=== PATIENT | male | born 1960 | race Caucasian/White ===

== ENCOUNTER 2017-01-30 15:33 | Emergency (ER) | payer MEDICAID, MEDICARE ==
[~2017-01-30] VITALS: Wt 84.0 kg
[~2017-01-30 15:33] MED LIST: ASPI81TA3 PO; CLOP75TA27 PO; GLIP-95 PO; HYDR-3672 PO; ISOS20TA3 PO; METO-53 PO; SMV40T PO; [UNRECOGNIZED DRUG - REMARK]
[2017-01-30] MEDS ORDERED: SOD CHLORIDE 0.9% 1,000 ML IV STA (15:55)
[2017-01-30 16:12] LABS: ADD SCAN DIFF NO
[2017-01-30 16:15] LABS: BASOPHIL # 0.1 10^3/ul (0.0-0.1); BASOPHILS % 0.3 % (0.0-2.0); EOSINOPHILS # 0.2 10^3/ul (0.0-0.5); EOSINOPHILS % 1.3 % (0.0-7.0); HEMATOCRIT 48.7 % (42.0-52.0); HEMOGLOBIN 16.6 g/dl (14.0-18.0); LYMPHOCYTES # 2.8 10^3/ul (0.8-2.9); LYMPHOCYTES % 18.8 % (15.0-51.0); MEAN CORPUSCULAR HEMOGLOBIN 29.2 pg (29.0-33.0); MEAN CORPUSCULAR HGB CONC 34.1 g/dl (32.0-37.0); MEAN CORPUSCULAR VOLUME 85.7 fl (82.0-101.0); MEAN PLATELET VOLUME 10.5 fl (7.4-10.4); MONOCYTE # 0.9 10^3/ul (0.3-0.9); MONOCYTES % 5.9 % (0.0-11.0); NEUTROPHIL # 10.7 10^3/ul (1.6-7.5); NEUTROPHILS % 72.9 % (39.0-77.0); PLATELET COUNT 261 10^3/UL (140-415); RED BLOOD COUNT 5.68 10^6/ul (4.70-6.10); RED CELL DISTRIBUTION WIDTH 13.1 % (11.5-14.5); WHITE BLOOD COUNT 14.7 10^3/ul (4.8-10.8)
--- NOTE | 2017-01-30 16:22 | RADRPT ---
PROCEDURE: XR Chest. CLINICAL INDICATION: Chest pain TECHNIQUE: Single frontal view of the chest was obtained. COMPARISON: 07/26/2013 FINDINGS: The heart is within normal limits. The thoracic aorta is calcified. The patient is status post CABG. The lungs are clear. There is no pleural effusion or pneumothorax. RPTAT: AA IMPRESSION: No acute disease. Calcified aorta consistent with atherosclerotic disease. .Marino Cunha MD, MD Date Time Electronically viewed and signed by .Marino Cunha MD, on 01/30/2017 16:22 .S/
[2017-01-30 16:30] LABS: INR 0.91; PROTIME 12.3 Sec (12.2-14.2)
[2017-01-30 16:31] LABS: PARTIAL THROMBOPLASTIN TIME 25.2 Sec (25.0-35.0)
[2017-01-30 16:34] LABS: ALANINE AMINOTRANSFERASE 31 IU/L (13-69); ALBUMIN 4.9 g/dl (3.3-4.9); ALBUMIN/GLOBULIN RATIO 1.44; ALKALINE PHOSPHATASE 155 IU/L (42-121); ANION GAP 13 (8-16); ASPARTATE AMINO TRANSFERASE 18 IU/L (15-46); BILIRUBIN,INDIRECT 0.2 mg/dl (0-1.1); BILIRUBIN,TOTAL 0.2 mg/dl (0.2-1.3); BLOOD UREA NITROGEN 38 mg/dl (7-20); CALCIUM 9.1 mg/dl (8.4-10.2); CARBON DIOXIDE 26 mmol/L (21-31); CHLORIDE 103 mmol/L (97-110); CREATININE 2.74 mg/dl (0.61-1.24); GLUCOSE 123 mg/dl (70-220); POTASSIUM 3.6 mmol/L (3.5-5.1); SODIUM 138 mmol/L (135-144); TOTAL PROTEIN 8.3 g/dl (6.1-8.1)
[2017-01-30 16:45] LABS: B-TYPE NATRIURETIC PEPTIDE 737 PG/ML (0-125)
[2017-01-30 16:47] LABS: TROPONIN-I < 0.012 ng/ml (0.00-0.12)
[2017-01-30] MEDS ORDERED: morphine 4 MG/ML VIAL IV STA (17:44)
[2017-01-30] MEDS ORDERED: LISI10TA2 PO (17:57)
[2017-01-30] MEDS ORDERED: ISOS20TA19 PO (17:58)
[2017-01-30] MEDS ORDERED: SODI650T PO (17:59)
[2017-01-30] MEDS ORDERED: FAMOTIDINE 20 MG INJ IV ONE (18:00)
[2017-01-30] MEDS ORDERED: NOVO3I SC (18:00)
[2017-01-30] MEDS ORDERED: METO-448 PO (18:01)
[2017-01-30] MEDS ORDERED: ATOR80TA75 PO (18:01)
[2017-01-30] MEDS ORDERED: LANT3I SC (18:02)
--- NOTE | 2017-01-30 18:38 | RADRPT ---
PROCEDURE: CT Abdomen and Pelvis without contrast. CLINICAL INDICATION: Left upper quadrant pain TECHNIQUE: CT scan of the abdomen and pelvis was performed on a multidetector slice CT scanner. No intravenous contrast material was utilized. Sagittal and coronal reformatted images were obtained fr om the axial source images. Images were reviewed on a high-resolution PACS workstation. Exam CTDlvol = 13 mGy and DLP = 770 Gy-cm. One of the following 3 dose reduction techniques were used: Automated exposure control; adjustment of the mA and/or kV according to patient size; or use of iterative rec onstruction technique. COMPARISON: 07/23/2013. FINDINGS: There are nonspecific air-fluid levels in nondilated distal small bowel. There is no definite obstr uction or ileus. The appendix is visualized and is normal in appearance. There is no evidence for appendicitis. There is sigmoid colon diverticulosis without evidence for diverticulitis. There is n o free fluid. The liver is overall normal in size. No intrahepatic lesions are identified. The gallbladder has bee n removed. There is no definite biliary ductal dilation. Pancreas is partially fatty replaced.. The spleen is unremarkable.. There are no adrenal masses. The aorta is normal caliber. Atherosclerotic vascular calcifications are present.. Kidneys are normal in appearance without hydronephrosis, mass or calculus.. Ureters are of normal ca liber and without evidence for an obstructing calculus. The urinary bladder is normal in appearance .. Limited evaluation of the lung bases is unremarkable. There is metal artifact from right hip bipolar arthroplasty. There are degenerative changes of the lumbar spine. IMPRESSION: 1. Nonspecific air-fluid levels in nondilated small bowel, possibly an enteritis. No definite obstr uction or ileus. 2. Sigmoid colon diverticulosis without evidence for diverticulitis. 3. Status post cholecystectomy. 4. Partially fatty replaced pancreas. 5. Atherosclerotic vascular calcifications. 6. Status post right hip bipolar arthroplasty. RPTAT: HMVK .Herbert Unger MD, Date Time Electronically viewed and signed by .Herbert Unger MD, MD on 01/30/2017 18:38 .K/
[2017-01-30 18:40] VITALS: BP 179/93; PULSE 82; RESP 20; TEMP 98.3
--- NOTE | 2017-01-30 18:55 | ERD ---
ER Documentation Chief Complaint Date/Time DATE: 01/30/17 TIME: 18:51 Chief Complaint CHEST PAIN, ONSET YESTERDAY, PT ANXIOUS, CRYING HPI This is a 56-year-old male who presents to the emergency room for evaluation of abdominal cramping, nausea and vomiting. The patient states that he is having pain and abdominal cramping which localizes to the midportion of his abdomen. He states that he came to the ER for evaluation of his symptoms. He denies any aggravating or relieving factors for her symptoms. He denies any blood in the vomit or diarrhea. He does state that he ate [employer] prior to arrival ROS All systems reviewed and are negative except as per history of present illness. Medications Home Meds Reported Medications Insulin Glargine* (Lantus*) 100 Unit/Ml Soln, 40 UNIT SC QHS, #1 VIAL 01/30/17 Metoprolol Tartrate* (Lopressor*) 25 Mg Tab, 25 MG PO BID, #60 TAB 01/30/17 Atorvastatin* (Atorvastatin*) 80 Mg Tablet, 80 MG PO DAILY, #30 TAB 01/30/17 Insulin Aspart* (Novolog Insulin Pen*) 100 Unit/Ml Soln, 0 SC .SLIDING SCALE AC , EA TAKE 5-10 UNITS SLIDING SCALE TID WITH MEALS 01/30/17 Sodium Bicarbonate (Antacid) 650 Mg Tablet, 325 MG PO BID, TAB 01/30/17 Isosorbide Dinitrate* (Isosorbide Dinitrate*) 20 Mg Tablet, 20 MG PO Q6H Y for PRN, TAB 01/30/17 Lisinopril* (Lisinopril*) 10 Mg Tablet, 10 MG PO DAILY, #30 TAB 01/30/17 Discontinued Reported Medications [Asked Family To Bring Recent Med List] No Conflict Check 07/17/13 Glipizide* (Glipizide*) 10 Mg Tablet, 10 MG PO DAILY 07/08/13 Metoprolol (Lopressor) 50 Mg Tablet, 50 MG PO BID 07/08/13 Isosorbide Mononitrate (Isosorbide Mononitrate) 20 Mg Tablet, 20 MG PO q8hr 07/08/13 Clopidogrel Bisulfate (Clopidogrel) 75 Mg Tablet, 75 MG PO DAILY 07/08/13 Hydralazine Hcl* (Hydralazine Hcl*) 50 Mg Tablet, 25 MG PO TID 07/08/13 Simvastatin (Simvastatin) 40 Mg Tablet, 40 MG PO DAILY 07/08/13 Aspirin (Aspirin) 81 Mg Chew, 81 MG PO DAILY 05/08/13 Allergies Allergies: Coded Allergies: No Known Allergy (Unverified , 01/30/17) PMhx/Soc History of Surgery: Yes (HEART BYPASS 07/2013, RIGHT HIP REPLACEMENT 2010, CHOLECYSTECTOMY 2006) Anesthesia Reaction: No Hx Neurological Disorder: No Hx Respiratory Disorders: No Hx Cardiac Disorders: Yes (HEART ATTACK 07/2013, HIGH BLOOD PRESSURE) Hx Psychiatric Problems: No Hx Miscellaneous Medical Probl: Yes (CAD, CABG, RENAL INSUF, HTN, DYSLIPIDEMIA , DM) Hx Alcohol Use: No Hx Substance Use: Yes (marijuana) Hx Tobacco Use: Yes ("QUIT CIGARETTES A FEW MONTHS AGO") Smoking Status: Former smoker Physical Exam Vitals Vital Signs Date Time Temp Pulse Resp B/P Pulse Ox O2 Delivery O2 Flow Rate FiO2 01/30/17 18:40 98.3 82 20 179/93 99 Room Air 01/30/17 17:29 98.3 80 24 168/80 100 Room Air 01/30/17 16:16 Nasal Cannula 2 01/30/17 15:59 86 24 155/90 100 Room Air 01/30/17 15:39 98.3 97 17 148/75 98 Physical Exam INITIAL VITAL SIGNS: Reviewed by me GENERAL: The patient is well developed and appropriate for usual state of health in no apparent distress HEENT: Pupils equal, round, and reactive to light. EOMI. There is no scleral icterus. NECK: C-spine is soft and supple, there is no meningismus. There is no cervical lymphadenopathy. LUNGS: Clear to auscultation bilaterally. There are no rales, wheezes or rhonchi. HEART: Regular rate and rhythm, no murmurs, clicks, rubs or gallops. ABDOMEN: Epigastric tenderness to palpation, negative Mccullough sign, otherwise soft, non-tender, non-distended. There are bowel sounds in all four quadrants. No rebound or guarding. EXTREMITIES: There is no peripheral cyanosis or edema. No focal swelling or erythema. NEUROLOGICAL: The patient moves all four extremities with 5/5 strength. Cranial nerves II - XII are intact. Normal gait. Alert and oriented SKIN: There is no apparent rash or petechiae. HEME/LYMPHATIC: There is no evidence of excessive bruising or lymphedema. PSYCHIATRIC: The patient does appear to be mildly anxious Result Diagram: 01/30/17 1557 01/30/17 1557 Results 24 hrs Laboratory Tests Test 01/30/17 15:57 White Blood Count 14.710^3/ul Red Blood Count 5.6810^6/ul Hemoglobin 16.6g/dl Hematocrit 48.7% Mean Corpuscular Volume 85.7fl Mean Corpuscular Hemoglobin 29.2pg Mean Corpuscular Hemoglobin Concent 34.1g/dl Red Cell Distribution Width 13.1% Platelet Count 78607^3/UL Mean Platelet Volume 10.5fl Neutrophils % 72.9% Lymphocytes % 18.8% Monocytes % 5.9% Eosinophils % 1.3% Basophils % 0.3% Nucleated Red Blood Cells % 0.0/100WBC Neutrophils # 10.710^3/ul Lymphocytes # 2.810^3/ul Monocytes # 0.910^3/ul Eosinophils # 0.210^3/ul Basophils # 0.110^3/ul Nucleated Red Blood Cells # 0.010^3/ul Prothrombin Time 12.3Sec Prothrombin Time Ratio 1.0 INR International Normalized Ratio 0.91 Activated Partial Thromboplast Time 25.2Sec Sodium Level 138mmol/L Potassium Level 3.6mmol/L Chloride Level 103mmol/L Carbon Dioxide Level 26mmol/L Anion Gap 13 Blood Urea Nitrogen 38mg/dl Creatinine 2.74mg/dl Glucose Level 123mg/dl Calcium Level 9.1mg/dl Total Bilirubin 0.2mg/dl Direct Bilirubin 0.00mg/dl Indirect Bilirubin 0.2mg/dl Aspartate Amino Transf (AST/SGOT) 18IU/L Alanine Aminotransferase (ALT/SGPT) 31IU/L Alkaline Phosphatase 155IU/L Troponin I < 0.012ng/ml B-Type Natriuretic Peptide 737PG/ML Total Protein 8.3g/dl Albumin 4.9g/dl Globulin 3.40g/dl Albumin/Globulin Ratio 1.44 Lipase 253U/L Current Medications Medications (Trade) Dose Ordered Sig/Radha Route PRN Reason Start Time Stop Time Status Last Admin Dose Admin Sodium Chloride (NS) 1,000 ml @ 1,000 mls/hr Q1H STAT IV 01/30/17 15:55 01/30/17 16:54 DC 01/30/17 16:04 Morphine Sulfate (morphine) 4 mg ONCE STAT IV 01/30/17 17:44 01/30/17 17:45 DC 01/30/17 18:00 Famotidine (Pepcid Iv) 20 mg ONCE ONCE IV 01/30/17 18:00 01/30/17 18:01 DC 01/30/17 17:58 Procedures/MDM CT abdomen pelvis without: 1. Nonspecific air-fluid levels in nondilated small bowel, possibly an enteritis. No definite obstruction or ileus. 2. Sigmoid colon diverticulosis without evidence for diverticulitis. 3. Status post cholecystectomy. 4. Partially fatty replaced pancreas. 5. Atherosclerotic vascular calcifications. 6. Status post right hip bipolar arthroplasty. Chest X-ray 1V Interpreted by me: Soft Tissue: No acute abnormalities Bones: No acute abnormalities Mediastinum/Cardiac Silhouette/Lungs: [No acute abnormalities] EKG: Rate/Rhythm: [Normal Sinus Rhythm with premature atrial complexes] QRS, ST, T-waves: [No changes consistent w/ acute ischemia] Impression: [No evidence of ischemia or arrhythmia] This 56-year-old male presents to the emergency room for evaluation of abdominal cramping, nausea and vomiting. When I evaluated him the patient was anxious. I did obtain lab work which showed a minor leukocytosis. This patient 's EKG was nonischemic, troponin is negative. Chest x-ray was also clear. The patient was given morphine for his pain, and was given Zofran. Upon my reevaluation he stated that his pain has improved but he still having pain which localized to the midportion of his abdomen. A CT of the abdomen and pelvis was obtained which demonstrates enteritis. I notified this patient of his diagnosis. The patient is in no acute distress at this time and will be discharged home with a prescription for Mylanta. This patient does have chronic renal insufficiency and acute kidney injury also. Advised patient to remain hydrated and he verbalized understanding. Departure Diagnosis: Primary Impression: Abdominal pain Additional Impressions: Acute kidney injury Enteritis Nausea vomiting and diarrhea Condition: Stable LESTER KING DO Jan 30, 2017 18:55
[2017-01-30] MEDS ORDERED: MAG-19 PO (18:56)
== END 2017-01-30 19:05 | disposition home or self-care (01) ==
LOC: E/R 15:33
DX: R10.13 Epigastric pain (principal); N17.9 Acute kidney failure, unspecified; K52.9 Noninfective gastroenteritis and colitis, unspecified; R11.2 Nausea with vomiting, unspecified; I25.10 Atherosclerotic heart disease of native coronary artery without angina pectoris; I10 Essential (primary) hypertension; E11.9 Type 2 diabetes mellitus without complications; R06.00 Dyspnea, unspecified; Z87.891 Personal history of nicotine dependence; Z95.1 Presence of aortocoronary bypass graft; Z79.82 Long term (current) use of aspirin; Z79.4 Long term (current) use of insulin; Z79.84 Long term (current) use of oral hypoglycemic drugs; Z96.641 Presence of right artificial hip joint
CPT/HCPCS: 71010; 74176; 80053; 83690; 83880; 84484; 85025; 85610; 85730; 93005; J2270; J7030; 36415; 96374; 96375

== ENCOUNTER 2017-03-30 14:42 | Inpatient (IN) | payer MEDICARE, MEDICAID ==
[~2017-03-30] VITALS: Ht 180.3 cm; Wt 89.5 kg
[~2017-03-30 14:42] MED LIST changes: -ASPI81TA3 PO; +ATOR80TA75 PO; -CLOP75TA27 PO; -GLIP-95 PO; -HYDR-3672 PO; +ISOS20TA19 PO; -ISOS20TA3 PO; +LANT3I SC; +LISI10TA2 PO; +MAG-19 PO; +METO-448 PO; -METO-53 PO; +NOVO3I SC; -SMV40T PO; +SODI650T PO; -[UNRECOGNIZED DRUG - REMARK]
[2017-03-30] MEDS ORDERED: ACETAMINOPHEN 500 MG TAB PO STA (15:07)
[2017-03-30 15:14] LABS: BASOPHILS % 0.3 % (0.0-2.0); EOSINOPHILS # 0.2 10^3/ul (0.0-0.5); EOSINOPHILS % 1.6 % (0.0-7.0); HEMATOCRIT 47.5 % (42.0-52.0); HEMOGLOBIN 15.8 g/dl (14.0-18.0); LYMPHOCYTES # 2.4 10^3/ul (0.8-2.9); MEAN CORPUSCULAR HEMOGLOBIN 28.5 pg (29.0-33.0); MEAN CORPUSCULAR HGB CONC 33.3 g/dl (32.0-37.0); MEAN CORPUSCULAR VOLUME 85.7 fl (82.0-101.0); MEAN PLATELET VOLUME 10.5 fl (7.4-10.4); MONOCYTE # 0.9 10^3/ul (0.3-0.9); MONOCYTES % 6.4 % (0.0-11.0); NEUTROPHIL # 9.9 10^3/ul (1.6-7.5); NEUTROPHILS % 72.6 % (39.0-77.0); PLATELET COUNT 243 10^3/UL (140-415); RED BLOOD COUNT 5.54 10^6/ul (4.70-6.10); RED CELL DISTRIBUTION WIDTH 14.2 % (11.5-14.5); WHITE BLOOD COUNT 13.6 10^3/ul (4.8-10.8)
--- NOTE | 2017-03-30 15:24 | RADRPT ---
PROCEDURE: XR Chest. CLINICAL INDICATION: Chest pain TECHNIQUE: A single portable view of the chest was obtained. COMPARISON: 01/30/2017 FINDINGS: A prior median sternotomy is again seen. The aorta is tortuous and atherosclerotic. The cardiomedi astinal silhouette is otherwise within normal limits. The left hemidiaphragm is elevated with possib le left basilar atelectasis. The remaining lungs and pleural spaces are clear. The soft tissues and osseous structures demonstrate benign age related senescent changes. IMPRESSION: No acute cardiopulmonary disease. Elevated left hemidiaphragm with possible left basilar atelectasis. RPTAT: HPNM Physician Caro Date Time Electronically viewed and signed by Physician Caro on 03/30/2017 15:24 /
[2017-03-30 15:30] LABS: INR 0.88; PROTIME 11.9 Sec (12.2-14.2); PT RATIO 0.9
[2017-03-30] MEDS ORDERED: LORAZEPAM 2 MG INJ IV ONE (15:30)
[2017-03-30] MEDS ORDERED: NITROGLYCERIN (SL) 0.4 MG TAB SL PRN ×2 (15:30→17:30)
[2017-03-30 15:31] LABS: ANION GAP 22 (8-16); BLOOD UREA NITROGEN 47 mg/dl (7-20); CALCIUM 9.2 mg/dl (8.4-10.2); CARBON DIOXIDE 23 mmol/L (21-31); CHLORIDE 100 mmol/L (97-110); CREATININE 3.11 mg/dl (0.61-1.24); GLUCOSE 175 mg/dl (70-220); POTASSIUM 4.4 mmol/L (3.5-5.1); SODIUM 141 mmol/L (135-144)
[2017-03-30 15:38] LABS: PARTIAL THROMBOPLASTIN TIME 25.5 Sec (25.0-35.0)
[2017-03-30 15:47] LABS: TROPONIN-I < 0.012 ng/ml (0.00-0.12)
[2017-03-30] MEDS ORDERED: HYDR-3671 PO (15:58)
[2017-03-30] MEDS ORDERED: CALC0.2511 PO (15:59)
[2017-03-30] MEDS ORDERED: ASPI-664 PO (15:59)
--- NOTE | 2017-03-30 17:22 | ERA ---
ER Documentation Chief Complaint Date/Time DATE: 03/30/17 TIME: 17:20 Chief Complaint cp since this am HPI This is a 57-year-old male with a history of hypertension, hyperlipidemia, CAD and previous bypass surgery who presents to the emergency room for evaluation of chest pain. The patient localizes the chest pain to the center of the chest and describes as an achy pain with no radiation. He denies any diaphoresis associated with this and denies any aggravating or relieving factors. He came to the ER for evaluation. ROS All systems reviewed and are negative except as per history of present illness. Medications Home Meds Active Scripts Magaldrate/Simethicone* (Mylanta*) 355 Ml Susp, 30 ML PO QID Y for GASTROINTESTINAL UPSET, #1 BOTTLE Prov:LESTER KING DO 01/30/17 Reported Medications Calcitriol* (Calcitriol*) 0.25 Mcg Capsule, 0.25 MCG PO DAILY, CAP 03/30/17 Aspirin* (Aspirin* EC) 81 Mg Tablet.dr, 81 MG PO DAILY, TAB 03/30/17 Hydralazine Hcl* (Hydralazine Hcl*) 25 Mg Tab, 25 MG PO TID, #90 TAB 03/30/17 Insulin Glargine* (Lantus*) 100 Unit/Ml Soln, 40 UNIT SC QHS, #1 VIAL 01/30/17 Metoprolol Tartrate* (Lopressor*) 25 Mg Tab, 25 MG PO BID, #60 TAB 01/30/17 Atorvastatin* (Atorvastatin*) 80 Mg Tablet, 80 MG PO DAILY, #30 TAB 01/30/17 Insulin Aspart* (Novolog Insulin Pen*) 100 Unit/Ml Soln, 0 SC .SLIDING SCALE AC , EA TAKE 5-20 UNITS SLIDING SCALE TID WITH MEALS 01/30/17 Sodium Bicarbonate (Antacid) 650 Mg Tablet, 325 MG PO BID, TAB 01/30/17 Isosorbide Dinitrate* (Isosorbide Dinitrate*) 20 Mg Tablet, 20 MG PO Q6H Y for PRN, TAB 01/30/17 Discontinued Reported Medications Lisinopril* (Lisinopril*) 10 Mg Tablet, 10 MG PO DAILY, #30 TAB 01/30/17 Allergies Allergies: Coded Allergies: No Known Allergy (Unverified , 03/30/17) PMhx/Soc History of Surgery: Yes (HEART BYPASS 07/2013, RIGHT HIP REPLACEMENT 2010, CHOLECYSTECTOMY 2006) Anesthesia Reaction: No Hx Neurological Disorder: No Hx Respiratory Disorders: No Hx Cardiac Disorders: Yes (HEART ATTACK 07/2013, HIGH BLOOD PRESSURE) Hx Psychiatric Problems: No Hx Miscellaneous Medical Probl: Yes (CAD, CABG, RENAL INSUF, HTN, DYSLIPIDEMIA , DM) Hx Alcohol Use: No Hx Substance Use: Yes (marijuana) Hx Tobacco Use: Yes Smoking Status: Former smoker Physical Exam Vitals Vital Signs Date Time Temp Pulse Resp B/P Pulse Ox O2 Delivery O2 Flow Rate FiO2 03/30/17 16:32 81 18 139/73 94 Nasal Cannula 2.0 03/30/17 15:03 Nasal Cannula 2 03/30/17 14:59 87 29 162/80 99 Room Air 03/30/17 14:46 98.1 84 18 175/81 99 Physical Exam INITIAL VITAL SIGNS: Reviewed by me GENERAL: The patient is well developed and appropriate for usual state of health in no apparent distress HEENT: Pupils equal, round, and reactive to light. EOMI. There is no scleral icterus. NECK: C-spine is soft and supple, there is no meningismus. There is no cervical lymphadenopathy. LUNGS: Clear to auscultation bilaterally. There are no rales, wheezes or rhonchi. HEART: Regular rate and rhythm, no murmurs, clicks, rubs or gallops. ABDOMEN: Soft, non-tender, non-distended. There are bowel sounds in all four quadrants. No rebound or guarding. EXTREMITIES: There is no peripheral cyanosis or edema. No focal swelling or erythema. NEUROLOGICAL: The patient moves all four extremities with 5/5 strength. Cranial nerves II - XII are intact. Normal gait. Alert and oriented SKIN: There is no apparent rash or petechiae. HEME/LYMPHATIC: There is no evidence of excessive bruising or lymphedema. PSYCHIATRIC: The patient does not appear anxious or depressed. Result Diagram: 03/30/17 1505 03/30/17 1505 Results 24 hrs Laboratory Tests Test 03/30/17 15:05 White Blood Count 13.610^3/ul Red Blood Count 5.5410^6/ul Hemoglobin 15.8g/dl Hematocrit 47.5% Mean Corpuscular Volume 85.7fl Mean Corpuscular Hemoglobin 28.5pg Mean Corpuscular Hemoglobin Concent 33.3g/dl Red Cell Distribution Width 14.2% Platelet Count 69953^3/UL Mean Platelet Volume 10.5fl Neutrophils % 72.6% Lymphocytes % 18.0% Monocytes % 6.4% Eosinophils % 1.6% Basophils % 0.3% Nucleated Red Blood Cells % 0.0/100WBC Neutrophils # 9.910^3/ul Lymphocytes # 2.410^3/ul Monocytes # 0.910^3/ul Eosinophils # 0.210^3/ul Basophils # 0.010^3/ul Nucleated Red Blood Cells # 0.010^3/ul Prothrombin Time 11.9Sec Prothrombin Time Ratio 0.9 INR International Normalized Ratio 0.88 Activated Partial Thromboplast Time 25.5Sec Sodium Level 141mmol/L Potassium Level 4.4mmol/L Chloride Level 100mmol/L Carbon Dioxide Level 23mmol/L Anion Gap 22 Blood Urea Nitrogen 47mg/dl Creatinine 3.11mg/dl Glucose Level 175mg/dl Calcium Level 9.2mg/dl Troponin I < 0.012ng/ml Current Medications Medications (Trade) Dose Ordered Sig/Radha Route PRN Reason Start Time Stop Time Status Last Admin Dose Admin Nitroglycerin (Nitroglycerin (Sl Tab) 0.4 Mg) 1 tab Q5M UP TO 3 DOSES PRN SL CHEST PAIN 03/30/17 15:30 03/30/17 15:11 Acetaminophen (Tylenol Tab) 1,000 mg ONCE STAT PO 03/30/17 15:07 03/30/17 15:08 DC 03/30/17 15:11 Lorazepam (Ativan) 1 mg ONCE ONCE IV 03/30/17 15:30 03/30/17 15:31 DC 03/30/17 15:36 Ondansetron HCl (Zofran Inj) 4 mg ER BRIDGE PRN IV NAUSEA AND/OR VOMITING 03/30/17 17:30 03/31/17 17:29 Acetaminophen (Tylenol Tab) 650 mg ER BRIDGE PRN PO MILD PAIN/FEVER 03/30/17 17:30 03/31/17 17:29 Aspirin (Halfprin) 81 mg DAILY PO 03/31/17 09:00 Atorvastatin Calcium (Lipitor) 80 mg DAILY PO 03/31/17 09:00 Calcitriol (Rocaltrol) 0.25 mcg DAILY PO 03/31/17 09:00 Hydralazine HCl (Apresoline) 25 mg TID PO 03/30/17 21:00 Insulin Glargine (Lantus) 40 unit QHS SC 03/30/17 21:00 Metoprolol Tartrate (Lopressor) 25 mg BID PO 03/30/17 21:00 Sodium Bicarbonate (Sodium Bicarbonate Tab) 325 mg BID PO 03/30/17 21:00 Miscellaneous Information 1 ea NOTE XX 03/30/17 17:30 Glucose (Glutose) 15 gm Q15M PRN PO DECREASED GLUCOSE 03/30/17 17:30 Glucose (Glutose) 22.5 gm Q15M PRN PO DECREASED GLUCOSE 03/30/17 17:30 Dextrose (D50w Syringe) 25 ml Q15M PRN IV DECREASED GLUCOSE 03/30/17 17:30 Dextrose (D50w Syringe) 50 ml Q15M PRN IV DECREASED GLUCOSE 03/30/17 17:30 Glucagon (Glucagen) 1 mg Q15M PRN IM DECREASED GLUCOSE 03/30/17 17:30 Glucose (Glutose) 15 gm Q15M PRN BUCCAL DECREASED GLUCOSE 03/30/17 17:30 Procedures/MDM EKG: Rate/Rhythm: [Normal Sinus Rhythm] QRS, ST, T-waves: [No changes consistent w/ acute ischemia] Impression: [No evidence of ischemia or arrhythmia] Chest X-ray 1V Interpreted by me: Soft Tissue: No acute abnormalities Bones: No acute abnormalities Mediastinum/Cardiac Silhouette/Lungs: [No acute abnormalities] This 57-year-old male presents to the ER for evaluation of chest pain. The patient has a significant cardiac history including a previous bypass surgery. He states he has not had a stress test in over one year. 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 Patient's chest pain has improved slightly with sublingual nitroglycerin. He is hemodynamically stable and appropriate for telemetry at this time. Smoking Cessation Therapy: Pt. was lectured for greater than 3 minutes on the health risks of continued smoking and the benefits of cessation. Departure Diagnosis: Primary Impression: Chest pain Additional Impressions: Renal insufficiency Tobacco abuse Tobacco abuse counseling Condition: Stable LESTER KING DO Mar 30, 2017 17:22
[2017-03-30] MEDS ORDERED: GLUCOSE GEL 15 GRAM TUBE PO PRN ×2 (17:30)
[2017-03-30] MEDS ORDERED: BISACODYL (EC) 5 MG TAB PO PRN (17:30)
[2017-03-30] MEDS ORDERED: DEXTROSE 50% 50 ML SYRINGE IV PRN ×2 (17:30)
[2017-03-30] MEDS ORDERED: ACETAMINOPHEN 325 MG TAB PO PRN ×2 (17:30)
[2017-03-30] MEDS ORDERED: ONDANSETRON 4 MG TAB PO PRN (17:30)
[2017-03-30] MEDS ORDERED: BISACODYL 10 MG SUPP PR PRN (17:30)
[2017-03-30] MEDS ORDERED: DOCUSATE SODIUM 100 MG CAP PO PRN (17:30)
[2017-03-30] MEDS ORDERED: ONDANSETRON 4 MG INJ IV PRN ×2 (17:30)
[2017-03-30] MEDS ORDERED: NACL 0.9% 3 ML SYG IV SCH (17:30)
[2017-03-30] MEDS ORDERED: GLUCAGON 1 MG INJ IM PRN (17:30)
[2017-03-30] MEDS ORDERED: GLUCOSE GEL 15 GRAM TUBE BUCCAL PRN (17:30)
[2017-03-30 19:38] VITALS: PULSE 84
[2017-03-30 19:46] VITALS: BP 177/85; RESP 84
[2017-03-30] MEDS: METOPROLOL 25 MG TAB PO SCH (20:25)
[2017-03-30] MEDS: HYDROCODONE/APAP (5/325) TAB PO PRN (20:26)
[2017-03-30 20:47] VITALS: PULSE 82
[2017-03-30] MEDS: HEPARIN 5,000 UNIT/0.5 ML VIAL SC SCH (20:56)
[2017-03-30 21:55] VITALS: Ht 180.3 cm; Wt 89.5 kg
[2017-03-30 22:03] LABS: CREATINE KINASE 45 IU/L (23-200)
[2017-03-30 22:22] LABS: CK-MB 1.57 ng/ml (0.0-2.4); TROPONIN-I < 0.012 ng/ml (0.00-0.12)
[2017-03-30] MEDS: INSULIN ASPART [NOVOLOG] 3 ML PEN SC SCH (22:25)
[2017-03-30] MEDS: INSULIN GLARGINE [LANtus] 3 ML PEN SC SCH (22:26)
[2017-03-30] MEDS: NA BICARBONATE 650 MG TAB PO SCH (22:29)
[2017-03-30 23:53] VITALS: BP 153/75; RESP 20
[2017-03-31] VITALS (13 sets, daily range): BP systolic 116–197; BP diastolic 65–96; PULSE 70–80; RESP 16–19
[2017-03-31 04:30] LABS: BASOPHILS % 0.4 % (0.0-2.0); EOSINOPHILS # 0.2 10^3/ul (0.0-0.5); EOSINOPHILS % 2.1 % (0.0-7.0); HEMOGLOBIN 14.8 g/dl (14.0-18.0); LYMPHOCYTES # 1.9 10^3/ul (0.8-2.9); LYMPHOCYTES % 20.8 % (15.0-51.0); MEAN CORPUSCULAR HEMOGLOBIN 27.5 pg (29.0-33.0); MEAN CORPUSCULAR HGB CONC 32.2 g/dl (32.0-37.0); MEAN CORPUSCULAR VOLUME 85.5 fl (82.0-101.0); MEAN PLATELET VOLUME 10.7 fl (7.4-10.4); MONOCYTE # 0.7 10^3/ul (0.3-0.9); MONOCYTES % 7.2 % (0.0-11.0); NEUTROPHIL # 6.2 10^3/ul (1.6-7.5); NEUTROPHILS % 68.5 % (39.0-77.0); PLATELET COUNT 220 10^3/UL (140-415); RED BLOOD COUNT 5.38 10^6/ul (4.70-6.10); RED CELL DISTRIBUTION WIDTH 14.7 % (11.5-14.5)
[2017-03-31 05:28] LABS: INR 0.94; PARTIAL THROMBOPLASTIN TIME 25.9 Sec (25.0-35.0); PROTIME 12.6 Sec (12.2-14.2)
[2017-03-31 06:45] LABS: ALBUMIN 3.9 g/dl (3.3-4.9); ALBUMIN/GLOBULIN RATIO 1.14; BILIRUBIN,INDIRECT 0.2 mg/dl (0-1.1); BILIRUBIN,TOTAL 0.2 mg/dl (0.2-1.3); CALCIUM 8.7 mg/dl (8.4-10.2); CHOL/HDL RATIO 4.5 RATIO; CREATININE 2.93 mg/dl (0.61-1.24); MAGNESIUM 1.8 mg/dl (1.7-2.5); POTASSIUM 4.5 mmol/L (3.5-5.1); TOTAL PROTEIN 7.3 g/dl (6.1-8.1)
[2017-03-31] MEDS: PANTOPRAZOLE (EC) 40 MG TAB PO SCH (06:45)
[2017-03-31 06:51] LABS: TROPONIN-I 0.012 ng/ml (0.00-0.12)
[2017-03-31 07:01] LABS: CK-MB 1.35 ng/ml (0.0-2.4)
--- NOTE | 2017-03-31 08:27 | RADRPT ---
PROCEDURE: XR Chest. CLINICAL INDICATION: sob TECHNIQUE: Single frontal view of the chest was obtained COMPARISON: Chest x-ray 03/30/2017 FINDINGS: Mediasternotomy wires and mediastinal clips are re-identified. The cardiomediastinal silhouette is within normal limits. There are atherosclerotic calcifications o f the thoracic aorta. No pneumothorax, pleural effusion, or parenchymal consolidation is identified. Ill-defined opacity projecting over the left costophrenic angle persists and may represent atelectas is and / or scarring. There is no evidence of significant pulmonary vascular congestion. There are degenerative changes of the visualized spine including osteophytosis. IMPRESSION: 1. No evidence of acute cardiopulmonary process. 2. Stable ill-defined opacity in the left costophrenic angle, likely representing atelectasis and / or scarring. 3. Thoracic aortic atherosclerotic disease. 4. History of median sternotomy. RPTAT: PP Physician Juan Date Time Electronically viewed and signed by Physician Juan on 03/31/2017 08:27 CAROL/
[2017-03-31] MEDS: ATORVASTATIN 80 MG TAB PO SCH (08:47)
[2017-03-31] MEDS: ASPIRIN (EC) 81 MG TAB PO SCH (08:47)
[2017-03-31] MEDS: CALCITRIOL 0.25 MCG CAP PO SCH (08:47)
[2017-03-31] MEDS: NA BICARBONATE 650 MG TAB PO SCH ×2 (08:47→20:49)
[2017-03-31] MEDS: METOPROLOL 25 MG TAB PO SCH ×2 (08:53→20:49)
[2017-03-31] MEDS ORDERED: ASPIRIN 81 MG TAB PO SCH (09:00)
[2017-03-31] MEDS: INSULIN ASPART [NOVOLOG] 3 ML PEN SC SCH ×4 (09:02→20:56)
[2017-03-31] MEDS: HEPARIN 5,000 UNIT/0.5 ML VIAL SC SCH ×2 (09:02→20:50)
[2017-03-31 09:53] LABS: THYROID STIMULATING HORMONE 2.87 MIU/L (0.465-4.680)
--- NOTE | 2017-03-31 11:14 | HP ---
DATE OF ADMISSION: 03/30/2017 REASON FOR ADMISSION: Chest pain. HISTORY OF PRESENT ILLNESS: This 57-year-old man with known coronary artery disease was admitted through the emergency room yesterday after he presented with chest pain. The patient said that he had some substernal pressure-type of pain. He took one nitroglycerin which helped to relieve the pain after 10 to 15 minutes. The pain returned. He took another nitroglycerin and following that, took a third nitroglycerin. The patient said he also had some headache. The patient had some slight shortness of breath but denied diaphoresis. The patient came to the emergency room. He had an acute SD ruled out and he was admitted to the telemetry floor. The patient now complains of some left parasternal chest wall tenderness. He is not having the pressure- type pain that he had yesterday. The patient has known coronary artery disease. He did have a stent placed in May 2013, and then underwent a coronary artery bypass grafting in July 2013. The patient denies any nausea, vomiting, diarrhea, fever or chills. PAST MEDICAL HISTORY: Remarkable for type 2 diabetes mellitus, hypertension, chronic kidney disease with diabetic nephropathy, coronary artery disease, status post stent placed May 2013, hyperlipidemia, diabetic neuropathy and diabetic retinopathy. He is blind in his right eye. PAST SURGICAL HISTORY: Right total hip replacement in 2010. Cholecystectomy. Coronary artery bypass grafting in July 2013. FAMILY HISTORY: Father is , age 48 of heart disease. Mother is alive. Mother has diabetes mellitus. No family history of cancer. SOCIAL HISTORY: The patient does smoke marijuana but says he does not smoke tobacco or cigarettes. He was a former smoker. He does not drink alcohol. Occupation: [employer]. MEDICATIONS: Include the followin. Hydralazine 25 mg three times a day. 2. Metoprolol 25 mg twice a day. 3. NovoLog insulin sliding scale. 4. Sodium bicarbonate 650 mg four times a day. 5. Atorvastatin 80 mg daily. 6. Lantus 45 units at bedtime. 7. NovoLog Pen subcu before each meal. 8. Furosemide 20 mg daily. 9. Kira aspirin 81 mg daily. 10. Isosorbide dinitrate 20 mg three times a day. 11. Bactroban ointment applied topically three times a day. 12. He discontinued lisinopril because of rising serum creatinine. PHYSICAL EXAMINATION: GENERAL APPEARANCE: A well-developed man in no apparent distress. VITAL SIGNS: Temperature 97.3. Pulse 77. Respirations 19. Blood pressure 144/78. O2 saturation 96 percent on room air. HEENT: Head normocephalic. Eyes: Blind in right eye. Extraocular muscles intact. Nose and mouth are normal. NECK: Supple. There is no neck vein distention. LUNGS: Clear to auscultation. HEART: Regular rhythm. No murmurs, rubs or gallops. ABDOMEN: Soft, nontender. No masses, organomegaly or abdominal bruits. EXTREMITIES: No peripheral edema. NEUROLOGIC: He has motor strength of 5/5 throughout. Cranial nerves: Blind in right eye, otherwise unremarkable. Gait is normal. PLAN: 1. Order his routine medications according to his prior medications. A custom NovoLog sliding scale was ordered as per patients recommendations. 2. Cardiology consult called with Dr. Cano. 3. Monitor labs. Chest x-ray. 4. Cardiology workup . He will probably need a cardiac stress test . Dictated By: Lacho Gaytan MD /deepak/radha /Document#: [id number] RUDDY
[2017-03-31] MEDS: LORAZEPAM 0.5 MG TAB PO PRN ×2 (12:49→21:07)
--- NOTE | 2017-03-31 14:21 | RADRPT ---
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 Physician: ELIEZER SCHNEIDER Quality: Adequate Procedures: Transthoracic echocardiogram with complete 2D, M-Mode, and doppler examination. Indications: Chest Pain. 2D/M Mode Doppler Measurement Value Normal Ranges Measurement Value Normal Ranges LVIDd 2D 4.5 3.5 - 5.6 cm AV Peak Marty 1.1 m/sec LVIDs 2D 3.0 2.1 - 4.1 cm AV Peak PG 5.1 mmHg LVPWd 2D 1.1 0.6 - 1.1 cm LVOT Peak Marty 0.9 m/sec IVSd 2D 1.0 0.6 - 1.1 cm LVOT Peak PG 3.5 mmHg AoR Diam 2D 2.9 2.0 - 3.7 cm MV E Peak Marty 0.7 m/sec EDV 2D 94.1 cm3 MV A Peak Marty 0.8 m/sec ESV 2D 27.0 cm3 MV E/A 0.9 LA Dimen 2D 3.7 2.3 - 4.0 cm MV Decel Time 214 msec MV Decel Saline 3 MV E/A 0.9 TR Peak Marty 1.7 m/sec TR Peak PG 11.3 mmHg RVSP 14.0 mmHg Findings Left Ventricle: Normal left ventricular cavity size. Normal left ventricular wall thickness. Mild left ventricular systolic dysfunction. Ejection fraction is visually estimated at 4045 %. Tissue Doppler/Mitral Doppler indices are consistent with impaired relaxation (Stage I diastolic dysfunction). These segments of the LV are hypokinetic inferior mid segment and inferior apex segment. Right Ventricle: Normal right ventricular size. Normal right ventricular systolic function. Left Atrium: The left atrium is normal in size. Right Atrium: The right atrium is normal in size. Mitral Valve: Normal appearance and function of the mitral valve with trace physiologic regurgitation. Aortic Valve: Normal appearance of the aortic valve. No significant aortic stenosis or insufficiency. Tricuspid Valve: Normal appearance of the tricuspid valve. Estimated peak PA systolic pressure 14 mmHg. There is trace tricuspid regurgitation. Pulmonic Valve: Pulmonic valve not well visualized. Pericardium: Normal pericardium with no significant pericardial effusion. Aorta: Normal aortic root. IVC: Normal size and normal respiratory collapse consistent with normal right atrial pressure. Conclusions 1.Normal left ventricular cavity size. Normal left ventricular wall thickness. Mild left ventricular systolic dysfunction. Ejection fraction is visually estimated at 40-45 %. Tissue Doppler/Mitral Doppler indices are consistent with impaired relaxation (Stage I diastolic dysfunction). These segments of the LV are hypokinetic inferior mid segment and inferior apex segment. 2.Normal appearance and function of the mitral valve with trace physiologic regurgitation. 3.Normal appearance of the tricuspid valve. Estimated peak PA systolic pressure 14 mmHg. There is trace tricuspid regurgitation. Electronically Signed By: Tobi Cano 02-Apr-2017 15:32:51 -0700 [ADDENDUM] Patient Name: SHANNON GALLEGOS Study Date: 31-Mar-2017 [id number]
--- NOTE | 2017-03-31 14:22 | RADRPT ---
Vent Rate: 78 bpm RR Interval: 0 msec [place] Interval: 170 msec QRS Duration: 98 msec QT Interval: 410 msec QTC Interval: 467 msec P-R-T [place]: 22 - -53 - 94 degrees Normal sinus rhythm Left anterior fascicular block Inferior infarct , age undetermined Anterolateral infarct , age undetermined Abnormal ECG Electronically Signed By: Tobi Cano [id number]
[2017-03-31] MEDS: HYDROCODONE/APAP (5/325) TAB PO PRN ×2 (18:47→18:50)
[2017-03-31] MEDS: ISOSORBIDE DINITRATE 20 MG TAB PO SCH (20:50)
[2017-03-31] MEDS: INSULIN GLARGINE [LANtus] 3 ML PEN SC SCH (20:55)
[2017-03-31] MEDS: ZOLPIDEM 5 MG TAB PO PRN (21:44)
[2017-04-01] VITALS (11 sets, daily range): BP systolic 140–189; BP diastolic 73–96; PULSE 76–102; RESP 16–19
[2017-04-01] MEDS: ACCU-CHEK XX SCH (02:00)
[2017-04-01] MEDS: PANTOPRAZOLE (EC) 40 MG TAB PO SCH (06:01)
[2017-04-01 07:23] LABS: BASOPHIL # 0.1 10^3/ul (0.0-0.1); BASOPHILS % 0.7 % (0.0-2.0); EOSINOPHILS # 0.2 10^3/ul (0.0-0.5); EOSINOPHILS % 2.2 % (0.0-7.0); HEMATOCRIT 45.1 % (42.0-52.0); HEMOGLOBIN 14.8 g/dl (14.0-18.0); LYMPHOCYTES # 1.9 10^3/ul (0.8-2.9); LYMPHOCYTES % 21.2 % (15.0-51.0); MEAN CORPUSCULAR HEMOGLOBIN 28.2 pg (29.0-33.0); MEAN CORPUSCULAR HGB CONC 32.8 g/dl (32.0-37.0); MEAN CORPUSCULAR VOLUME 86.1 fl (82.0-101.0); MEAN PLATELET VOLUME 10.4 fl (7.4-10.4); MONOCYTE # 0.6 10^3/ul (0.3-0.9); NEUTROPHIL # 6.2 10^3/ul (1.6-7.5); PLATELET COUNT 219 10^3/UL (140-415); RED BLOOD COUNT 5.24 10^6/ul (4.70-6.10); RED CELL DISTRIBUTION WIDTH 14.3 % (11.5-14.5); WHITE BLOOD COUNT 9.1 10^3/ul (4.8-10.8)
[2017-04-01] MEDS: INSULIN ASPART [NOVOLOG] 3 ML PEN SC SCH ×4 (07:30→20:24)
[2017-04-01 07:51] LABS: ALBUMIN 3.7 g/dl (3.3-4.9); ALBUMIN/GLOBULIN RATIO 1.32; BILIRUBIN,INDIRECT 0.3 mg/dl (0-1.1); BILIRUBIN,TOTAL 0.3 mg/dl (0.2-1.3); CALCIUM 8.7 mg/dl (8.4-10.2); CREATININE 3.05 mg/dl (0.61-1.24); MAGNESIUM 1.7 mg/dl (1.7-2.5); PHOSPHORUS 4.9 mg/dl (2.5-4.9); POTASSIUM 4.5 mmol/L (3.5-5.1); TOTAL PROTEIN 6.5 g/dl (6.1-8.1)
--- NOTE | 2017-04-01 08:04 | PN ---
Date/Time of Note Date/Time of Note DATE: 04/01/17 TIME: 07:56 Assessment/Plan VTE Prophylaxis VTE Prophylaxis Intervention: ambulation Lines/Catheters IV [facility]ter Type (from [facility]): Saline Lock Urinary Cath still in place: No Assessment/Plan Chief Complaint/Hosp Course 1. Acute Coronary syndrome , he has no chest pain today . Cardiac work up in progress . Dr Cano is seeing patient . Anticipate cardiac stress test . 2. DM 3. HTN 4. HLD Problems: Subjective 24 Hr Interval Summary Free Text/Dictation He is awake and alert . He denies any chest pain . Constitutional: no complaints Cardiovascular: no complaints Gastrointestinal: no complaints Genitourinary: no complaints Musculoskeletal: no complaints Neurologic: no complaints Exam/Review of Systems Vital Signs Vitals Vital Signs Date Time Temp Pulse Resp B/P Pulse Ox O2 Delivery O2 Flow Rate FiO2 04/01/17 07:35 98.0 81 19 152/73 95 03/30/17 18:39 Room Air 03/30/17 16:32 2.0 Intake and Output 03/31/17 03/31/17 04/01/17 15:00 23:00 07:00 Intake Total 500 ml Output Total 800 ml Balance -300 ml Exam Constitutional: alert, frail, oriented Head: normocephalic Neck: supple Respiratory: clear to auscultation Cardiovascular: regular rate and rhythm Gastrointestinal: soft Musculoskeletal: nl extremities to inspection Results Result Diagram: 04/01/17 0701 03/31/17 0335 Results 24 hrs Laboratory Tests Test 03/31/17 08:37 03/31/17 12:37 03/31/17 17:26 03/31/17 20:28 Bedside Glucose 189 200 132 189 Test 04/01/17 02:06 04/01/17 07:01 Bedside Glucose 132 White Blood Count 9.1 Red Blood Count 5.24 Hemoglobin 14.8 Hematocrit 45.1 Mean Corpuscular Volume 86.1 Mean Corpuscular Hemoglobin 28.2 L Mean Corpuscular Hemoglobin Concent 32.8 Red Cell Distribution Width 14.3 Platelet Count 219 Mean Platelet Volume 10.4 Neutrophils % 68.0 Lymphocytes % 21.2 Monocytes % 7.0 Eosinophils % 2.2 Basophils % 0.7 Nucleated Red Blood Cells % 0.0 Neutrophils # 6.2 Lymphocytes # 1.9 Monocytes # 0.6 Eosinophils # 0.2 Basophils # 0.1 Nucleated Red Blood Cells # 0.0 Medications Medications Current Medications Aspirin (Halfprin) 81 mg DAILY PO Last administered on 03/31/17 08:47; Admin Dose 81 MG; Start 03/31/17 at 09:00 Atorvastatin Calcium (Lipitor) 80 mg DAILY PO Last administered on 03/31/17 08 :47; Admin Dose 80 MG; Start 03/31/17 at 09:00 Calcitriol (Rocaltrol) 0.25 mcg DAILY PO Last administered on 03/31/17 08:47; Admin Dose 0.25 MCG; Start 03/31/17 at 09:00 Insulin Glargine (Lantus) 40 unit QHS SC Last administered on 03/31/17 20:55; Admin Dose 40 UNIT; Start 03/30/17 at 21:00 Metoprolol Tartrate (Lopressor) 25 mg BID PO Last administered on 03/31/17 20: 49; Admin Dose 25 MG; Start 03/30/17 at 21:00 Sodium Bicarbonate (Sodium Bicarbonate Tab) 325 mg BID PO Last administered on 03/31/17 20:49; Admin Dose 325 MG; Start 03/30/17 at 21:00 Miscellaneous Information 1 ea NOTE XX ; Start 03/30/17 at 17:30 Glucose (Glutose) 15 gm Q15M PRN PO DECREASED GLUCOSE; Start 03/30/17 at 17:30 Glucose (Glutose) 22.5 gm Q15M PRN PO DECREASED GLUCOSE; Start 03/30/17 at 17: 30 Dextrose (D50w Syringe) 25 ml Q15M PRN IV DECREASED GLUCOSE; Start 03/30/17 at 17:30 Dextrose (D50w Syringe) 50 ml Q15M PRN IV DECREASED GLUCOSE; Start 03/30/17 at 17:30 Glucagon (Glucagen) 1 mg Q15M PRN IM DECREASED GLUCOSE; Start 03/30/17 at 17:30 Glucose (Glutose) 15 gm Q15M PRN BUCCAL DECREASED GLUCOSE; Start 03/30/17 at 17 :30 Lorazepam (Ativan) 0.5 mg Q8H PRN PO ANXIETY Last administered on 03/31/17 21: 07; Admin Dose 0.5 MG; Start 03/30/17 at 17:30 Ondansetron HCl (Zofran Tab) 4 mg Q6H PRN PO NAUSEA AND/OR VOMITING; Start at 17:30 Ondansetron HCl (Zofran Inj) 4 mg Q6H PRN IV NAUSEA AND/OR VOMITING; Start at 17:30 Nitroglycerin (Nitroglycerin (Sl Tab) 0.4 Mg) 1 tab Q5M PRN SL CHEST PAIN; Start 03/30/17 at 17:30 Acetaminophen (Tylenol Tab) 650 mg Q6H PRN PO PAIN LEVEL 1-3 OR FEVER; Start at 17:30 Acetaminophen/ Hydrocodone Bitart ([place] (5/325)) 1 tab Q6H PRN PO PAIN LEVEL 4 -6 Last administered on 03/31/17 18:50; Admin Dose 1 TAB; Start 03/30/17 at 17: 30 Zolpidem Tartrate (Ambien) 5 mg QHS PRN PO INSOMNIA Last administered on 21:44; Admin Dose 5 MG; Start 03/30/17 at 17:30 Docusate Sodium (Colace) 100 mg Q12H PRN PO CONSTIPATION; Start 03/30/17 at 17: 30 Bisacodyl (Dulcolax) 5 mg DAILY PRN PO CONSTIPATION; Start 03/30/17 at 17:30 Bisacodyl (Dulcolax Supp) 10 mg DAILY PRN [place] CONSTIPATION; Start 03/30/17 at 17 :30 Pantoprazole (Protonix Tab) 40 mg DAILY@06 PO Last administered on 04/01/17 06: 01; Admin Dose 40 MG; Start 03/31/17 at 06:00 Heparin Sodium (Porcine) (Heparin (5000 Units/0.5 ml)) 5,000 unit Q12 SC Last administered on 03/31/17 20:50; Admin Dose 5,000 UNIT; Start 03/30/17 at 21:00 Clonidine (Catapres) 0.1 mg Q4H PRN PO ELEVATED SYSTOLIC BP Last administered on 03/31/17 06:44; Admin Dose 0.1 MG; Start 03/30/17 at 19:30 Diagnostic Test (Pha) (Accu-Chek) 1 ea 02 XX ; Start 04/01/17 at 02:00 Hydralazine HCl (Apresoline) 50 mg TID PO Last administered on 03/31/17 20:48 ; Admin Dose 50 MG; Start 03/31/17 at 21:00 Isosorbide Dinitrate (Isordil) 20 mg TID PO Last administered on 03/31/17 20: 50; Admin Dose 20 MG; Start 03/31/17 at 21:00 ANGÉLICA HEWITT MD Apr 01, 2017 08:04
--- NOTE | 2017-04-01 08:26 | CONS ---
DATE OF ADMISSION: 03/31/2017 DATE OF CONSULTATION: 03/31/2017 REASON FOR CONSULTATION: Chest pain/acute coronary syndrome. REQUESTING PHYSICIAN: Lacho Gaytan MD HISTORY OF PRESENT ILLNESS: Mr. Candelaria is a 57-year-old male with a history of coronary artery disease, status post prior ST elevation [place] and subsequent stent in right coronary artery in 2012 and subsequently coronary artery bypass graft surgery with SANCHES to LAD, saphenous vein graft to obtuse marginal in May 2013, diabetes mellitus, hypertension, chronic kidney disease not on dialysis, total hip replacement in 2010, who presented with complaints of recurrent substernal chest pain described as a tightness occurring at rest. Upon arrival in the emergency department, temperature of 98.1, blood pressure 175/81, pulse 84, respiratory rate 18, satting 98 percent. The patient's labs revealed a sodium 141, potassium 4.4, creatinine 3.11, BUN 47, troponin negative, INR 0.88. The patient underwent a chest x-ray revealing no acute current problems, elevated left hemidiaphragm, possible left basilar atelectasis. The patient had electrocardiogram revealed normal sinus rhythm, rate of 78, with left axis deviation, left anterior fascicular block, inferior Qs, poor R-wave progression across the anterior precordial leads. The patient came into the floor and since coming to the floor states he has had recurrent episodes of subsequent chest pain. The patient has had a total of 2 negative troponins, ruling him out for acute myocardial infarction. PAST MEDICAL HISTORY: As above in HPI. The patient's last EF being 40 percent by echo in 2012. MEDICATION: Currently while in the hospital: 1. Insulin sliding scale. 2. Aspirin 81 mg a day. 3. Lipitor 80 mg nightly. 4. Calcitriol. 5. Protonix 40 mg daily. 6. Hydralazine 25 mg p.o. t.i.d. 7. Metoprolol 25 mg p.o. b.i.d. 8. Sodium bicarbonate. 9. Heparin 5000 subcutaneous q.12. 10. Clonidine p.r.n. 11. p.r.n. 12. Zofran p.r.n. 13. Tylenol p.r.n. 14. Hart p.r.n. ALLERGIES: NO KNOWN DRUG ALLERGIES. SOCIAL HISTORY: No tobacco, ETOH and positive history of marijuana use. FAMILY HISTORY: . REVIEW OF SYSTEMS: Above in HPI. CONSTITUTIONAL: No fevers or chills. PULMONARY: No current shortness of breath. CARDIOVASCULAR: Positive chest pain. GASTROINTESTINAL: No vomiting. GENITOURINARY: No hematuria. MUSCULOSKELETAL: . PSYCH: Patient denies depression. NEURO: . PHYSICAL EXAMINATION: VITAL SIGNS: Temperature 97.9, blood pressure 162/79, pulse 70, respiratory rate 17, satting 97 percent. GENERAL: The patient is alert and awake, in no acute distress. NECK: JVD approximately 8 cm of water. CHEST: Fair air movement. HEART: Regular rate and rhythm. Normal S1, S2. ABDOMEN: Positive bowel sounds. Soft. EXTREMITIES: No edema. One plus pluses bilaterally posterior. LABORATORY: Most recent today: White count 9.0, hemoglobin 14.8, platelet count of 220. Sodium 140, potassium 4.5, creatinine 2.93, BUN 45. LDL 70, HDL 31. TSH 2.87. INR 0.94. IMAGING STUDIES: Chest x-ray from 03/31/2017 revealing no evidence of acute cardiopulmonary problems, stable left costophrenic angle, history of median sternotomy. ECG as up in HPI with most recent today revealing normal sinus rhythm, rate 78, left axis deviation, left anterior fascicular block, poor R wave progression across the anterior precordial leads. No significant change from prior. IMPRESSION: 1. Chest pain, status post acute coronary syndrome. 2. Coronary artery disease, status post coronary bypass grafting in 2012. 3. History of myocardial infarction in 2012. 4. History of PTCA and stent placement in 2012 5. Hypertension, mildly uncontrolled. 6. Dyslipidemia. 7. Diabetes mellitus. RECOMMENDATIONS: 1. At this time, we have maintained the patient on telemetry monitoring to follow up with closely. 2. Continue the patient's current metoprolol and hydralazine and we will try titrating hydralazine to improve overall blood pressure control and we will add oral nitrate and follow up in . Continue patient's current statin therapy with well- controlled LDL. 3. We will follow patient's 2D echo ejection fraction and wall motion abnormality . Continue patient's aspirin for prophylaxis cardiac event. 4. We will place patient in for Lexiscan stress test to assess for any ongoing significant ischemia lending to his subsequent chest pain and subsequent admission to the hospital. Thank you for letting me take part in the care of this patient. I will continue to follow him closely with you. Dictated By: Anita Rosa /fnt/tlr /Document#: [id number] CC: Lacho Gaytan MD;*End*
[2017-04-01] MEDS: ISOSORBIDE DINITRATE 20 MG TAB PO SCH ×3 (09:00→20:21)
[2017-04-01] MEDS: ASPIRIN (EC) 81 MG TAB PO SCH (09:00)
[2017-04-01] MEDS ORDERED: REGADENOSON 0.4 MG/5 ML SYG ONE (10:11)
--- NOTE | 2017-04-01 11:31 | CONS ---
Date/Time of Note Date/Time of Note DATE: 04/01/17 TIME: 11:29 Assessment/Plan Assessment/Plan Additional Assessment/Plan 1. Chest pain, status post acute coronary syndrome- stress test today 2. Coronary artery disease, status post coronary bypass grafting in 2012- DR. Jerome thakur ws/p stres test 3. History of myocardial infarction in 2012. 4. History of PTCA and stent placement in 2012 - on Rx now 5. Hypertension, mildly uncontrolled.- on high side, resume Rx post stress test 6. Dyslipidemia. 7. Diabetes mellitus- on meds, keep euglycemic. Consultation Date/Type/Reason Admit Date/Time Mar 31, 2017 at 11:02 Initial Consult Date 24 HR Interval Summary Free Text/Dictation NO acute events - BP in good range - no CP, doubt ischemia. ROS: No fever, no chills, no nausea, no vomiting, no diarrhea/constipation No recent weight changes No chest pain, no PND, no orthopnea No dizziness, blurred vision No thirst, no heat or cold intolerance Exam/Review of Systems Vital Signs Vitals Vital Signs Date Time Temp Pulse Resp B/P Pulse Ox O2 Delivery O2 Flow Rate FiO2 04/01/17 08:14 78 04/01/17 07:35 98.0 19 152/73 95 03/30/17 18:39 Room Air 03/30/17 16:32 2.0 Intake and Output 03/31/17 03/31/17 04/01/17 15:00 23:00 07:00 Intake Total 500 ml Output Total 800 ml Balance -300 ml Exam General: WN/WD/NAD, AOx 3 HEENT: Unicetric/atraumatic/EOMI (follows commands) NECK: JVD elevated, no thyromegaly Lymph: no lymphadenopathy HEART: regular with no S3, II/ systolic murmur at apex LUNGS: Coarse sounds ABD: soft, NT, ND, +BS : Intact Neuro: non focal SKIN: chronic changes EXT: trace edema Results Result Diagram: 04/01/17 0701 04/01/17 0701 Results 24 hrs Laboratory Tests Test 03/31/17 12:37 03/31/17 17:26 03/31/17 20:28 04/01/17 02:06 Bedside Glucose 200 132 189 132 Test 04/01/17 07:01 04/01/17 08:25 White Blood Count 9.1 Red Blood Count 5.24 Hemoglobin 14.8 Hematocrit 45.1 Mean Corpuscular Volume 86.1 Mean Corpuscular Hemoglobin 28.2 L Mean Corpuscular Hemoglobin Concent 32.8 Red Cell Distribution Width 14.3 Platelet Count 219 Mean Platelet Volume 10.4 Neutrophils % 68.0 Lymphocytes % 21.2 Monocytes % 7.0 Eosinophils % 2.2 Basophils % 0.7 Nucleated Red Blood Cells % 0.0 Neutrophils # 6.2 Lymphocytes # 1.9 Monocytes # 0.6 Eosinophils # 0.2 Basophils # 0.1 Nucleated Red Blood Cells # 0.0 Sodium Level 141 Potassium Level 4.5 Chloride Level 103 Carbon Dioxide Level 23 Anion Gap 20 H Blood Urea Nitrogen 46 H Creatinine 3.05 H Glucose Level 96 # Calcium Level 8.7 Phosphorus Level 4.9 Magnesium Level 1.7 Total Bilirubin 0.3 Direct Bilirubin 0.00 Indirect Bilirubin 0.3 Aspartate Amino Transf (AST/SGOT) 16 # Alanine Aminotransferase (ALT/SGPT) 43 Alkaline Phosphatase 103 Troponin I 0.018 Total Protein 6.5 Albumin 3.7 Globulin 2.80 Albumin/Globulin Ratio 1.32 Parathyroid Hormone (Intact) Bedside Glucose 97 Medications Medications Current Medications Aspirin (Halfprin) 81 mg DAILY PO Last administered on 03/31/17 08:47; Admin Dose 81 MG; Start 03/31/17 at 09:00 Atorvastatin Calcium (Lipitor) 80 mg DAILY PO Last administered on 03/31/17 08 :47; Admin Dose 80 MG; Start 03/31/17 at 09:00 Calcitriol (Rocaltrol) 0.25 mcg DAILY PO Last administered on 03/31/17 08:47; Admin Dose 0.25 MCG; Start 03/31/17 at 09:00 Insulin Glargine (Lantus) 40 unit QHS SC Last administered on 03/31/17 20:55; Admin Dose 40 UNIT; Start 03/30/17 at 21:00 Metoprolol Tartrate (Lopressor) 25 mg BID PO Last administered on 03/31/17 20: 49; Admin Dose 25 MG; Start 03/30/17 at 21:00 Sodium Bicarbonate (Sodium Bicarbonate Tab) 325 mg BID PO Last administered on 03/31/17 20:49; Admin Dose 325 MG; Start 03/30/17 at 21:00 Miscellaneous Information 1 ea NOTE XX ; Start 03/30/17 at 17:30 Glucose (Glutose) 15 gm Q15M PRN PO DECREASED GLUCOSE; Start 03/30/17 at 17:30 Glucose (Glutose) 22.5 gm Q15M PRN PO DECREASED GLUCOSE; Start 03/30/17 at 17: 30 Dextrose (D50w Syringe) 25 ml Q15M PRN IV DECREASED GLUCOSE; Start 03/30/17 at 17:30 Dextrose (D50w Syringe) 50 ml Q15M PRN IV DECREASED GLUCOSE; Start 03/30/17 at 17:30 Glucagon (Glucagen) 1 mg Q15M PRN IM DECREASED GLUCOSE; Start 03/30/17 at 17:30 Glucose (Glutose) 15 gm Q15M PRN BUCCAL DECREASED GLUCOSE; Start 03/30/17 at 17 :30 Lorazepam (Ativan) 0.5 mg Q8H PRN PO ANXIETY Last administered on 03/31/17 21: 07; Admin Dose 0.5 MG; Start 03/30/17 at 17:30 Ondansetron HCl (Zofran Tab) 4 mg Q6H PRN PO NAUSEA AND/OR VOMITING; Start at 17:30 Ondansetron HCl (Zofran Inj) 4 mg Q6H PRN IV NAUSEA AND/OR VOMITING; Start at 17:30 Nitroglycerin (Nitroglycerin (Sl Tab) 0.4 Mg) 1 tab Q5M PRN SL CHEST PAIN; Start 03/30/17 at 17:30 Acetaminophen (Tylenol Tab) 650 mg Q6H PRN PO PAIN LEVEL 1-3 OR FEVER; Start at 17:30 Acetaminophen/ Hydrocodone Bitart ([place] (5/325)) 1 tab Q6H PRN PO PAIN LEVEL 4 -6 Last administered on 03/31/17 18:50; Admin Dose 1 TAB; Start 03/30/17 at 17: 30 Zolpidem Tartrate (Ambien) 5 mg QHS PRN PO INSOMNIA Last administered on 21:44; Admin Dose 5 MG; Start 03/30/17 at 17:30 Docusate Sodium (Colace) 100 mg Q12H PRN PO CONSTIPATION; Start 03/30/17 at 17: 30 Bisacodyl (Dulcolax) 5 mg DAILY PRN PO CONSTIPATION; Start 03/30/17 at 17:30 Bisacodyl (Dulcolax Supp) 10 mg DAILY PRN [place] CONSTIPATION; Start 03/30/17 at 17 :30 Pantoprazole (Protonix Tab) 40 mg DAILY@06 PO Last administered on 04/01/17 06: 01; Admin Dose 40 MG; Start 03/31/17 at 06:00 Heparin Sodium (Porcine) (Heparin (5000 Units/0.5 ml)) 5,000 unit Q12 SC Last administered on 03/31/17 20:50; Admin Dose 5,000 UNIT; Start 03/30/17 at 21:00 Clonidine (Catapres) 0.1 mg Q4H PRN PO ELEVATED SYSTOLIC BP Last administered on 03/31/17 06:44; Admin Dose 0.1 MG; Start 03/30/17 at 19:30 Diagnostic Test (Pha) (Accu-Chek) 1 ea 02 XX ; Start 04/01/17 at 02:00 Hydralazine HCl (Apresoline) 50 mg TID PO Last administered on 03/31/17 20:48 ; Admin Dose 50 MG; Start 03/31/17 at 21:00 Isosorbide Dinitrate (Isordil) 20 mg TID PO Last administered on 03/31/17 20: 50; Admin Dose 20 MG; Start 03/31/17 at 21:00 KAREN MESSINA MD Apr 01, 2017 11:31
[2017-04-01] MEDS: ATORVASTATIN 80 MG TAB PO SCH (12:12)
[2017-04-01] MEDS: CALCITRIOL 0.25 MCG CAP PO SCH (12:12)
[2017-04-01] MEDS: NA BICARBONATE 650 MG TAB PO SCH ×2 (12:12→20:20)
[2017-04-01] MEDS: METOPROLOL 25 MG TAB PO SCH ×2 (12:13→20:20)
[2017-04-01] MEDS: HEPARIN 5,000 UNIT/0.5 ML VIAL SC SCH ×2 (12:19→20:22)
--- NOTE | 2017-04-01 12:58 | RADRPT ---
PROCEDURE: Lexiscan myocardial perfusion study CLINICAL INDICATION: 57 -year-old patient complaining of chest pain. TECHNIQUE: Lexiscan 0.4 mg intravenously separate acquisition gated myocardial perfusion SPECT usi ng Tc 99m Myoview 31.4 mCi intravenously at stress and Tc-99m Myoview, 9.8 mCi intravenously at rest was performed using the rest/stress sequence. Poststress Myoview SPECT images were obtained in the supine position. COMPARISON: No prior studies. FINDINGS: Perfusion images reveal a moderate size moderate in degree predominantly nonreversible perfusion def ect in the apical, inferolateral and distal anteroseptal waters. Lexiscan post stress gated SPECT images demonstrate moderate hypokinesis of the left ventricle. IMPRESSION: 1. The type and distribution of the scintigraphic abnormalities are most consistent with a moderate size predominantly nonreversible perfusion defect in the apex, inferolateral and distal anteroseptal waters. 2. Moderate hypokinesis of the left ventricle. 3. The left ventricle ejection fraction at stress is 35%. A call report was made to Dr. Hopkins at 12:54 p.m. on April 01, 2017. RPTAT: HH .Mary Edwards MD, MD Date Time Electronically viewed and signed by .Mary Edwards MD, MD on 04/01/2017 12:58 .L/
[2017-04-01] MEDS: LORAZEPAM 0.5 MG TAB PO PRN ×2 (15:38→23:33)
[2017-04-01] MEDS: HYDROCODONE/APAP (5/325) TAB PO PRN (15:39)
[2017-04-01 18:07] LABS: ADD UMIC YES; UR ASCORBIC ACID NEGATIVE (NEGATIVE); UR BILIRUBIN (Dip) NEGATIVE (NEGATIVE); UR BLOOD (Dip) NEGATIVE (NEGATIVE); UR CLARITY CLEAR (CLEAR); UR COLOR YELLOW (YELLOW); UR GLUCOSE (Dip) 3+ mg/dL (NEGATIVE); UR KETONES (Dip) NEGATIVE (NEGATIVE); UR LEUKOCYTE ESTERASE (Dip) NEGATIVE Leu/ul (NEGATIVE); UR NITRITE (Dip) NEGATIVE (NEGATIVE); UR RBC 3 /HPF (0-5); UR SPECIFIC GRAVITY (Dip) 1.011 (1.003-1.030); UR TOTAL PROTEIN (Dip) 3+ mg/dl (NEGATIVE); UR UROBILINOGEN (Dip) NEGATIVE (NEGATIVE)
[2017-04-01 18:40] LABS: PROTEIN/CREAT RATIO 5.87 RATIO
[2017-04-01] MEDS: INSULIN GLARGINE [LANtus] 3 ML PEN SC SCH (20:23)
[2017-04-01] MEDS: ZOLPIDEM 5 MG TAB PO PRN (23:33)
[2017-04-02] VITALS (14 sets, daily range): BP systolic 129–173; BP diastolic 64–94; PULSE 71–97; RESP 17–18
[2017-04-02] MEDS: ACCU-CHEK XX SCH (02:00)
[2017-04-02] MEDS: PANTOPRAZOLE (EC) 40 MG TAB PO SCH (05:44)
--- NOTE | 2017-04-02 08:27 | PN ---
Date/Time of Note Date/Time of Note DATE: 04/02/17 TIME: 08:18 Assessment/Plan VTE Prophylaxis VTE Prophylaxis Intervention: ambulation Lines/Catheters IV [facility] Type [facility]from [facility] Urinary Cath still in place: No Assessment/Plan Chief Complaint/Hosp Course 1. Acute Coronary syndrome , he has no chest pain today . Cardiac work up in progress . Dr Cano is seeing patient . Anticipate cardiac stress test .Lexiscan shows fixed defect and EF of 35 % . Await cardiology follow up . 2. DM , poorly controlled , will get endocrinology consult . 3. HTN 4. HLD 5. CKD stage 4 due to Diabetic nephropathy . 6. diabetic neuropathy and retinopathy . Problems: Subjective 24 Hr Interval Summary Free Text/Dictation He is feeling better today . No chest pain . Lexiscan showed large fixed defect and EF of 35 % . Constitutional: improved, no complaints Respiratory: no complaints Cardiovascular: no complaints Genitourinary: no complaints Skin: no complaints Exam/Review of Systems Vital Signs Vitals Vital Signs Date Time Temp Pulse Resp B/P Pulse Ox O2 Delivery O2 Flow Rate FiO2 04/02/17 08:01 76 04/02/17 07:34 97.6 17 166/80 95 03/30/17 18:39 Room Air 03/30/17 16:32 2.0 Intake and Output 04/01/17 04/01/17 04/02/17 15:00 23:00 07:00 Intake Total 850 ml 800 ml Output Total 1100 ml Balance -250 ml 800 ml Exam Constitutional: alert, frail, oriented ENMT: nl external ears & nose Respiratory: clear to auscultation Cardiovascular: regular rate and rhythm Gastrointestinal: non-tender, soft Musculoskeletal: nl extremities to inspection Results Result Diagram: 04/01/17 0701 04/01/17 0701 Results 24 hrs Laboratory Tests Test 04/01/17 08:25 04/01/17 12:07 04/01/17 14:28 04/01/17 17:21 Bedside Glucose 97 132 218 Urine Color YELLOW Urine Clarity CLEAR Urine pH 6.0 Urine Specific [place] 1.011 Urine Ketones NEGATIVE Urine Nitrite NEGATIVE Urine Bilirubin NEGATIVE Urine Urobilinogen NEGATIVE Urine Leukocyte Esterase NEGATIVE Urine Microscopic RBC 3 Urine Microscopic WBC 1 Urine Hemoglobin NEGATIVE Urine Random Creatinine 74.92 Urine Protein/Creatinine Ratio 5.87 Urine Glucose 3+ H Urine Total Protein 440.0 H Test 04/01/17 20:18 04/02/17 02:29 Bedside Glucose 171 143 Medications Medications Current Medications Aspirin (Halfprin) 81 mg DAILY PO Last administered on 03/31/17 08:47; Admin Dose 81 MG; Start 03/31/17 at 09:00 Atorvastatin Calcium (Lipitor) 80 mg DAILY PO Last administered on 04/01/17 12: 12; Admin Dose 80 MG; Start 03/31/17 at 09:00 Calcitriol (Rocaltrol) 0.25 mcg DAILY PO Last administered on 04/01/17 12:12; Admin Dose 0.25 MCG; Start 03/31/17 at 09:00 Insulin Glargine (Lantus) 40 unit QHS SC Last administered on 04/01/17 20:23; Admin Dose 40 UNIT; Start 03/30/17 at 21:00 Metoprolol Tartrate (Lopressor) 25 mg BID PO Last administered on 04/01/17 20: 20; Admin Dose 25 MG; Start 03/30/17 at 21:00 Sodium Bicarbonate (Sodium Bicarbonate Tab) 325 mg BID PO Last administered on 04/01/17 20:20; Admin Dose 325 MG; Start 03/30/17 at 21:00 Miscellaneous Information 1 ea NOTE XX ; Start 03/30/17 at 17:30 Glucose (Glutose) 15 gm Q15M PRN PO DECREASED GLUCOSE; Start 03/30/17 at 17:30 Glucose (Glutose) 22.5 gm Q15M PRN PO DECREASED GLUCOSE; Start 03/30/17 at 17: 30 Dextrose (D50w Syringe) 25 ml Q15M PRN IV DECREASED GLUCOSE; Start 03/30/17 at 17:30 Dextrose (D50w Syringe) 50 ml Q15M PRN IV DECREASED GLUCOSE; Start 03/30/17 at 17:30 Glucagon (Glucagen) 1 mg Q15M PRN IM DECREASED GLUCOSE; Start 03/30/17 at 17:30 Glucose (Glutose) 15 gm Q15M PRN BUCCAL DECREASED GLUCOSE; Start 03/30/17 at 17 :30 Lorazepam (Ativan) 0.5 mg Q8H PRN PO ANXIETY Last administered on 04/01/17 23: 33; Admin Dose 0.5 MG; Start 03/30/17 at 17:30 Ondansetron HCl (Zofran Tab) 4 mg Q6H PRN PO NAUSEA AND/OR VOMITING; Start at 17:30 Ondansetron HCl (Zofran Inj) 4 mg Q6H PRN IV NAUSEA AND/OR VOMITING; Start at 17:30 Nitroglycerin (Nitroglycerin (Sl Tab) 0.4 Mg) 1 tab Q5M PRN SL CHEST PAIN; Start 03/30/17 at 17:30 Acetaminophen (Tylenol Tab) 650 mg Q6H PRN PO PAIN LEVEL 1-3 OR FEVER Last administered on 04/01/17 20:20; Admin Dose 650 MG; Start 03/30/17 at 17:30 Acetaminophen/ Hydrocodone Bitart ([place] (5/325)) 1 tab Q6H PRN PO PAIN LEVEL 4 -6 Last administered on 04/01/17 15:39; Admin Dose 1 TAB; Start 03/30/17 at 17: 30 Zolpidem Tartrate (Ambien) 5 mg QHS PRN PO INSOMNIA Last administered on 23:33; Admin Dose 5 MG; Start 03/30/17 at 17:30 Docusate Sodium (Colace) 100 mg Q12H PRN PO CONSTIPATION; Start 03/30/17 at 17: 30 Bisacodyl (Dulcolax) 5 mg DAILY PRN PO CONSTIPATION; Start 03/30/17 at 17:30 Bisacodyl (Dulcolax Supp) 10 mg DAILY PRN [place] CONSTIPATION; Start 03/30/17 at 17 :30 Pantoprazole (Protonix Tab) 40 mg DAILY@06 PO Last administered on 04/02/17 05: 44; Admin Dose 40 MG; Start 03/31/17 at 06:00 Heparin Sodium (Porcine) (Heparin (5000 Units/0.5 ml)) 5,000 unit Q12 SC Last administered on 04/01/17 20:22; Admin Dose 5,000 UNIT; Start 03/30/17 at 21:00 Clonidine (Catapres) 0.1 mg Q4H PRN PO ELEVATED SYSTOLIC BP Last administered on 03/31/17 06:44; Admin Dose 0.1 MG; Start 03/30/17 at 19:30 Diagnostic Test (Pha) (Accu-Chek) 1 ea 02 XX ; Start 04/01/17 at 02:00 Hydralazine HCl (Apresoline) 50 mg TID PO Last administered on 04/01/17 20:19; Admin Dose 50 MG; Start 03/31/17 at 21:00 Isosorbide Dinitrate (Isordil) 20 mg TID PO Last administered on 04/01/17 20:21 ; Admin Dose 20 MG; Start 03/31/17 at 21:00 ANGÉLICA HEWITT MD Apr 02, 2017 08:27
[2017-04-02] MEDS: INSULIN ASPART [NOVOLOG] 3 ML PEN SC SCH ×4 (08:39→21:42)
[2017-04-02] MEDS: ISOSORBIDE DINITRATE 20 MG TAB PO SCH ×3 (08:40→21:40)
[2017-04-02] MEDS: ATORVASTATIN 80 MG TAB PO SCH (08:40)
[2017-04-02] MEDS: ASPIRIN (EC) 81 MG TAB PO SCH (08:40)
[2017-04-02] MEDS: NA BICARBONATE 650 MG TAB PO SCH ×2 (08:41→21:00)
[2017-04-02] MEDS: CALCITRIOL 0.25 MCG CAP PO SCH (08:41)
[2017-04-02] MEDS: METOPROLOL 25 MG TAB PO SCH ×2 (08:41→21:40)
[2017-04-02] MEDS: HEPARIN 5,000 UNIT/0.5 ML VIAL SC SCH ×2 (08:43→21:00)
[2017-04-02] MEDS: LORAZEPAM 0.5 MG TAB PO PRN ×2 (08:53→16:53)
--- NOTE | 2017-04-02 15:16 | CONS ---
Date/Time of Note Date/Time of Note DATE: 04/02/17 TIME: 15:09 Assessment/Plan Assessment/Plan Chief Complaint/Hosp Course IMPRESSION: 1. Chest pain, status post acute coronary syndrome.-negative trop x 3. No sig ischemia by lexiscan 04/01. 2. Coronary artery disease, status post coronary bypass grafting in 2012. 3. History of myocardial infarction in 2012. 4. History of PTCA and stent placement in 2012 5. Hypertension, improved control 6. Dyslipidemia. 7. Diabetes mellitus. 8. Cardiomyopathy-EF 40-45% by echo/35% by stress. Lexiscan with no sig ischemia just scar/prior RI 9. Renal failure Recc: -Tele -serial ecg's -Continue hydralazine/coreg/isordil -Continue asa -Follow volume status closely which has been reasonable Problems: Consultation Date/Type/Reason Admit Date/Time Mar 31, 2017 at 11:02 Initial Consult Date 03/31/2017 Type of Consultation: cardiology Reason for Consultation chest pain/CHF Exam/Review of Systems Vital Signs Vitals Vital Signs Date Time Temp Pulse Resp B/P Pulse Ox O2 Delivery O2 Flow Rate FiO2 04/02/17 13:45 97 136/94 04/02/17 11:44 98.2 18 92 03/30/17 18:39 Room Air 03/30/17 16:32 2.0 Intake and Output 04/01/17 04/01/17 04/02/17 15:00 23:00 07:00 Intake Total 850 ml 800 ml Output Total 1100 ml Balance -250 ml 800 ml Exam Review of Systems: CONSTITUTIONAL: No fevers, chills. PULMONARY: No sob CARDIOVASCULAR: No chest pain/palpitations GASTROINTESTINAL: No nausea/vomiting. GENITOURINARY: No hematuria/dysuria. MUSCULOSKELETAL: No myagias/arthalgias. PSYCHIATRIC: The patient denies depression. NEUROLOGIC: No weakness Constitutional: alert Psych: no complaints Head: normocephalic ENMT: mucosa pink and moist Neck: jvd (9 cm water), supple Respiratory: diminished breath sounds (at bases/B) Cardiovascular: regular rate and rhythm Gastrointestinal: non-tender, soft Musculoskeletal: muscle tone (normal) Extremities: edema (none) Neurological: other (No focal defiicts) Results Result Diagram: 04/01/17 0704/01/17 0701 Results 24 hrs Laboratory Tests Test 04/01/17 17:21 04/01/17 20:18 04/02/17 02:29 04/02/17 08:36 Bedside Glucose 218 171 143 181 Test 04/02/17 12:35 04/02/17 12:36 Bedside Glucose 215 195 Medications Medications Current Medications Aspirin (Halfprin) 81 mg DAILY PO Last administered on 04/02/17 08:40; Admin Dose 81 MG; Start 03/31/17 at 09:00 Atorvastatin Calcium (Lipitor) 80 mg DAILY PO Last administered on 04/02/17 08: 40; Admin Dose 80 MG; Start 03/31/17 at 09:00 Calcitriol (Rocaltrol) 0.25 mcg DAILY PO Last administered on 04/02/17 08:41; Admin Dose 0.25 MCG; Start 03/31/17 at 09:00 Insulin Glargine (Lantus) 40 unit QHS SC Last administered on 04/01/17 20:23; Admin Dose 40 UNIT; Start 03/30/17 at 21:00 Metoprolol Tartrate (Lopressor) 25 mg BID PO Last administered on 04/02/17 08: 41; Admin Dose 25 MG; Start 03/30/17 at 21:00 Sodium Bicarbonate (Sodium Bicarbonate Tab) 325 mg BID PO Last administered on 04/02/17 08:41; Admin Dose 325 MG; Start 03/30/17 at 21:00 Miscellaneous Information 1 ea NOTE XX ; Start 03/30/17 at 17:30 Glucose (Glutose) 15 gm Q15M PRN PO DECREASED GLUCOSE; Start 03/30/17 at 17:30 Glucose (Glutose) 22.5 gm Q15M PRN PO DECREASED GLUCOSE; Start 03/30/17 at 17: 30 Dextrose (D50w Syringe) 25 ml Q15M PRN IV DECREASED GLUCOSE; Start 03/30/17 at 17:30 Dextrose (D50w Syringe) 50 ml Q15M PRN IV DECREASED GLUCOSE; Start 03/30/17 at 17:30 Glucagon (Glucagen) 1 mg Q15M PRN IM DECREASED GLUCOSE; Start 03/30/17 at 17:30 Glucose (Glutose) 15 gm Q15M PRN BUCCAL DECREASED GLUCOSE; Start 03/30/17 at 17 :30 Lorazepam (Ativan) 0.5 mg Q8H PRN PO ANXIETY Last administered on 04/02/17 08: 53; Admin Dose 0.5 MG; Start 03/30/17 at 17:30 Ondansetron HCl (Zofran Tab) 4 mg Q6H PRN PO NAUSEA AND/OR VOMITING; Start at 17:30 Ondansetron HCl (Zofran Inj) 4 mg Q6H PRN IV NAUSEA AND/OR VOMITING; Start at 17:30 Nitroglycerin (Nitroglycerin (Sl Tab) 0.4 Mg) 1 tab Q5M PRN SL CHEST PAIN; Start 03/30/17 at 17:30 Acetaminophen (Tylenol Tab) 650 mg Q6H PRN PO PAIN LEVEL 1-3 OR FEVER Last administered on 04/01/17 20:20; Admin Dose 650 MG; Start 03/30/17 at 17:30 Acetaminophen/ Hydrocodone Bitart ([place] (5/325)) 1 tab Q6H PRN PO PAIN LEVEL 4 -6 Last administered on 04/01/17 15:39; Admin Dose 1 TAB; Start 03/30/17 at 17: 30 Zolpidem Tartrate (Ambien) 5 mg QHS PRN PO INSOMNIA Last administered on 23:33; Admin Dose 5 MG; Start 03/30/17 at 17:30 Docusate Sodium (Colace) 100 mg Q12H PRN PO CONSTIPATION; Start 03/30/17 at 17: 30 Bisacodyl (Dulcolax) 5 mg DAILY PRN PO CONSTIPATION; Start 03/30/17 at 17:30 Bisacodyl (Dulcolax Supp) 10 mg DAILY PRN [place] CONSTIPATION; Start 03/30/17 at 17 :30 Pantoprazole (Protonix Tab) 40 mg DAILY@06 PO Last administered on 04/02/17 05: 44; Admin Dose 40 MG; Start 03/31/17 at 06:00 Heparin Sodium (Porcine) (Heparin (5000 Units/0.5 ml)) 5,000 unit Q12 SC Last administered on 04/02/17 08:43; Admin Dose 5,000 UNIT; Start 03/30/17 at 21:00 Clonidine (Catapres) 0.1 mg Q4H PRN PO ELEVATED SYSTOLIC BP Last administered on 03/31/17 06:44; Admin Dose 0.1 MG; Start 03/30/17 at 19:30 Diagnostic Test (Pha) (Accu-Chek) 1 02 XX ; Start 04/01/17 at 02:00 Isosorbide Dinitrate (Isordil) 20 mg TID PO Last administered on 04/02/17 13:45 ; Admin Dose 20 MG; Start 03/31/17 at 21:00 Hydralazine HCl (Apresoline) 100 mg TID PO Last administered on 04/02/17 13:45 ; Admin Dose 100 MG; Start 04/02/17 at 09:00 SONNY ALVARENGA Apr 02, 2017 15:15
--- NOTE | 2017-04-02 15:34 | RADRPT ---
Vent Rate: 75 bpm RR Interval: 0 msec LA Interval: 166 msec QRS Duration: 102 msec QT Interval: 416 msec QTC Interval: 464 msec P-R-T [place]: 63 - -42 - 101 degrees Normal sinus rhythm Left axis deviation Inferior infarct , age undetermined Anterior infarct , age undetermined T wave abnormality, consider lateral ischemia Abnormal ECG Electronically Signed By: Tobi Cano [id number]
[2017-04-02] MEDS: HYDROCODONE/APAP (5/325) TAB PO PRN (18:08)
[2017-04-02] MEDS: INSULIN GLARGINE [LANtus] 3 ML PEN SC SCH (21:42)
[2017-04-02] MEDS: ZOLPIDEM 5 MG TAB PO PRN (23:35)
[2017-04-03] VITALS (12 sets, daily range): BP systolic 128–156; BP diastolic 64–70; PULSE 82–98; RESP 17–18
[2017-04-03] MEDS: ACCU-CHEK XX SCH (02:00)
[2017-04-03] MEDS: PANTOPRAZOLE (EC) 40 MG TAB PO SCH (05:55)
[2017-04-03] MEDS: METOPROLOL 25 MG TAB PO SCH ×2 (08:31→22:08)
[2017-04-03] MEDS: CALCITRIOL 0.25 MCG CAP PO SCH (08:32)
[2017-04-03] MEDS: ATORVASTATIN 80 MG TAB PO SCH (08:32)
[2017-04-03] MEDS: ASPIRIN (EC) 81 MG TAB PO SCH (08:32)
[2017-04-03] MEDS: ISOSORBIDE DINITRATE 20 MG TAB PO SCH ×3 (08:32→22:08)
[2017-04-03] MEDS: NA BICARBONATE 650 MG TAB PO SCH ×2 (08:33→21:00)
[2017-04-03] MEDS: LORAZEPAM 0.5 MG TAB PO PRN (08:33)
[2017-04-03] MEDS: HEPARIN 5,000 UNIT/0.5 ML VIAL SC SCH ×2 (08:36→22:12)
[2017-04-03] MEDS: INSULIN ASPART [NOVOLOG] 3 ML PEN SC SCH ×4 (08:41→22:11)
--- NOTE | 2017-04-03 08:50 | CONS ---
Date/Time of Note Date/Time of Note DATE: 04/03/17 TIME: 08:45 Assessment/Plan Assessment/Plan Chief Complaint/Hosp Course 1. Acute Coronary syndrome , he has no chest pain today . Cardiac work up is completed. The patient has no evidence of an acute WI and no evidence of ischemia on the Padmini scan. Cardiology recommended continued medical therapy. They have no other tests planned. 2. DM , poorly controlled , endocrinology consult called.. 3. HTN, his blood pressure is under better control on higher dose of hydralazine. 4. HLD 5. CKD stage 4 due to Diabetic nephropathy . 6. diabetic neuropathy and retinopathy . 7. Patient now complains of congested cough, will order breathing treatments. Probable discharge home tomorrow. Problems: Consultation Date/Type/Reason Admit Date/Time Mar 31, 2017 at 11:02 Initial Consult Date Type of Consultation: cardiology 24 HR Interval Summary Free Text/Dictation He is awake and responsive this morning. He denies chest pain. He says that he does have a cough and feels congested in the chest. Exam/Review of Systems Vital Signs Vitals Vital Signs Date Time Temp Pulse Resp B/P Pulse Ox O2 Delivery O2 Flow Rate FiO2 04/03/17 08:01 86 04/03/17 07:40 98.0 18 137/67 98 03/30/17 18:39 Room Air 03/30/17 16:32 2.0 Intake and Output 04/02/17 04/02/17 04/03/17 15:00 23:00 07:00 Intake Total 700 ml Balance 700 ml Exam Constitutional: alert, frail, oriented ENMT: nl external ears & nose, nl lips & teeth, nl nasal mucosa & septum Respiratory: clear to auscultation, normal air movement Cardiovascular: regular rate and rhythm Gastrointestinal: non-tender, soft Musculoskeletal: nl extremities to inspection Results Result Diagram: 04/01/17 0701 04/01/17 0701 Results 24 hrs Laboratory Tests Test 04/02/17 12:35 04/02/17 12:36 04/02/17 16:54 04/02/17 21:35 Bedside Glucose 215 195 163 186 Test 04/03/17 02:51 04/03/17 08:29 Bedside Glucose 131 171 Medications Medications Current Medications Aspirin (Halfprin) 81 mg DAILY PO Last administered on 04/03/17t 08:32; Admin Dose 81 MG; Start 03/31/17 at 09:00 Atorvastatin Calcium (Lipitor) 80 mg DAILY PO Last administered on 04/03/17 08: 32; Admin Dose 80 MG; Start 03/31/17 at 09:00 Calcitriol (Rocaltrol) 0.25 mcg DAILY PO Last administered on 04/03/17 08:32; Admin Dose 0.25 MCG; Start 03/31/17 at 09:00 Insulin Glargine (Lantus) 40 unit QHS SC Last administered on 04/02/17 21:42; Admin Dose 40 UNIT; Start 03/30/17 at 21:00 Metoprolol Tartrate (Lopressor) 25 mg BID PO Last administered on 04/03/17 08: 31; Admin Dose 25 MG; Start 03/30/17 at 21:00 Sodium Bicarbonate (Sodium Bicarbonate Tab) 325 mg BID PO Last administered on 04/03/17 08:33; Admin Dose 325 MG; Start 03/30/17 at 21:00 Miscellaneous Information 1 ea NOTE XX ; Start 03/30/17 at 17:30 Glucose (Glutose) 15 gm Q15M PRN PO DECREASED GLUCOSE; Start 03/30/17 at 17:30 Glucose (Glutose) 22.5 gm Q15M PRN PO DECREASED GLUCOSE; Start 03/30/17 at 17: 30 Dextrose (D50w Syringe) 25 ml Q15M PRN IV DECREASED GLUCOSE; Start 03/30/17 at 17:30 Dextrose (D50w Syringe) 50 ml Q15M PRN IV DECREASED GLUCOSE; Start 03/30/17 at 17:30 Glucagon (Glucagen) 1 mg Q15M PRN IM DECREASED GLUCOSE; Start 03/30/17 at 17:30 Glucose (Glutose) 15 gm Q15M PRN BUCCAL DECREASED GLUCOSE; Start 03/30/17 at 17 :30 Lorazepam (Ativan) 0.5 mg Q8H PRN PO ANXIETY Last administered on 04/03/17 08: 33; Admin Dose 0.5 MG; Start 03/30/17 at 17:30 Ondansetron HCl (Zofran Tab) 4 mg Q6H PRN PO NAUSEA AND/OR VOMITING; Start at 17:30 Ondansetron HCl (Zofran Inj) 4 mg Q6H PRN IV NAUSEA AND/OR VOMITING; Start at 17:30 Nitroglycerin (Nitroglycerin (Sl Tab) 0.4 Mg) 1 tab Q5M PRN SL CHEST PAIN; Start 03/30/17 at 17:30 Acetaminophen (Tylenol Tab) 650 mg Q6H PRN PO PAIN LEVEL 1-3 OR FEVER Last administered on 04/01/17 20:20; Admin Dose 650 MG; Start 03/30/17 at 17:30 Acetaminophen/ Hydrocodone Bitart ([place] (5/325)) 1 tab Q6H PRN PO PAIN LEVEL 4 -6 Last administered on 04/02/17 18:08; Admin Dose 1 TAB; Start 03/30/17 at 17: 30 Zolpidem Tartrate (Ambien) 5 mg QHS PRN PO INSOMNIA Last administered on 23:35; Admin Dose 5 MG; Start 03/30/17 at 17:30 Docusate Sodium (Colace) 100 mg Q12H PRN PO CONSTIPATION; Start 03/30/17 at 17: 30 Bisacodyl (Dulcolax) 5 mg DAILY PRN PO CONSTIPATION; Start 03/30/17 at 17:30 Bisacodyl (Dulcolax Supp) 10 mg DAILY PRN [place] CONSTIPATION; Start 03/30/17 at 17 :30 Pantoprazole (Protonix Tab) 40 mg DAILY@06 PO Last administered on 04/02/17 05: 44; Admin Dose 40 MG; Start 03/31/17 at 06:00 Heparin Sodium (Porcine) (Heparin (5000 Units/0.5 ml)) 5,000 unit Q12 SC Last administered on 04/03/17 08:36; Admin Dose 5,000 UNIT; Start 03/30/17 at 21:00 Clonidine (Catapres) 0.1 mg Q4H PRN PO ELEVATED SYSTOLIC BP Last administered on 03/31/17 06:44; Admin Dose 0.1 MG; Start 03/30/17 at 19:30 Diagnostic Test (Pha) (Accu-Chek) 1 ea 02 XX ; Start 04/01/17 at 02:00 Isosorbide Dinitrate (Isordil) 20 mg TID PO Last administered on 04/03/17 08:32 ; Admin Dose 20 MG; Start 03/31/17 at 21:00 Hydralazine HCl (Apresoline) 100 mg TID PO Last administered on 04/03/17 08:32 ; Admin Dose 100 MG; Start 04/02/17 at 09:00 ANGÉLICA HEWITT MD Apr 03, 2017 08:50
--- NOTE | 2017-04-03 11:57 | CONS ---
Date/Time of Note Date/Time of Note DATE: 04/03/17 TIME: 11:55 Assessment/Plan Assessment/Plan Chief Complaint/Hosp Course IMPRESSION: 1. Chest pain, status post acute coronary syndrome.-negative trop x 3. No sig ischemia by lexiscan 04/01. 2. Coronary artery disease, status post coronary bypass grafting in 2012. 3. History of myocardial infarction in 2012. 4. History of PTCA and stent placement in 2012 5. Hypertension, improved control 6. Dyslipidemia. 7. Diabetes mellitus. 8. Cardiomyopathy-EF 40-45% by echo/35% by stress. Lexiscan with no sig ischemia just scar/prior RI 9. Renal failure Recc: -Tele -serial ecg's -Continue hydralazine/coreg/isordil -Continue asa -Follow volume status closely which has been reasonable -check repeat cxr to assess for PNA Problems: Consultation Date/Type/Reason Admit Date/Time Mar 31, 2017 at 11:02 Initial Consult Date 03/31/2017 Type of Consultation: cardiology Reason for Consultation chest pain Referring Provider: ANGÉLICA HEWITT MD Exam/Review of Systems Vital Signs Vitals Vital Signs Date Time Temp Pulse Resp B/P Pulse Ox O2 Delivery O2 Flow Rate FiO2 04/03/17 11:33 98.0 89 18 129/65 98 03/30/17 18:39 Room Air 03/30/17 16:32 2.0 Intake and Output 04/02/17 04/02/17 04/03/17 15:00 23:00 07:00 Intake Total 700 ml Balance 700 ml Exam Review of Systems: CONSTITUTIONAL: No fevers, chills. PULMONARY: mild sob and cough CARDIOVASCULAR: No chest pain/palpitations GASTROINTESTINAL: No nausea/vomiting. GENITOURINARY: No hematuria/dysuria. MUSCULOSKELETAL: No myagias/arthalgias. PSYCHIATRIC: The patient denies depression. NEUROLOGIC: No weakness Constitutional: alert, oriented Psych: no complaints ENMT: mucosa pink and moist Neck: jvd (9 cm wter), supple Respiratory: diminished breath sounds (at bases/B) Cardiovascular: regular rate and rhythm Gastrointestinal: non-tender, soft Musculoskeletal: muscle tone (normal) Extremities: edema (none) Neurological: other (No focal deficits) Results Result Diagram: 04/01/17 0701 04/01/17 0701 Results 24 hrs Laboratory Tests Test 04/02/17 12:35 04/02/17 12:36 04/02/17 16:54 04/02/17 21:35 Bedside Glucose 215 195 163 186 Test 04/03/17 02:51 04/03/17 08:29 04/03/17 09:54 Bedside Glucose 131 171 Lab Scanned Report REFERENCE LAB Medications Medications Current Medications Aspirin (Halfprin) 81 mg DAILY PO Last administered on 04/03/17 08:32; Admin Dose 81 MG; Start 03/31/17 at 09:00 Atorvastatin Calcium (Lipitor) 80 mg DAILY PO Last administered on 04/03/17 08: 32; Admin Dose 80 MG; Start 03/31/17 at 09:00 Calcitriol (Rocaltrol) 0.25 mcg DAILY PO Last administered on 04/03/17 08:32; Admin Dose 0.25 MCG; Start 03/31/17 at 09:00 Insulin Glargine (Lantus) 40 unit QHS SC Last administered on 04/02/17 21:42; Admin Dose 40 UNIT; Start 03/30/17 at 21:00 Metoprolol Tartrate (Lopressor) 25 mg BID PO Last administered on 04/03/17 08: 31; Admin Dose 25 MG; Start 03/30/17 at 21:00 Sodium Bicarbonate (Sodium Bicarbonate Tab) 325 mg BID PO Last administered on 04/03/17 08:33; Admin Dose 325 MG; Start 03/30/17 at 21:00 Miscellaneous Information 1 ea NOTE XX ; Start 03/30/17 at 17:30 Glucose (Glutose) 15 gm Q15M PRN PO DECREASED GLUCOSE; Start 03/30/17 at 17:30 Glucose (Glutose) 22.5 gm Q15M PRN PO DECREASED GLUCOSE; Start 03/30/17 at 17: 30 Dextrose (D50w Syringe) 25 ml Q15M PRN IV DECREASED GLUCOSE; Start 03/30/17 at 17:30 Dextrose (D50w Syringe) 50 ml Q15M PRN IV DECREASED GLUCOSE; Start 03/30/17 at 17:30 Glucagon (Glucagen) 1 mg Q15M PRN IM DECREASED GLUCOSE; Start 03/30/17 at 17:30 Glucose (Glutose) 15 gm Q15M PRN BUCCAL DECREASED GLUCOSE; Start 03/30/17 at 17 :30 Lorazepam (Ativan) 0.5 mg Q8H PRN PO ANXIETY Last administered on 04/03/17 08: 33; Admin Dose 0.5 MG; Start 03/30/17 at 17:30 Ondansetron HCl (Zofran Tab) 4 mg Q6H PRN PO NAUSEA AND/OR VOMITING; Start at 17:30 Ondansetron HCl (Zofran Inj) 4 mg Q6H PRN IV NAUSEA AND/OR VOMITING; Start at 17:30 Nitroglycerin (Nitroglycerin (Sl Tab) 0.4 Mg) 1 tab Q5M PRN SL CHEST PAIN; Start 03/30/17 at 17:30 Acetaminophen (Tylenol Tab) 650 mg Q6H PRN PO PAIN LEVEL 1-3 OR FEVER Last administered on 04/01/17 20:20; Admin Dose 650 MG; Start 03/30/17 at 17:30 Acetaminophen/ Hydrocodone Bitart ([place] (5/325)) 1 tab Q6H PRN PO PAIN LEVEL 4 -6 Last administered on 04/02/17 18:08; Admin Dose 1 TAB; Start 03/30/17 at 17: 30 Zolpidem Tartrate (Ambien) 5 mg QHS PRN PO INSOMNIA Last administered on 23:35; Admin Dose 5 MG; Start 03/30/17 at 17:30 Docusate Sodium (Colace) 100 mg Q12H PRN PO CONSTIPATION; Start 03/30/17 at 17: 30 Bisacodyl (Dulcolax) 5 mg DAILY PRN PO CONSTIPATION; Start 03/30/17 at 17:30 Bisacodyl (Dulcolax Supp) 10 mg DAILY PRN [place] CONSTIPATION; Start 03/30/17 at 17 :30 Pantoprazole (Protonix Tab) 40 mg DAILY@06 PO Last administered on 04/02/17 05: 44; Admin Dose 40 MG; Start 03/31/17 at 06:00 Heparin Sodium (Porcine) (Heparin (5000 Units/0.5 ml)) 5,000 unit Q12 SC Last administered on 04/03/17 08:36; Admin Dose 5,000 UNIT; Start 03/30/17 at 21:00 Clonidine (Catapres) 0.1 mg Q4H PRN PO ELEVATED SYSTOLIC BP Last administered on 03/31/17 06:44; Admin Dose 0.1 MG; Start 03/30/17 at 19:30 Diagnostic Test (Pha) (Accu-Chek) 1 02 XX ; Start 04/01/17 at 02:00 Isosorbide Dinitrate (Isordil) 20 mg TID PO Last administered on 04/03/17 08:32 ; Admin Dose 20 MG; Start 03/31/17 at 21:00 Hydralazine HCl (Apresoline) 100 mg TID PO Last administered on 04/03/17 08:32 ; Admin Dose 100 MG; Start 04/02/17 at 09:00 SONNY ALVARENGA Apr 03, 2017 11:57
--- NOTE | 2017-04-03 13:22 | RADRPT ---
PROCEDURE: Chest radiograph. CLINICAL INDICATION: Cough. TECHNIQUE: Single portable frontal view. COMPARISON: Radiograph 07/26/2013. FINDINGS: Linear atelectasis or scar at the left lung base. No pleural effusion or focal pneumonia. The cardiomediastinal silhouette is normal. No suspicious bone lesion. Median sternotomy. IMPRESSION: No acute cardiopulmonary abnormality. RPTAT: PP Physician Deni Date Time Electronically viewed and signed by Anahi Hill Physician on 04/03/2017 13:22 LG/
--- NOTE | 2017-04-03 14:11 | CONS ---
Date/Time of Note Date/Time of Note DATE: 04/03/17 TIME: 14:05 Assessment/Plan Assessment/Plan Problems: (1) Chronic kidney disease (CKD) stage G4/A1, severely decreased glomerular filtration rate (GFR) between 15-29 mL/min/1.73 square meter and albuminuria creatinine ratio less than 30 mg/g Status: Chronic Comment: Patient is not on an AARON inhibitor or our drug. I will defer off on the management of this to Dr. Hewitt (2) Tobacco abuse Status: Acute Comment: Patient has been strongly counseled (3) Essential hypertension Status: Chronic Comment: Adequate control (4) Hyperlipidemia associated with type 2 diabetes mellitus Status: Chronic Comment: On statin therapy (5) Diabetes mellitus type 2 with complications Status: Chronic Comment: This patient is actually a type II diabetic which allows us to combo his treatment. We will add in Tradjenta which does not need to be renal dose adjusted. From nerve we will adjust the insulin dosing to get him under better control along with carbohydrate counting to vary his mealtime insulin in a more customized fashion Qualifiers: Qualified Code: E11.8 - Type 2 diabetes mellitus with complication, with long-term current use of insulin (6) Coronary artery disease Status: Chronic Comment: Noted stable and quiescent Qualifiers: Qualified Code: I25.10 - Coronary artery disease involving [place] coronary artery of [place] heart without angina pectoris Consultation Date/Type/Reason Admit Date/Time Mar 31, 2017 at 11:02 Date of Consultation: Apr 03, 2017 Type of Consultation: Endocrinology Reason for Consultation 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 Hypertension; hyperlipidemia; CHF; tobacco abuse Referring Provider: ANGÉLICA HEWITT MD Hx of Present Illness 57-year-old male with a chief complaint of "I am a mess". Patient reports a long history of diabetes previously treated with oral agents including glyburide/metformin these were changed due to the change in his underlying physiologic status. He has come in with poor sugar control. He has some technical issues about using his mealtime bolus insulin after meals as opposed to before or during meals. In addition he is using a sliding scale based on Accu-Cheks without carbohydrate counting or consideration. Further complicating the issues are significant depression with the patient feeling hopeless about his status Constitutional: improved, no complaints Respiratory: no complaints Cardiovascular: no complaints Gastrointestinal: no complaints Genitourinary: no complaints Musculoskeletal: no complaints Skin: no complaints Neurologic: no complaints Psychological: no complaints Past Medical History Dysthymia; organic heart diseasecoronary artery diseasestatus post PCI in 2012status post CABG in May 2013systolic CHF; hypertension; hyperlipidemia ; chronic kidney disease stage IV; [place] of diabetic retinopathy; diabetic peripheral neuropathy Medical History: congestive heart failure, coronary artery disease, diabetes, high cholesterol, hypertension Past Surgical History Status post right total hip replacement; Past Surgical Hx: cholecystectomy, coronary bypass surgery Family History Significant Family History: heart disease, diabetes Social History Alcohol Use: rarely Smoking Status: Former smoker Drug Use: none Exam/Review of Systems Vital Signs Vitals Vital Signs Date Time Temp Pulse Resp B/P Pulse Ox O2 Delivery O2 Flow Rate FiO2 04/03/17 11:33 98.0 89 18 129/65 98 03/30/17 18:39 Room Air 03/30/17 16:32 2.0 Intake and Output 04/02/17 04/02/17 04/03/17 15:00 23:00 07:00 Intake Total 700 ml Balance 700 ml Exam Constitutional: alert, oriented Neck: non-tender, supple Respiratory: clear to auscultation, normal air movement Cardiovascular: nl pulses, regular rate and rhythm Gastrointestinal: nl liver, spleen, non-tender, soft Results Result Diagram: 04/01/17 0701 04/01/17 0701 Results 24 hrs Laboratory Tests Test 04/02/17 16:54 04/02/17 21:35 04/03/17 02:51 04/03/17 08:29 Bedside Glucose 163 186 131 171 Test 04/03/17 09:54 04/03/17 12:50 Lab Scanned Report REFERENCE LAB Bedside Glucose 207 Medications Medications Current Medications Aspirin (Halfprin) 81 mg DAILY PO Last administered on 04/03/17 08:32; Admin Dose 81 MG; Start 03/31/17 at 09:00 Atorvastatin Calcium (Lipitor) 80 mg DAILY PO Last administered on 04/03/17 08: 32; Admin Dose 80 MG; Start 03/31/17 at 09:00 Calcitriol (Rocaltrol) 0.25 mcg DAILY PO Last administered on 04/03/17 08:32; Admin Dose 0.25 MCG; Start 03/31/17 at 09:00 Insulin Glargine (Lantus) 40 unit QHS SC Last administered on 04/02/17 21:42; Admin Dose 40 UNIT; Start 03/30/17 at 21:00 Metoprolol Tartrate (Lopressor) 25 mg BID PO Last administered on 04/03/17 08: 31; Admin Dose 25 MG; Start 03/30/17 at 21:00 Sodium Bicarbonate (Sodium Bicarbonate Tab) 325 mg BID PO Last administered on 04/03/17 08:33; Admin Dose 325 MG; Start 03/30/17 at 21:00 Miscellaneous Information 1 ea NOTE XX ; Start 03/30/17 at 17:30 Glucose (Glutose) 15 gm Q15M PRN PO DECREASED GLUCOSE; Start 03/30/17 at 17:30 Glucose (Glutose) 22.5 gm Q15M PRN PO DECREASED GLUCOSE; Start 03/30/17 at 17: 30 Dextrose (D50w Syringe) 25 ml Q15M PRN IV DECREASED GLUCOSE; Start 03/30/17 at 17:30 Dextrose (D50w Syringe) 50 ml Q15M PRN IV DECREASED GLUCOSE; Start 03/30/17 at 17:30 Glucagon (Glucagen) 1 mg Q15M PRN IM DECREASED GLUCOSE; Start 03/30/17 at 17:30 Glucose (Glutose) 15 gm Q15M PRN BUCCAL DECREASED GLUCOSE; Start 03/30/17 at 17 :30 Lorazepam (Ativan) 0.5 mg Q8H PRN PO ANXIETY Last administered on 04/03/17 08: 33; Admin Dose 0.5 MG; Start 03/30/17 at 17:30 Ondansetron HCl (Zofran Tab) 4 mg Q6H PRN PO NAUSEA AND/OR VOMITING; Start at 17:30 Ondansetron HCl (Zofran Inj) 4 mg Q6H PRN IV NAUSEA AND/OR VOMITING; Start at 17:30 Nitroglycerin (Nitroglycerin (Sl Tab) 0.4 Mg) 1 tab Q5M PRN SL CHEST PAIN; Start 03/30/17 at 17:30 Acetaminophen (Tylenol Tab) 650 mg Q6H PRN PO PAIN LEVEL 1-3 OR FEVER Last administered on 04/01/17 20:20; Admin Dose 650 MG; Start 03/30/17 at 17:30 Acetaminophen/ Hydrocodone Bitart ([place] (5/325)) 1 tab Q6H PRN PO PAIN LEVEL 4 -6 Last administered on 04/02/17 18:08; Admin Dose 1 TAB; Start 03/30/17 at 17: 30 Zolpidem Tartrate (Ambien) 5 mg QHS PRN PO INSOMNIA Last administered on 23:35; Admin Dose 5 MG; Start 03/30/17 at 17:30 Docusate Sodium (Colace) 100 mg Q12H PRN PO CONSTIPATION; Start 03/30/17 at 17: 30 Bisacodyl (Dulcolax) 5 mg DAILY PRN PO CONSTIPATION; Start 03/30/17 at 17:30 Bisacodyl (Dulcolax Supp) 10 mg DAILY PRN [place] CONSTIPATION; Start 03/30/17 at 17 :30 Pantoprazole (Protonix Tab) 40 mg DAILY@06 PO Last administered on 04/02/17 05: 44; Admin Dose 40 MG; Start 03/31/17 at 06:00 Heparin Sodium (Porcine) (Heparin (5000 Units/0.5 ml)) 5,000 unit Q12 SC Last administered on 04/03/17 08:36; Admin Dose 5,000 UNIT; Start 03/30/17 at 21:00 Clonidine (Catapres) 0.1 mg Q4H PRN PO ELEVATED SYSTOLIC BP Last administered on 03/31/17 06:44; Admin Dose 0.1 MG; Start 03/30/17 at 19:30 Diagnostic Test (Pha) (Accu-Chek) 1 ea 02 XX ; Start 04/01/17 at 02:00 Isosorbide Dinitrate (Isordil) 20 mg TID PO Last administered on 04/03/17 12:50 ; Admin Dose 20 MG; Start 03/31/17 at 21:00 Hydralazine HCl (Apresoline) 100 mg TID PO Last administered on 04/03/17 12:50 ; Admin Dose 100 MG; Start 04/02/17 at 09:00 Linagliptin (Tradjenta) 5 mg DAILY PO ; Start 04/03/17 at 14:30 COLE GONZALEZ MD Apr 03, 2017 14:11
[2017-04-03] MEDS: LINAGLIPTIN 5 MG TABLET PO SCH (14:37)
[2017-04-03] MEDS: LEVALBUTEROL (NEB) 1.25 MG/0.5 ML AMP HHN SCH ×2 (15:45→23:40)
[2017-04-03] MEDS: HYDROCODONE/APAP (5/325) TAB PO PRN (22:08)
[2017-04-03] MEDS: INSULIN GLARGINE [LANtus] 3 ML PEN SC SCH (22:10)
[2017-04-03] MEDS: ZOLPIDEM 5 MG TAB PO PRN (23:19)
[2017-04-04] VITALS (10 sets, daily range): BP systolic 141–150; BP diastolic 63–71; PULSE 85–97; RESP 17–18
[2017-04-04] MEDS: ACCU-CHEK XX SCH (02:00)
[2017-04-04] MEDS: PANTOPRAZOLE (EC) 40 MG TAB PO SCH (05:50)
[2017-04-04] MEDS: LEVALBUTEROL (NEB) 1.25 MG/0.5 ML AMP HHN SCH (07:19)
[2017-04-04] MEDS: INSULIN ASPART [NOVOLOG] 3 ML PEN SC SCH ×2 (08:24→12:35)
[2017-04-04] MEDS: CALCITRIOL 0.25 MCG CAP PO SCH (08:25)
[2017-04-04] MEDS: HEPARIN 5,000 UNIT/0.5 ML VIAL SC SCH (08:26)
[2017-04-04] MEDS: ATORVASTATIN 80 MG TAB PO SCH (08:26)
[2017-04-04] MEDS: ASPIRIN (EC) 81 MG TAB PO SCH (08:26)
[2017-04-04] MEDS: ISOSORBIDE DINITRATE 20 MG TAB PO SCH ×2 (08:28→12:32)
[2017-04-04] MEDS: NA BICARBONATE 650 MG TAB PO SCH (08:28)
[2017-04-04] MEDS: LINAGLIPTIN 5 MG TABLET PO SCH (08:28)
[2017-04-04] MEDS: METOPROLOL 25 MG TAB PO SCH (08:29)
[2017-04-04 08:37] LABS: BASOPHIL # 0.1 10^3/ul (0.0-0.1); BASOPHILS % 0.5 % (0.0-2.0); EOSINOPHILS # 0.2 10^3/ul (0.0-0.5); HEMATOCRIT 45.1 % (42.0-52.0); HEMOGLOBIN 14.3 g/dl (14.0-18.0); LYMPHOCYTES # 1.8 10^3/ul (0.8-2.9); LYMPHOCYTES % 17.2 % (15.0-51.0); MEAN CORPUSCULAR HEMOGLOBIN 27.6 pg (29.0-33.0); MEAN CORPUSCULAR HGB CONC 31.7 g/dl (32.0-37.0); MEAN CORPUSCULAR VOLUME 87.1 fl (82.0-101.0); MEAN PLATELET VOLUME 10.8 fl (7.4-10.4); MONOCYTE # 0.8 10^3/ul (0.3-0.9); MONOCYTES % 7.4 % (0.0-11.0); NEUTROPHIL # 7.7 10^3/ul (1.6-7.5); NEUTROPHILS % 72.3 % (39.0-77.0); PLATELET COUNT 218 10^3/UL (140-415); RED BLOOD COUNT 5.18 10^6/ul (4.70-6.10); RED CELL DISTRIBUTION WIDTH 14.8 % (11.5-14.5); WHITE BLOOD COUNT 10.6 10^3/ul (4.8-10.8)
[2017-04-04 09:12] LABS: ALBUMIN/GLOBULIN RATIO 1.14; BILIRUBIN,INDIRECT 0.3 mg/dl (0-1.1); BILIRUBIN,TOTAL 0.3 mg/dl (0.2-1.3); CALCIUM 8.9 mg/dl (8.4-10.2); CREATININE 3.52 mg/dl (0.61-1.24); POTASSIUM 4.1 mmol/L (3.5-5.1); TOTAL PROTEIN 7.5 g/dl (6.1-8.1)
[2017-04-04] MEDS: LORAZEPAM 0.5 MG TAB PO PRN (09:58)
--- NOTE | 2017-04-04 11:18 | PDOCDIS ---
Discharge Instructions CONDITION Patient Condition: Fair HOME CARE INSTRUCTIONS: Diet Instructions: Reduced CalorieSpecial Diet: carb controlled ACTIVITY: Activity Restrictions: Slowly Increase Activity Rest between Activity Bathing Restrictions: Shower FOLLOW UP/APPOINTMENTS Follow-up Plan Patient needs to follow up with Dr Gaytan in 1 week . ANGÉLICA HEWITT MD Apr 04, 2017 11:18
[2017-04-04] MEDS ORDERED: ISOS20TA19 PO (11:22)
[2017-04-04] MEDS ORDERED: HYDR-3672 PO (11:22)
--- NOTE | 2017-04-04 14:31 | CONS ---
Date/Time of Note Date/Time of Note DATE: 04/04/17 TIME: 14:28 Assessment/Plan Assessment/Plan Chief Complaint/Hosp Course IMPRESSION: 1. Chest pain, status post acute coronary syndrome.-negative trop x 3. No sig ischemia by lexiscan 04/01. 2. Coronary artery disease, status post coronary bypass grafting in 2012. 3. History of myocardial infarction in 2012. 4. History of PTCA and stent placement in 2012 5. Hypertension, improved control 6. Dyslipidemia. 7. Diabetes mellitus. 8. Cardiomyopathy-EF 40-45% by echo/35% by stress. Lexiscan with no sig ischemia just scar/prior PA 9. Renal failure Recc: -Tele -serial ecg's -Continue hydralazine/coreg/isordil -Continue asa -Follow volume status closely which has been reasonable -s/p endocrine consult with adjustement/addition of oral hypoglycemics Problems: Consultation Date/Type/Reason Admit Date/Time Mar 31, 2017 at 11:02 Initial Consult Date 03/31/2017 Type of Consultation: cardiology Reason for Consultation chest pain Referring Provider: ANGÉLICA HEWITT MD Exam/Review of Systems Vital Signs Vitals Vital Signs Date Time Temp Pulse Resp B/P Pulse Ox O2 Delivery O2 Flow Rate FiO2 04/04/17 12:20 97.9 87 18 145/71 95 04/04/17 07:19 Nasal Cannula 2.0 Intake and Output 04/03/17 04/03/17 04/04/17 15:00 23:00 07:00 Intake Total 800 ml 900 ml Output Total 1200 ml Balance -400 ml 900 ml Exam Review of Systems: CONSTITUTIONAL: No fevers, chills. PULMONARY: No sob CARDIOVASCULAR: No chest pain/palpitations GASTROINTESTINAL: No nausea/vomiting. GENITOURINARY: No hematuria/dysuria. MUSCULOSKELETAL: No myagias/arthalgias. PSYCHIATRIC: The patient denies depression. NEUROLOGIC: No weakness Constitutional: alert Psych: no complaints Head: normocephalic ENMT: mucosa pink and moist Neck: jvd (9 cm water), supple Respiratory: diminished breath sounds Cardiovascular: regular rate and rhythm Gastrointestinal: non-tender, soft Musculoskeletal: muscle tone (normal) Extremities: edema (none) Neurological: other (No focal deficits) Results Result Diagram: 8/4/17 0723 8/4/17 0723 Results 24 hrs Laboratory Tests Test 04/03/17 17:26 04/03/17 22:05 04/04/17 02:26 04/04/17 07:23 Bedside Glucose 184 177 140 White Blood Count 10.6 Red Blood Count 5.18 Hemoglobin 14.3 Hematocrit 45.1 Mean Corpuscular Volume 87.1 Mean Corpuscular Hemoglobin 27.6 L Mean Corpuscular Hemoglobin Concent 31.7 L Red Cell Distribution Width 14.8 H Platelet Count 218 Mean Platelet Volume 10.8 H Neutrophils % 72.3 Lymphocytes % 17.2 Monocytes % 7.4 Eosinophils % 2.0 Basophils % 0.5 Nucleated Red Blood Cells % 0.0 Neutrophils # 7.7 H Lymphocytes # 1.8 Monocytes # 0.8 Eosinophils # 0.2 Basophils # 0.1 Nucleated Red Blood Cells # 0.0 Sodium Level 140 Potassium Level 4.1 Chloride Level 99 Carbon Dioxide Level 23 Anion Gap 22 H Blood Urea Nitrogen 52 H Creatinine 3.52 H Glucose Level 165 Calcium Level 8.9 Total Bilirubin 0.3 Direct Bilirubin 0.00 Indirect Bilirubin 0.3 Aspartate Amino Transf (AST/SGOT) 28 Alanine Aminotransferase (ALT/SGPT) 45 Alkaline Phosphatase 117 Total Protein 7.5 Albumin 4.0 Globulin 3.50 H Albumin/Globulin Ratio 1.14 Test 04/04/17 08:23 04/04/17 12:30 Bedside Glucose 165 208 Medications Medications Current Medications Aspirin (Halfprin) 81 mg DAILY PO Last administered on 04/04/17 08:26; Admin Dose 81 MG; Start 03/31/17 at 09:00 Atorvastatin Calcium (Lipitor) 80 mg DAILY PO Last administered on 04/04/17 08: 26; Admin Dose 80 MG; Start 03/31/17 at 09:00 Calcitriol (Rocaltrol) 0.25 mcg DAILY PO Last administered on 04/04/17 08:25; Admin Dose 0.25 MCG; Start 03/31/17 at 09:00 Insulin Glargine (Lantus) 40 unit QHS SC Last administered on 04/03/17 22:10; Admin Dose 40 UNIT; Start 03/30/17 at 21:00 Metoprolol Tartrate (Lopressor) 25 mg BID PO Last administered on 04/04/17 08: 29; Admin Dose 25 MG; Start 03/30/17 at 21:00 Sodium Bicarbonate (Sodium Bicarbonate Tab) 325 mg BID PO Last administered on 04/04/17 08:28; Admin Dose 325 MG; Start 03/30/17 at 21:00 Miscellaneous Information 1 ea NOTE XX ; Start 03/30/17 at 17:30 Glucose (Glutose) 15 gm Q15M PRN PO DECREASED GLUCOSE; Start 03/30/17 at 17:30 Glucose (Glutose) 22.5 gm Q15M PRN PO DECREASED GLUCOSE; Start 03/30/17 at 17: 30 Dextrose (D50w Syringe) 25 ml Q15M PRN IV DECREASED GLUCOSE; Start 03/30/17 at 17:30 Dextrose (D50w Syringe) 50 ml Q15M PRN IV DECREASED GLUCOSE; Start 03/30/17 at 17:30 Glucagon (Glucagen) 1 mg Q15M PRN IM DECREASED GLUCOSE; Start 03/30/17 at 17:30 Glucose (Glutose) 15 gm Q15M PRN BUCCAL DECREASED GLUCOSE; Start 03/30/17 at 17 :30 Lorazepam (Ativan) 0.5 mg Q8H PRN PO ANXIETY Last administered on 04/04/17 09: 58; Admin Dose 0.5 MG; Start 03/30/17 at 17:30 Ondansetron HCl (Zofran Tab) 4 mg Q6H PRN PO NAUSEA AND/OR VOMITING; Start at 17:30 Ondansetron HCl (Zofran Inj) 4 mg Q6H PRN IV NAUSEA AND/OR VOMITING; Start at 17:30 Nitroglycerin (Nitroglycerin (Sl Tab) 0.4 Mg) 1 tab Q5M PRN SL CHEST PAIN; Start 03/30/17 at 17:30 Acetaminophen (Tylenol Tab) 650 mg Q6H PRN PO PAIN LEVEL 1-3 OR FEVER Last administered on 04/01/17 20:20; Admin Dose 650 MG; Start 03/30/17 at 17:30 Acetaminophen/ Hydrocodone Bitart ([place] (5/325)) 1 tab Q6H PRN PO PAIN LEVEL 4 -6 Last administered on 04/03/17 22:08; Admin Dose 1 TAB; Start 03/30/17 at 17: 30 Zolpidem Tartrate (Ambien) 5 mg QHS PRN PO INSOMNIA Last administered on 23:19; Admin Dose 5 MG; Start 03/30/17 at 17:30 Docusate Sodium (Colace) 100 mg Q12H PRN PO CONSTIPATION; Start 03/30/17 at 17: 30 Bisacodyl (Dulcolax) 5 mg DAILY PRN PO CONSTIPATION; Start 03/30/17 at 17:30 Bisacodyl (Dulcolax Supp) 10 mg DAILY PRN [place] CONSTIPATION; Start 03/30/17 at 17 :30 Pantoprazole (Protonix Tab) 40 mg DAILY@06 PO Last administered on 04/02/17 05: 44; Admin Dose 40 MG; Start 03/31/17 at 06:00 Heparin Sodium (Porcine) (Heparin (5000 Units/0.5 ml)) 5,000 unit Q12 SC Last administered on 04/04/17 08:26; Admin Dose 5,000 UNIT; Start 03/30/17 at 21:00 Clonidine (Catapres) 0.1 mg Q4H PRN PO ELEVATED SYSTOLIC BP Last administered on 03/31/17 06:44; Admin Dose 0.1 MG; Start 03/30/17 at 19:30 Diagnostic Test (Pha) (Accu-Chek) 1 ea 02 XX ; Start 04/01/17 at 02:00 Isosorbide Dinitrate (Isordil) 20 mg TID PO Last administered on 04/04/17 12:32 ; Admin Dose 20 MG; Start 03/31/17 at 21:00 Hydralazine HCl (Apresoline) 100 mg TID PO Last administered on 04/04/17 12:32 ; Admin Dose 100 MG; Start 04/02/17 at 09:00 Linagliptin (Tradjenta) 5 mg DAILY PO Last administered on 04/04/17 08:28; Admin Dose 5 MG; Start 04/03/17 at 14:30 SONNY ALVARENGA Apr 04, 2017 14:31
--- NOTE | 2017-04-05 15:40 | DS ---
DATE OF ADMISSION: 03/31/2017 DATE OF DISCHARGE: 04/04/2017 REASON FOR ADMISSION: Chest pain. HISTORY OF PRESENT ILLNESS AND HOSPITAL COURSE: This 57-year-old man was admitted through the emergency room after developing chest pain. The patient was seen in consultation by Dr. Tobi Cano, his die engraver. The patient underwent a SPECT scan cardiac nuclear medicine test. The test was read and showed a moderate-size predominantly nonreversible perfusion defect in the apex, inferolateral and distal anterior septal waters. There was moderate hypokinesis of the left ventricle. The left ventricle ejection fraction at stress was 35 percent. The die engraver felt that the patient should be managed with medical therapy at this time. The patient while in the hospital did not have any further chest pain. He was up walking. He was using a walker at the time of discharge and will go home with a walker. The patient's diabetes mellitus is poorly controlled. The patient was seen by the diabetic specialist, Patricia Merino and she reviewed his medications. The patient was also seen in consultation by Dr. Isaac Canas, an extrusion operator. Dr. Canas started the patient on Tradjenta. He will be sent home on this medication. The patient will follow up with me in my office in [address] Canas as needed. The patient does have chronic kidney disease. His renal function has deteriorated. He is now at stage 4 chronic kidney disease. I explained to the patient that his kidneys are failing and his kidney function is decreasing . I explained to the patient that his kidneys may continue to fail and that he will need hemodialysis if he reaches end-stage renal disease. He agrees with that assessment. He understands the implications of this. The patient's blood pressure was elevated while in the hospital. His medication was adjusted and he was on a higher dose of hydralazine 100 mg 3 times a day. DISCHARGE MEDICATIONS: The patient will be discharged home on the following medications: 1. Tradjenta 5 mg a day. 2. Hydralazine 100 mg 3 times a day. 3. Isosorbide dinitrate 20 mg 3 times a day. 4. Sliding scale insulin coverage. 5. Aspirin 81 mg a day. 6. Atorvastatin 80 mg a day. 7. Calcitriol 0.25 mcg a day. 8. Protonix 40 mg a day. 9. Metoprolol 25 mg twice a day. 10. Sodium bicarbonate 325 mg twice a day. DISCHARGE CONDITION: The patient was in fair condition at time of discharge. FOLLOWUP: The patient will be offered Home Health Care. If he accepts it then this will be set up for him. FINAL DIAGNOSES: 1. Chest pain without evidence of ongoing ischemia. The patient does have significant coronary artery disease. 2. Hypertension. 3. Chronic kidney disease stage 4. 4. Insulin-dependent diabetes mellitus. 5. Hypertension. Dictated By: Lacho Gaytan MD /deepak/tia /Document#: [id number] RUDDY
== END 2017-04-04 16:23 | disposition home health service (06) | DRG 311 ==
LOC: E/R 14:42 → MS4 17:06 → OBSVTOIN 03-31 11:02
PROVIDERS: ADMIT Internal Medicine; ATTEND Internal Medicine
DX: I24.9 Acute ischemic heart disease, unspecified (principal); I42.9 Cardiomyopathy, unspecified; N18.4 Chronic kidney disease, stage 4 (severe); E11.22 Type 2 diabetes mellitus with diabetic chronic kidney disease; I12.9 Hypertensive chronic kidney disease with stage 1 through stage 4 chronic kidney disease, or unspecified chronic kidney disease; Z95.1 Presence of aortocoronary bypass graft; Z87.891 Personal history of nicotine dependence; E78.5 Hyperlipidemia, unspecified; I25.2 Old myocardial infarction
CPT/HCPCS: 36415; 71010; 78452; 80048; 80053; 80061; 81001; 81003; 82550; 82553; 82570; 82962; 83036; 83735; 83970; 84100; 84443; 84484; 85025; 85610; 85730; 87086; 93005; 93017; 93306; 94640; 94664; 96374; G0378; A9500; A9505; J1644; J1815; J2060; J2785

== ENCOUNTER 2017-04-06 20:36 | Emergency (ER) | payer MEDICARE, MEDICAID ==
[~2017-04-06] VITALS: Ht 177.8 cm; Wt 84.1 kg
[~2017-04-06 20:36] MED LIST changes: +ASPI-664 PO; +CALC0.2511 PO; +HYDR-3671 PO; +HYDR-3672 PO; -LISI10TA2 PO
[2017-04-06 20:53] VITALS: Ht 177.8 cm; Wt 84.1 kg
[2017-04-06] MEDS ORDERED: ASPIRIN 81 MG TAB PO STA (20:58)
[2017-04-06] MEDS ORDERED: NITROGLYCERIN 2% 1 GM OINT PKT TD STA (20:58)
[2017-04-06] MEDS ORDERED: NITROGLYCERIN (SL) 0.4 MG TAB SL PRN (21:00)
[2017-04-06] MEDS ORDERED: LORAZEPAM 2 MG INJ IV ONE (21:30)
[2017-04-06 21:33] LABS: BASOPHIL # 0.1 10^3/ul (0.0-0.1); BASOPHILS % 0.4 % (0.0-2.0); EOSINOPHILS # 0.2 10^3/ul (0.0-0.5); EOSINOPHILS % 1.5 % (0.0-7.0); HEMOGLOBIN 15.9 g/dl (14.0-18.0); LYMPHOCYTES # 1.8 10^3/ul (0.8-2.9); LYMPHOCYTES % 13.1 % (15.0-51.0); MEAN CORPUSCULAR HGB CONC 33.8 g/dl (32.0-37.0); MEAN CORPUSCULAR VOLUME 85.6 fl (82.0-101.0); MEAN PLATELET VOLUME 10.3 fl (7.4-10.4); MONOCYTES % 7.5 % (0.0-11.0); NEUTROPHIL # 10.7 10^3/ul (1.6-7.5); NEUTROPHILS % 76.9 % (39.0-77.0); PLATELET COUNT 239 10^3/UL (140-415); RED BLOOD COUNT 5.49 10^6/ul (4.70-6.10); RED CELL DISTRIBUTION WIDTH 14.4 % (11.5-14.5); WHITE BLOOD COUNT 13.9 10^3/ul (4.8-10.8)
--- NOTE | 2017-04-06 21:49 | RADRPT ---
PROCEDURE: XR Chest. CLINICAL INDICATION: Chest pain TECHNIQUE: Single frontal view of the chest. COMPARISON: 07/26/2013 FINDINGS: Cardiomegaly. Previously seen large left pleural effusion on prior examination is resolved over the interval. Previously seen small right pleural effusion is resolved. There is slight atelectasis a t the right lung base. The lungs otherwise clear. No signs of pleural fluid or pneumothorax are se en. The osseous structures and soft tissues are unremarkable. IMPRESSION: Slight atelectasis at the left lung base, and the lungs are otherwise clear. RPTAT: [facility] Physician Milton Date Time Electronically viewed and signed by Physician Milton on 04/06/2017 21:48 RS/
[2017-04-06 21:54] LABS: INR 0.92; PARTIAL THROMBOPLASTIN TIME 25.8 Sec (25.0-35.0); PROTIME 12.4 Sec (12.2-14.2)
[2017-04-06 21:58] LABS: CALCIUM 9.1 mg/dl (8.4-10.2); CREATININE 3.36 mg/dl (0.61-1.24); POTASSIUM 3.9 mmol/L (3.5-5.1)
[2017-04-06 22:09] LABS: TROPONIN-I 0.017 ng/ml (0.00-0.12)
--- NOTE | 2017-04-06 22:35 | ERD ---
ER Documentation Chief Complaint Date/Time DATE: 04/06/17 TIME: 22:35 Chief Complaint high BP, numbness and right chest pain x 30 min RN OUTPATIENT SURGERY HPI Patient is a 57-year-old male with coronary disease, hypertension, and diabetes who presents with chest pain. He had chest pain 1 hour ago and said that the pain is coming and going. He said that he had numbness of his legs bilaterally and was having shaking of the legs. He said the pain is on the right side of his chest and not the left. He had shortness of breath. He tried hydralazine because his blood pressure was 224/109. He said that he was worked up for a heart attack 1 week ago and had a normal stress test. Upon review of old medical records this is the patient's 11th visit to the ER since 2011. His primary doctor is Dr. Hewitt and his drug enforcement administration agent is Dr. Cano. ROS All systems reviewed and are negative except as per history of present illness. Medications Home Meds Active Scripts Isosorbide Dinitrate* (Isosorbide Dinitrate*) 20 Mg Tablet, 20 MG PO TID for 30 Days, #30 TAB 2 Refills Prov:ANGÉLICA HEWITT MD 04/04/17 Hydralazine Hcl* (Apresoline*) 50 Mg Tab, 100 MG PO TID for 30 Days, #90 TAB 2 Refills Prov:ANGÉLICA HEWITT MD 04/04/17 Magaldrate/Simethicone* (Mylanta*) 355 Ml Susp, 30 ML PO QID Y for GASTROINTESTINAL UPSET, #1 BOTTLE Prov:LESTER KING DO 01/30/17 Reported Medications Calcitriol* (Calcitriol*) 0.25 Mcg Capsule, 0.25 MCG PO DAILY, CAP 03/30/17 Aspirin* (Aspirin* EC) 81 Mg Tablet., 81 MG PO DAILY, TAB 03/30/17 Hydralazine Hcl* (Hydralazine Hcl*) 25 Mg Tab, 25 MG PO TID, #90 TAB 03/30/17 Insulin Glargine* (Lantus*) 100 Unit/Ml Soln, 40 UNIT SC QHS, #1 VIAL 01/30/17 Metoprolol Tartrate* (Lopressor*) 25 Mg Tab, 25 MG PO BID, #60 TAB 01/30/17 Atorvastatin* (Atorvastatin*) 80 Mg Tablet, 80 MG PO DAILY, #30 TAB 01/30/17 Insulin Aspart* (Novolog Insulin Pen*) 100 Unit/Ml Soln, 0 SC .SLIDING SCALE AC , EA TAKE 5-20 UNITS SLIDING SCALE TID WITH MEALS 01/30/17 Sodium Bicarbonate (Antacid) 650 Mg Tablet, 325 MG PO BID, TAB 01/30/17 Isosorbide Dinitrate* (Isosorbide Dinitrate*) 20 Mg Tablet, 20 MG PO Q6H Y for PRN, TAB 01/30/17 Discontinued Reported Medications Lisinopril* (Lisinopril*) 10 Mg Tablet, 10 MG PO DAILY, #30 TAB 01/30/17 Allergies Allergies: Coded Allergies: No Known Allergy (Unverified , 03/30/17) PMhx/Soc History of Surgery: Yes Anesthesia Reaction: No Hx Neurological Disorder: No Hx Respiratory Disorders: No Hx Cardiac Disorders: Yes (heart surgery and high blood pressure) Hx Psychiatric Problems: Yes (ANXIETY) Hx Miscellaneous Medical Probl: Yes (Cholecysyectomy. Coronary artery bypass. ) Hx Alcohol Use: No Hx Substance Use: No (only occasionally weed he states) Hx Tobacco Use: Yes (past) Smoking Status: Former smoker FmHx Family History: coronary disease Physical Exam Vitals Vital Signs Date Time Temp Pulse Resp B/P Pulse Ox O2 Delivery O2 Flow Rate FiO2 04/06/17 22:06 90 24 126/74 96 Room Air 04/06/17 20:53 97.5 91 20 178/87 97 Physical Exam Const: No acute distress Head: Atraumatic Eyes: Normal Conjunctiva ENT: Normal External Ears, Nose and Mouth. Neck: Full range of motion..~ No meningismus. Resp: Clear to auscultation bilaterally Cardio: Regular rate and rhythm, no murmurs Abd: Soft, non tender, non distended. Normal bowel sounds Skin: No petechiae or rashes Back: No midline or flank tenderness Ext: No cyanosis, or edema Neur: Awake and alert Psych: Anxious Result Diagram: 04/06/17211104/06/172111 Results 24 hrs Laboratory Tests Test 04/06/17 21:10 04/06/17 21:12 Bedside Glucose 131mg/dL White Blood Count 13.910^3/ul Red Blood Count 5.4910^6/ul Hemoglobin 15.9g/dl Hematocrit 47.0% Mean Corpuscular Volume 85.6fl Mean Corpuscular Hemoglobin 29.0pg Mean Corpuscular Hemoglobin Concent 33.8g/dl Red Cell Distribution Width 14.4% Platelet Count 16449^3/UL Mean Platelet Volume 10.3fl Neutrophils % 76.9% Lymphocytes % 13.1% Monocytes % 7.5% Eosinophils % 1.5% Basophils % 0.4% Nucleated Red Blood Cells % 0.0/100WBC Neutrophils # 10.710^3/ul Lymphocytes # 1.810^3/ul Monocytes # 1.010^3/ul Eosinophils # 0.210^3/ul Basophils # 0.110^3/ul Nucleated Red Blood Cells # 0.010^3/ul Prothrombin Time 12.4Sec Prothrombin Time Ratio 1.0 INR International Normalized Ratio 0.92 Activated Partial Thromboplast Time 25.8Sec Sodium Level 140mmol/L Potassium Level 3.9mmol/L Chloride Level 99mmol/L Carbon Dioxide Level 22mmol/L Anion Gap 23 Blood Urea Nitrogen 47mg/dl Creatinine 3.36mg/dl Glucose Level 144mg/dl Calcium Level 9.1mg/dl Troponin I 0.017ng/ml Current Medications Medications (Trade) Dose Ordered Sig/Radha Route PRN Reason Start Time Stop Time Status Last Admin Dose Admin Aspirin (Aspirin) 162 mg ONCE STAT PO 04/06/17 20:58 04/06/17 20:59 DC 04/06/17 21:26 Nitroglycerin (Nitroglycerin 2% Oint) 1 inch ONCE STAT TD 04/06/17 20:58 04/06/17 20:59 DC 04/06/17 21:26 Nitroglycerin (Nitroglycerin (Sl Tab) 0.4 Mg) 1 tab Q5M UP TO 3 DOSES PRN SL CHEST PAIN 04/06/17 21:00 Lorazepam (Ativan) 1 mg ONCE ONCE IV 04/06/17 21:30 04/06/17 21:31 DC 04/06/17 21:26 Procedures/MDM EKG read by me: Rate/Rhythm: Regular rate and rhythm at a rate of 91 Intervals: Normal Impression: Poor R-wave progression Chest x-ray shows no pneumonia or pneumothorax per radiology. Patient is a 57-year-old male with cardiac risk factors who presents with chest pain. The chest pain is right-sided and it is associated with shortness of breath. His laboratory studies show a troponin within normal limits. He has an elevated creatinine of 3.36 but he has an elevated creatinine of 3 in the past as well so this is stable. The patient has no sign of pneumonia, pneumothorax, pulmonary embolism, or aortic dissection. He had a stress test 1 week ago and at this point I doubt true acute coronary syndrome. I spoke with the patient's primary doctor Dr. Hewitt and together we feel the patient is stable for outpatient management although he will follow-up closely with Dr. Hewitt within the next 24-48 hours. He can return for any worsening symptoms. He had hypertension which he did treat with his hydralazine. Departure Diagnosis: Primary Impression: Hypertension Hypertension type: essential hypertension Qualified Code: I10 - Essential hypertension Additional Impression: Chest pain Chest pain type: unspecified Qualified Code: R07.9 - Chest pain, unspecified type Condition: JAE Cash MD Apr 06, 2017 22:35
[2017-04-06 23:11] VITALS: BP 139/78; PULSE 90; RESP 20; TEMP 98.4
== END 2017-04-06 23:19 | disposition home or self-care (01) ==
LOC: E/R 20:36
DX: I10 Essential (primary) hypertension (principal); R07.9 Chest pain, unspecified; I25.10 Atherosclerotic heart disease of native coronary artery without angina pectoris; E11.9 Type 2 diabetes mellitus without complications; Z79.4 Long term (current) use of insulin; Z79.82 Long term (current) use of aspirin; Z79.84 Long term (current) use of oral hypoglycemic drugs; Z87.891 Personal history of nicotine dependence
CPT/HCPCS: 36415; 71010; 80048; 82962; 84484; 85025; 85610; 85730; 93005; 96374; 99285; J2060

== ENCOUNTER 2017-05-29 18:21 | Inpatient (IN) | payer MEDICARE, OTHER ==
[~2017-05-29] VITALS: Ht 177.8 cm; Wt 95.0 kg
[2017-05-29] MEDS ORDERED: ASPIRIN 81 MG TAB PO STA (18:42)
[2017-05-29] MEDS ORDERED: NITROGLYCERIN 2% 1 GM OINT PKT TD STA (18:42)
[2017-05-29] MEDS ORDERED: HYDROmorphONE 1 MG/ML SYG IV STA (18:45)
[2017-05-29] MEDS ORDERED: ONDANSETRON 4 MG INJ IV STA (18:45)
[2017-05-29] MEDS ORDERED: NITROGLYCERIN (SL) 0.4 MG TAB SL PRN ×2 (19:00→21:30)
--- NOTE | 2017-05-29 19:18 | RADRPT ---
PROCEDURE: Chest x-ray CLINICAL INDICATION: Chest pain TECHNIQUE: Chest single view COMPARISON: 04/06/2017 FINDINGS: As before there post CABG changes. Stable cardiomegaly and mild atherosclerotic aortic calcification seen. Bony vessels normal in caliber. Lungs clear. Costophrenic angles sharp. Bony thorax is unrema rkable. IMPRESSION: No acute cardiopulmonary disease. Stable mild cardiomegaly and atherosclerotic aortic calcification Status post CABG RPTAT: HH .Janes Johnson MD, MD Date Time Electronically viewed and signed by .Janes Johnson MD, on 05/29/2017 19:18 .W/
[2017-05-29 19:21] LABS: BASOPHIL # 0.1 10^3/ul (0.0-0.1); BASOPHILS % 0.4 % (0.0-2.0); EOSINOPHILS # 0.2 10^3/ul (0.0-0.5); EOSINOPHILS % 1.4 % (0.0-7.0); HEMATOCRIT 41.2 % (42.0-52.0); HEMOGLOBIN 13.7 g/dl (14.0-18.0); LYMPHOCYTES # 2.1 10^3/ul (0.8-2.9); MEAN CORPUSCULAR HEMOGLOBIN 28.7 pg (29.0-33.0); MEAN CORPUSCULAR HGB CONC 33.3 g/dl (32.0-37.0); MEAN CORPUSCULAR VOLUME 86.4 fl (82.0-101.0); MEAN PLATELET VOLUME 10.4 fl (7.4-10.4); MONOCYTE # 0.9 10^3/ul (0.3-0.9); MONOCYTES % 6.7 % (0.0-11.0); NEUTROPHIL # 9.9 10^3/ul (1.6-7.5); NEUTROPHILS % 74.7 % (39.0-77.0); PLATELET COUNT 242 10^3/UL (140-415); RED BLOOD COUNT 4.77 10^6/ul (4.70-6.10); RED CELL DISTRIBUTION WIDTH 13.5 % (11.5-14.5); WHITE BLOOD COUNT 13.2 10^3/ul (4.8-10.8)
[2017-05-29 19:42] LABS: ANION GAP 16 (8-16); BLOOD UREA NITROGEN 53 mg/dl (7-20); CALCIUM 8.5 mg/dl (8.4-10.2); CARBON DIOXIDE 19 mmol/L (21-31); CHLORIDE 103 mmol/L (97-110); CREATININE 3.85 mg/dl (0.61-1.24); GLUCOSE 201 mg/dl (70-220); POTASSIUM 3.9 mmol/L (3.5-5.1); SODIUM 134 mmol/L (135-144)
[2017-05-29] MEDS ORDERED: HYDR100T25 PO (19:53)
[2017-05-29 19:55] LABS: TROPONIN-I < 0.012 ng/ml (0.00-0.12)
[2017-05-29] MEDS ORDERED: ISOS20TA19 PO (19:58)
[2017-05-29] MEDS ORDERED: LORA1TAB PO (19:59)
[2017-05-29] MEDS ORDERED: ONDANSETRON 4 MG INJ IV PRN ×2 (20:00→21:30)
[2017-05-29] MEDS ORDERED: LINA5TAB PO (20:00)
[2017-05-29] MEDS ORDERED: ACETAMINOPHEN 325 MG TAB PO PRN ×2 (20:00→21:30)
[2017-05-29] MEDS ORDERED: FURO20TA3 PO (20:00)
--- NOTE | 2017-05-29 21:02 | ERA ---
ER Documentation Chief Complaint Date/Time DATE: 05/29/17 TIME: 21:00 Chief Complaint chest pain and left leg numbness x 1 hour HPI Patient is a 57-year-old male with multiple cardiac risk factors who presents with chest pain. He said that he had chest pain that started 2 hours earlier. The patient's left leg is numb as well. He says "I might have overdosed my medicines" but this would not be intentionally said he just was confused because of the pain. He said that his primary doctor is Dr. Hewitt. Upon review of old medical records this is the patient's 12th visit to the ER since 2011. ROS All systems reviewed and are negative except as per history of present illness. Medications Home Meds Reported Medications Linagliptin (TRADJENTA) 5 Mg Tablet, 5 MG PO DAILY, TAB 05/29/17 Furosemide* (Furosemide*) 20 Mg Tablet, 20 MG PO DAILY, #60 TAB 05/29/17 Lorazepam* (Lorazepam*) 1 Mg Tablet, 1 MG PO TID Y for ANXIETY, #60 TAB 05/29/17 Isosorbide Dinitrate* (Isosorbide Dinitrate*) 20 Mg Tablet, 20 MG PO TID, TAB 05/29/17 Hydralazine Hcl* (Hydralazine Hcl*) 100 Mg Tablet, 100 MG PO TID, #90 TAB 05/29/17 Calcitriol* (Calcitriol*) 0.25 Mcg Capsule, 0.25 MCG PO DAILY, CAP 03/30/17 Aspirin* (Aspirin* EC) 81 Mg Tablet.dr, 81 MG PO DAILY, TAB 03/30/17 Insulin Glargine* (Lantus*) 100 Unit/Ml Soln, 35 UNIT SC QHS, #1 VIAL 01/30/17 Metoprolol Tartrate* (Lopressor*) 25 Mg Tab, 25 MG PO BID, #60 TAB 01/30/17 Atorvastatin* (Atorvastatin*) 80 Mg Tablet, 80 MG PO DAILY, #30 TAB 01/30/17 Insulin Aspart* (Novolog Insulin Pen*) 100 Unit/Ml Soln, 0 SC .SLIDING SCALE AC , EA TAKE 5-20 UNITS SLIDING SCALE TID WITH MEALS 01/30/17 Sodium Bicarbonate (Antacid) 650 Mg Tablet, 325 MG PO BID, TAB 01/30/17 Discontinued Reported Medications Hydralazine Hcl* (Hydralazine Hcl*) 25 Mg Tab, 25 MG PO TID, #90 TAB 03/30/17 Isosorbide Dinitrate* (Isosorbide Dinitrate*) 20 Mg Tablet, 20 MG PO Q6H Y for PRN, TAB 01/30/17 Discontinued Scripts Isosorbide Dinitrate* (Isosorbide Dinitrate*) 20 Mg Tablet, 20 MG PO TID for 30 Days, #30 TAB 2 Refills Prov:ANGÉLICA HEWITT MD 04/04/17 Hydralazine Hcl* (Apresoline*) 50 Mg Tab, 100 MG PO TID for 30 Days, #90 TAB 2 Refills Prov:ANGÉLICA HEWITT MD 04/04/17 Magaldrate/Simethicone* (Mylanta*) 355 Ml Susp, 30 ML PO QID Y for GASTROINTESTINAL UPSET, #1 BOTTLE Prov:LESTER KING DO 01/30/17 Allergies Allergies: Coded Allergies: No Known Allergy (Unverified , 05/29/17) PMhx/Soc History of Surgery: Yes Anesthesia Reaction: No Hx Neurological Disorder: No Hx Respiratory Disorders: No Hx Cardiac Disorders: Yes (heart surgery and high blood pressure) Hx Psychiatric Problems: Yes (ANXIETY) Hx Miscellaneous Medical Probl: Yes (Cholecysyectomy. Coronary artery bypass. ) Hx Alcohol Use: No Hx Substance Use: Yes (only occasionally weed he states) Hx Tobacco Use: Yes (past) Smoking Status: Former smoker FmHx Family History: coronary disease Physical Exam Vitals Vital Signs Date Time Temp Pulse Resp B/P Pulse Ox O2 Delivery O2 Flow Rate FiO2 05/29/17 19:08 81 22 165/87 97 Room Air 05/29/17 18:22 97.8 87 22 186/85 97 Physical Exam Const: Moderate distress secondary to pain Head: Atraumatic Eyes: Normal Conjunctiva ENT: Normal External Ears, Nose and Mouth. Neck: Full range of motion..~ No meningismus. Resp: Clear to auscultation bilaterally Cardio: Regular rate and rhythm, no murmurs Abd: Soft, non tender, non distended. Normal bowel sounds Skin: Diaphoresis Back: No midline or flank tenderness Ext: No cyanosis, or edema Neur: Awake and alert Psych: Normal Mood and Affect Result Diagram: 05/29/17 1705 05/29/17 1705 Results 24 hrs Laboratory Tests Test 05/29/17 17:05 White Blood Count 13.210^3/ul Red Blood Count 4.7710^6/ul Hemoglobin 13.7g/dl Hematocrit 41.2% Mean Corpuscular Volume 86.4fl Mean Corpuscular Hemoglobin 28.7pg Mean Corpuscular Hemoglobin Concent 33.3g/dl Red Cell Distribution Width 13.5% Platelet Count 45520^3/UL Mean Platelet Volume 10.4fl Neutrophils % 74.7% Lymphocytes % 16.0% Monocytes % 6.7% Eosinophils % 1.4% Basophils % 0.4% Nucleated Red Blood Cells % 0.0/100WBC Neutrophils # 9.910^3/ul Lymphocytes # 2.110^3/ul Monocytes # 0.910^3/ul Eosinophils # 0.210^3/ul Basophils # 0.110^3/ul Nucleated Red Blood Cells # 0.010^3/ul Sodium Level 134mmol/L Potassium Level 3.9mmol/L Chloride Level 103mmol/L Carbon Dioxide Level 19mmol/L Anion Gap 16 Blood Urea Nitrogen 53mg/dl Creatinine 3.85mg/dl Glucose Level 201mg/dl Calcium Level 8.5mg/dl Troponin I < 0.012ng/ml Current Medications Medications (Trade) Dose Ordered Sig/Radha Route PRN Reason Start Time Stop Time Status Last Admin Dose Admin Aspirin (Aspirin) 162 mg ONCE STAT PO 05/29/17 18:42 05/29/17 18:43 DC 05/29/17 19:02 Nitroglycerin (Nitroglycerin 2% Oint) 1 inch ONCE STAT TD 05/29/17 18:42 05/29/17 18:43 DC 05/29/17 19:30 Nitroglycerin (Nitroglycerin (Sl Tab) 0.4 Mg) 1 tab Q5M UP TO 3 DOSES PRN SL CHEST PAIN 05/29/17 19:00 05/29/17 19:07 Hydromorphone HCl (Dilaudid) 1 mg ONCE STAT IV 05/29/17 18:45 05/29/17 18:46 DC 05/29/17 19:03 Ondansetron HCl (Zofran Inj) 4 mg ONCE STAT IV 05/29/17 18:45 05/29/17 18:46 DC 05/29/17 19:03 Ondansetron HCl (Zofran Inj) 4 mg ER BRIDGE PRN IV NAUSEA AND/OR VOMITING 05/29/17 20:00 05/30/17 19:59 Acetaminophen (Tylenol Tab) 650 mg ER BRIDGE PRN PO MILD PAIN/FEVER 05/29/17 20:00 05/30/17 19:59 Procedures/MDM EKG read by me: Rate/Rhythm: Regular rate and rhythm at a rate of 84 Intervals: Normal Impression: Sinus rhythm with poor R-wave progression but no ST elevations PROCEDURE: Chest x-ray CLINICAL INDICATION: Chest pain TECHNIQUE: Chest single view COMPARISON: 04/06/2017 FINDINGS: As before there post CABG changes. Stable cardiomegaly and mild atherosclerotic aortic calcification seen. Bony vessels normal in caliber. Lungs clear. Costophrenic angles sharp. Bony thorax is unremarkable. IMPRESSION: No acute cardiopulmonary disease. Stable mild cardiomegaly and atherosclerotic aortic calcification Status post CABG RPTAT: HH .Janes Johnson MD, MD Date Time Electronically viewed and signed by .Janes Johnson MD, MD on 05/29/2017 19:18 Patient is a 57-year-old male with multiple cardiac risk factors who presents with chest pain. The patient was given aspirin and nitroglycerin empirically. His initial EKG shows no ST elevations. The patient's chest x-ray shows no pneumonia or pneumothorax. At this point I doubt pulmonary embolism or aortic dissection. The patient has multiple risk factors and will need admission to a telemetry bed for further evaluation of his chest pain. I spoke with Dr. Taylor for admission who is covering for Dr. Hewitt. Departure Diagnosis: Primary Impression: Chest pain Qualified Code: R07.9 - Chest pain, unspecified type Additional Impression: Essential hypertension Condition: JAE Cash MD May 29, 2017 21:02
[2017-05-29] MEDS ORDERED: NACL 0.9% 3 ML SYG IV SCH (21:30)
[2017-05-29] MEDS ORDERED: ONDANSETRON 4 MG TAB PO PRN (21:30)
[2017-05-29 21:53] VITALS: PULSE 85
[2017-05-29 22:00] VITALS: Ht 177.8 cm; Wt 95.0 kg
[2017-05-29] MEDS ORDERED: INSULIN GLARGINE [LANtus] 3 ML PEN SC SCH (22:00)
[2017-05-29] MEDS: ZOLPIDEM 5 MG TAB PO PRN (22:30)
[2017-05-29] MEDS: HYDROmorphONE 1 MG/ML SYG IV PRN (23:16)
[2017-05-29 23:54] LABS: TROPONIN-I 0.014 ng/ml (0.00-0.12)
[2017-05-30] VITALS (31 sets, daily range): BP systolic 122–218; BP diastolic 55–83; PULSE 77–105; RESP 12–27
[2017-05-30 00:16] LABS: CK-MB 2.02 ng/ml (0.0-2.4)
[2017-05-30] MEDS: HYDROmorphONE 1 MG/ML SYG IV PRN ×3 (03:52→12:56)
[2017-05-30 08:40] LABS: BASOPHIL # 0.1 10^3/ul (0.0-0.1); BASOPHILS % 0.4 % (0.0-2.0); EOSINOPHILS # 0.2 10^3/ul (0.0-0.5); EOSINOPHILS % 1.7 % (0.0-7.0); HEMOGLOBIN 13.8 g/dl (14.0-18.0); LYMPHOCYTES # 1.8 10^3/ul (0.8-2.9); LYMPHOCYTES % 14.8 % (15.0-51.0); MEAN CORPUSCULAR HEMOGLOBIN 28.5 pg (29.0-33.0); MEAN CORPUSCULAR HGB CONC 32.9 g/dl (32.0-37.0); MEAN CORPUSCULAR VOLUME 86.6 fl (82.0-101.0); MEAN PLATELET VOLUME 10.4 fl (7.4-10.4); MONOCYTE # 0.8 10^3/ul (0.3-0.9); MONOCYTES % 6.8 % (0.0-11.0); NEUTROPHILS % 75.5 % (39.0-77.0); PLATELET COUNT 234 10^3/UL (140-415); RED BLOOD COUNT 4.85 10^6/ul (4.70-6.10); RED CELL DISTRIBUTION WIDTH 13.6 % (11.5-14.5); WHITE BLOOD COUNT 11.9 10^3/ul (4.8-10.8)
[2017-05-30] MEDS ORDERED: NA BICARBONATE 650 MG TAB PO SCH (09:00)
[2017-05-30] MEDS ORDERED: ASPIRIN 81 MG TAB PO SCH (09:00)
[2017-05-30] MEDS ORDERED: HEPARIN 5,000 UNIT/0.5 ML VIAL SC SCH (09:00)
[2017-05-30 09:01] LABS: TROPONIN-I 0.026 ng/ml (0.00-0.12)
[2017-05-30 09:02] LABS: CK-MB 1.96 ng/ml (0.0-2.4)
[2017-05-30] MEDS: CALCITRIOL 0.25 MCG CAP PO SCH (09:11)
[2017-05-30] MEDS: LINAGLIPTIN 5 MG TABLET PO SCH (09:12)
[2017-05-30] MEDS: ISOSORBIDE DINITRATE 20 MG TAB PO SCH ×2 (09:12→12:57)
[2017-05-30] MEDS ORDERED: Insulin NOVOLOG SS MILD Algorithm (SS with meals and bedtime) SC SCH (11:30)
[2017-05-30] MEDS ORDERED: INSULIN ASPART [NOVOLOG] 3 ML PEN SC SCH ×2 (12:00→18:00)
--- NOTE | 2017-05-30 12:30 | HP ---
DATE OF ADMISSION: 05/29/2017 REASON FOR ADMISSION: Chest pain and left leg numbness and weakness. HISTORY OF PRESENT ILLNESS: This 57-year-old man who is well known to me was in his usual state of health until yesterday when he developed some substernal chest pain. At this time, he describes the pain as slight. He also felt that his left leg was numb and weak, and he had trouble walking. He told the ER doctor, "I might have overdosed on my medicine," but this was not intentional, he just got confused because of the pain. The patient was just admitted to this hospital on March 31 for chest pain, and at that time he had a full cardiac workup. He was seen by his pharmacy picking technician, Dr. Tobi Cano. He was eventually discharged to home. He had an echocardiogram done during that admission, which showed an ejection fraction of 40-45 percent, consistent with a cardiomyopathy. He had a Lexiscan done at that time, with no significant ischemia, just scar and prior IA. The patient has significant renal disease and is at CKD, stage 4. The patient is anxious about his need for dialysis at some time in the future, and he does get some symptoms that are not always explained by organic causes. He has known coronary artery disease. He did have a stent placed in May 2013 and then underwent a coronary artery bypass grafting in July 2013. The patient denies nausea, vomiting, diarrhea, fever, or chills. PAST MEDICAL HISTORY: Remarkable for type 2 diabetes mellitus; hypertension; chronic kidney disease (CKD), stage 4, with diabetic nephropathy; coronary artery disease; hyperlipidemia; diabetic neuropathy; diabetic retinopathy; he is blind in his right eye. PAST SURGICAL HISTORY: Right total hip replacement in 2010, cholecystectomy, coronary artery bypass grafting in July 2013. FAMILY HISTORY: Father is , age 48, of heart disease. Mother is alive. Mother has diabetes mellitus. There is no family history of cancer. SOCIAL HISTORY: The patient does smoke marijuana; he does not smoke cigarettes. He was a former cigarette smoker. He does not drink alcohol. Occupation: [employer]abled [employer]. CURRENT MEDICATIONS: Include the following; he is on: 1. Atorvastatin 80 mg a day. 2. Hydralazine 100 mg 3 times a day. 3. Isosorbide dinitrate 20 mg 3 times a day. 4. Metoprolol tartrate 25 mg twice a day. 5. Aspirin 81 mg a day. 6. Lorazepam 1 mg a day. 7. Furosemide 20 mg a day. 8. Sodium bicarbonate 650 mg twice a day. 9. NovoLog insulin sliding scale. 10. Lantus insulin 35 units at bedtime. 11. Tradjenta 5 mg a day. 12. Calcitriol 0.25 mcg a day. PHYSICAL EXAMINATION: GENERAL APPEARANCE: At this time reveals a well-developed man in no apparent distress. He is awake and alert. VITAL SIGNS: Temperature 98.3, pulse 80, respirations 18, blood pressure 166/79, O2 saturation 96 percent on room air. HEENT: Head normocephalic. Eyes, extraocular muscles intact. He is blind in the right eye. Nose and mouth are normal. NECK: Supple. No neck vein distention. LUNGS: Clear to auscultation. HEART: Regular rhythm. No murmurs, gallops, or rubs. ABDOMEN: Soft, nontender. No masses or megaly. EXTREMITIES: No peripheral edema. NEUROLOGIC: He has a normal strength in both arms and legs. Cranial nerves are intact, except for blind in right eye. He has no obvious neurologic deficits.He is able to raise both lower extremeties IMPRESSION: 1. Chest pain. This patient has had a recent cardiac workup, which was negative. He has had episodes of chest pain that have not been cardiac in origin. The chest pain is atypical. 2. Left leg numbness and weakness. He has no other focal neurologic deficits. I doubt he has had a cerebral vascular event; however, I will order a an MRI of his brain. He was seen by Dr Tobi Lujan , vascular surgeon , who found L foot to be cold without pedal pulses . Dr Lujan is going to do emergent surgery to assess the arterial circulation of the L leg . 3. Chronic kidney disease, stage 4. The patient will be informed of this, and I will discuss placement of a vascular access in preparation for future hemodialysis.He may need hemodialysis in the next day or so if his renal function decreases 4. Coronary artery disease. 5. Type 2 diabetes mellitus, usually poorly controlled. 6. Hypertension. 7. Hyperlipidemia. 8. Diabetic retinopathy. 9. Diabetic neuropathy. PLAN: 1. MRI of the brain. 2. Vascular surgery consult to evaluate for placement of vascular access for future hemodialysis.Vascular surgery , Dr Lujan has evaluated patient and has found an ischemic L foot and is taking patient to surgery for this and to place a vascular access for hemodialysis . 3. Cardiology consult called with Dr Cano . 3. Continue current medications. 4. Follow labs while in the hospital. Dictated By: Lacho Gaytan MD /deepak/[facility] /Document#: [id number] MTDD
[2017-05-30] MEDS ORDERED: GELATIN SIZE 100 SPONGE ONE (12:47)
[2017-05-30 12:48] LABS: CREATINE KINASE 209 IU/L (23-200)
[2017-05-30] MEDS ORDERED: THROMBIN 5000 UNIT VIAL ONE (12:48)
[2017-05-30] MEDS ORDERED: HEPARIN 1000 UNITS/ML 10 ML INJ ONE ×2 (12:48→15:11)
[2017-05-30] MEDS ORDERED: FENTAnyl 50 MCG/ML VIAL ONE (13:00)
[2017-05-30] MEDS ORDERED: MIDAZOLAM 1 MG/ML 2 ML INJ ONE (13:00)
[2017-05-30] MEDS ORDERED: ROCURONIUM 50 MG INJ ONE (13:00)
[2017-05-30] MEDS ORDERED: CEFAZOLIN 1 GM INJ ONE (13:00)
[2017-05-30] MEDS ORDERED: HEPARIN 1000 UNITS/ML 10 ML INJ IV ONE (13:00)
[2017-05-30] MEDS ORDERED: DEXAMETHASONE 4 MG/ML 1 ML INJ ONE (13:00)
[2017-05-30] MEDS ORDERED: ONDANSETRON 4 MG INJ ONE (13:00)
[2017-05-30] MEDS ORDERED: NEOSTIGMINE 3 MG/3 ML SYRINGE ONE (13:00)
[2017-05-30] MEDS ORDERED: GLYCOPYRROLATE 0.4 MG INJ ONE (13:00)
[2017-05-30] MEDS ORDERED: PROPOFOL 20 ML ONE (13:00)
[2017-05-30 13:01] LABS: CK-MB 2.37 ng/ml (0.0-2.4); TROPONIN-I < 0.012 ng/ml (0.00-0.12)
[2017-05-30] MEDS ORDERED: ETOMIDATE 20 MG INJ ONE (13:02)
[2017-05-30] MEDS ORDERED: PAPAVERINE 60 MG INJ ONE (13:08)
[2017-05-30] MEDS ORDERED: IOHEXOL 300MG/ML 30 ML BTL ONE ×3 (13:09→15:36)
--- NOTE | 2017-05-30 13:43 | HPN ---
Date/Time of Note Date/Time of Note DATE: 05/30/17 TIME: 13:43 Interval H&P Admission Note Pt. seen H&P reviewed: No system changes SONNY SPARROW MD May 30, 2017 13:43
[2017-05-30 13:49] LABS: INR 1.15; PROTIME 14.7 Sec (12.2-14.2); PT RATIO 1.1
--- NOTE | 2017-05-30 14:07 | RADRPT ---
Vent Rate: 80 bpm RR Interval: 0 msec OR Interval: 168 msec QRS Duration: 104 msec QT Interval: 394 msec QTC Interval: 454 msec P-R-T [place]: 59 - -42 - 87 degrees Normal sinus rhythm Left axis deviation Inferior infarct , age undetermined Anterolateral infarct , age undetermined Abnormal ECG Electronically Signed By: Eagle Wan [id number]
[2017-05-30] MEDS ORDERED: HYDROmorphONE 2 MG/ML SYG ONE (14:45)
[2017-05-30] MEDS ORDERED: EPHEDrine SULFATE 50 MG/5 ML SYG ONE (15:59)
[2017-05-30] MEDS ORDERED: ALTEPLASE (CATHFLO) 2 MG INJ CATHETER ONE (16:00)
[2017-05-30 16:09] LABS: PARTIAL THROMBOPLASTIN TIME > 180.0 Sec (25.0-35.0)
[2017-05-30] MEDS ORDERED: PHENYLephrine (100 MCG/ML) 5ML SYG ONE (16:09)
[2017-05-30] MEDS ORDERED: LABETALOL HCL 20MG INJ IV PRN ×3 (16:30→18:00)
[2017-05-30] MEDS ORDERED: MEPERIDINE 25 MG INJ IV PRN ×3 (16:30→18:00)
[2017-05-30] MEDS ORDERED: EPHEDrine SULFATE 50 MG/5 ML SYG IV PRN ×3 (16:30→18:00)
[2017-05-30] MEDS ORDERED: HYDROmorphONE (0.2 MG/ML) 10ML SYG IV PRN ×3 (16:30)
[2017-05-30] MEDS ORDERED: METOCLOPRAMIDE 10 MG INJ IV PRN ×3 (16:30→18:00)
[2017-05-30] MEDS ORDERED: HYDROmorphONE 1 MG/ML SYG IV PRN ×6 (16:30→18:00)
[2017-05-30] MEDS ORDERED: hydrALAzine 20 MG INJ IV PRN ×3 (16:30→18:00)
[2017-05-30] MEDS ORDERED: DIPHENHYDRAMINE 50 MG INJ IV PRN ×3 (16:30→18:00)
[2017-05-30] MEDS ORDERED: METOPROLOL 5 MG INJ ONE (16:44)
--- NOTE | 2017-05-30 16:46 | SIPON ---
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 Dao Boyle Anesthesia: general Estimated blood loss: 100 - 150 ml's Transfusion Required none Specimen L iliac and popliteal / tibial thrombus Grafts/Implants none Complications none SONNY SPARROW MD May 30, 2017 16:46
[2017-05-30] MEDS ORDERED: hydrALAzine 20 MG INJ ONE (16:55)
[2017-05-30] MEDS ORDERED: HEPARIN 1000 UNITS/ML 10 ML INJ IV PRN ×3 (17:00→18:00)
[2017-05-30] MEDS ORDERED: niCARdipine-NS 0.1MG/ML DRIP 200 ML IV SCH (17:30)
[2017-05-30] MEDS ORDERED: niCARdipine 50 MG in SOD CHLORIDE 0.9% 480 ML IV SCH (17:30)
--- NOTE | 2017-05-30 17:38 | CONS ---
DATE OF ADMISSION: 05/29/2017 DATE OF CONSULTATION: 05/30/2017 REFERRING PHYSICIAN: Lacho Gaytan MD REASON FOR CONSULTATION: I was actually asked to see him for future dialysis access, but he has a severely ischemic left leg. HISTORY OF PRESENT ILLNESS: This is a 57-year-old man, diabetic, ex-smoker with severe chronic kidney disease. Dr. Gaytan actually caught me this morning and asked me to see him to evaluate him for an AV fistula in the future, but when I came to see him at 12:30 this afternoon, he was just screaming in pain. He basically said his left leg hurts in the thigh and calf, severe pain, cannot move the foot at all. He said it is numb, and he does not feel it from about the mid-calf down. He said he was walking yesterday with his mother at around 4 o'clock and then sat down and all of a sudden basically could not feel that left leg. He came to the emergency room, apparently was also having some chest pain when he came in as well, and it sounds like he was very confused when he came into the ER. He stopped smoking several years ago, but he was a heavy smoker prior to that. He does smoke marijuana still. PAST MEDICAL HISTORY: Again, significant for diabetes, hypertension, chronic kidney disease, coronary artery disease. He has had a CABG several years ago. He denies any history of atrial fibrillation. MEDICATIONS: Consist of: 1. Tradjenta. 2. Lasix. 3. Lorazepam. 4. . 5. Hydralazine. 6. Calcitriol. 7. Aspirin. 8. Lantus. 9. Lopressor. 10. Atorvastatin. 11. NovoLog. 12. Apresoline. 13. He is getting some subcu heparin. ALLERGIES: NO KNOWN DRUG ALLERGIES. PAST SURGICAL HISTORY: Significant for CABG and cholecystectomy. FAMILY HISTORY: Significant for coronary artery disease. His father also had his legs amputated because of diabetes. SOCIAL HISTORY: He currently denies active cigarette smoking, but he is a former smoker, stopped several years ago, and he does smoke marijuana regularly. REVIEW OF SYSTEMS: He currently is diaphoretic, denies any chest pain or shortness of breath. He is clearly very, very uncomfortable, and when I came to see him, he was actually screaming in pain from left thigh and upper calf. He cannot move the left foot. He cannot feel the foot at all. He denies any recent weight gain or weight loss. He has no abdominal or back pain, no fevers or chills or recent melena or diarrhea. PHYSICAL EXAMINATION: GENERAL: He is a middle-aged gentleman. He is appears older than his stated age. He is kind of moaning in pain and holding his left leg. VITAL SIGNS: He is afebrile. He blood pressure is 166/72. His heart rate is 95. Respiratory rate is 17. He is 95 percent saturation on room air. NECK: He has 2+ carotid pulses bilaterally. EXTREMITIES: He has 2+ radial and brachial pulses bilaterally. He has 1 to 2+ right femoral pulse. I do not feel popliteal or pedal pulses on the right. On the left, there are no femoral, popliteal, DP, or PT pulses. On the right foot, he has normal sensation, normal motion in the toes, and on the left, he has no motion, and the toes are completely paralyzed. He has no sensation. He cannot feel it at all. He cannot bend the ankle at all. He has a complete footdrop. The calf compartment and thigh compartment are both soft. The left foot is pale. I do not see any refill. There are no ulcerations. LABORATORY: He has a creatinine of 3.85; that is apparently his baseline. Potassium 3.9. His white count is 13. Hemoglobin is 13. Chest x-ray was fine when he came in. CK is not terribly elevated; it was 126 this morning. Troponins are essentially normal. He did not have any coagulation studies, but he is not anticoagulated. IMPRESSION/PLAN: Severe left lower extremity pain and numbness in the foot with no pulses in the left leg from the groin all the way down. He has a long smoking history, long cardiac history. He had some arterial studies done in the lower extremities back in 2012. At that time, showed a lot of monophasic flow bilaterally, suggesting iliac or aortic disease. He has not had any studies done now. His leg is clearly threatened; it has been since the onset of symptoms and more than 12 hours. If there is any chance of saving the left leg, they need to take him right now for revascularization. I talked to the operating room. We are going to bring him down as soon as possible. I am going to do an angiogram and aortogram with runoff through the right groin. Hopefully, we will be able to just do a femoral/femoral or even a thrombectomy, and I discussed that with him and the severity of the findings. He is almost certainly going to go into renal failure postoperatively, so I am going to put a Yaya catheter in and likely do fasciotomies of the calf muscles as well. Dictated By: Tobi Lujan MD /deepak/[facility] /Document#: [id number] CC: Lacho Gaytan MD; Donis Taylor MD;*[facility]*
[2017-05-30] MEDS ORDERED: HEPARIN 25000 UNITS/250 ML 250 ML IV SCH (18:00)
[2017-05-30 18:50] LABS: HEMATOCRIT 41.9 % (42.0-52.0); HEMOGLOBIN 13.8 g/dl (14.0-18.0); MEAN CORPUSCULAR HEMOGLOBIN 29.3 pg (29.0-33.0); MEAN CORPUSCULAR HGB CONC 32.9 g/dl (32.0-37.0); MEAN PLATELET VOLUME 10.4 fl (7.4-10.4); PLATELET COUNT 243 10^3/UL (140-415); RED BLOOD COUNT 4.71 10^6/ul (4.70-6.10); RED CELL DISTRIBUTION WIDTH 13.6 % (11.5-14.5); WHITE BLOOD COUNT 20.9 10^3/ul (4.8-10.8)
[2017-05-30 19:04] LABS: INR 1.09; PROTIME 14.1 Sec (12.2-14.2); PT RATIO 1.1
[2017-05-30 19:09] LABS: PARTIAL THROMBOPLASTIN TIME 82.1 Sec (25.0-35.0)
[2017-05-30 19:20] LABS: MONOCYTES % (M) 2 % (0-11); PLATELET ESTIMATE NORMAL
[2017-05-30] MEDS: SOD CHLORIDE 0.9% 1,000 ML IV SCH (19:27)
[2017-05-30] MEDS ORDERED: GLUCOSE GEL 15 GRAM TUBE BUCCAL PRN (19:30)
[2017-05-30] MEDS ORDERED: GLUCAGON 1 MG INJ IM PRN (19:30)
[2017-05-30] MEDS ORDERED: GLUCOSE GEL 15 GRAM TUBE PO PRN ×2 (19:30)
[2017-05-30] MEDS ORDERED: DEXTROSE 50% 50 ML SYRINGE IV PRN ×2 (19:30)
[2017-05-30] MEDS ORDERED: NITROGLYCERIN (SL) 0.4 MG TAB SL PRN (20:00)
[2017-05-30] MEDS: METOPROLOL 25 MG TAB PO SCH (20:20)
[2017-05-30] MEDS: INSULIN ASPART [NOVOLOG] 3 ML PEN SC SCH (20:21)
[2017-05-30] MEDS ORDERED: ATORVASTATIN 80 MG TAB PO SCH (21:00)
--- NOTE | 2017-05-30 21:55 | RADRPT ---
PROCEDURE: Intraoperative imaging of the right lower extremity with fluoroscopy. CLINICAL INDICATION: Right leg pain. Intraoperative. TECHNIQUE: 38 series of images of the right lower extremity were obtained in the operating room wi th an image intensifier. No radiologist was in attendance. Fluoroscopy time is 194 seconds. COMPARISON: No prior study is available for comparison. FINDINGS: Images demonstrate contrast injected into the arterial system of the right lower extremity. Images w ere interpreted at the time of the study by the referring physician. IMPRESSION: 1. Intraoperative imaging of the right lower extremity. RPTAT: QQ .Garcia Chacko MD, MD Date Time Electronically viewed and signed by .Garcia Chacko MD, on 05/30/2017 21:55 .R/
--- NOTE | 2017-05-30 22:04 | OPR ---
DATE OF OPERATION: 05/30/2017 PREOPERATIVE DIAGNOSIS: Ischemic left lower extremity with rest pain, paralysis and numb foot. POSTOPERATIVE DIAGNOSIS: Ischemic left lower extremity with rest pain, paralysis and numb foot with left external iliac artery occlusion and left popliteal and tibial artery thrombus. OPERATION PERFORMED: 1. Abdominal aortogram and left lower extremity runoff with selective catheter placement from right common femoral artery into left superficial femoral artery via right common femoral artery puncture. 2. Open thrombectomy of left external iliac artery and left popliteal and tibial arteries using Rolando balloon catheters. 3. Left anterior and lateral compartment fasciotomy. 4. Placement of left internal jugular vein temporary hemodialysis catheter using ultrasound guidance. SURGEON: Tobi Lujan MD FIRE SPRINKLER APPARATUS INSPECTOR: Dao Boyle M.D. ANESTHESIA: General endotracheal anesthesia. ESTIMATED BLOOD LOSS: 100-150 cc. COMPLICATIONS: No intraprocedural complications. INDICATIONS: This is a 57-year-old gentleman who I saw earlier this afternoon. He came in to the ER last night and he was disoriented. Apparently, he came in with chest pain and had some left foot numbness. Dr. Gaytan asked me to see him for AV access for fistula creation in the future, but when I went to see him he was writhing in excruciating pain in the left leg from the thigh all the way down to the calf. He said the left foot he could not feel at all, was insensate. He had complete foot drop and no sensation in the foot. The foot was cold and pale. The right foot, I could not feel any pulses in the right foot but it was warm and he had no sensory loss in the right foot. He was able to move it. I did not order any diagnostic imaging, I just brought him down straight to the operating room to try and salvage the foot. He said he thinks the pain and the numbness began yesterday around 4 o'clock p.m. He was walking, he said he sat down after walking and basically could not could not get up. He could not walk on it and that is when he came to the emergency room. I think he was self medicating. When he got to the emergency room he was disoriented from taking too many pain meds. OPERATIVE PROCEDURE: Patient was brought to the operating room, placed on the table in the supine position. After induction of general endotracheal anesthesia, I placed a left IJ Yaya catheter using ultrasound guidance. The left neck was prepped and draped in the usual sterile fashion, and I used an 18-gauge single wall puncture needle to enter the left internal jugular vein under ultrasound guidance. An 0.035 wire was inserted through the needle into the vein, then a tract was dilated over the wire and the Yaya catheter was placed over the wire into the left internal jugular vein. It was only 15 cm in length, but this was the only catheter we could find that was available at the time. There was good blood return from both ports and it flushed easily. The anesthesiologist then used this for the IV during the case as well. So, once the Yaya catheter was in place, the groins, abdomen and entire left lower extremity were prepped and draped in the usual sterile fashion. I began on the right side. I used ultrasound to identify the right common femoral artery. I infiltrated over the artery using about 10 cc of 1 percent Xylocaine. I used a micropuncture needle to enter the artery under ultrasound guidance. An 0.018 wire was inserted through the needle into the artery, and a micropuncture sheath was advanced over the wire into the artery. I then advanced an 0.035 Bentson wire up into the abdominal aorta and exchanged the micropuncture sheath for a 6-Irish sheath over the wire. I advanced an Omni Flush catheter into the abdominal aorta and then did an abdominal aortogram and this immediately identified the infrarenal aorta as widely patent. The right common and external iliac artery was patent. The left common iliac artery was patent and then the external iliac artery was completely occluded. The entire artery was occluded. There was some collateral flow coming through the external iliac that reconstituted the common femoral artery. In the thigh, I could see the profunda femoral artery was patent and the superficial femoral artery was patent down at least to the mid thigh, so I decided to just go ahead and cut down on the left femoral artery and do a thrombectomy of left external iliac. So, I then made an incision over the left common femoral artery. There was no pulse there but I made a longitudinal incision in the groin. I dissected down through the subcutaneous tissue using electrocautery. I identified the common femoral artery. Again, there was no pulse. This was very decompressed, completely flat. There was no pulse any higher up either. I carefully dissected out the common superficial and profunda femoral arteries and controlled them with vessel loops. Of note, when I first saw the patient this afternoon, I gave him 8000 units of heparin intravenously and we gave him another 5000 here in the operating room. So, once I had the artery well exposed and controlled, I clamped the superficial femoral and profunda femoral arteries and made a transverse arteriotomy just above the bifurcation. There was just a little bit of inflow coming from proximally but just very sort of nonpulsatile coming through the collaterals from the internal iliac artery. I then passed a 4-Irish Rolando up into the iliac artery. I passed it several times. I pulled a large amount of thrombus. The thrombus was to the external iliac artery. It was about 8-10 cm in length. I could see the platelet plug at the top of the clot, and removed it all and then there was this torrential inflow, so excellent inflow at this point. I passed it several times and got no further clots. I clamped the artery then, and then I passed the Rolando down the profunda, got no clot back and the SFA origin looked open. I did not see any thrombus in the SFA. I then went and closed the arteriotomy using 5-0 Prolene sutures in a running standard vascular surgical fashion, but I did not tie down the anastomosis, I just held up on the sutures and restored flow down to the to the left foot. I then listened with the Doppler and I could not hear any signal in the left foot. So, I decided to go ahead and passed a Rolando down distally as well. So, I got a 3-Irish Rolando, a long one and passed it through the same arteriotomy distally. It went all the way down the entire length of 70 7 cm. I then pulled the balloon catheter back and got again another 15 cm segment of thrombus. It looked like it was probably at the distal popliteal extending down into the tibial vessels. I passed it again several times. I got no more thrombus back and I got good back bleeding from below. I then again held up on the sutures restoring flow down into the foot and removed the clamps from the common femoral artery proximally. I then from the other side advanced the catheter up and over the bifurcation. I used a Glidewire to go through the Omni Flush catheter. I advanced a Glidewire into the SFA and then tracked a 4-Irish glide catheter into the mid SFA and did runoff down the left leg. At this point, now the SFA was wide open. The popliteal artery was widely patent. Below the knee, peroneal artery was small but patent and sort of dissipated at the distal calf. The posterior tibial artery was completely occluded. I did not see any reconstitution distally. The anterior tibial artery had a lot of spasm and some sort of diffuse narrowing throughout but there was fairly brisk flow down right into the foot with good filling of the dorsalis pedis artery in the foot. I listened with the Doppler at this point and heard good Doppler signal in the dorsalis pedis and distal anterior tibial, it sounded at least biphasic. The last thing I did, I did not see any point in passing the Rolando anymore. I did not look any further thrombus and I had already passed it twice, so I injected 5 mg tPA into the catheter in the SFA just to have it instilled down distally into the distal circulation. I then removed the catheter and left Bentson wire and the sheath through the right groin. At this point, I tied the sutures in the left arteriotomy closing the arteriotomy site. There appeared to be good hemostasis. I left some FloSeal around it because I know he would be anticoagulated postoperatively and some thrombin Gelfoam right over the arteriotomy site. I then closed the skin incision in two layers using an inner layer of 3-0 Vicryl and an outer layer of 4-0 Monocryl subcuticular suture. Sterile dressing was applied there. We then closed the puncture site on the right using 6-Irish Angio-Seal device with good hemostasis and good femoral pulse after closure. I then proceeded to do an anterior and lateral compartment fasciotomy. I made a long incision along the anterolateral left calf. I opened up the anterior and lateral compartments. The muscle clearly was healthy. I did not see any necrotic muscle that bulged out and had good perfusion. It was alive and had some good bleeding from the tissue. We then just packed it with saline gauze, wet-to-dry and wrapped it with Kerlix and an Calvin wrap, and again that was into the foot. The foot now had brisk refill and it was beginning to pink up, and there was a triphasic sounding dorsalis pedis signal on the left foot. Patient tolerated the procedure well. He was extubated in the operating room and transferred to the recovery room in stable condition. Dictated By: Tobi Lujan MD /deepak/christopher /Document#: [id number] CC: Lacho Gaytan MD; Tobi Cano MD
[2017-05-31] VITALS (26 sets, daily range): BP systolic 93–148; BP diastolic 43–87; PULSE 84–96; RESP 15–30
[2017-05-31] MEDS: HYDROmorphONE 1 MG/ML SYG IV PRN ×6 (00:31→23:40)
[2017-05-31] MEDS: INSULIN ASPART [NOVOLOG] 3 ML PEN SC SCH ×6 (01:09→21:00)
[2017-05-31 01:43] LABS: HEMATOCRIT 36.4 % (42.0-52.0); HEMOGLOBIN 12.1 g/dl (14.0-18.0)
[2017-05-31] MEDS ORDERED: ACCU-CHEK XX SCH ×2 (02:00)
[2017-05-31] MEDS: ZOLPIDEM 5 MG TAB PO PRN (04:09)
[2017-05-31 05:15] LABS: BASOPHILS % 0.2 % (0.0-2.0); EOSINOPHILS % 0.1 % (0.0-7.0); HEMATOCRIT 33.8 % (42.0-52.0); HEMOGLOBIN 11.3 g/dl (14.0-18.0); LYMPHOCYTES # 1.4 10^3/ul (0.8-2.9); LYMPHOCYTES % 6.9 % (15.0-51.0); MEAN CORPUSCULAR HGB CONC 33.4 g/dl (32.0-37.0); MEAN CORPUSCULAR VOLUME 86.7 fl (82.0-101.0); MEAN PLATELET VOLUME 10.5 fl (7.4-10.4); MONOCYTE # 1.4 10^3/ul (0.3-0.9); NEUTROPHIL # 16.7 10^3/ul (1.6-7.5); NEUTROPHILS % 85.1 % (39.0-77.0); PLATELET COUNT 250 10^3/UL (140-415); RED CELL DISTRIBUTION WIDTH 13.8 % (11.5-14.5); WHITE BLOOD COUNT 19.6 10^3/ul (4.8-10.8)
[2017-05-31 05:41] LABS: ALBUMIN 3.1 g/dl (3.3-4.9); ALBUMIN/GLOBULIN RATIO 1.06; BILIRUBIN,INDIRECT 0.1 mg/dl (0-1.1); BILIRUBIN,TOTAL 0.1 mg/dl (0.2-1.3); CALCIUM 7.8 mg/dl (8.4-10.2); CREATININE 3.47 mg/dl (0.61-1.24); MAGNESIUM 1.7 mg/dl (1.7-2.5); POTASSIUM 4.1 mmol/L (3.5-5.1)
--- NOTE | 2017-05-31 06:42 | PN ---
Date/Time of Note Date/Time of Note DATE: 05/31/17 TIME: 06:42 Assessment/Plan Lines/Catheters IV Catheter Type (from Nrs): Yaya Joshi in Place (from [facility]): Yes Assessment/Plan Chief Complaint/Hosp Course 57M diabetic, ex-smoker with severe chronic kidney disease found to have acute LLE ischemia due to emboli s/p LLE arterial thrombectomy, angiogram and fasciotomy of anterior and lateral compartments POD#1; pt is doing well Plan: -Appreciate medical management -May transition to Eliquis and stop heparin gtt after receives first dose -Please cont wound care to L fasciotomy site w/ wet-to-dry packings and may place vacuum dressing by wound care - please reinforce dressing as needed -Recommend eventual plastic surgery consult for possible LLE fasciotomy wound closure/skin graft -Renal status per Dr. Navdeep Arroyo to get out of bed w/ assist/PT -May transfer out of ICU if ok w/ Dr. 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 Thank you and please call with questions Problems: Subjective 24 Hr Interval Summary Doing well, BP better controlled; L foot sensation and motor recovering; hep gtt ; oozing from LLE fasciotomy site Exam/Review of Systems Vital Signs Vitals Vital Signs Date Time Temp Pulse Resp B/P Pulse Ox O2 Delivery O2 Flow Rate FiO2 05/31/17 06:00 88 19 112/60 98 Nasal Cannula 3.0 05/31/17 04:00 98.2 Intake and Output 05/30/17 05/30/17 05/31/17 14:59 22:59 06:59 Intake Total 550 ml 1890 ml 1102 ml Output Total 350 ml 870 ml 405 ml Balance 200 ml 1020 ml 697 ml Exam Free Text/Dictation Gen: AAOx3, NAD Neck: supple, L IJ Yaya catheter c/d/i Abd: soft, NT, ND Extr: B/l groins c/d/i; soft, no hematoma; LLE fasciotomy site clean, mild slow oozing; b/l feet warm, pink, motor and sensation intact Pulses: Bilateral palpable femoral pulses; L DP has triphasic doppler signal; non-palp R pedal pulses Results Result Diagram: 05/31/17 0410 05/31/17 0410 MARLON AUSTIN MD May 31, 2017 06:42
[2017-05-31 06:51] LABS: CK-MB 10.1 ng/ml (0.0-2.4); TROPONIN-I 0.372 ng/ml (0.00-0.12)
[2017-05-31] MEDS: CALCITRIOL 0.25 MCG CAP PO SCH (08:24)
[2017-05-31] MEDS: ASPIRIN (EC) 81 MG TAB PO SCH (08:24)
[2017-05-31] MEDS: SOD CHLORIDE 0.9% 1,000 ML IV SCH ×3 (08:24→23:39)
[2017-05-31] MEDS: METOPROLOL 25 MG TAB PO SCH ×2 (08:27→21:00)
[2017-05-31] MEDS: LINAGLIPTIN 5 MG TABLET PO SCH (08:27)
[2017-05-31] MEDS: APIXABAN 5 MG TABLET PO SCH ×2 (08:28→20:59)
[2017-05-31] MEDS ORDERED: FUROSEMIDE 20 MG TAB PO SCH (09:00)
--- NOTE | 2017-05-31 09:38 | CONS ---
DATE OF ADMISSION: 05/29/2017 DATE OF CONSULTATION: 05/30/2017 REASON FOR CONSULTATION: Cardiomyopathy, decreased left ejection fraction, chest pain, status post emergency surgery for arterial insufficiency, cold foot. REQUESTING PHYSICIAN: Lacho Gaytan MD HISTORY OF PRESENT ILLNESS: Mr. Candelaria is a 57-year-old man well known to myself, prior hospital admission with a history of cardiomyopathy with decreased left ventricular ejection fraction, last one approximately 40 percent by echocardiogram April 2017 and 35 percent by stress April 2017 with no ischemia; prior myocardial infarction; prior history of DISPENSARY ATTENDANT stent placed in 2012; hypertension; dyslipidemia; diabetes mellitus; chronic kidney disease, stage 4; who had initially been discharged to outpatient followup in April and presents May 29 with complaints of chest pain and left leg numbness and weakness. HOSPITAL COURSE: Initially upon arrival, temperature 97.8, blood pressure of 186/85, pulse 87, respiratory rate 22, saturation 97 percent. The patient's labs, white count 13.2, hemoglobin 13.7, platelet count 242,000. Sodium 134, potassium 3.9, creatinine 3.8, BUN of 53. Troponin negative, INR of 1.1. The patient underwent a chest x-ray revealing no acute cardiopulmonary disease, stable mild cardiomegaly, atherosclerotic aortic calcification, status post CABG. The patient subsequently was initially admitted to the floor, and upon evaluation by primary physician, was found to have decreased pulses and cool lower extremity. Vascular surgery consultation was obtained, and patient was found to have a cold left leg, consistent with acute arterial insufficiency. Due to this, the patient was taken to the OR today emergently by Dr. Lujan, vascular surgery, and underwent a left pelvic iliac and popliteal tibial artery thrombectomy via left femoral artery cut-down, a left anterior and lateral compartment fasciotomy, and additionally had a left IJ temporary hemodialysis catheter placed. The patient was admitted to the ICU postoperatively. Currently stable vital signs. PAST MEDICAL HISTORY: As above in HPI. MEDICATIONS CURRENTLY IN HOSPITAL: 1. Aspirin 81 mg daily. 2. Lasix 20 mg daily. 3. Lipitor 80 mg at bedtime. 4. Metoprolol 25 mg p.o. b.i.d. 5. Insulin, sliding scale. 6. IV fluid hydration at 75 mL/h. 7. Heparin IV.. ALLERGIES: NO KNOWN DRUG ALLERGIES. SOCIAL HISTORY: No current tobacco, but was a former tobacco intake. Does smoke marijuana daily. No ETOH. FAMILY HISTORY: Father of coronary artery disease, age 48. REVIEW OF SYSTEMS: As above in HPI. CONSTITUTIONAL: No fevers, chills. PULMONARY: No current signs of respiratory compromise, but the patient is status post surgery. Face mask in place. NECK: JVP, approximately 9 cm H2O. CHEST: Decreased breath sounds at the bases bilaterally. HEART: Tachycardic, regular rhythm. Normal S1, increased S2, 1/6 systolic murmur, nondisplaced PMI. ABDOMEN: Positive bowel sounds. Soft. EXTREMITIES: Left lower extremity covered by dressing, status post surgery. Right lower extremity trace edema, palpable pulses. LABORATORY: Most recently from this afternoon: Total troponins negative x3 since admit. White count 20.9, hemoglobin 13.8, platelet count 243,000 from 28,000, creatinine of 3.85, BUN 53, sodium 134. IMAGING STUDIES: Chest x-ray from the revealing stable cardiomegaly and atherosclerotic aortic calcifications, status post CABG. ECG, dated May 30, shows normal sinus rhythm, rate of 80 with left axis deviation, borderline inferior Q-waves, borderline anterior R-wave progression, lateral T-wave inversions. IMPRESSION: 1. Chest pain prior to surgery with negative troponins x3 since that time and history of recent stress testing with no ischemia. 2. Cardiomyopathy with decreased left ventricular ejection fraction, approximately 35-40 percent by echo and stress test April 2017. 3. Postoperative day number zero, status post thrombectomy and fasciotomy for acute arterial insufficiency, ischemic foot. 4. Peripheral arterial disease. 5. Chronic kidney disease, pain, prepare for likely initiation of hemodialysis. 6. Leukocytosis, status post surgery. 7. Dyslipidemia. 8. Hypertension, under reasonable control. RECOMMENDATIONS: 1. At this time, would maintain patient in ICU on telemetry monitoring. 2. Would continue to follow the patient's troponins to make sure the patient did not have any acute coronary syndrome 3. Continue patient's aspirin at this time and heparin status post thrombectomy. 4. Continue the patient's gentle Lasix as tolerated following blood pressure and heart rate closely. 5. Continue the patient's current beta bruno, following heart rate and blood pressure closely. 6. Continue the patient's statin and adjust it according to a fasting lipid panel, should be checked. 7. Pain control. 8. Probable initiation of hemodialysis. Thank your for allowing me to take part in the care of this patient. I will continue to follow very closely with you with recommendations as the patient progresses through his inpatient hospital course. Dictated By: Tobi Cano MD /deepak/paulette /Document#: [id number] CC: Lacho Gaytan MD; Tobi Lujan MD;*EndCC* [facility]
--- NOTE | 2017-05-31 11:39 | CONS ---
Date/Time of Note Date/Time of Note DATE: 05/31/17 TIME: 11:24 Assessment/Plan Assessment/Plan Chief Complaint/Hosp Course IMPRESSION: 1. Chest pain prior to surgery with negative troponins x3 since that time and history of recent stress testing with no ischemia.-now mildly positive troponin after surgery likely type 2 infarct 2. Cardiomyopathy with decreased left ventricular ejection fraction, approximately 35-40 percent by echo and stress test April 2017. 3. Postoperative day #1 , status post thrombectomy and fasciotomy for acute arterial insufficiency, ischemic foot. 4. Peripheral arterial disease. 5. Chronic kidney disease, pain, prepare for likely initiation of hemodialysis. 6. Leukocytosis, status post surgery. 7. Dyslipidemia. 8. Hypertension, under reasonable control. Recc: -Tele -serial ecg's -Continue asa/Eliquis and follow Hgb closely -Continue low dose BB as tolerated -trend cardiac enzymes -Follow volume status -Consider initiation of statin Problems: Consultation Date/Type/Reason Admit Date/Time May 29, 2017 at 19:54 Initial Consult Date 05/31/17 Type of Consultation: Cardiology Reason for Consultation cardiomyopathy/positive troponin Referring Provider: ANGÉLICA HEWITT MD Exam/Review of Systems Vital Signs Vitals Vital Signs Date Time Temp Pulse Resp B/P Pulse Ox O2 Delivery O2 Flow Rate FiO2 05/31/17 11:00 87 23 104/52 99 Nasal Cannula 3.0 05/31/17 08:00 97.9 Intake and Output 05/30/17 05/30/17 05/31/17 15:00 23:00 07:00 Intake Total 550 ml 1982 ml 1010 ml Output Total 350 ml 930 ml 345 ml Balance 200 ml 1052 ml 665 ml Exam Review of Systems: CONSTITUTIONAL: No fevers, chills. PULMONARY: No sob CARDIOVASCULAR: No chest pain/palpitations GASTROINTESTINAL: No nausea/vomiting. GENITOURINARY: No hematuria/dysuria. MUSCULOSKELETAL: mild leg pain PSYCHIATRIC: The patient denies depression. NEUROLOGIC: No weakness Constitutional: alert Psych: no complaints Head: normocephalic ENMT: mucosa pink and moist Neck: jvd (9 cm water), supple Respiratory: diminished breath sounds Cardiovascular: regular rate and rhythm Gastrointestinal: non-tender, soft Musculoskeletal: muscle tone (normal) Extremities: other (LLE covered by dressing with ongoing bleeding) Neurological: other (No focal deficist) Results Result Diagram: 05/31/17 0410 05/31/17 0410 Results 24 hrs Laboratory Tests Test 05/30/17 12:05 05/30/17 12:07 05/30/17 13:21 05/30/17 18:35 Bedside Glucose 190 Creatine Kinase 209 H Creatine Kinase Index 1.1 Creatinine Kinase MB (Mass) 2.37 Troponin I < 0.012 Prothrombin Time 14.7 H 14.1 Prothrombin Time Ratio 1.1 1.1 INR International Normalized Ratio 1.15 1.09 Activated Partial Thromboplast Time > 180.0 *H 82.1 *H Mix PTT Normal Plasma Immediate White Blood Count 20.9 #H Red Blood Count 4.71 Hemoglobin 13.8 L Hematocrit 41.9 L Mean Corpuscular Volume 89.0 Mean Corpuscular Hemoglobin 29.3 Mean Corpuscular Hemoglobin Concent 32.9 Red Cell Distribution Width 13.6 Platelet Count 243 Mean Platelet Volume 10.4 Neutrophils % Segmented Neutrophils % (Manual) 91 H Lymphocytes % Lymphocytes % (Manual) 7 L Monocytes % Monocytes % (Manual) 2 Eosinophils % Basophils % Nucleated Red Blood Cells % 0.0 Neutrophils # Absolute Lymphocytes (Manual) 1.4 Lymphocytes # Monocytes # Absolute Monocytes (Manual) 0.4 Eosinophils # Basophils # Nucleated Red Blood Cells # Platelet Estimate NORMAL Test 05/30/17 20:18 05/31/17 01:06 05/31/17 01:35 05/31/17 04:10 Bedside Glucose 321 H 279 H Hemoglobin 12.1 L 11.3 L Hematocrit 36.4 L 33.8 L Activated Partial Thromboplast Time 142.9 *H White Blood Count 19.6 H Red Blood Count 3.90 L Mean Corpuscular Volume 86.7 Mean Corpuscular Hemoglobin 29.0 Mean Corpuscular Hemoglobin Concent 33.4 Red Cell Distribution Width 13.8 Platelet Count 250 Mean Platelet Volume 10.5 H Neutrophils % 85.1 H Lymphocytes % 6.9 L Monocytes % 7.0 Eosinophils % 0.1 Basophils % 0.2 Nucleated Red Blood Cells % 0.0 Neutrophils # 16.7 H Lymphocytes # 1.4 Monocytes # 1.4 H Eosinophils # 0.0 Basophils # 0.0 Nucleated Red Blood Cells # 0.0 Sodium Level 133 L Potassium Level 4.1 Chloride Level 104 Carbon Dioxide Level 20 L Anion Gap 13 Blood Urea Nitrogen 45 H Creatinine 3.47 H Glucose Level 229 H Calcium Level 7.8 L Magnesium Level 1.7 Total Bilirubin 0.1 L Direct Bilirubin 0.00 Indirect Bilirubin 0.1 Aspartate Amino Transf (AST/SGOT) 30 Alanine Aminotransferase (ALT/SGPT) 34 Alkaline Phosphatase 94 Creatine Kinase 1100 #H Creatine Kinase Index 0.9 Creatinine Kinase MB (Mass) 10.10 H Troponin I 0.372 *H Total Protein 6.0 L Albumin 3.1 L Globulin 2.90 Albumin/Globulin Ratio 1.06 Triglycerides Level 81 Cholesterol Level 109 LDL Cholesterol, Calculated 57 HDL Cholesterol 36 Cholesterol/HDL Ratio 3.0 Parathyroid Hormone (Intact) Test 05/31/17 04:15 05/31/17 08:21 05/31/17 08:39 Bedside Glucose 223 H 170 Activated Partial Thromboplast Time 100.1 *H Medications Medications Current Medications Ondansetron HCl (Zofran Tab) 4 mg Q6H PRN PO NAUSEA AND/OR VOMITING; Start at 21:30 Ondansetron HCl (Zofran Inj) 4 mg Q6H PRN IV NAUSEA AND/OR VOMITING; Start at 21:30 Acetaminophen (Tylenol Tab) 650 mg Q6H PRN PO PAIN LEVEL 1-3 OR FEVER; Start at 21:30 Hydromorphone HCl (Dilaudid) 0.5 mg Q4H PRN IV PAIN LEVEL 7-10 Last administered on 05/31/17 08:00; Admin Dose 0.5 MG; Start 05/29/17 at 21:30 Zolpidem Tartrate (Ambien) 5 mg QHS PRN PO INSOMNIA Last administered on 04:09; Admin Dose 5 MG; Start 05/29/17 at 21:30 Docusate Sodium (Colace) 100 mg Q12H PRN PO CONSTIPATION; Start 05/29/17 at 21: 30 Atorvastatin Calcium (Lipitor) 80 mg DAILY@21 PO ; Start 05/30/17 at 21:00; Status Future Hold Calcitriol (Rocaltrol) 0.25 mcg DAILY PO Last administered on 05/31/17 08:24; Admin Dose 0.25 MCG; Start 05/30/17 at 09:00 Hydralazine HCl (Apresoline) 100 mg TID PO Last administered on 05/30/17 09:12 ; Admin Dose 100 MG; Start 05/30/17 at 09:00; Status Future Hold Isosorbide Dinitrate (Isordil) 20 mg TID PO Last administered on 05/30/17 09: 12; Admin Dose 20 MG; Start 05/30/17 at 09:00; Status Future Hold Linagliptin (Tradjenta) 5 mg DAILY PO Last administered on 05/31/17 08:27; Admin Dose 5 MG; Start 05/30/17 at 09:00 Metoprolol Tartrate (Lopressor) 25 mg BID PO Last administered on 05/31/17 08: 27; Admin Dose 25 MG; Start 05/30/17 at 21:00 Sodium Bicarbonate (Sodium Bicarbonate Tab) 325 mg BID PO Last administered on 05/30/17 09:11; Admin Dose 325 MG; Start 05/30/17 at 09:00; Status Future Hold Diagnostic Test (Pha) 1 ea 1 ea 02 XX ; Start 05/31/17 at 02:00 Nicardipine HCl (Cardene Iv) 200 ml @ 50 mls/hr TITRATE IV Last administered on 05/30/17 17:42; Admin Dose 50 MLS/HR; Start 05/30/17 at 17:30 Aspirin (Halfprin) 81 mg DAILY PO Last administered on 05/31/17 08:24; Admin Dose 81 MG; Start 05/31/17 at 09:00 Furosemide (Lasix) 20 mg DAILY PO Last administered on 05/31/17 08:27; Admin Dose 20 MG; Start 05/31/17 at 09:00 Lorazepam 1 mg 1 mg TID PRN PO ANXIETY; Start 05/30/17 at 18:00 Sodium Chloride (NS) 1,000 ml @ 75 mls/hr [id number] IV Last administered on 05/31 08:24; Admin Dose 75 MLS/HR; Start 05/30/17 at 19:00 Insulin Aspart (Novolog Insulin Pen) NOVOLOG *MODERATE* ALGORI... Q4 SC Last administered on 05/31/17 08:29; Admin Dose 2 UNIT; Start 05/30/17 at 21:00 Miscellaneous Information 1 ea NOTE XX ; Start 05/30/17 at 19:30 Glucose (Glutose) 15 gm Q15M PRN PO DECREASED GLUCOSE; Start 05/30/17 at 19:30 Glucose (Glutose) 22.5 gm Q15M PRN PO DECREASED GLUCOSE; Start 05/30/17 at 19: 30 Dextrose (D50w Syringe) 25 ml Q15M PRN IV DECREASED GLUCOSE; Start 05/30/17 at 19:30 Dextrose (D50w Syringe) 50 ml Q15M PRN IV DECREASED GLUCOSE; Start 05/30/17 at 19:30 Glucagon (Glucagen) 1 mg Q15M PRN IM DECREASED GLUCOSE; Start 05/30/17 at 19:30 Glucose (Glutose) 15 gm Q15M PRN BUCCAL DECREASED GLUCOSE; Start 05/30/17 at 19 :30 Nitroglycerin (Nitroglycerin (Sl Tab) 0.4 Mg) 1 tab Q5M PRN SL ANGINA; Start at 20:00 Apixaban (Eliquis) 5 mg BID PO Last administered on 05/31/17t 08:28; Admin Dose 5 MG; Start 05/31/17 at 09:00 SONNY ALVARENGA May 31, 2017 11:34
--- NOTE | 2017-05-31 14:11 | CONS ---
Date/Time of Note Date/Time of Note DATE: 05/31/17 TIME: 14:06 Assessment/Plan Assessment/Plan Additional Assessment/Plan 1. status post thrombectomy and fasciotomy for acute arterial insufficiency, ischemic foot. clots noted by vascular and an onticoagulation. post op bleeding noted and will repeat cbc q 12 hrs 2-Chest pain prior to surgery with negative troponins x3. now with acute rise in troponin, suspect post op NSTEMI, monitored by cards 3-ckd 4: hd catheter preemptively placed yesterday. cr better and non oliguric. no indication for hd at this time. cont to monitor 4- htn: bp low, will adjust meds and follow 5- Cardiomyopathy with decreased left ventricular ejectionfraction, approximately 35-40 percent by echo and stress test April 2017.compensated 6. Leukocytosis, status post surgery. 7. Dyslipidemia.on meds Consultation Date/Type/Reason Admit Date/Time May 29, 2017 at 19:54 Initial Consult Date Type of Consultation: Cardiology Reason for Consultation complains of leg discomfort. has ongoing post op bleeding. surgery aware. no cp or sob Referring Provider: ANGÉLICA HEWITT MD Exam/Review of Systems Vital Signs Vitals Vital Signs Date Time Temp Pulse Resp B/P Pulse Ox O2 Delivery O2 Flow Rate FiO2 05/31/17 13:00 87 27 97/50 98 05/31/17 12:00 98.1 Nasal Cannula 3.0 Intake and Output 05/30/17 05/30/17 05/31/17 15:00 23:00 07:00 Intake Total 550 ml 1982 ml 1010 ml Output Total 350 ml 930 ml 445 ml Balance 200 ml 1052 ml 565 ml Exam Constitutional: alert, oriented Psych: no complaints Head: normocephalic Neck: supple Respiratory: clear to auscultation, diminished breath sounds Cardiovascular: edema, nl pulses, regular rate and rhythm Gastrointestinal: non-tender (bleeding lle /bandages soaked), soft Results Result Diagram: 05/31/1740905/31/17409 Results 24 hrs Laboratory Tests Test 05/30/17 18:35 05/30/17 20:18 05/31/17 01:06 05/31/17 01:35 White Blood Count 20.9 #H Red Blood Count 4.71 Hemoglobin 13.8 L 12.1 L Hematocrit 41.9 L 36.4 L Mean Corpuscular Volume 89.0 Mean Corpuscular Hemoglobin 29.3 Mean Corpuscular Hemoglobin Concent 32.9 Red Cell Distribution Width 13.6 Platelet Count 243 Mean Platelet Volume 10.4 Neutrophils % Segmented Neutrophils % (Manual) 91 H Lymphocytes % Lymphocytes % (Manual) 7 L Monocytes % Monocytes % (Manual) 2 Eosinophils % Basophils % Nucleated Red Blood Cells % 0.0 Neutrophils # Absolute Lymphocytes (Manual) 1.4 Lymphocytes # Monocytes # Absolute Monocytes (Manual) 0.4 Eosinophils # Basophils # Nucleated Red Blood Cells # Platelet Estimate NORMAL Prothrombin Time 14.1 Prothrombin Time Ratio 1.1 INR International Normalized Ratio 1.09 Activated Partial Thromboplast Time 82.1 *H 142.9 *H Bedside Glucose 321 H 279 H Test 05/31/17 04:10 05/31/17 04:15 05/31/17 08:21 05/31/17 08:39 White Blood Count 19.6 H Red Blood Count 3.90 L Hemoglobin 11.3 L Hematocrit 33.8 L Mean Corpuscular Volume 86.7 Mean Corpuscular Hemoglobin 29.0 Mean Corpuscular Hemoglobin Concent 33.4 Red Cell Distribution Width 13.8 Platelet Count 250 Mean Platelet Volume 10.5 H Neutrophils % 85.1 H Lymphocytes % 6.9 L Monocytes % 7.0 Eosinophils % 0.1 Basophils % 0.2 Nucleated Red Blood Cells % 0.0 Neutrophils # 16.7 H Lymphocytes # 1.4 Monocytes # 1.4 H Eosinophils # 0.0 Basophils # 0.0 Nucleated Red Blood Cells # 0.0 Sodium Level 133 L Potassium Level 4.1 Chloride Level 104 Carbon Dioxide Level 20 L Anion Gap 13 Blood Urea Nitrogen 45 H Creatinine 3.47 H Glucose Level 229 H Calcium Level 7.8 L Magnesium Level 1.7 Total Bilirubin 0.1 L Direct Bilirubin 0.00 Indirect Bilirubin 0.1 Aspartate Amino Transf (AST/SGOT) 30 Alanine Aminotransferase (ALT/SGPT) 34 Alkaline Phosphatase 94 Creatine Kinase 1100 #H Creatine Kinase Index 0.9 Creatinine Kinase MB (Mass) 10.10 H Troponin I 0.372 *H Total Protein 6.0 L Albumin 3.1 L Globulin 2.90 Albumin/Globulin Ratio 1.06 Triglycerides Level 81 Cholesterol Level 109 LDL Cholesterol, Calculated 57 HDL Cholesterol 36 Cholesterol/HDL Ratio 3.0 Parathyroid Hormone (Intact) Bedside Glucose 223 H 170 Activated Partial Thromboplast Time 100.1 *H Test 05/31/17 13:31 Bedside Glucose 250 H Medications Medications Current Medications Ondansetron HCl (Zofran Tab) 4 mg Q6H PRN PO NAUSEA AND/OR VOMITING; Start at 21:30 Ondansetron HCl (Zofran Inj) 4 mg Q6H PRN IV NAUSEA AND/OR VOMITING; Start at 21:30 Acetaminophen (Tylenol Tab) 650 mg Q6H PRN PO PAIN LEVEL 1-3 OR FEVER; Start at 21:30 Hydromorphone HCl (Dilaudid) 0.5 mg Q4H PRN IV PAIN LEVEL 7-10 Last administered on 05/31/17 12:04; Admin Dose 0.5 MG; Start 05/29/17 at 21:30 Zolpidem Tartrate (Ambien) 5 mg QHS PRN PO INSOMNIA Last administered on 04:09; Admin Dose 5 MG; Start 05/29/17 at 21:30 Docusate Sodium (Colace) 100 mg Q12H PRN PO CONSTIPATION; Start 05/29/17 at 21: 30 Atorvastatin Calcium (Lipitor) 80 mg DAILY@21 PO ; Start 05/30/17 at 21:00; Status Future Hold Calcitriol (Rocaltrol) 0.25 mcg DAILY PO Last administered on 05/31/17 08:24; Admin Dose 0.25 MCG; Start 05/30/17 at 09:00 Hydralazine HCl (Apresoline) 100 mg TID PO Last administered on 05/30/17 09:12 ; Admin Dose 100 MG; Start 05/30/17 at 09:00; Status Future Hold Isosorbide Dinitrate (Isordil) 20 mg TID PO Last administered on 05/30/17 09: 12; Admin Dose 20 MG; Start 05/30/17 at 09:00; Status Future Hold Linagliptin (Tradjenta) 5 mg DAILY PO Last administered on 05/31/17 08:27; Admin Dose 5 MG; Start 05/30/17 at 09:00 Metoprolol Tartrate (Lopressor) 25 mg BID PO Last administered on 05/31/17 08: 27; Admin Dose 25 MG; Start 05/30/17 at 21:00 Sodium Bicarbonate (Sodium Bicarbonate Tab) 325 mg BID PO Last administered on 05/30/17 09:11; Admin Dose 325 MG; Start 05/30/17 at 09:00; Status Future Hold Diagnostic Test (Pha) 1 ea 1 ea 02 XX ; Start 05/31/17 at 02:00 Nicardipine HCl (Cardene Iv) 200 ml @ 50 mls/hr TITRATE IV Last administered on 05/30/17 17:42; Admin Dose 50 MLS/HR; Start 05/30/17 at 17:30 Aspirin (Halfprin) 81 mg DAILY PO Last administered on 05/31/17 08:24; Admin Dose 81 MG; Start 05/31/17 at 09:00 Furosemide (Lasix) 20 mg DAILY PO Last administered on 05/31/17 08:27; Admin Dose 20 MG; Start 05/31/17 at 09:00 Lorazepam 1 mg 1 mg TID PRN PO ANXIETY; Start 05/30/17 at 18:00 Sodium Chloride (NS) 1,000 ml @ 75 mls/hr [id number] IV Last administered on 05/31 08:24; Admin Dose 75 MLS/HR; Start 05/30/17 at 19:00 Insulin Aspart (Novolog Insulin Pen) NOVOLOG *MODERATE* ALGORI... Q4 SC Last administered on 05/31/17 13:34; Admin Dose 6 UNIT; Start 05/30/17 at 21:00 Miscellaneous Information 1 ea NOTE XX ; Start 05/30/17 at 19:30 Glucose (Glutose) 15 gm Q15M PRN PO DECREASED GLUCOSE; Start 05/30/17 at 19:30 Glucose (Glutose) 22.5 gm Q15M PRN PO DECREASED GLUCOSE; Start 05/30/17 at 19: 30 Dextrose (D50w Syringe) 25 ml Q15M PRN IV DECREASED GLUCOSE; Start 05/30/17 at 19:30 Dextrose (D50w Syringe) 50 ml Q15M PRN IV DECREASED GLUCOSE; Start 05/30/17 at 19:30 Glucagon (Glucagen) 1 mg Q15M PRN IM DECREASED GLUCOSE; Start 05/30/17 at 19:30 Glucose (Glutose) 15 gm Q15M PRN BUCCAL DECREASED GLUCOSE; Start 05/30/17 at 19 :30 Nitroglycerin (Nitroglycerin (Sl Tab) 0.4 Mg) 1 tab Q5M PRN SL ANGINA; Start at 20:00 Apixaban (Eliquis) 5 mg BID PO Last administered on 05/31/17t 08:28; Admin Dose 5 MG; Start 05/31/17 at 09:00 ILANA SCOTT MD May 31, 2017 14:11
[2017-05-31 15:53] LABS: BASOPHILS % 0.1 % (0.0-2.0); EOSINOPHILS % 0.1 % (0.0-7.0); HEMATOCRIT 25.9 % (42.0-52.0); HEMOGLOBIN 8.5 g/dl (14.0-18.0); LYMPHOCYTES # 1.9 10^3/ul (0.8-2.9); LYMPHOCYTES % 9.2 % (15.0-51.0); MEAN CORPUSCULAR HEMOGLOBIN 28.8 pg (29.0-33.0); MEAN CORPUSCULAR HGB CONC 32.8 g/dl (32.0-37.0); MEAN CORPUSCULAR VOLUME 87.8 fl (82.0-101.0); MEAN PLATELET VOLUME 10.4 fl (7.4-10.4); MONOCYTE # 1.4 10^3/ul (0.3-0.9); MONOCYTES % 7.2 % (0.0-11.0); NEUTROPHIL # 16.5 10^3/ul (1.6-7.5); NEUTROPHILS % 82.6 % (39.0-77.0); PLATELET COUNT 211 10^3/UL (140-415); RED BLOOD COUNT 2.95 10^6/ul (4.70-6.10); RED CELL DISTRIBUTION WIDTH 13.9 % (11.5-14.5)
[2017-05-31 16:15] LABS: ALBUMIN 2.7 g/dl (3.3-4.9); ALBUMIN/GLOBULIN RATIO 1.03; BILIRUBIN,INDIRECT 0.1 mg/dl (0-1.1); BILIRUBIN,TOTAL 0.1 mg/dl (0.2-1.3); CALCIUM 7.4 mg/dl (8.4-10.2); CREATININE 4.64 mg/dl (0.61-1.24); POTASSIUM 4.3 mmol/L (3.5-5.1); TOTAL PROTEIN 5.3 g/dl (6.1-8.1)
[2017-05-31] MEDS ORDERED: SOD CHLORIDE 0.9% 250 ML IV* ONE (16:23)
[2017-05-31 18:06] LABS: CK-MB 7.3 ng/ml (0.0-2.4); TROPONIN-I 0.226 ng/ml (0.00-0.12)
[2017-05-31] MEDS: INSULIN GLARGINE [LANtus] 3 ML PEN SC SCH (22:13)
[2017-05-31 22:24] LABS: ABNORMAL IP MESSAGE 1; BASOPHIL # 0.1 10^3/ul (0.0-0.1); BASOPHILS % 0.2 % (0.0-2.0); EOSINOPHILS # 0.2 10^3/ul (0.0-0.5); EOSINOPHILS % 0.7 % (0.0-7.0); HEMATOCRIT 27.3 % (42.0-52.0); HEMOGLOBIN 9.2 g/dl (14.0-18.0); LYMPHOCYTES # 2.8 10^3/ul (0.8-2.9); MEAN CORPUSCULAR HEMOGLOBIN 29.6 pg (29.0-33.0); MEAN CORPUSCULAR HGB CONC 33.7 g/dl (32.0-37.0); MEAN CORPUSCULAR VOLUME 87.8 fl (82.0-101.0); MEAN PLATELET VOLUME 10.4 fl (7.4-10.4); MONOCYTES % 9.1 % (0.0-11.0); NEUTROPHIL # 16.4 10^3/ul (1.6-7.5); NEUTROPHILS % 75.3 % (39.0-77.0); PLATELET COUNT 202 10^3/UL (140-415); POSITIVE DIFF @See below; RED BLOOD COUNT 3.11 10^6/ul (4.70-6.10); RED CELL DISTRIBUTION WIDTH 13.8 % (11.5-14.5); WHITE BLOOD COUNT 21.8 10^3/ul (4.8-10.8)
[2017-05-31 22:41] LABS: CALCIUM 7.4 mg/dl (8.4-10.2); CREATININE 5.23 mg/dl (0.61-1.24); POTASSIUM 3.7 mmol/L (3.5-5.1)
[2017-05-31] MEDS: LORAZEPAM 1 MG TAB PO PRN (23:39)
[2017-05-31] MEDS: DOCUSATE SODIUM 100 MG CAP PO PRN (23:39)
[2017-06-01] VITALS (31 sets, daily range): BP systolic 105–153; BP diastolic 57–77; PULSE 85–105; RESP 5–30
[2017-06-01] MEDS: ACCU-CHEK XX SCH (02:00)
[2017-06-01] MEDS: ZOLPIDEM 5 MG TAB PO PRN (04:04)
[2017-06-01] MEDS: HYDROmorphONE 1 MG/ML SYG IV PRN ×5 (04:04→19:57)
[2017-06-01 06:18] LABS: ABNORMAL IP MESSAGE 1; BASOPHIL # 0.1 10^3/ul (0.0-0.1); BASOPHILS % 0.2 % (0.0-2.0); EOSINOPHILS # 0.1 10^3/ul (0.0-0.5); EOSINOPHILS % 0.6 % (0.0-7.0); HEMATOCRIT 25.9 % (42.0-52.0); HEMOGLOBIN 8.7 g/dl (14.0-18.0); LYMPHOCYTES # 2.5 10^3/ul (0.8-2.9); MEAN CORPUSCULAR HEMOGLOBIN 29.2 pg (29.0-33.0); MEAN CORPUSCULAR HGB CONC 33.6 g/dl (32.0-37.0); MEAN CORPUSCULAR VOLUME 86.9 fl (82.0-101.0); MEAN PLATELET VOLUME 11.2 fl (7.4-10.4); MONOCYTE # 1.9 10^3/ul (0.3-0.9); MONOCYTES % 8.9 % (0.0-11.0); NEUTROPHIL # 15.9 10^3/ul (1.6-7.5); NEUTROPHILS % 76.1 % (39.0-77.0); PLATELET COUNT 195 10^3/UL (140-415); POSITIVE DIFF @See below; RED BLOOD COUNT 2.98 10^6/ul (4.70-6.10); RED CELL DISTRIBUTION WIDTH 13.9 % (11.5-14.5); WHITE BLOOD COUNT 20.9 10^3/ul (4.8-10.8)
[2017-06-01 06:32] LABS: ALBUMIN 2.7 g/dl (3.3-4.9); ALBUMIN/GLOBULIN RATIO 0.9; BILIRUBIN,INDIRECT 0.1 mg/dl (0-1.1); BILIRUBIN,TOTAL 0.1 mg/dl (0.2-1.3); CALCIUM 7.5 mg/dl (8.4-10.2); CREATININE 5.94 mg/dl (0.61-1.24); POTASSIUM 3.8 mmol/L (3.5-5.1); TOTAL PROTEIN 5.7 g/dl (6.1-8.1)
[2017-06-01 06:55] LABS: CK-MB 13.4 ng/ml (0.0-2.4); TROPONIN-I 0.896 ng/ml (0.00-0.12)
--- NOTE | 2017-06-01 07:18 | PN ---
Date/Time of Note Date/Time of Note DATE: 06/01/17 TIME: 07:18 Assessment/Plan Lines/Catheters IV Catheter Type (from [facility]): Saline Lock Joshi in Place (from [facility]): Yes Assessment/Plan Chief Complaint/Hosp Course 57M diabetic, ex-smoker with severe chronic kidney disease found to have acute LLE ischemia due to emboli s/p LLE arterial thrombectomy, angiogram and fasciotomy of anterior and lateral compartments POD#2; doing well overall Plan: -Appreciate medical management -Cont Eliquis -Please cont wound care to L fasciotomy site w/ wet-to-dry packings and may place vacuum dressing by wound care - please reinforce dressing as needed -Recommend eventual plastic surgery consult for possible LLE fasciotomy wound closure/skin graft -Renal status per Dr. Sethi's team -Ok to get out of bed w/ assist/PT Thank you and please call with questions Problems: Subjective 24 Hr Interval Summary No complaints, says L foot "feels better"; had oozing from LLE fasciotomy site but no more after reinforced yesterday afternoon; had pRBC x1; not HD yet Exam/Review of Systems Vital Signs Vitals Vital Signs Date Time Temp Pulse Resp B/P Pulse Ox O2 Delivery O2 Flow Rate FiO2 06/01/17 11:00 89 20 138/61 100 Room Air 06/01/17 08:00 98.4 05/31/17 21:40 21 05/31/17 14:46 3.0 Intake and Output 05/31/17 05/31/17 06/01/17 15:00 23:00 07:00 Intake Total 1635 ml 745 ml 770 ml Output Total 345 ml 30 ml 16 ml Balance 1290 ml 715 ml 754 ml Exam Free Text/Dictation Gen: AAOx3, NAD Neck: supple, L IJ Yaya catheter c/d/i Abd: soft, NT, ND Extr: B/l groins c/d/i; soft, no hematoma; LLE fasciotomy site clean, AARON wrap above dressing c/d/i; b/l feet warm, pink, motor and sensation intact Pulses: Bilateral palpable femoral pulses; L DP has triphasic doppler signal; non-palp R pedal pulses Results Result Diagram: 06/01/17 0500 06/01/17 0500 MARLON AUSTIN MD Jun 01, 2017 07:18
[2017-06-01] MEDS: INSULIN ASPART [NOVOLOG] 3 ML PEN SC SCH ×4 (08:09→20:35)
[2017-06-01] MEDS: METOPROLOL 25 MG TAB PO SCH ×2 (08:30→20:30)
[2017-06-01] MEDS: APIXABAN 5 MG TABLET PO SCH ×2 (08:30→20:30)
[2017-06-01] MEDS: ASPIRIN (EC) 81 MG TAB PO SCH (08:31)
[2017-06-01] MEDS: LINAGLIPTIN 5 MG TABLET PO SCH (08:31)
[2017-06-01] MEDS: CALCITRIOL 0.25 MCG CAP PO SCH (08:31)
--- NOTE | 2017-06-01 10:05 | CONS ---
Date/Time of Note Date/Time of Note DATE: 06/01/17 TIME: 10:01 Assessment/Plan Assessment/Plan Additional Assessment/Plan 1. status post thrombectomy and fasciotomy for acute arterial insufficiency, ischemic foot. clots noted by vascular and and on anticoagulation. post op bleeding noted and required prbc yesterday. will transfuse again today given cardiac and renal issues as well as persistent hypotension 2-Chest pain prior to surgery with negative troponins x3. now with acute rise in troponin, suspect post op NSTEMI, monitored by cards, tropinin higher today but still with no cp. ? willl need intervention 3- arf on ckd 4: anuric overnight and cr acutely elevated with hyponatremia and anemia requiring more blood products. concerened about volume status given need for blood products. dw pt at length and will start hd today and reevaluate. hopefully he will recover renal function 4- htn: bp low,meds on hold 5- Cardiomyopathy with decreased left ventricular ejectionfraction, approximately 35-40 percent by echo and stress test April 2017.hd today 6. Leukocytosis, status post surgery. 7. Dyslipidemia.on meds 8-dm; in meds, cont iss 9-hyponatremia: should correct with hd Consultation Date/Type/Reason Admit Date/Time May 29, 2017 at 19:54 Type of Consultation: Cardiology Reason for Consultation not doing well. continued bleeding overnight and required prbc transfusion. bleeding slowing down this am. became anuric overnigth with acutely rising cr. has mild sob but no cp. bp marginal. Referring Provider: ANGÉLICA HEWITT MD Exam/Review of Systems Vital Signs Vitals Vital Signs Date Time Temp Pulse Resp B/P Pulse Ox O2 Delivery O2 Flow Rate FiO2 06/01/17 08:00 98.4 97 21 123/60 98 Room Air 05/31/17 21:40 21 05/31/17 14:46 3.0 Intake and Output 05/31/17 05/31/17 06/01/17 15:00 23:00 07:00 Intake Total 1635 ml 745 ml 695 ml Output Total 345 ml 30 ml 16 ml Balance 1290 ml 715 ml 679 ml Exam Constitutional: alert, frail, oriented Head: atraumatic, normocephalic Neck: non-tender, supple Respiratory: diminished breath sounds Cardiovascular: edema, regular rate and rhythm Gastrointestinal: non-tender, soft Results Result Diagram: 06/01/17 0500 06/01/17 0500 Results 24 hrs Laboratory Tests Test 05/31/17 13:31 05/31/17 15:43 05/31/17 17:40 05/31/17 20:57 Bedside Glucose 250 H 246 H 161 White Blood Count 20.0 H Red Blood Count 2.95 #L Hemoglobin 8.5 #L Hematocrit 25.9 #L Mean Corpuscular Volume 87.8 Mean Corpuscular Hemoglobin 28.8 L Mean Corpuscular Hemoglobin Concent 32.8 Red Cell Distribution Width 13.9 Platelet Count 211 Mean Platelet Volume 10.4 Neutrophils % 82.6 H Lymphocytes % 9.2 L Monocytes % 7.2 Eosinophils % 0.1 Basophils % 0.1 Nucleated Red Blood Cells % 0.0 Neutrophils # 16.5 H Lymphocytes # 1.9 Monocytes # 1.4 H Eosinophils # 0.0 Basophils # 0.0 Nucleated Red Blood Cells # 0.0 Sodium Level 128 L Potassium Level 4.3 Chloride Level 101 Carbon Dioxide Level 19 L Anion Gap 12 Blood Urea Nitrogen 51 H Creatinine 4.64 #H Glucose Level 237 H Calcium Level 7.4 L Total Bilirubin 0.1 L Direct Bilirubin 0.00 Indirect Bilirubin 0.1 Aspartate Amino Transf (AST/SGOT) 21 Alanine Aminotransferase (ALT/SGPT) 28 Alkaline Phosphatase 71 Creatine Kinase 569 H Creatine Kinase Index 1.3 Creatinine Kinase MB (Mass) 7.30 H Troponin I 0.226 *H Total Protein 5.3 L Albumin 2.7 L Globulin 2.60 Albumin/Globulin Ratio 1.03 Test 05/31/17 22:02 06/01/17 05:00 06/01/17 05:42 06/01/17 08:08 White Blood Count 21.8 H 20.9 H Red Blood Count 3.11 L 2.98 L Hemoglobin 9.2 L 8.7 L Hematocrit 27.3 L 25.9 L Mean Corpuscular Volume 87.8 86.9 Mean Corpuscular Hemoglobin 29.6 29.2 Mean Corpuscular Hemoglobin Concent 33.7 33.6 Red Cell Distribution Width 13.8 13.9 Platelet Count 202 195 Mean Platelet Volume 10.4 11.2 H Neutrophils % 75.3 76.1 Lymphocytes % 13.0 L 12.0 L Monocytes % 9.1 8.9 Eosinophils % 0.7 0.6 Basophils % 0.2 0.2 Nucleated Red Blood Cells % 0.0 0.0 Neutrophils # 16.4 H 15.9 H Lymphocytes # 2.8 2.5 Monocytes # 2.0 H 1.9 H Eosinophils # 0.2 0.1 Basophils # 0.1 0.1 Nucleated Red Blood Cells # 0.0 0.0 Sodium Level 128 L 128 L Potassium Level 3.7 3.8 Chloride Level 101 101 Carbon Dioxide Level 18 L 19 L Anion Gap 13 12 Blood Urea Nitrogen 55 H 60 H Creatinine 5.23 H 5.94 H Glucose Level 133 # 126 Calcium Level 7.4 L 7.5 L Total Bilirubin 0.1 L Direct Bilirubin 0.00 Indirect Bilirubin 0.1 Aspartate Amino Transf (AST/SGOT) 22 Alanine Aminotransferase (ALT/SGPT) 26 Alkaline Phosphatase 76 Creatine Kinase 422 H Creatine Kinase Index 3.2 Creatinine Kinase MB (Mass) 13.40 H Troponin I 0.896 *H Total Protein 5.7 L Albumin 2.7 L Globulin 3.00 Albumin/Globulin Ratio 0.90 Lab Scanned Report BLOOD TRANSFUSION Bedside Glucose 142 Medications Medications Current Medications Ondansetron HCl (Zofran Tab) 4 mg Q6H PRN PO NAUSEA AND/OR VOMITING; Start at 21:30 Ondansetron HCl (Zofran Inj) 4 mg Q6H PRN IV NAUSEA AND/OR VOMITING; Start at 21:30 Acetaminophen (Tylenol Tab) 650 mg Q6H PRN PO PAIN LEVEL 1-3 OR FEVER; Start at 21:30 Hydromorphone HCl (Dilaudid) 0.5 mg Q4H PRN IV PAIN LEVEL 7-10 Last administered on 06/01/17 08:04; Admin Dose 0.5 MG; Start 05/29/17 at 21:30 Zolpidem Tartrate (Ambien) 5 mg QHS PRN PO INSOMNIA Last administered on 04:04; Admin Dose 5 MG; Start 05/29/17 at 21:30 Docusate Sodium (Colace) 100 mg Q12H PRN PO CONSTIPATION Last administered on 23:39; Admin Dose 100 MG; Start 05/29/17 at 21:30 Atorvastatin Calcium (Lipitor) 80 mg DAILY@21 PO ; Start 05/30/17 at 21:00; Status Future Hold Calcitriol (Rocaltrol) 0.25 mcg DAILY PO Last administered on 06/01/17 08:31; Admin Dose 0.25 MCG; Start 05/30/17 at 09:00 Hydralazine HCl (Apresoline) 100 mg TID PO Last administered on 05/30/17 09:12 ; Admin Dose 100 MG; Start 05/30/17 at 09:00; Status Future Hold Isosorbide Dinitrate (Isordil) 20 mg TID PO Last administered on 05/30/17 09: 12; Admin Dose 20 MG; Start 05/30/17 at 09:00; Status Future Hold Linagliptin (Tradjenta) 5 mg DAILY PO Last administered on 06/01/17 08:31; Admin Dose 5 MG; Start 05/30/17 at 09:00 Metoprolol Tartrate (Lopressor) 25 mg BID PO Last administered on 06/01/17 08: 30; Admin Dose 25 MG; Start 05/30/17 at 21:00 Sodium Bicarbonate 325 mg 325 mg BID PO Last administered on 05/30/17 09:11; Admin Dose 325 MG; Start 05/30/17 at 09:00; Status Future Hold Nicardipine HCl (Cardene Iv) 200 ml @ 50 mls/hr TITRATE IV Last administered on 05/30/17 17:42; Admin Dose 50 MLS/HR; Start 05/30/17 at 17:30 Aspirin (Halfprin) 81 mg DAILY PO Last administered on 06/01/17 08:31; Admin Dose 81 MG; Start 05/31/17 at 09:00 Lorazepam (Ativan) 1 mg TID PRN PO ANXIETY Last administered on 05/31/17 23:39 ; Admin Dose 1 MG; Start 05/30/17 at 18:00 Miscellaneous Information 1 ea NOTE XX ; Start 05/30/17 at 19:30 Glucose (Glutose) 15 gm Q15M PRN PO DECREASED GLUCOSE; Start 05/30/17 at 19:30 Glucose (Glutose) 22.5 gm Q15M PRN PO DECREASED GLUCOSE; Start 05/30/17 at 19: 30 Dextrose (D50w Syringe) 25 ml Q15M PRN IV DECREASED GLUCOSE; Start 05/30/17 at 19:30 Dextrose (D50w Syringe) 50 ml Q15M PRN IV DECREASED GLUCOSE; Start 05/30/17 at 19:30 Glucagon (Glucagen) 1 mg Q15M PRN IM DECREASED GLUCOSE; Start 05/30/17 at 19:30 Glucose (Glutose) 15 gm Q15M PRN BUCCAL DECREASED GLUCOSE; Start 05/30/17 at 19 :30 Nitroglycerin (Nitroglycerin (Sl Tab) 0.4 Mg) 1 tab Q5M PRN SL ANGINA; Start at 20:00 Apixaban (Eliquis) 5 mg BID PO Last administered on 06/01/17 08:30; Admin Dose 5 MG; Start 05/31/17 at 09:00 Insulin Glargine (Lantus) 35 unit HS SC Last administered on 05/31/17 22:13; Admin Dose 35 UNIT; Start 05/31/17 at 21:00 Diagnostic Test (Pha) 1 ea 1 ea 02 XX ; Start 06/01/17 at 02:00 Sodium Chloride (NS) 1,000 ml @ 75 mls/hr [id number] IV Last administered on 05/31 23:39; Admin Dose 75 MLS/HR; Start 05/31/17 at 23:30 ILANA SCOTT MD Jun 01, 2017 10:05
[2017-06-01] MEDS: SOD CHLORIDE 0.9% 1,000 ML IV SCH (11:46)
--- NOTE | 2017-06-01 12:44 | CONS ---
Date/Time of Note Date/Time of Note DATE: 06/01/17 TIME: 12:37 Assessment/Plan Assessment/Plan Chief Complaint/Hosp Course IMPRESSION: 1. Chest pain prior to surgery with negative troponins x3 since that time and history of recent stress testing with no ischemia.-now mildly positive troponin after surgery likely type 2 infarct with no sig uptrend 2. Cardiomyopathy with decreased left ventricular ejection fraction, approximately 35-40 percent by echo and stress test April 2017. 3. Postoperative day #2 , status post thrombectomy and fasciotomy for acute arterial insufficiency, ischemic foot. 4. Peripheral arterial disease. 5. Chronic kidney disease, pain, prepare for likely initiation of hemodialysis. 6. Leukocytosis, status post surgery. 7. Dyslipidemia. 8. Hypertension, under reasonable control. Recc: -Tele -serial ecg's -Continue asa/Eliquis and follow Hgb closely -Continue low dose BB as tolerated -trend cardiac enzymes -Follow volume status -start statin -local wound care -HD for volume removal ongoing now Problems: Consultation Date/Type/Reason Admit Date/Time May 29, 2017 at 19:54 Initial Consult Date 05/31/17 Type of Consultation: Cardiology Reason for Consultation positive troponin Referring Provider: ANGÉLICA HEWITT MD Exam/Review of Systems Vital Signs Vitals Vital Signs Date Time Temp Pulse Resp B/P Pulse Ox O2 Delivery O2 Flow Rate FiO2 06/01/17 11:00 89 20 138/61 100 Room Air 06/01/17 08:00 98.4 05/31/17 21:40 21 05/31/17 14:46 3.0 Intake and Output 05/31/17 05/31/17 06/01/17 15:00 23:00 07:00 Intake Total 1635 ml 745 ml 770 ml Output Total 345 ml 30 ml 16 ml Balance 1290 ml 715 ml 754 ml Exam Review of Systems: CONSTITUTIONAL: No fevers, chills. PULMONARY: No sob CARDIOVASCULAR: No chest pain/palpitations GASTROINTESTINAL: No nausea/vomiting. GENITOURINARY: No hematuria/dysuria. MUSCULOSKELETAL: No myagias/arthalgias. PSYCHIATRIC: The patient denies depression. NEUROLOGIC: No weakness Constitutional: alert Psych: no complaints Head: normocephalic Neck: jvd, supple Respiratory: diminished breath sounds (at bases/B) Cardiovascular: regular rate and rhythm Gastrointestinal: non-tender, soft Musculoskeletal: muscle tone (normal) Extremities: other (LLE covered by dressing) Results Result Diagram: 06/01/17 0500 06/01/17 0500 Results 24 hrs Laboratory Tests Test 05/31/17 13:31 05/31/17 15:43 05/31/17 17:40 05/31/17 20:57 Bedside Glucose 250 H 246 H 161 White Blood Count 20.0 H Red Blood Count 2.95 #L Hemoglobin 8.5 #L Hematocrit 25.9 #L Mean Corpuscular Volume 87.8 Mean Corpuscular Hemoglobin 28.8 L Mean Corpuscular Hemoglobin Concent 32.8 Red Cell Distribution Width 13.9 Platelet Count 211 Mean Platelet Volume 10.4 Neutrophils % 82.6 H Lymphocytes % 9.2 L Monocytes % 7.2 Eosinophils % 0.1 Basophils % 0.1 Nucleated Red Blood Cells % 0.0 Neutrophils # 16.5 H Lymphocytes # 1.9 Monocytes # 1.4 H Eosinophils # 0.0 Basophils # 0.0 Nucleated Red Blood Cells # 0.0 Sodium Level 128 L Potassium Level 4.3 Chloride Level 101 Carbon Dioxide Level 19 L Anion Gap 12 Blood Urea Nitrogen 51 H Creatinine 4.64 #H Glucose Level 237 H Calcium Level 7.4 L Total Bilirubin 0.1 L Direct Bilirubin 0.00 Indirect Bilirubin 0.1 Aspartate Amino Transf (AST/SGOT) 21 Alanine Aminotransferase (ALT/SGPT) 28 Alkaline Phosphatase 71 Creatine Kinase 569 H Creatine Kinase Index 1.3 Creatinine Kinase MB (Mass) 7.30 H Troponin I 0.226 *H Total Protein 5.3 L Albumin 2.7 L Globulin 2.60 Albumin/Globulin Ratio 1.03 Test 05/31/17 22:02 06/01/17 05:00 06/01/17 05:42 06/01/17 08:08 White Blood Count 21.8 H 20.9 H Red Blood Count 3.11 L 2.98 L Hemoglobin 9.2 L 8.7 L Hematocrit 27.3 L 25.9 L Mean Corpuscular Volume 87.8 86.9 Mean Corpuscular Hemoglobin 29.6 29.2 Mean Corpuscular Hemoglobin Concent 33.7 33.6 Red Cell Distribution Width 13.8 13.9 Platelet Count 202 195 Mean Platelet Volume 10.4 11.2 H Neutrophils % 75.3 76.1 Lymphocytes % 13.0 L 12.0 L Monocytes % 9.1 8.9 Eosinophils % 0.7 0.6 Basophils % 0.2 0.2 Nucleated Red Blood Cells % 0.0 0.0 Neutrophils # 16.4 H 15.9 H Lymphocytes # 2.8 2.5 Monocytes # 2.0 H 1.9 H Eosinophils # 0.2 0.1 Basophils # 0.1 0.1 Nucleated Red Blood Cells # 0.0 0.0 Sodium Level 128 L 128 L Potassium Level 3.7 3.8 Chloride Level 101 101 Carbon Dioxide Level 18 L 19 L Anion Gap 13 12 Blood Urea Nitrogen 55 H 60 H Creatinine 5.23 H 5.94 H Glucose Level 133 # 126 Calcium Level 7.4 L 7.5 L Total Bilirubin 0.1 L Direct Bilirubin 0.00 Indirect Bilirubin 0.1 Aspartate Amino Transf (AST/SGOT) 22 Alanine Aminotransferase (ALT/SGPT) 26 Alkaline Phosphatase 76 Creatine Kinase 422 H Creatine Kinase Index 3.2 Creatinine Kinase MB (Mass) 13.40 H Troponin I 0.896 *H Total Protein 5.7 L Albumin 2.7 L Globulin 3.00 Albumin/Globulin Ratio 0.90 Lab Scanned Report BLOOD TRANSFUSION Bedside Glucose 142 Test 06/01/17 12:05 Bedside Glucose 241 H Medications Medications Current Medications Ondansetron HCl (Zofran Tab) 4 mg Q6H PRN PO NAUSEA AND/OR VOMITING; Start at 21:30 Ondansetron HCl (Zofran Inj) 4 mg Q6H PRN IV NAUSEA AND/OR VOMITING; Start at 21:30 Acetaminophen (Tylenol Tab) 650 mg Q6H PRN PO PAIN LEVEL 1-3 OR FEVER; Start at 21:30 Hydromorphone HCl (Dilaudid) 0.5 mg Q4H PRN IV PAIN LEVEL 7-10 Last administered on 06/01/17 12:03; Admin Dose 0.5 MG; Start 05/29/17 at 21:30 Zolpidem Tartrate (Ambien) 5 mg QHS PRN PO INSOMNIA Last administered on 04:04; Admin Dose 5 MG; Start 05/29/17 at 21:30 Docusate Sodium (Colace) 100 mg Q12H PRN PO CONSTIPATION Last administered on 23:39; Admin Dose 100 MG; Start 05/29/17 at 21:30 Atorvastatin Calcium (Lipitor) 80 mg DAILY@21 PO ; Start 05/30/17 at 21:00; Status Future Hold Calcitriol (Rocaltrol) 0.25 mcg DAILY PO Last administered on 06/01/17 08:31; Admin Dose 0.25 MCG; Start 05/30/17 at 09:00 Hydralazine HCl (Apresoline) 100 mg TID PO Last administered on 05/30/17 09:12 ; Admin Dose 100 MG; Start 05/30/17 at 09:00; Status Future Hold Isosorbide Dinitrate (Isordil) 20 mg TID PO Last administered on 05/30/17 09: 12; Admin Dose 20 MG; Start 05/30/17 at 09:00; Status Future Hold Linagliptin (Tradjenta) 5 mg DAILY PO Last administered on 06/01/17 08:31; Admin Dose 5 MG; Start 05/30/17 at 09:00 Metoprolol Tartrate (Lopressor) 25 mg BID PO Last administered on 06/01/17 08: 30; Admin Dose 25 MG; Start 05/30/17 at 21:00 Sodium Bicarbonate 325 mg 325 mg BID PO Last administered on 05/30/17 09:11; Admin Dose 325 MG; Start 05/30/17 at 09:00; Status Future Hold Nicardipine HCl (Cardene Iv) 200 ml @ 50 mls/hr TITRATE IV Last administered on 05/30/17 17:42; Admin Dose 50 MLS/HR; Start 05/30/17 at 17:30 Aspirin (Halfprin) 81 mg DAILY PO Last administered on 06/01/17 08:31; Admin Dose 81 MG; Start 05/31/17 at 09:00 Lorazepam (Ativan) 1 mg TID PRN PO ANXIETY Last administered on 05/31/17 23:39 ; Admin Dose 1 MG; Start 05/30/17 at 18:00 Miscellaneous Information 1 ea NOTE XX ; Start 05/30/17 at 19:30 Glucose (Glutose) 15 gm Q15M PRN PO DECREASED GLUCOSE; Start 05/30/17 at 19:30 Glucose (Glutose) 22.5 gm Q15M PRN PO DECREASED GLUCOSE; Start 05/30/17 at 19: 30 Dextrose (D50w Syringe) 25 ml Q15M PRN IV DECREASED GLUCOSE; Start 05/30/17 at 19:30 Dextrose (D50w Syringe) 50 ml Q15M PRN IV DECREASED GLUCOSE; Start 05/30/17 at 19:30 Glucagon (Glucagen) 1 mg Q15M PRN IM DECREASED GLUCOSE; Start 05/30/17 at 19:30 Glucose (Glutose) 15 gm Q15M PRN BUCCAL DECREASED GLUCOSE; Start 05/30/17 at 19 :30 Nitroglycerin (Nitroglycerin (Sl Tab) 0.4 Mg) 1 tab Q5M PRN SL ANGINA; Start at 20:00 Apixaban (Eliquis) 5 mg BID PO Last administered on 06/01/17 08:30; Admin Dose 5 MG; Start 05/31/17 at 09:00 Insulin Glargine (Lantus) 35 unit HS SC Last administered on 05/31/17 22:13; Admin Dose 35 UNIT; Start 05/31/17 at 21:00 Diagnostic Test (Pha) 1 ea 1 ea 02 XX ; Start 06/01/17 at 02:00 Sodium Chloride (NS) 1,000 ml @ 75 mls/hr [id number] IV Last administered on 06/01 11:46; Admin Dose 75 MLS/HR; Start 05/31/17 at 23:30 SONNY ALVARENGA Jun 01, 2017 12:44
[2017-06-01] MEDS: INSULIN GLARGINE [LANtus] 3 ML PEN SC SCH (20:34)
[2017-06-02] VITALS (21 sets, daily range): BP systolic 101–182; BP diastolic 45–89; PULSE 89–110; RESP 15–27
[2017-06-02] MEDS: DOCUSATE SODIUM 100 MG CAP PO PRN (00:02)
[2017-06-02] MEDS: ZOLPIDEM 5 MG TAB PO PRN ×2 (00:02→20:33)
[2017-06-02] MEDS: HYDROmorphONE 1 MG/ML SYG IV PRN ×5 (00:03→20:25)
[2017-06-02] MEDS: SOD CHLORIDE 0.9% 1,000 ML IV SCH ×3 (02:00→18:28)
[2017-06-02] MEDS: ACCU-CHEK XX SCH (02:00)
[2017-06-02 06:03] LABS: HAAIG REFLEX REFLEX FILED
[2017-06-02 06:22] LABS: BASOPHILS % 0.2 % (0.0-2.0); EOSINOPHILS # 0.1 10^3/ul (0.0-0.5); EOSINOPHILS % 0.7 % (0.0-7.0); HEMOGLOBIN 7.9 g/dl (14.0-18.0); LYMPHOCYTES # 1.5 10^3/ul (0.8-2.9); MEAN CORPUSCULAR HEMOGLOBIN 29.4 pg (29.0-33.0); MEAN CORPUSCULAR HGB CONC 34.3 g/dl (32.0-37.0); MEAN CORPUSCULAR VOLUME 85.5 fl (82.0-101.0); MEAN PLATELET VOLUME 11.1 fl (7.4-10.4); MONOCYTE # 1.4 10^3/ul (0.3-0.9); MONOCYTES % 8.5 % (0.0-11.0); NEUTROPHIL # 13.2 10^3/ul (1.6-7.5); NEUTROPHILS % 79.4 % (39.0-77.0); PLATELET COUNT 142 10^3/UL (140-415); RED BLOOD COUNT 2.69 10^6/ul (4.70-6.10); RED CELL DISTRIBUTION WIDTH 13.5 % (11.5-14.5); WHITE BLOOD COUNT 16.6 10^3/ul (4.8-10.8)
[2017-06-02 07:06] LABS: ALBUMIN 2.6 g/dl (3.3-4.9); ALBUMIN/GLOBULIN RATIO 0.96; BILIRUBIN,INDIRECT 0.2 mg/dl (0-1.1); BILIRUBIN,TOTAL 0.2 mg/dl (0.2-1.3); CALCIUM 7.3 mg/dl (8.4-10.2); CREATININE 4.7 mg/dl (0.61-1.24); POTASSIUM 3.4 mmol/L (3.5-5.1); TOTAL PROTEIN 5.3 g/dl (6.1-8.1)
[2017-06-02] MEDS: INSULIN ASPART [NOVOLOG] 3 ML PEN SC SCH ×4 (07:35→21:02)
[2017-06-02 07:38] LABS: HEPATITIS B CORE ANTIBODY NEGATIVE (NEGATIVE)
--- NOTE | 2017-06-02 07:53 | PN ---
Date/Time of Note Date/Time of Note DATE: 06/02/17 TIME: 07:47 Assessment/Plan Lines/Catheters IV Catheter Type (from Nrsg): A Line Regan in Place (from Nrsg): Yes Cont'd regan catheter reason: other (indicate) Assessment/Plan Assessment/Plan Doing well s/p LLE thrombectomy / fasciotomy Continue Eliquis - cardioembolic etiology of LLE ischemia Foot is well perfused and motor / sensory function has returned ARF is improving Will schedule for fasciotomy closure / possible permacath exchange on Friday Subjective 24 Hr Interval Summary Comfortable. No pain in the left foot. Still having pain at the fasciotomy site. Had dialysis yesterday. UO is picking up overnight. Exam/Review of Systems Vital Signs Vitals Vital Signs Date Time Temp Pulse Resp B/P Pulse Ox O2 Delivery O2 Flow Rate FiO2 06/02/17 06:00 96 21 157/57 96 Room Air 06/02/17 04:00 98.4 05/31/17 21:40 21 05/31/17 14:46 3.0 Intake and Output 06/01/17 06/01/17 06/02/17 15:00 23:00 07:00 Intake Total 2160 ml 1560 ml 1503 ml Output Total 1530 ml 305 ml 565 ml Balance 630 ml 1255 ml 938 ml Exam Free Text/Dictation L groin incision clean and dry, no hematoma L calf and foot wrapped - no more bleeding from fasciotomy site. The toes are warm and pink / hyperemic. 2+ L DP pulse. Sensation has returned and he can move the toes and the ankle. Results Result Diagram: 06/02/17 0500 06/02/17 050 SONNY SPARROW MD Jun 02, 2017 07:52
[2017-06-02] MEDS: APIXABAN 5 MG TABLET PO SCH ×2 (08:35→20:34)
[2017-06-02] MEDS: ASPIRIN (EC) 81 MG TAB PO SCH (08:35)
[2017-06-02] MEDS: LINAGLIPTIN 5 MG TABLET PO SCH (08:35)
[2017-06-02] MEDS: METOPROLOL 25 MG TAB PO SCH ×2 (08:36→20:34)
[2017-06-02] MEDS: CALCITRIOL 0.25 MCG CAP PO SCH (08:41)
--- NOTE | 2017-06-02 09:43 | PN ---
Date/Time of Note Date/Time of Note DATE: 06/02/17 TIME: 09:21 Assessment/Plan VTE Prophylaxis VTE Prophylaxis Intervention: other Lines/Catheters IV [facility]ter Type (from [facility] A Line Urinary Cath still in place: Yes Reason Cath still needed: urinary retention Assessment/Plan Chief Complaint/Hosp Course 1.he is 3 days post op a L leg thrombectomy and fasciotomy for an embolism to L leg . 2.ARF on CKD . he was dialyzed yesterday . Urine output is picking up .Will not order hemodialysis for today and re-evaluate tomorrow . 3.IDDM 4.Anemia due to acute L leg bleeding . Will transfuse 1 unit of blood today . 5.CAD 6.Cardiomyopathy Problems: Subjective 24 Hr Interval Summary Free Text/Dictation Patient is now in the ICU . He is now 3 days post op a L leg thrombectomy and fasciotomy . He is awake and responsive . Respiratory: no complaints Cardiovascular: no complaints Gastrointestinal: no complaints Genitourinary: no complaints Exam/Review of Systems Vital Signs Vitals Vital Signs Date Time Temp Pulse Resp B/P Pulse Ox O2 Delivery O2 Flow Rate FiO2 06/02/17 06:00 96 21 157/57 96 Room Air 06/02/17 04:00 98.4 05/31/17 21:40 21 05/31/17 14:46 3.0 Intake and Output 06/01/17 06/01/17 06/02/17 15:00 23:00 07:00 Intake Total 2160 ml 1560 ml 1503 ml Output Total 1530 ml 305 ml 565 ml Balance 630 ml 1255 ml 938 ml Exam L lower leg is wrapped with AARON bandage . Constitutional: alert, oriented, well developed Respiratory: clear to auscultation, normal air movement Cardiovascular: regular rate and rhythm Gastrointestinal: bowel sounds, distended, non-tender, soft Results Result Diagram: 06/02/17 0500 06/02/17 0500 Results 24 hrs Laboratory Tests Test 06/01/17 12:05 06/01/17 18:23 06/01/17 20:29 06/02/17 05:00 Bedside Glucose 241 H 172 211 White Blood Count 16.6 #H Red Blood Count 2.69 L Hemoglobin 7.9 L Hematocrit 23.0 L Mean Corpuscular Volume 85.5 Mean Corpuscular Hemoglobin 29.4 Mean Corpuscular Hemoglobin Concent 34.3 Red Cell Distribution Width 13.5 Platelet Count 142 # Mean Platelet Volume 11.1 H Neutrophils % 79.4 H Lymphocytes % 9.0 L Monocytes % 8.5 Eosinophils % 0.7 Basophils % 0.2 Nucleated Red Blood Cells % 0.0 Neutrophils # 13.2 H Lymphocytes # 1.5 Monocytes # 1.4 H Eosinophils # 0.1 Basophils # 0.0 Nucleated Red Blood Cells # 0.0 Sodium Level 131 L Potassium Level 3.4 L Chloride Level 101 Carbon Dioxide Level 23 Anion Gap 10 Blood Urea Nitrogen 44 #H Creatinine 4.70 #H Glucose Level 112 Calcium Level 7.3 L Total Bilirubin 0.2 Direct Bilirubin 0.00 Indirect Bilirubin 0.2 Aspartate Amino Transf (AST/SGOT) 29 Alanine Aminotransferase (ALT/SGPT) 27 Alkaline Phosphatase 81 Total Protein 5.3 L Albumin 2.6 L Globulin 2.70 Albumin/Globulin Ratio 0.96 Hepatitis B Surface Antigen NEGATIVE Hepatitis B Core Total Antibody NEGATIVE Hepatitis C Antibody NEGATIVE Test 06/02/17 05:24 06/02/17 08:07 Lab Scanned Report BLOOD TRANSFUSION Bedside Glucose 134 Medications Medications Current Medications Ondansetron HCl (Zofran Tab) 4 mg Q6H PRN PO NAUSEA AND/OR VOMITING; Start at 21:30 Ondansetron HCl (Zofran Inj) 4 mg Q6H PRN IV NAUSEA AND/OR VOMITING; Start at 21:30 Acetaminophen (Tylenol Tab) 650 mg Q6H PRN PO PAIN LEVEL 1-3 OR FEVER Last administered on 06/01/17 16:37; Admin Dose 650 MG; Start 05/29/17 at 21:30 Hydromorphone HCl (Dilaudid) 0.5 mg Q4H PRN IV PAIN LEVEL 7-10 Last administered on 06/02/17 08:10; Admin Dose 0.5 MG; Start 05/29/17 at 21:30 Zolpidem Tartrate (Ambien) 5 mg QHS PRN PO INSOMNIA Last administered on 00:02; Admin Dose 5 MG; Start 05/29/17 at 21:30 Docusate Sodium (Colace) 100 mg Q12H PRN PO CONSTIPATION Last administered on 06/02/17 00:02; Admin Dose 100 MG; Start 05/29/17 at 21:30 Atorvastatin Calcium (Lipitor) 80 mg DAILY@21 PO ; Start 05/30/17 at 21:00; Status Future Hold Calcitriol (Rocaltrol) 0.25 mcg DAILY PO Last administered on 06/02/17 08:41; Admin Dose 0.25 MCG; Start 05/30/17 at 09:00 Hydralazine HCl (Apresoline) 100 mg TID PO Last administered on 05/30/17 09:12 ; Admin Dose 100 MG; Start 05/30/17 at 09:00; Status Future Hold Isosorbide Dinitrate (Isordil) 20 mg TID PO Last administered on 05/30/17 09: 12; Admin Dose 20 MG; Start 05/30/17 at 09:00; Status Future Hold Linagliptin (Tradjenta) 5 mg DAILY PO Last administered on 06/02/17 08:35; Admin Dose 5 MG; Start 05/30/17 at 09:00 Metoprolol Tartrate (Lopressor) 25 mg BID PO Last administered on 06/02/17 08: 36; Admin Dose 25 MG; Start 05/30/17 at 21:00 Sodium Bicarbonate 325 mg 325 mg BID PO Last administered on 05/30/17 09:11; Admin Dose 325 MG; Start 05/30/17 at 09:00; Status Future Hold Nicardipine HCl (Cardene Iv) 200 ml @ 50 mls/hr TITRATE IV Last administered on 05/30/17 17:42; Admin Dose 50 MLS/HR; Start 05/30/17 at 17:30 Aspirin (Halfprin) 81 mg DAILY PO Last administered on 06/02/17 08:35; Admin Dose 81 MG; Start 05/31/17 at 09:00 Lorazepam (Ativan) 1 mg TID PRN PO ANXIETY Last administered on 05/31/17 23:39 ; Admin Dose 1 MG; Start 05/30/17 at 18:00 Miscellaneous Information 1 ea NOTE XX ; Start 05/30/17 at 19:30 Glucose (Glutose) 15 gm Q15M PRN PO DECREASED GLUCOSE; Start 05/30/17 at 19:30 Glucose (Glutose) 22.5 gm Q15M PRN PO DECREASED GLUCOSE; Start 05/30/17 at 19: 30 Dextrose (D50w Syringe) 25 ml Q15M PRN IV DECREASED GLUCOSE; Start 05/30/17 at 19:30 Dextrose (D50w Syringe) 50 ml Q15M PRN IV DECREASED GLUCOSE; Start 05/30/17 at 19:30 Glucagon (Glucagen) 1 mg Q15M PRN IM DECREASED GLUCOSE; Start 05/30/17 at 19:30 Glucose (Glutose) 15 gm Q15M PRN BUCCAL DECREASED GLUCOSE; Start 05/30/17 at 19 :30 Nitroglycerin (Nitroglycerin (Sl Tab) 0.4 Mg) 1 tab Q5M PRN SL ANGINA; Start at 20:00 Apixaban (Eliquis) 5 mg BID PO Last administered on 06/02/17 08:35; Admin Dose 5 MG; Start 05/31/17 at 09:00 Insulin Glargine (Lantus) 35 unit HS SC Last administered on 06/01/17 20:34; Admin Dose 35 UNIT; Start 05/31/17 at 21:00 Diagnostic Test (Pha) 1 ea 1 ea 02 XX Last administered on 06/02/17 02:00; Admin Dose 1 EA; Start 06/01/17 at 02:00 Sodium Chloride (NS) 1,000 ml @ 75 mls/hr [id number] IV Last administered on 06/02 02:00; Admin Dose 75 MLS/HR; Start 05/31/17 at 23:30 ANGÉLICA HEWITT MD Jun 02, 2017 09:33
--- NOTE | 2017-06-02 10:10 | CONS ---
Date/Time of Note Date/Time of Note DATE: 06/02/17 TIME: 10:07 Assessment/Plan Assessment/Plan Chief Complaint/Hosp Course IMPRESSION: 1. Chest pain prior to surgery with negative troponins x3 since that time and history of recent stress testing with no ischemia.-now mildly positive troponin after surgery likely type 2 infarct with no sig uptrend 2. Cardiomyopathy with decreased left ventricular ejection fraction, approximately 35-40 percent by echo and stress test April 2017. 3. Postoperative day 3 , status post thrombectomy and fasciotomy for acute arterial insufficiency, ischemic foot. 4. Peripheral arterial disease. 5. Chronic kidney disease, pain, prepare for likely initiation of hemodialysis. 6. Leukocytosis, status post surgery. 7. Dyslipidemia. 8. Hypertension-somewhat labile Recc: -Tele -serial ecg's -Continue asa/Eliquis and follow Hgb closely -Continue BB and follow labile BP closely -trend cardiac enzymes -Follow volume status -start statin -local wound care and ongoing vascular surgery follow-up -HD for volume removal ongoing now Problems: Consultation Date/Type/Reason Admit Date/Time May 29, 2017 at 19:54 Initial Consult Date 05/31/17 Type of Consultation: Cardiology Reason for Consultation positive troponin Referring Provider: ANGÉLICA HEWITT MD Exam/Review of Systems Vital Signs Vitals Vital Signs Date Time Temp Pulse Resp B/P Pulse Ox O2 Delivery O2 Flow Rate FiO2 06/02/17 08:00 97 06/02/17 06:00 21 157/57 96 Room Air 06/02/17 04:00 98.4 05/31/17 21:40 21 05/31/17 14:46 3.0 Intake and Output 06/01/17 06/01/17 06/02/17 15:00 23:00 07:00 Intake Total 2160 ml 1560 ml 1503 ml Output Total 1530 ml 305 ml 565 ml Balance 630 ml 1255 ml 938 ml Exam Review of Systems: CONSTITUTIONAL: No fevers, chills. PULMONARY: No sob CARDIOVASCULAR: No chest pain/palpitations GASTROINTESTINAL: No nausea/vomiting. GENITOURINARY: No hematuria/dysuria. MUSCULOSKELETAL: pain in leg PSYCHIATRIC: The patient denies depression. NEUROLOGIC: No weakness Constitutional: alert, oriented Psych: no complaints Head: normocephalic ENMT: mucosa pink and moist Neck: jvd, supple Respiratory: diminished breath sounds Cardiovascular: regular rate and rhythm Gastrointestinal: non-tender, soft Musculoskeletal: muscle tone (normal) Extremities: edema (bilateral. LLE covered by ACEI) Results Result Diagram: 06/02/17 0500 06/02/17 0500 Results 24 hrs Laboratory Tests Test 06/01/17 12:05 06/01/17 18:23 06/01/17 20:29 06/02/17 05:00 Bedside Glucose 241 H 172 211 White Blood Count 16.6 #H Red Blood Count 2.69 L Hemoglobin 7.9 L Hematocrit 23.0 L Mean Corpuscular Volume 85.5 Mean Corpuscular Hemoglobin 29.4 Mean Corpuscular Hemoglobin Concent 34.3 Red Cell Distribution Width 13.5 Platelet Count 142 # Mean Platelet Volume 11.1 H Neutrophils % 79.4 H Lymphocytes % 9.0 L Monocytes % 8.5 Eosinophils % 0.7 Basophils % 0.2 Nucleated Red Blood Cells % 0.0 Neutrophils # 13.2 H Lymphocytes # 1.5 Monocytes # 1.4 H Eosinophils # 0.1 Basophils # 0.0 Nucleated Red Blood Cells # 0.0 Sodium Level 131 L Potassium Level 3.4 L Chloride Level 101 Carbon Dioxide Level 23 Anion Gap 10 Blood Urea Nitrogen 44 #H Creatinine 4.70 #H Glucose Level 112 Calcium Level 7.3 L Total Bilirubin 0.2 Direct Bilirubin 0.00 Indirect Bilirubin 0.2 Aspartate Amino Transf (AST/SGOT) 29 Alanine Aminotransferase (ALT/SGPT) 27 Alkaline Phosphatase 81 Total Protein 5.3 L Albumin 2.6 L Globulin 2.70 Albumin/Globulin Ratio 0.96 Hepatitis B Surface Antigen NEGATIVE Hepatitis B Core Total Antibody NEGATIVE Hepatitis C Antibody NEGATIVE Test 06/02/17 05:24 06/02/17 08:07 Lab Scanned Report BLOOD TRANSFUSION Bedside Glucose 134 Medications Medications Current Medications Ondansetron HCl (Zofran Tab) 4 mg Q6H PRN PO NAUSEA AND/OR VOMITING; Start at 21:30 Ondansetron HCl (Zofran Inj) 4 mg Q6H PRN IV NAUSEA AND/OR VOMITING; Start at 21:30 Acetaminophen (Tylenol Tab) 650 mg Q6H PRN PO PAIN LEVEL 1-3 OR FEVER Last administered on 06/01/17t 16:37; Admin Dose 650 MG; Start 05/29/17 at 21:30 Hydromorphone HCl (Dilaudid) 0.5 mg Q4H PRN IV PAIN LEVEL 7-10 Last administered on 06/02/17 08:10; Admin Dose 0.5 MG; Start 05/29/17 at 21:30 Zolpidem Tartrate (Ambien) 5 mg QHS PRN PO INSOMNIA Last administered on 00:02; Admin Dose 5 MG; Start 05/29/17 at 21:30 Docusate Sodium (Colace) 100 mg Q12H PRN PO CONSTIPATION Last administered on 06/02/17 00:02; Admin Dose 100 MG; Start 05/29/17 at 21:30 Atorvastatin Calcium (Lipitor) 80 mg DAILY@21 PO ; Start 05/30/17 at 21:00; Status Future Hold Calcitriol (Rocaltrol) 0.25 mcg DAILY PO Last administered on 06/02/17 08:41; Admin Dose 0.25 MCG; Start 05/30/17 at 09:00 Hydralazine HCl (Apresoline) 100 mg TID PO Last administered on 05/30/17 09:12 ; Admin Dose 100 MG; Start 05/30/17 at 09:00; Status Future Hold Isosorbide Dinitrate (Isordil) 20 mg TID PO Last administered on 05/30/17 09: 12; Admin Dose 20 MG; Start 05/30/17 at 09:00; Status Future Hold Linagliptin (Tradjenta) 5 mg DAILY PO Last administered on 06/02/17 08:35; Admin Dose 5 MG; Start 05/30/17 at 09:00 Metoprolol Tartrate (Lopressor) 25 mg BID PO Last administered on 06/02/17 08: 36; Admin Dose 25 MG; Start 05/30/17 at 21:00 Sodium Bicarbonate (Sodium Bicarbonate Tab) 325 mg BID PO Last administered on 05/30/17 09:11; Admin Dose 325 MG; Start 05/30/17 at 09:00; Status Future Hold Aspirin (Halfprin) 81 mg DAILY PO Last administered on 06/02/17 08:35; Admin Dose 81 MG; Start 05/31/17 at 09:00 Lorazepam (Ativan) 1 mg TID PRN PO ANXIETY Last administered on 05/31/17 23:39 ; Admin Dose 1 MG; Start 05/30/17 at 18:00 Miscellaneous Information 1 ea NOTE XX ; Start 05/30/17 at 19:30 Glucose (Glutose) 15 gm Q15M PRN PO DECREASED GLUCOSE; Start 05/30/17 at 19:30 Glucose (Glutose) 22.5 gm Q15M PRN PO DECREASED GLUCOSE; Start 05/30/17 at 19: 30 Dextrose (D50w Syringe) 25 ml Q15M PRN IV DECREASED GLUCOSE; Start 05/30/17 at 19:30 Dextrose (D50w Syringe) 50 ml Q15M PRN IV DECREASED GLUCOSE; Start 05/30/17 at 19:30 Glucagon (Glucagen) 1 mg Q15M PRN IM DECREASED GLUCOSE; Start 05/30/17 at 19:30 Glucose (Glutose) 15 gm Q15M PRN BUCCAL DECREASED GLUCOSE; Start 05/30/17 at 19 :30 Nitroglycerin (Nitroglycerin (Sl Tab) 0.4 Mg) 1 tab Q5M PRN SL ANGINA; Start at 20:00 Apixaban (Eliquis) 5 mg BID PO Last administered on 06/02/17 08:35; Admin Dose 5 MG; Start 05/31/17 at 09:00 Insulin Glargine (Lantus) 35 unit HS SC Last administered on 06/01/17 20:34; Admin Dose 35 UNIT; Start 05/31/17 at 21:00 Diagnostic Test (Pha) 1 ea 1 ea 02 XX Last administered on 06/02/17 02:00; Admin Dose 1 EA; Start 06/01/17 at 02:00 Sodium Chloride (NS) 1,000 ml @ 75 mls/hr [id number] IV Last administered on 06/02 02:00; Admin Dose 75 MLS/HR; Start 05/31/17 at 23:30 SONNY ALVARENGA Jun 02, 2017 10:10
--- NOTE | 2017-06-02 17:04 | RADRPT ---
Vent Rate: 87 bpm RR Interval: 0 msec [place] Interval: 170 msec QRS Duration: 104 msec QT Interval: 414 msec QTC Interval: 498 msec P-R-T [place]: 58 - -57 - 100 degrees Normal sinus rhythm Left axis deviation Inferior infarct , possibly acute Anterolateral infarct , age undetermined ACUTE DE Consider right ventricular involvement in acute inferior infarct Abnormal ECG Electronically Signed By: Herbert Paris [id number]
[2017-06-02] MEDS: ISOSORBIDE DINITRATE 20 MG TAB PO SCH (21:00)
[2017-06-02] MEDS: INSULIN GLARGINE [LANtus] 3 ML PEN SC SCH (21:02)
[2017-06-02] MEDS: LORAZEPAM 1 MG TAB PO PRN (22:33)
[2017-06-03] VITALS (12 sets, daily range): BP systolic 119–151; BP diastolic 53–70; PULSE 86–100; RESP 16–18
[2017-06-03] MEDS: HYDROmorphONE 1 MG/ML SYG IV PRN ×6 (00:16→21:12)
[2017-06-03] MEDS ORDERED: INSULIN ASPART [NOVOLOG] 3 ML PEN SC ONE (02:00)
[2017-06-03] MEDS: ACCU-CHEK XX SCH (02:15)
[2017-06-03] MEDS: DOCUSATE SODIUM 100 MG CAP PO PRN (06:05)
[2017-06-03] MEDS: INSULIN ASPART [NOVOLOG] 3 ML PEN SC SCH ×4 (07:55→21:21)
[2017-06-03] MEDS: CALCITRIOL 0.25 MCG CAP PO SCH (08:06)
[2017-06-03] MEDS: ASPIRIN (EC) 81 MG TAB PO SCH (08:06)
[2017-06-03] MEDS: LINAGLIPTIN 5 MG TABLET PO SCH (08:07)
[2017-06-03] MEDS: APIXABAN 5 MG TABLET PO SCH (08:07)
[2017-06-03] MEDS: METOPROLOL 25 MG TAB PO SCH ×2 (08:08→21:11)
[2017-06-03] MEDS: ISOSORBIDE DINITRATE 20 MG TAB PO SCH ×3 (08:08→21:00)
[2017-06-03] MEDS: SOD CHLORIDE 0.9% 1,000 ML IV SCH (08:12)
[2017-06-03] MEDS: LORAZEPAM 1 MG TAB PO PRN ×2 (09:23→16:05)
[2017-06-03 11:18] LABS: BASOPHILS % 0.2 % (0.0-2.0); EOSINOPHILS # 0.2 10^3/ul (0.0-0.5); EOSINOPHILS % 0.9 % (0.0-7.0); LYMPHOCYTES # 1.6 10^3/ul (0.8-2.9); LYMPHOCYTES % 9.7 % (15.0-51.0); MEAN CORPUSCULAR HEMOGLOBIN 30.4 pg (29.0-33.0); MEAN CORPUSCULAR HGB CONC 34.6 g/dl (32.0-37.0); MEAN CORPUSCULAR VOLUME 87.8 fl (82.0-101.0); MEAN PLATELET VOLUME 11.2 fl (7.4-10.4); MONOCYTE # 1.5 10^3/ul (0.3-0.9); NEUTROPHIL # 12.7 10^3/ul (1.6-7.5); NEUTROPHILS % 78.2 % (39.0-77.0); PLATELET COUNT 176 10^3/UL (140-415); RED BLOOD COUNT 2.96 10^6/ul (4.70-6.10); RED CELL DISTRIBUTION WIDTH 13.6 % (11.5-14.5); WHITE BLOOD COUNT 16.3 10^3/ul (4.8-10.8)
[2017-06-03 11:27] LABS: ALBUMIN 2.8 g/dl (3.3-4.9); ALBUMIN/GLOBULIN RATIO 0.87; BILIRUBIN,INDIRECT 0.2 mg/dl (0-1.1); BILIRUBIN,TOTAL 0.2 mg/dl (0.2-1.3); CALCIUM 8.2 mg/dl (8.4-10.2); CREATININE 4.1 mg/dl (0.61-1.24); POTASSIUM 3.5 mmol/L (3.5-5.1)
--- NOTE | 2017-06-03 14:00 | CONS ---
Date/Time of Note Date/Time of Note DATE: 06/03/17 TIME: 13:58 Assessment/Plan Assessment/Plan Additional Assessment/Plan 1. Chest pain prior to surgery with negative troponins x3 since that time and history of recent stress testing with no ischemia.-now mildly positive troponin after surgery likely type 2 infarct with no sig uptrend - no CP now. 2. Cardiomyopathy with decreased left ventricular ejection fraction, approximately 35-40 percent by echo and stress test April 2017. NO indivction for ICD now. 3. Postoperative day 3 , status post thrmbectomy and fasciotomy for acute arterial insufficiency, ischemic foot. vascular team follows. 4. Peripheral arterial disease. 5. Chronic kidney disease, pain, prepare for likely initiation of hemodialysis. IMPROVED RENAL FXN. 6. Leukocytosis, status post surgery. 7. Dyslipidemia. 8. Hypertension-somewhat labile Consultation Date/Type/Reason Admit Date/Time May 29, 2017 at 19:54 Initial Consult Date Type of Consultation: Cardiology Referring Provider: ANGÉLICA HEWITT MD 24 HR Interval Summary Free Text/Dictation NO acute events - BP stable now - held off HD now with improved renal output. ROS: No fever, no chills, no nausea, no vomiting, no diarrhea/constipation No recent weight changes No chest pain, no PND, no orthopnea No dizziness, blurred vision No thirst, no heat or cold intolerance Exam/Review of Systems Vital Signs Vitals Vital Signs Date Time Temp Pulse Resp B/P Pulse Ox O2 Delivery O2 Flow Rate FiO2 06/03/17 12:15 86 06/03/17 11:06 98.6 17 119/57 92 06/03/17 02:38 21 06/02/17 12:45 Room Air 05/31/17 14:46 3.0 Intake and Output 06/02/17 06/02/17 06/03/17 15:00 23:00 07:00 Intake Total 360 ml 2000 ml 1000 ml Output Total 380 ml 2000 ml 2500 ml Balance -20 ml 0 ml -1500 ml Exam General: WN/WD/NAD, AOx 2-3 HEENT: Unicetric/atraumatic/EOMI (follow commands) NECK: JVD elevated, no thyromegaly Lymph: no lymphadenopathy HEART: regular with no S3, II/ systolic murmur at apex LUNGS: Coarse sounds ABD: soft, NT, ND, +BS : Intact Neuro: non focal SKIN: chronic changes EXT: trace edema, PAD Results Result Diagram: 06/03/17 0808 06/03/17 0808 Results 24 hrs Laboratory Tests Test 06/02/17 17:17 06/02/17 20:36 06/03/17 01:27 06/03/17 06:02 Bedside Glucose 214 198 337 H 124 Test 06/03/17 08:08 06/03/17 08:19 06/03/17 12:18 White Blood Count 16.3 H Red Blood Count 2.96 L Hemoglobin 9.0 L Hematocrit 26.0 L Mean Corpuscular Volume 87.8 Mean Corpuscular Hemoglobin 30.4 Mean Corpuscular Hemoglobin Concent 34.6 Red Cell Distribution Width 13.6 Platelet Count 176 # Mean Platelet Volume 11.2 H Neutrophils % 78.2 H Lymphocytes % 9.7 L Monocytes % 9.0 Eosinophils % 0.9 Basophils % 0.2 Nucleated Red Blood Cells % 0.0 Neutrophils # 12.7 H Lymphocytes # 1.6 Monocytes # 1.5 H Eosinophils # 0.2 Basophils # 0.0 Nucleated Red Blood Cells # 0.0 Sodium Level 132 L Potassium Level 3.5 Chloride Level 103 Carbon Dioxide Level 21 Anion Gap 12 Blood Urea Nitrogen 44 H Creatinine 4.10 H Glucose Level 101 Calcium Level 8.2 L Total Bilirubin 0.2 Direct Bilirubin 0.00 Indirect Bilirubin 0.2 Aspartate Amino Transf (AST/SGOT) 23 Alanine Aminotransferase (ALT/SGPT) 27 Alkaline Phosphatase 88 Troponin I 2.230 *H Total Protein 6.0 L Albumin 2.8 L Globulin 3.20 Albumin/Globulin Ratio 0.87 Bedside Glucose 114 188 Medications Medications Current Medications Ondansetron HCl (Zofran Tab) 4 mg Q6H PRN PO NAUSEA AND/OR VOMITING; Start at 21:30 Ondansetron HCl (Zofran Inj) 4 mg Q6H PRN IV NAUSEA AND/OR VOMITING; Start at 21:30 Acetaminophen (Tylenol Tab) 650 mg Q6H PRN PO PAIN LEVEL 1-3 OR FEVER Last administered on 06/01/17t 16:37; Admin Dose 650 MG; Start 05/29/17 at 21:30 Hydromorphone HCl (Dilaudid) 0.5 mg Q4H PRN IV PAIN LEVEL 7-10 Last administered on 06/03/17 12:37; Admin Dose 0.5 MG; Start 05/29/17 at 21:30 Zolpidem Tartrate (Ambien) 5 mg QHS PRN PO INSOMNIA Last administered on 20:33; Admin Dose 5 MG; Start 05/29/17 at 21:30 Docusate Sodium (Colace) 100 mg Q12H PRN PO CONSTIPATION Last administered on 06/03/17 06:05; Admin Dose 100 MG; Start 05/29/17 at 21:30 Atorvastatin Calcium (Lipitor) 80 mg DAILY@21 PO ; Start 05/30/17 at 21:00; Status Future Hold Calcitriol (Rocaltrol) 0.25 mcg DAILY PO Last administered on 06/03/17 08:06; Admin Dose 0.25 MCG; Start 05/30/17 at 09:00 Hydralazine HCl (Apresoline) 100 mg TID PO Last administered on 06/03/17 13:27 ; Admin Dose 100 MG; Start 05/30/17 at 09:00; Status Future hold Isosorbide Dinitrate (Isordil) 20 mg TID PO Last administered on 06/03/17 13: 27; Admin Dose 20 MG; Start 05/30/17 at 09:00; Status Future hold Linagliptin (Tradjenta) 5 mg DAILY PO Last administered on 06/03/17 08:07; Admin Dose 5 MG; Start 05/30/17 at 09:00 Metoprolol Tartrate (Lopressor) 25 mg BID PO Last administered on 06/03/17 08: 08; Admin Dose 25 MG; Start 05/30/17 at 21:00 Sodium Bicarbonate (Sodium Bicarbonate Tab) 325 mg BID PO Last administered on 05/30/17 09:11; Admin Dose 325 MG; Start 05/30/17 at 09:00; Status Future Hold Aspirin (Halfprin) 81 mg DAILY PO Last administered on 06/03/17 08:06; Admin Dose 81 MG; Start 05/31/17 at 09:00 Lorazepam (Ativan) 1 mg TID PRN PO ANXIETY Last administered on 06/03/17 09:23 ; Admin Dose 1 MG; Start 05/30/17 at 18:00 Miscellaneous Information 1 ea NOTE XX ; Start 05/30/17 at 19:30 Glucose (Glutose) 15 gm Q15M PRN PO DECREASED GLUCOSE; Start 05/30/17 at 19:30 Glucose (Glutose) 22.5 gm Q15M PRN PO DECREASED GLUCOSE; Start 05/30/17 at 19: 30 Dextrose (D50w Syringe) 25 ml Q15M PRN IV DECREASED GLUCOSE; Start 05/30/17 at 19:30 Dextrose (D50w Syringe) 50 ml Q15M PRN IV DECREASED GLUCOSE; Start 05/30/17 at 19:30 Glucagon (Glucagen) 1 mg Q15M PRN IM DECREASED GLUCOSE; Start 05/30/17 at 19:30 Glucose (Glutose) 15 gm Q15M PRN BUCCAL DECREASED GLUCOSE; Start 05/30/17 at 19 :30 Nitroglycerin (Nitroglycerin (Sl Tab) 0.4 Mg) 1 tab Q5M PRN SL ANGINA; Start at 20:00 Apixaban (Eliquis) 5 mg BID PO Last administered on 06/03/17 08:07; Admin Dose 5 MG; Start 05/31/17 at 09:00 Insulin Glargine (Lantus) 35 unit HS SC Last administered on 06/02/17 21:02; Admin Dose 35 UNIT; Start 05/31/17 at 21:00 Diagnostic Test (Pha) 1 ea 1 ea 02 XX Last administered on 06/03/17 02:15; Admin Dose 1 EA; Start 06/01/17 at 02:00 Sodium Chloride (NS) 1,000 ml @ 75 mls/hr [id number] IV Last administered on 06/03 08:12; Admin Dose 75 MLS/HR; Start 05/31/17 at 23:30 KAREN MESSINA MD Jun 03, 2017 14:00
[2017-06-03] MEDS ORDERED: POTASSIUM CHLORIDE (SR) 10 MEQ TAB PO ONE (14:30)
[2017-06-03] MEDS ORDERED: HYDROmorphONE 1 MG/ML SYG IV STA (14:36)
--- NOTE | 2017-06-03 17:45 | PN ---
Date/Time of Note Date/Time of Note DATE: 06/03/17 TIME: 17:41 Assessment/Plan VTE Prophylaxis VTE Prophylaxis Intervention: ambulation, other Lines/Catheters IV C[facility]ter Type (from [facility]): Peripheral IV Urinary Cath still in place: No Assessment/Plan Chief Complaint/Hosp Course 1.he is 4 days post op a L leg thrombectomy and fasciotomy for an embolism to L leg . He is going to have a wound vac placed today 2.ARF on CKD . he was dialyzed 2 days ago . Urine output is picking up .Will not order hemodialysis for today and re-evaluate tomorrow . 3.IDDM 4.Anemia due to acute L leg bleeding . Will transfuse 1 unit of blood today . 5.CAD 6.Cardiomyopathy Problems: Subjective 24 Hr Interval Summary Free Text/Dictation He is awake . c/o pain in L lower leg . Respiratory: no complaints Cardiovascular: no complaints Gastrointestinal: no complaints Musculoskeletal: other Psychological: depression Exam/Review of Systems Vital Signs Vitals Vital Signs Date Time Temp Pulse Resp B/P Pulse Ox O2 Delivery O2 Flow Rate FiO2 06/03/17 15:43 98.9 89 17 124/62 92 06/03/17 02:38 21 06/02/17 12:45 Room Air 05/31/17 14:46 3.0 Intake and Output 06/02/17 06/02/17 06/03/17 15:00 23:00 07:00 Intake Total 360 ml 2000 ml 1000 ml Output Total 380 ml 2000 ml 2500 ml Balance -20 ml 0 ml -1500 ml Exam L lower leg is bandaged with an AARON bandage . Neck: non-tender, supple Respiratory: clear to auscultation, diminished breath sounds Cardiovascular: regular rate and rhythm Gastrointestinal: non-tender, soft Results Result Diagram: 06/03/17 0808 06/03/17 0808 Results 24 hrs Laboratory Tests Test 06/02/17 20:36 06/03/17 01:27 06/03/17 06:02 06/03/17 08:08 Bedside Glucose 198 337 H 124 White Blood Count 16.3 H Red Blood Count 2.96 L Hemoglobin 9.0 L Hematocrit 26.0 L Mean Corpuscular Volume 87.8 Mean Corpuscular Hemoglobin 30.4 Mean Corpuscular Hemoglobin Concent 34.6 Red Cell Distribution Width 13.6 Platelet Count 176 # Mean Platelet Volume 11.2 H Neutrophils % 78.2 H Lymphocytes % 9.7 L Monocytes % 9.0 Eosinophils % 0.9 Basophils % 0.2 Nucleated Red Blood Cells % 0.0 Neutrophils # 12.7 H Lymphocytes # 1.6 Monocytes # 1.5 H Eosinophils # 0.2 Basophils # 0.0 Nucleated Red Blood Cells # 0.0 Sodium Level 132 L Potassium Level 3.5 Chloride Level 103 Carbon Dioxide Level 21 Anion Gap 12 Blood Urea Nitrogen 44 H Creatinine 4.10 H Glucose Level 101 Calcium Level 8.2 L Total Bilirubin 0.2 Direct Bilirubin 0.00 Indirect Bilirubin 0.2 Aspartate Amino Transf (AST/SGOT) 23 Alanine Aminotransferase (ALT/SGPT) 27 Alkaline Phosphatase 88 Troponin I 2.230 *H Total Protein 6.0 L Albumin 2.8 L Globulin 3.20 Albumin/Globulin Ratio 0.87 Test 06/03/17 08:19 06/03/17 12:18 Bedside Glucose 114 188 Medications Medications Current Medications Ondansetron HCl (Zofran Tab) 4 mg Q6H PRN PO NAUSEA AND/OR VOMITING; Start at 21:30 Ondansetron HCl (Zofran Inj) 4 mg Q6H PRN IV NAUSEA AND/OR VOMITING; Start at 21:30 Acetaminophen (Tylenol Tab) 650 mg Q6H PRN PO PAIN LEVEL 1-3 OR FEVER Last administered on 06/01/17 16:37; Admin Dose 650 MG; Start 05/29/17 at 21:30 Zolpidem Tartrate (Ambien) 5 mg QHS PRN PO INSOMNIA Last administered on 20:33; Admin Dose 5 MG; Start 05/29/17 at 21:30 Docusate Sodium (Colace) 100 mg Q12H PRN PO CONSTIPATION Last administered on 06/03/17 06:05; Admin Dose 100 MG; Start 05/29/17 at 21:30 Atorvastatin Calcium (Lipitor) 80 mg DAILY@21 PO ; Start 05/30/17 at 21:00; Status Future Hold Calcitriol (Rocaltrol) 0.25 mcg DAILY PO Last administered on 06/03/17 08:06; Admin Dose 0.25 MCG; Start 05/30/17 at 09:00 Hydralazine HCl (Apresoline) 100 mg TID PO Last administered on 06/03/17 13:27 ; Admin Dose 100 MG; Start 05/30/17 at 09:00; Status Future hold Isosorbide Dinitrate (Isordil) 20 mg TID PO Last administered on 06/03/17 13: 27; Admin Dose 20 MG; Start 05/30/17 at 09:00; Status Future hold Linagliptin (Tradjenta) 5 mg DAILY PO Last administered on 06/03/17 08:07; Admin Dose 5 MG; Start 05/30/17 at 09:00 Metoprolol Tartrate (Lopressor) 25 mg BID PO Last administered on 06/03/17 08: 08; Admin Dose 25 MG; Start 05/30/17 at 21:00 Sodium Bicarbonate (Sodium Bicarbonate Tab) 325 mg BID PO Last administered on 05/30/17 09:11; Admin Dose 325 MG; Start 05/30/17 at 09:00; Status Future Hold Aspirin (Halfprin) 81 mg DAILY PO Last administered on 06/03/17 08:06; Admin Dose 81 MG; Start 05/31/17 at 09:00 Lorazepam (Ativan) 1 mg TID PRN PO ANXIETY Last administered on 06/03/17 16:05 ; Admin Dose 1 MG; Start 05/30/17 at 18:00 Miscellaneous Information 1 ea NOTE XX ; Start 05/30/17 at 19:30 Glucose (Glutose) 15 gm Q15M PRN PO DECREASED GLUCOSE; Start 05/30/17 at 19:30 Glucose (Glutose) 22.5 gm Q15M PRN PO DECREASED GLUCOSE; Start 05/30/17 at 19: 30 Dextrose (D50w Syringe) 25 ml Q15M PRN IV DECREASED GLUCOSE; Start 05/30/17 at 19:30 Dextrose (D50w Syringe) 50 ml Q15M PRN IV DECREASED GLUCOSE; Start 05/30/17 at 19:30 Glucagon (Glucagen) 1 mg Q15M PRN IM DECREASED GLUCOSE; Start 05/30/17 at 19:30 Glucose (Glutose) 15 gm Q15M PRN BUCCAL DECREASED GLUCOSE; Start 05/30/17 at 19 :30 Nitroglycerin (Nitroglycerin (Sl Tab) 0.4 Mg) 1 tab Q5M PRN SL ANGINA; Start at 20:00 Insulin Glargine (Lantus) 35 unit HS SC Last administered on 06/02/17 21:02; Admin Dose 35 UNIT; Start 05/31/17 at 21:00 Diagnostic Test (Pha) (Accu-Chek) 1 ea 02 XX Last administered on 06/03/17 02: 15; Admin Dose 1 EA; Start 06/01/17 at 02:00 Hydromorphone HCl (Dilaudid) 0.5 mg Q3 PRN IV PAIN LEVEL 7-10; Start 06/03/17 at 15:00 ANGÉLICA HEWITT MD Jun 03, 2017 17:45
[2017-06-03 18:46] LABS: PTH CALCIUM 7.5 mg/dL (8.6-10.3)
[2017-06-03] MEDS: INSULIN GLARGINE [LANtus] 3 ML PEN SC SCH (21:22)
[2017-06-03] MEDS: ZOLPIDEM 5 MG TAB PO PRN (21:28)
[2017-06-04] VITALS (12 sets, daily range): BP systolic 133–154; BP diastolic 63–72; PULSE 82–90; RESP 17–20
[2017-06-04] MEDS: HYDROmorphONE 1 MG/ML SYG IV PRN ×8 (01:14→23:07)
[2017-06-04] MEDS: LORAZEPAM 1 MG TAB PO PRN ×3 (01:37→16:34)
[2017-06-04] MEDS: ACCU-CHEK XX SCH (03:12)
[2017-06-04] MEDS: DOCUSATE SODIUM 100 MG CAP PO PRN (07:03)
[2017-06-04 08:33] LABS: BASOPHILS % 0.2 % (0.0-2.0); EOSINOPHILS # 0.2 10^3/ul (0.0-0.5); EOSINOPHILS % 1.7 % (0.0-7.0); HEMOGLOBIN 7.9 g/dl (14.0-18.0); LYMPHOCYTES # 1.3 10^3/ul (0.8-2.9); LYMPHOCYTES % 9.6 % (15.0-51.0); MEAN CORPUSCULAR HEMOGLOBIN 30.9 pg (29.0-33.0); MEAN CORPUSCULAR HGB CONC 34.3 g/dl (32.0-37.0); MEAN CORPUSCULAR VOLUME 89.8 fl (82.0-101.0); MEAN PLATELET VOLUME 10.5 fl (7.4-10.4); MONOCYTE # 1.2 10^3/ul (0.3-0.9); MONOCYTES % 9.3 % (0.0-11.0); NEUTROPHILS % 76.9 % (39.0-77.0); PLATELET COUNT 198 10^3/UL (140-415); RED BLOOD COUNT 2.56 10^6/ul (4.70-6.10); RED CELL DISTRIBUTION WIDTH 13.6 % (11.5-14.5); WHITE BLOOD COUNT 13.1 10^3/ul (4.8-10.8)
[2017-06-04] MEDS: INSULIN ASPART [NOVOLOG] 3 ML PEN SC SCH ×4 (08:37→20:27)
[2017-06-04] MEDS: CALCITRIOL 0.25 MCG CAP PO SCH (08:57)
[2017-06-04] MEDS: METOPROLOL 25 MG TAB PO SCH ×2 (08:58→20:14)
[2017-06-04] MEDS: ASPIRIN (EC) 81 MG TAB PO SCH (08:58)
[2017-06-04] MEDS: LINAGLIPTIN 5 MG TABLET PO SCH (08:59)
[2017-06-04] MEDS: ISOSORBIDE DINITRATE 20 MG TAB PO SCH ×3 (08:59→20:15)
[2017-06-04 10:45] LABS: ALBUMIN 2.4 g/dl (3.3-4.9); ALBUMIN/GLOBULIN RATIO 0.96; BILIRUBIN,INDIRECT 0.2 mg/dl (0-1.1); BILIRUBIN,TOTAL 0.2 mg/dl (0.2-1.3); CALCIUM 7.8 mg/dl (8.4-10.2); CREATININE 3.86 mg/dl (0.61-1.24); TOTAL PROTEIN 4.9 g/dl (6.1-8.1)
--- NOTE | 2017-06-04 12:44 | CONS ---
Date/Time of Note Date/Time of Note DATE: 06/04/17 TIME: 12:42 Assessment/Plan Assessment/Plan Chief Complaint/Hosp Course IMPRESSION: 1. Chest pain prior to surgery with negative troponins x3 since that time and history of recent stress testing with no ischemia.-now mildly positive troponin after surgery likely type 2 infarct with no sig uptrend 2. Cardiomyopathy with decreased left ventricular ejection fraction, approximately 35-40 percent by echo and stress test April 2017. 3. Postoperative day 3 , status post thrombectomy and fasciotomy for acute arterial insufficiency, ischemic foot. 4. Peripheral arterial disease. 5. Chronic kidney disease, pain, prepare for likely initiation of hemodialysis. 6. Leukocytosis, status post surgery. 7. Dyslipidemia. 8. Hypertension-somewhat labile Recc: -Tele -serial ecg's -Continue asa/Eliquis and follow Hgb closely -Continue BB and follow labile BP closely -trend cardiac enzymes -Follow volume status -start statin -local wound care and ongoing vascular surgery follow-up -HD for volume removal ongoing now Problems: Consultation Date/Type/Reason Admit Date/Time May 29, 2017 at 19:54 Initial Consult Date 05/31/17 Type of Consultation: Cardiology Reason for Consultation positive troponin Referring Provider: ANGÉLICA HEWITT MD Exam/Review of Systems Vital Signs Vitals Vital Signs Date Time Temp Pulse Resp B/P Pulse Ox O2 Delivery O2 Flow Rate FiO2 06/04/17 11:17 98.0 86 17 133/66 93 06/03/17 21:41 21 06/02/17 12:45 Room Air 05/31/17 14:46 3.0 Intake and Output 06/03/17 06/03/17 06/04/17 15:00 23:00 07:00 Intake Total 1600 ml Output Total 1700 ml Balance -100 ml Exam Review of Systems: CONSTITUTIONAL: No fevers, chills. PULMONARY: No sob CARDIOVASCULAR: No chest pain/palpitations GASTROINTESTINAL: No nausea/vomiting. GENITOURINARY: No hematuria/dysuria. MUSCULOSKELETAL: No myagias/arthalgias. PSYCHIATRIC: The patient denies depression. NEUROLOGIC: No weakness Constitutional: alert, oriented Psych: no complaints Head: normocephalic ENMT: mucosa pink and moist Neck: jvd (9), supple Respiratory: clear to auscultation Cardiovascular: regular rate and rhythm Gastrointestinal: non-tender, soft Musculoskeletal: muscle tone (normal) Extremities: other (Lower leg covered by dressing) Neurological: other (No focal deficits) Results Result Diagram: 06/04/17 0749 06/04/17 0749 Results 24 hrs Laboratory Tests Test 06/03/17 17:34 06/03/17 21:15 06/04/17 03:08 06/04/17 07:49 Bedside Glucose 200 238 H 164 White Blood Count 13.1 H Red Blood Count 2.56 L Hemoglobin 7.9 L Hematocrit 23.0 L Mean Corpuscular Volume 89.8 Mean Corpuscular Hemoglobin 30.9 Mean Corpuscular Hemoglobin Concent 34.3 Red Cell Distribution Width 13.6 Platelet Count 198 Mean Platelet Volume 10.5 H Neutrophils % 76.9 Lymphocytes % 9.6 L Monocytes % 9.3 Eosinophils % 1.7 Basophils % 0.2 Nucleated Red Blood Cells % 0.0 Neutrophils # 10.0 H Lymphocytes # 1.3 Monocytes # 1.2 H Eosinophils # 0.2 Basophils # 0.0 Nucleated Red Blood Cells # 0.0 Sodium Level 135 Potassium Level 4.0 Chloride Level 103 Carbon Dioxide Level 24 Anion Gap 12 Blood Urea Nitrogen 46 H Creatinine 3.86 H Glucose Level 128 Calcium Level 7.8 L Total Bilirubin 0.2 Direct Bilirubin 0.00 Indirect Bilirubin 0.2 Aspartate Amino Transf (AST/SGOT) 15 Alanine Aminotransferase (ALT/SGPT) 28 Alkaline Phosphatase 74 Total Protein 4.9 #L Albumin 2.4 L Globulin 2.50 Albumin/Globulin Ratio 0.96 Test 06/04/17 08:32 06/04/17 12:17 Bedside Glucose 159 216 Medications Medications Current Medications Ondansetron HCl (Zofran Tab) 4 mg Q6H PRN PO NAUSEA AND/OR VOMITING; Start at 21:30 Ondansetron HCl (Zofran Inj) 4 mg Q6H PRN IV NAUSEA AND/OR VOMITING; Start at 21:30 Acetaminophen (Tylenol Tab) 650 mg Q6H PRN PO PAIN LEVEL 1-3 OR FEVER Last administered on 06/01/17 16:37; Admin Dose 650 MG; Start 05/29/17 at 21:30 Zolpidem Tartrate (Ambien) 5 mg QHS PRN PO INSOMNIA Last administered on 21:28; Admin Dose 5 MG; Start 05/29/17 at 21:30 Docusate Sodium (Colace) 100 mg Q12H PRN PO CONSTIPATION Last administered on 06/04/17 07:03; Admin Dose 100 MG; Start 05/29/17 at 21:30 Atorvastatin Calcium (Lipitor) 80 mg DAILY@21 PO ; Start 05/30/17 at 21:00; Status Future Hold Calcitriol (Rocaltrol) 0.25 mcg DAILY PO Last administered on 06/04/17 08:57; Admin Dose 0.25 MCG; Start 05/30/17 at 09:00 Hydralazine HCl (Apresoline) 100 mg TID PO Last administered on 06/04/17 12:28 ; Admin Dose 100 MG; Start 05/30/17 at 09:00; Status Future hold Isosorbide Dinitrate (Isordil) 20 mg TID PO Last administered on 06/04/17 12: 27; Admin Dose 20 MG; Start 05/30/17 at 09:00; Status Future hold Linagliptin (Tradjenta) 5 mg DAILY PO Last administered on 06/04/17 08:59; Admin Dose 5 MG; Start 05/30/17 at 09:00 Metoprolol Tartrate (Lopressor) 25 mg BID PO Last administered on 06/04/17 08: 58; Admin Dose 25 MG; Start 05/30/17 at 21:00 Sodium Bicarbonate (Sodium Bicarbonate Tab) 325 mg BID PO Last administered on 05/30/17 09:11; Admin Dose 325 MG; Start 05/30/17 at 09:00; Status Future Hold Aspirin (Halfprin) 81 mg DAILY PO Last administered on 06/04/17 08:58; Admin Dose 81 MG; Start 05/31/17 at 09:00 Lorazepam (Ativan) 1 mg TID PRN PO ANXIETY Last administered on 06/04/17 10:28 ; Admin Dose 1 MG; Start 05/30/17 at 18:00 Miscellaneous Information 1 ea NOTE XX ; Start 05/30/17 at 19:30 Glucose (Glutose) 15 gm Q15M PRN PO DECREASED GLUCOSE; Start 05/30/17 at 19:30 Glucose (Glutose) 22.5 gm Q15M PRN PO DECREASED GLUCOSE; Start 05/30/17 at 19: 30 Dextrose (D50w Syringe) 25 ml Q15M PRN IV DECREASED GLUCOSE; Start 05/30/17 at 19:30 Dextrose (D50w Syringe) 50 ml Q15M PRN IV DECREASED GLUCOSE; Start 05/30/17 at 19:30 Glucagon (Glucagen) 1 mg Q15M PRN IM DECREASED GLUCOSE; Start 05/30/17 at 19:30 Glucose (Glutose) 15 gm Q15M PRN BUCCAL DECREASED GLUCOSE; Start 05/30/17 at 19 :30 Nitroglycerin (Nitroglycerin (Sl Tab) 0.4 Mg) 1 tab Q5M PRN SL ANGINA; Start at 20:00 Insulin Glargine (Lantus) 35 unit HS SC Last administered on 06/03/17 21:22; Admin Dose 35 UNIT; Start 05/31/17 at 21:00 Diagnostic Test (Pha) (Accu-Chek) 1 ea 02 XX Last administered on 06/04/17 03: 12; Admin Dose 1 EA; Start 06/01/17 at 02:00 Hydromorphone HCl (Dilaudid) 0.5 mg Q3 PRN IV PAIN LEVEL 7-10 Last administered on 06/04/17 10:25; Admin Dose 0.5 MG; Start 06/03/17 at 15:00 SONNY ALVARENGA Jun 04, 2017 12:44
--- NOTE | 2017-06-04 16:13 | PN ---
Date/Time of Note Date/Time of Note DATE: 06/04/17 TIME: 16:06 Assessment/Plan Lines/Catheters IV Catheter Type (from Nrs): Saline Lock Joshi in Place (from Nrs): Yes Assessment/Plan Assessment/Plan Doing well s/p LLE embolectomy / fasciotomy 5 days ago UO has improved and dialysis has not been needed for the last several days I will take him to the OR on Friday to close the fasciotomy site and possibly place a skin graft if needed I will also place a permacath at the same time if Dr. Sethi thinks it will be needed in the near future I am ordering a vein mapping of the arms - I will place an arm access after arm edema and ecchymosis has resolved as he will definitely need AV access in the coming months He will need lifelong anticoagulation to prevent recurrent thromboembolic events - he is on Eliquis Subjective 24 Hr Interval Summary No new c/o. VAC in place on left calf, no bleeding. No pain in the leg except at the fasciotomy site. Exam/Review of Systems Vital Signs Vitals Vital Signs Date Time Temp Pulse Resp B/P Pulse Ox O2 Delivery O2 Flow Rate FiO2 06/04/17 15:43 98.1 86 18 136/66 97 06/03/17 21:41 21 06/02/17 12:45 Room Air 05/31/17 14:46 3.0 Intake and Output 06/03/17 06/03/17 06/04/17 15:00 23:00 07:00 Intake Total 1600 ml Output Total 1700 ml Balance -100 ml Exam Free Text/Dictation L foot is warm and hyperemic with normal sensation and motor function. L lateral calf fasciotomy site with VAC in place, edema has improved. Posterior calf is soft and non tender. Results Result Diagram: 06/04/17 0749 06/04/17 0749 SONNY SPARROW MD Jun 04, 2017 16:13
[2017-06-04] MEDS: EPOETIN 10000 UNITS/1 ML INJ (ESRD) SC SCH (16:24)
[2017-06-04 17:24] LABS: IRON 16 ug/dl (35-150); TOTAL IRON BINDING CAPACITY 231 ug/dl (241-421)
--- NOTE | 2017-06-04 18:25 | PN ---
Date/Time of Note Date/Time of Note DATE: 06/04/17 TIME: 18:18 Assessment/Plan VTE Prophylaxis VTE Prophylaxis Intervention: other Lines/Catheters [facility] Saline Lock Urinary Cath still in place: Yes Reason Cath still needed: urinary retention Assessment/Plan Chief Complaint/Hosp Course 1.he is 5 days post op a L leg thrombectomy and fasciotomy for an embolism to L leg . He is going to have a wound vac placed today . Dr Lujan is planning to take patient to surgery in 2 days to close L leg wound . 2.ARF on CKD . he was dialyzed once 3 days ago . Urine output is picking up and renal function is improving .Will not order hemodialysis for today and re- evaluate tomorrow . Will need to decide to convert L IJ into permacath . 3.IDDM 4.Anemia due to acute L leg bleeding . Will transfuse 1 unit of blood today . 5.CAD 6.Cardiomyopathy 7.depression , he agrees to try antidepressant . will start Lexapro 10 mg a day . Problems: Subjective 24 Hr Interval Summary Free Text/Dictation He is awake and alert . He continues to c/o pain in L leg . Eyes: no complaints Respiratory: no complaints Cardiovascular: no complaints Gastrointestinal: no complaints Genitourinary: no complaints Exam/Review of Systems Vital Signs Vitals Vital Signs Date Time Temp Pulse Resp B/P Pulse Ox O2 Delivery O2 Flow Rate FiO2 06/04/17 16:00 84 06/04/17 15:43 98.1 18 136/66 97 06/03/17 21:41 21 06/02/17 12:45 Room Air 05/31/17 14:46 3.0 Intake and Output 06/03/17 06/03/17 06/04/17 15:00 23:00 07:00 Intake Total 1600 ml Output Total 1700 ml Balance -100 ml Exam L leg , S/P fasciotomy Constitutional: alert, frail, oriented Psych: depression Respiratory: clear to auscultation, normal air movement Gastrointestinal: non-tender, soft Results Result Diagram: 06/04/17 0749 06/04/17 0749 Results 24 hrs Laboratory Tests Test 06/03/17 21:15 06/04/17 03:08 06/04/17 07:49 06/04/17 08:32 Bedside Glucose 238 H 164 159 White Blood Count 13.1 H Red Blood Count 2.56 L Hemoglobin 7.9 L Hematocrit 23.0 L Mean Corpuscular Volume 89.8 Mean Corpuscular Hemoglobin 30.9 Mean Corpuscular Hemoglobin Concent 34.3 Red Cell Distribution Width 13.6 Platelet Count 198 Mean Platelet Volume 10.5 H Neutrophils % 76.9 Lymphocytes % 9.6 L Monocytes % 9.3 Eosinophils % 1.7 Basophils % 0.2 Nucleated Red Blood Cells % 0.0 Neutrophils # 10.0 H Lymphocytes # 1.3 Monocytes # 1.2 H Eosinophils # 0.2 Basophils # 0.0 Nucleated Red Blood Cells # 0.0 Sodium Level 135 Potassium Level 4.0 Chloride Level 103 Carbon Dioxide Level 24 Anion Gap 12 Blood Urea Nitrogen 46 H Creatinine 3.86 H Glucose Level 128 Calcium Level 7.8 L Total Bilirubin 0.2 Direct Bilirubin 0.00 Indirect Bilirubin 0.2 Aspartate Amino Transf (AST/SGOT) 15 Alanine Aminotransferase (ALT/SGPT) 28 Alkaline Phosphatase 74 Total Protein 4.9 #L Albumin 2.4 L Globulin 2.50 Albumin/Globulin Ratio 0.96 Test 06/04/17 12:17 06/04/17 16:25 06/04/17 16:38 Bedside Glucose 216 217 Iron Level 16 L Total Iron Binding Capacity 231 L Percent Iron Saturation 7 L Ferritin 89.9 Medications Medications Current Medications Ondansetron HCl (Zofran Tab) 4 mg Q6H PRN PO NAUSEA AND/OR VOMITING; Start at 21:30 Ondansetron HCl (Zofran Inj) 4 mg Q6H PRN IV NAUSEA AND/OR VOMITING; Start at 21:30 Acetaminophen (Tylenol Tab) 650 mg Q6H PRN PO PAIN LEVEL 1-3 OR FEVER Last administered on 06/01/17 16:37; Admin Dose 650 MG; Start 05/29/17 at 21:30 Zolpidem Tartrate (Ambien) 5 mg QHS PRN PO INSOMNIA Last administered on 21:28; Admin Dose 5 MG; Start 05/29/17 at 21:30 Docusate Sodium (Colace) 100 mg Q12H PRN PO CONSTIPATION Last administered on 06/04/17 07:03; Admin Dose 100 MG; Start 05/29/17 at 21:30 Calcitriol (Rocaltrol) 0.25 mcg DAILY PO Last administered on 06/04/17 08:57; Admin Dose 0.25 MCG; Start 05/30/17 at 09:00 Hydralazine HCl (Apresoline) 100 mg TID PO Last administered on 06/04/17 12:28 ; Admin Dose 100 MG; Start 05/30/17 at 09:00; Status Future hold Isosorbide Dinitrate (Isordil) 20 mg TID PO Last administered on 06/04/17 12: 27; Admin Dose 20 MG; Start 05/30/17 at 09:00; Status Future hold Linagliptin (Tradjenta) 5 mg DAILY PO Last administered on 06/04/17 08:59; Admin Dose 5 MG; Start 05/30/17 at 09:00 Metoprolol Tartrate (Lopressor) 25 mg BID PO Last administered on 06/04/17 08: 58; Admin Dose 25 MG; Start 05/30/17 at 21:00 Sodium Bicarbonate (Sodium Bicarbonate Tab) 325 mg BID PO Last administered on 05/30/17 09:11; Admin Dose 325 MG; Start 05/30/17 at 09:00; Status Future Hold Aspirin (Halfprin) 81 mg DAILY PO Last administered on 06/04/17 08:58; Admin Dose 81 MG; Start 05/31/17 at 09:00 Lorazepam (Ativan) 1 mg TID PRN PO ANXIETY Last administered on 06/04/17 16:34 ; Admin Dose 1 MG; Start 05/30/17 at 18:00 Miscellaneous Information 1 ea NOTE XX ; Start 05/30/17 at 19:30 Glucose (Glutose) 15 gm Q15M PRN PO DECREASED GLUCOSE; Start 05/30/17 at 19:30 Glucose (Glutose) 22.5 gm Q15M PRN PO DECREASED GLUCOSE; Start 05/30/17 at 19: 30 Dextrose (D50w Syringe) 25 ml Q15M PRN IV DECREASED GLUCOSE; Start 05/30/17 at 19:30 Dextrose (D50w Syringe) 50 ml Q15M PRN IV DECREASED GLUCOSE; Start 05/30/17 at 19:30 Glucagon (Glucagen) 1 mg Q15M PRN IM DECREASED GLUCOSE; Start 05/30/17 at 19:30 Glucose (Glutose) 15 gm Q15M PRN BUCCAL DECREASED GLUCOSE; Start 05/30/17 at 19 :30 Nitroglycerin (Nitroglycerin (Sl Tab) 0.4 Mg) 1 tab Q5M PRN SL ANGINA; Start at 20:00 Insulin Glargine (Lantus) 35 unit HS SC Last administered on 06/03/17 21:22; Admin Dose 35 UNIT; Start 05/31/17 at 21:00 Diagnostic Test (Pha) (Accu-Chek) 1 ea 02 XX Last administered on 06/04/17 03: 12; Admin Dose 1 EA; Start 06/01/17 at 02:00 Hydromorphone HCl (Dilaudid) 0.5 mg Q3 PRN IV PAIN LEVEL 7-10 Last administered on 06/04/17 16:20; Admin Dose 0.5 MG; Start 06/03/17 at 15:00 Atorvastatin Calcium (Lipitor) 20 mg HS PO ; Start 06/04/17 at 21:00 Epoetin Srini (Epogen (Esrd)) 10,000 units MoWeFr@17 SC Last administered on 16:24; Admin Dose 10,000 UNITS; Start 06/04/17 at 17:00 ANGÉLICA HEWITT MD Jun 04, 2017 18:25
[2017-06-04] MEDS ORDERED: HYDROmorphONE 1 MG/ML SYG IV PRN (20:00)
[2017-06-04] MEDS: ATORVASTATIN 20 MG TAB PO SCH (20:15)
[2017-06-04] MEDS: ZOLPIDEM 5 MG TAB PO PRN (20:20)
[2017-06-04] MEDS: INSULIN GLARGINE [LANtus] 3 ML PEN SC SCH (20:43)
[2017-06-05] VITALS (13 sets, daily range): BP systolic 134–143; BP diastolic 65–77; PULSE 80–84; RESP 16–20
[2017-06-05] MEDS: LORAZEPAM 1 MG TAB PO PRN ×2 (00:05→08:54)
[2017-06-05] MEDS: ACCU-CHEK XX SCH (02:00)
[2017-06-05] MEDS: HYDROmorphONE 1 MG/ML SYG IV PRN ×7 (02:12→23:55)
[2017-06-05] MEDS: INSULIN ASPART [NOVOLOG] 3 ML PEN SC SCH ×4 (08:16→20:48)
[2017-06-05] MEDS: ESCITALOPRAM 10 MG TAB PO SCH (08:53)
[2017-06-05] MEDS: LINAGLIPTIN 5 MG TABLET PO SCH (08:53)
[2017-06-05] MEDS: ISOSORBIDE DINITRATE 20 MG TAB PO SCH ×3 (08:53→20:46)
[2017-06-05] MEDS: METOPROLOL 25 MG TAB PO SCH ×2 (08:54→20:59)
[2017-06-05] MEDS: CALCITRIOL 0.25 MCG CAP PO SCH (08:54)
[2017-06-05] MEDS: ASPIRIN (EC) 81 MG TAB PO SCH (08:54)
[2017-06-05 09:01] LABS: BASOPHILS % 0.3 % (0.0-2.0); EOSINOPHILS # 0.3 10^3/ul (0.0-0.5); EOSINOPHILS % 2.3 % (0.0-7.0); HEMATOCRIT 23.9 % (42.0-52.0); LYMPHOCYTES # 1.5 10^3/ul (0.8-2.9); LYMPHOCYTES % 12.1 % (15.0-51.0); MEAN CORPUSCULAR HEMOGLOBIN 30.1 pg (29.0-33.0); MEAN CORPUSCULAR HGB CONC 33.5 g/dl (32.0-37.0); MEAN CORPUSCULAR VOLUME 89.8 fl (82.0-101.0); MEAN PLATELET VOLUME 10.5 fl (7.4-10.4); MONOCYTE # 1.3 10^3/ul (0.3-0.9); MONOCYTES % 10.8 % (0.0-11.0); NEUTROPHIL # 8.7 10^3/ul (1.6-7.5); NEUTROPHILS % 71.2 % (39.0-77.0); PLATELET COUNT 243 10^3/UL (140-415); RED BLOOD COUNT 2.66 10^6/ul (4.70-6.10); RED CELL DISTRIBUTION WIDTH 13.7 % (11.5-14.5); WHITE BLOOD COUNT 12.3 10^3/ul (4.8-10.8)
--- NOTE | 2017-06-05 09:05 | PN ---
Date/Time of Note Date/Time of Note DATE: 06/05/17 TIME: 09:02 Assessment/Plan VTE Prophylaxis VTE Prophylaxis Intervention: other Lines/Catheters IV Catheter Type (from Nrsg): Saline Lock Urinary Cath still in place: Yes Reason Cath still needed: urinary retention Assessment/Plan Assessment/Plan 1. Pt is post op L leg thrombectomy and fasciotomy for an embolism to L leg, surgery planned for tomm, ,wound vac in place. 2. ARF with known CKD, await labs today re need for permacath. 3. IDDM, sugars noted 4. Anemia due to acute L leg bleedin, will transfuse 2 additional units if Hct< 28, and give iv iron. 5. CAD 6. Cardiomyopathy, without chf Subjective 24 Hr Interval Summary Respiratory: No cough, No shortness of breath Cardiovascular: chest pain Gastrointestinal: no complaints Genitourinary: no complaints Musculoskeletal: other (pain in left leg) Exam/Review of Systems Vital Signs Vitals Vital Signs Date Time Temp Pulse Resp B/P Pulse Ox O2 Delivery O2 Flow Rate FiO2 06/05/17 08:20 80 06/05/17 07:43 98.5 20 143/77 96 06/03/17 21:41 21 06/02/17 12:45 Room Air Intake and Output 06/04/17 06/04/17 06/05/17 15:00 23:00 07:00 Intake Total 900 ml 200 ml Output Total 2200 ml 650 ml Balance -1300 ml -450 ml Exam Neck: No jvd Respiratory: clear to auscultation Cardiovascular: regular rate and rhythm Gastrointestinal: soft Extremities: No edema (and left leg bandaged) Results Result Diagram: 06/04/17 0749 06/04/17 0749 Results 24 hrs Laboratory Tests Test 06/04/17 12:17 06/04/17 16:25 06/04/17 16:38 06/04/17 20:23 Bedside Glucose 216 217 256 H Iron Level 16 L Total Iron Binding Capacity 231 L Percent Iron Saturation 7 L Ferritin 89.9 Test 06/05/17 02:15 06/05/17 07:25 06/05/17 08:11 Bedside Glucose 177 174 White Blood Count Pending Red Blood Count Pending Hemoglobin Pending Hematocrit Pending Mean Corpuscular Volume Pending Mean Corpuscular Hemoglobin Pending Mean Corpuscular Hemoglobin Concent Pending Red Cell Distribution Width Pending Platelet Count Pending Mean Platelet Volume Pending Medications Medications Current Medications Ondansetron HCl (Zofran Tab) 4 mg Q6H PRN PO NAUSEA AND/OR VOMITING; Start at 21:30 Ondansetron HCl (Zofran Inj) 4 mg Q6H PRN IV NAUSEA AND/OR VOMITING; Start at 21:30 Acetaminophen (Tylenol Tab) 650 mg Q6H PRN PO PAIN LEVEL 1-3 OR FEVER Last administered on 06/01/17 16:37; Admin Dose 650 MG; Start 05/29/17 at 21:30 Zolpidem Tartrate (Ambien) 5 mg QHS PRN PO INSOMNIA Last administered on 20:20; Admin Dose 5 MG; Start 05/29/17 at 21:30 Docusate Sodium (Colace) 100 mg Q12H PRN PO CONSTIPATION Last administered on 06/04/17 07:03; Admin Dose 100 MG; Start 05/29/17 at 21:30 Calcitriol (Rocaltrol) 0.25 mcg DAILY PO Last administered on 06/05/17 08:54; Admin Dose 0.25 MCG; Start 05/30/17 at 09:00 Hydralazine HCl (Apresoline) 100 mg TID PO Last administered on 06/05/17 08:52 ; Admin Dose 100 MG; Start 05/30/17 at 09:00; Status Future hold Isosorbide Dinitrate (Isordil) 20 mg TID PO Last administered on 06/05/17 08: 53; Admin Dose 20 MG; Start 05/30/17 at 09:00; Status Future hold Linagliptin (Tradjenta) 5 mg DAILY PO Last administered on 06/05/17 08:53; Admin Dose 5 MG; Start 05/30/17 at 09:00 Metoprolol Tartrate (Lopressor) 25 mg BID PO Last administered on 06/05/17 08: 54; Admin Dose 25 MG; Start 05/30/17 at 21:00 Sodium Bicarbonate (Sodium Bicarbonate Tab) 325 mg BID PO Last administered on 05/30/17 09:11; Admin Dose 325 MG; Start 05/30/17 at 09:00; Status Future Hold Aspirin (Halfprin) 81 mg DAILY PO Last administered on 06/05/17 08:54; Admin Dose 81 MG; Start 05/31/17 at 09:00 Lorazepam (Ativan) 1 mg TID PRN PO ANXIETY Last administered on 06/05/17 08:54 ; Admin Dose 1 MG; Start 05/30/17 at 18:00 Miscellaneous Information 1 ea NOTE XX ; Start 05/30/17 at 19:30 Glucose (Glutose) 15 gm Q15M PRN PO DECREASED GLUCOSE; Start 05/30/17 at 19:30 Glucose (Glutose) 22.5 gm Q15M PRN PO DECREASED GLUCOSE; Start 05/30/17 at 19: 30 Dextrose (D50w Syringe) 25 ml Q15M PRN IV DECREASED GLUCOSE; Start 05/30/17 at 19:30 Dextrose (D50w Syringe) 50 ml Q15M PRN IV DECREASED GLUCOSE; Start 05/30/17 at 19:30 Glucagon (Glucagen) 1 mg Q15M PRN IM DECREASED GLUCOSE; Start 05/30/17 at 19:30 Glucose (Glutose) 15 gm Q15M PRN BUCCAL DECREASED GLUCOSE; Start 05/30/17 at 19 :30 Nitroglycerin (Nitroglycerin (Sl Tab) 0.4 Mg) 1 tab Q5M PRN SL ANGINA; Start at 20:00 Insulin Glargine (Lantus) 35 unit HS SC Last administered on 06/04/17 20:43; Admin Dose 35 UNIT; Start 05/31/17 at 21:00 Diagnostic Test (Pha) (Accu-Chek) 1 ea 02 XX Last administered on 06/04/17 03: 12; Admin Dose 1 EA; Start 06/01/17 at 02:00 Atorvastatin Calcium (Lipitor) 20 mg HS PO Last administered on 06/04/17 20:15 ; Admin Dose 20 MG; Start 06/04/17 at 21:00 Epoetin Srini (Epogen (Esrd)) 10,000 units MoWeFr@17 SC Last administered on 16:24; Admin Dose 10,000 UNITS; Start 06/04/17 at 17:00 Escitalopram Oxalate (Lexapro) 10 mg DAILY PO Last administered on 06/05/17 08 :53; Admin Dose 10 MG; Start 06/05/17 at 09:00 Hydromorphone HCl (Dilaudid) 1 mg Q3H PRN IV PAIN LEVEL 7-10 Last administered on 06/05/17t 08:49; Admin Dose 1 MG; Start 06/04/17 at 20:08 KAREN VARGAS MD Jun 05, 2017 09:05
--- NOTE | 2017-06-05 09:18 | RADRPT ---
Vent Rate: 91 bpm RR Interval: 0 msec SC Interval: 170 msec QRS Duration: 112 msec QT Interval: 392 msec QTC Interval: 482 msec P-R-T [place]: 54 - -24 - 91 degrees Normal sinus rhythm Inferior infarct , age undetermined Anterior infarct , age undetermined ST amp; T wave abnormality, consider lateral ischemia Abnormal ECG Electronically Signed By: Darrell Sinclair [id number]
[2017-06-05 09:30] LABS: ALBUMIN 2.8 g/dl (3.3-4.9); ALBUMIN/GLOBULIN RATIO 0.93; BILIRUBIN,INDIRECT 0.3 mg/dl (0-1.1); BILIRUBIN,TOTAL 0.3 mg/dl (0.2-1.3); CALCIUM 7.9 mg/dl (8.4-10.2); CREATININE 3.65 mg/dl (0.61-1.24); TOTAL PROTEIN 5.8 g/dl (6.1-8.1)
[2017-06-05] MEDS: SOD FERRIC GLUC COMPLX 125 MG in SOD CHLORIDE 0.9% 100 ML IVPB SCH (11:00)
[2017-06-05] MEDS: OXYCODONE/ACETAMINOPHEN (10/325) TAB PO PRN ×2 (12:08→22:15)
--- NOTE | 2017-06-05 15:44 | RADRPT ---
PROCEDURE: US bilateral upper extremity Venous. CLINICAL INDICATION: End-stage renal disease, vein mapping TECHNIQUE: Multiple sonographic images of the bilateral upper lower extremity deep an superficial venous system was obtained utilizing grayscale, color-flow, compressive sonography and doppler imagi ng with augmentation. Measurements were performed. The images were reviewed on a PACS workstation. COMPARISON: None. FINDINGS: RIGHT Right basilic vein size: Proximal: 6.2 mm Mid aspect: 4.2 mm Distal: 3.3 mm Right basilic vein size in the forearm: Proximal: 2.5 mm Mid aspect: 1.7 mm Distal: 2.8 mm Right cephalic vein size: Proximal: 4.4 mm Mid aspect: 4.6 mm Distal: 4.6 mm Right cephalic vein size in the forearm: Proximal: 4.4 mm Mid aspect: 4.9 mm Distal: 3.5 mm LEFT Left basilic vein size: Proximal: 5.3 mm Mid aspect: 4.5 mm Distal: 1.8 mm Left basilic vein size in the forearm: Proximal: 1.8 mm Mid aspect: 1.6 mm Distal: 1.4 mm Left cephalic vein size: Proximal: 3.0 mm Mid aspect: 2.6 mm Distal: 3.9 mm Left cephalic vein size in the forearm: Proximal: 3.5 mm Mid aspect: 3.3 mm Distal: 2.1 mm IMPRESSION: Vein mapping as described. RPTAT: AA .Marino Cunha MD, Date Time Electronically viewed and signed by .Marino Cunha MD, MD on 06/05/2017 15:44 .S/
[2017-06-05] MEDS: ATORVASTATIN 20 MG TAB PO SCH (20:45)
[2017-06-05] MEDS: INSULIN GLARGINE [LANtus] 3 ML PEN SC SCH (20:51)
[2017-06-06] VITALS (24 sets, daily range): BP systolic 118–178; BP diastolic 67–90; PULSE 75–96; RESP 12–23
[2017-06-06] MEDS: ACCU-CHEK XX SCH (02:00)
[2017-06-06] MEDS: HYDROmorphONE 1 MG/ML SYG IV PRN ×6 (02:59→21:10)
[2017-06-06] MEDS: LORAZEPAM 1 MG TAB PO PRN ×2 (03:41→19:38)
--- NOTE | 2017-06-06 07:31 | HPN ---
Date/Time of Note Date/Time of Note DATE: 06/06/17 TIME: 07:31 Interval H&P Admission Note Pt. seen H&P reviewed: No system changes SONNY SPARROW MD Jun 06, 2017 07:31
[2017-06-06] MEDS ORDERED: LIDOCAINE 1% (MPF) 30 ML INJ ONE (07:35)
[2017-06-06] MEDS ORDERED: THROMBIN 5000 UNIT VIAL ONE (07:35)
[2017-06-06] MEDS ORDERED: HEPARIN 1000 UNITS/ML 10 ML INJ ONE (07:35)
[2017-06-06] MEDS ORDERED: GELATIN SIZE 100 SPONGE ONE (07:35)
[2017-06-06 07:50] LABS: ABNORMAL IP MESSAGE 1; BASOPHIL # 0.1 10^3/ul (0.0-0.1); BASOPHILS % 0.4 % (0.0-2.0); EOSINOPHILS # 0.4 10^3/ul (0.0-0.5); EOSINOPHILS % 2.6 % (0.0-7.0); HEMOGLOBIN 10.6 g/dl (14.0-18.0); LYMPHOCYTES # 1.5 10^3/ul (0.8-2.9); LYMPHOCYTES % 10.9 % (15.0-51.0); MEAN CORPUSCULAR HEMOGLOBIN 29.9 pg (29.0-33.0); MEAN CORPUSCULAR HGB CONC 34.2 g/dl (32.0-37.0); MEAN CORPUSCULAR VOLUME 87.3 fl (82.0-101.0); MEAN PLATELET VOLUME 9.9 fl (7.4-10.4); MONOCYTE # 1.3 10^3/ul (0.3-0.9); MONOCYTES % 9.5 % (0.0-11.0); NEUTROPHIL # 9.9 10^3/ul (1.6-7.5); NEUTROPHILS % 70.8 % (39.0-77.0); PLATELET COUNT 256 10^3/UL (140-415); POSITIVE DIFF @See below; RED BLOOD COUNT 3.55 10^6/ul (4.70-6.10); RED CELL DISTRIBUTION WIDTH 13.4 % (11.5-14.5)
[2017-06-06] MEDS: INSULIN ASPART [NOVOLOG] 3 ML PEN SC SCH ×4 (07:55→21:00)
[2017-06-06] MEDS ORDERED: MINERAL OIL LIGHT 10 ML VIAL ONE (07:55)
[2017-06-06 08:14] LABS: INR 1.11; PROTIME 14.3 Sec (12.2-14.2); PT RATIO 1.1
[2017-06-06 08:15] LABS: PARTIAL THROMBOPLASTIN TIME 31.6 Sec (25.0-35.0)
[2017-06-06] MEDS ORDERED: MIDAZOLAM 1 MG/ML 2 ML INJ ONE (08:17)
[2017-06-06 08:19] LABS: CALCIUM 8.2 mg/dl (8.4-10.2); CREATININE 3.31 mg/dl (0.61-1.24); MAGNESIUM 1.6 mg/dl (1.7-2.5); PHOSPHORUS 4.5 mg/dl (2.5-4.9)
[2017-06-06] MEDS ORDERED: POLYMYXIN/BACITRACIN 1L IRRIG IRR ONE (08:45)
[2017-06-06] MEDS ORDERED: THROMBIN 5000 UNIT VIAL TOP ONE (09:15)
[2017-06-06] MEDS ORDERED: LIDOCAINE 2% (SDV) 5 ML INJ ONE (09:32)
[2017-06-06] MEDS ORDERED: ETOMIDATE 20 MG INJ ONE (09:32)
[2017-06-06] MEDS ORDERED: CEFAZOLIN 1 GM INJ ONE (09:32)
--- NOTE | 2017-06-06 09:43 | SIPON ---
Date/Time of Note Date/Time of Note DATE: 06/06/17 TIME: 09:42 Operative Report Preoperative Diagnosis L lateral calf fasciotomy wound Postoperative Diagnosis same Operation/Procedure Performed partial closure of left lateral calf wound, STSG left lateral calf fasciotomy wound with skin from the left thigh Surgeon see signature line lead assistant manager none Anesthesia: general Estimated blood loss: minimal Transfusion Required none Specimen none Grafts/Implants none Complications none SONNY SPARROW MD Jun 06, 2017 09:43
[2017-06-06] MEDS ORDERED: hydrALAzine 20 MG INJ IV PRN (10:00)
[2017-06-06] MEDS ORDERED: ONDANSETRON 4 MG INJ IV PRN (10:00)
[2017-06-06] MEDS ORDERED: FENTAnyl 50 MCG/ML VIAL IV PRN (10:00)
[2017-06-06] MEDS ORDERED: DIPHENHYDRAMINE 50 MG INJ IV PRN (10:00)
[2017-06-06] MEDS ORDERED: HYDROmorphONE (0.2 MG/ML) 10ML SYG IV PRN ×2 (10:00)
[2017-06-06] MEDS ORDERED: LABETALOL HCL 20MG INJ IV PRN (10:00)
[2017-06-06] MEDS ORDERED: HYDROmorphONE (0.2 MG/ML) 10ML SYG IV ONE (10:02)
--- NOTE | 2017-06-06 10:11 | PN ---
Date/Time of Note Date/Time of Note DATE: 06/06/17 TIME: 10:08 Assessment/Plan VTE Prophylaxis VTE Prophylaxis Intervention: other Lines/Catheters IV Catheter Type (from Nrs): Saline Lock Urinary Cath still in place: Yes Reason Cath still needed: urinary retention Assessment/Plan Assessment/Plan 1. Pt is post op L leg thrombectomy and fasciotomy for an embolism to L leg, now post op, anticoag rx resumed, rev with vascular 2. ARF with known CKD, with improving renal fx 3. IDDM, sugars noted 4. Anemia due to acute L leg bleeding, will transfuse, Hct stable after 2 additional units given yesterday 5. CAD 6. Cardiomyopathy, without chf Subjective 24 Hr Interval Summary Respiratory: No shortness of breath Cardiovascular: No chest pain, No lightheadedness Gastrointestinal: no complaints Genitourinary: no complaints, other (catheter in place) Exam/Review of Systems Vital Signs Vitals Vital Signs Date Time Temp Pulse Resp B/P Pulse Ox O2 Delivery O2 Flow Rate FiO2 06/06/17 09:51 96 21 178/90 94 Room Air 06/06/17 09:40 98.0 06/03/17 21:41 21 Intake and Output 06/05/17 06/05/17 06/06/17 15:00 23:00 07:00 Intake Total 700 ml 850 ml Output Total 700 ml 1600 ml Balance 0 ml -750 ml Exam Neck: No jvd Respiratory: clear to auscultation Cardiovascular: regular rate and rhythm Gastrointestinal: soft Extremities: edema (right leg, left bandaged) Results Result Diagram: 06/06/17 0735 06/06/17 0735 Results 24 hrs Laboratory Tests Test 06/05/17 11:59 06/05/17 17:22 06/05/17 20:39 06/06/17 06:06 Bedside Glucose 202 225 H 154 104 Test 06/06/17 07:35 White Blood Count 14.0 H Red Blood Count 3.55 #L Hemoglobin 10.6 #L Hematocrit 31.0 #L Mean Corpuscular Volume 87.3 Mean Corpuscular Hemoglobin 29.9 Mean Corpuscular Hemoglobin Concent 34.2 Red Cell Distribution Width 13.4 Platelet Count 256 Mean Platelet Volume 9.9 Neutrophils % 70.8 Lymphocytes % 10.9 L Monocytes % 9.5 Eosinophils % 2.6 Basophils % 0.4 Nucleated Red Blood Cells % 0.0 Neutrophils # 9.9 H Lymphocytes # 1.5 Monocytes # 1.3 H Eosinophils # 0.4 Basophils # 0.1 Nucleated Red Blood Cells # 0.0 Prothrombin Time 14.3 H Prothrombin Time Ratio 1.1 INR International Normalized Ratio 1.11 Activated Partial Thromboplast Time 31.6 Sodium Level 134 L Potassium Level 4.0 Chloride Level 103 Carbon Dioxide Level 24 Anion Gap 11 Blood Urea Nitrogen 44 H Creatinine 3.31 H Glucose Level 100 Calcium Level 8.2 L Phosphorus Level 4.5 Magnesium Level 1.6 L Medications Medications Current Medications Ondansetron HCl (Zofran Tab) 4 mg Q6H PRN PO NAUSEA AND/OR VOMITING; Start at 21:30 Ondansetron HCl (Zofran Inj) 4 mg Q6H PRN IV NAUSEA AND/OR VOMITING; Start at 21:30 Acetaminophen (Tylenol Tab) 650 mg Q6H PRN PO PAIN LEVEL 1-3 OR FEVER Last administered on 06/01/17 16:37; Admin Dose 650 MG; Start 05/29/17 at 21:30 Zolpidem Tartrate (Ambien) 5 mg QHS PRN PO INSOMNIA Last administered on 20:20; Admin Dose 5 MG; Start 05/29/17 at 21:30 Docusate Sodium (Colace) 100 mg Q12H PRN PO CONSTIPATION Last administered on 06/04/17 07:03; Admin Dose 100 MG; Start 05/29/17 at 21:30 Calcitriol (Rocaltrol) 0.25 mcg DAILY PO Last administered on 06/05/17 08:54; Admin Dose 0.25 MCG; Start 05/30/17 at 09:00 Hydralazine HCl (Apresoline) 100 mg TID PO Last administered on 06/05/17 20:47 ; Admin Dose 100 MG; Start 05/30/17 at 09:00; Status Future hold Isosorbide Dinitrate (Isordil) 20 mg TID PO Last administered on 06/05/17 20: 46; Admin Dose 20 MG; Start 05/30/17 at 09:00; Status Future hold Linagliptin (Tradjenta) 5 mg DAILY PO Last administered on 06/05/17 08:53; Admin Dose 5 MG; Start 05/30/17 at 09:00 Metoprolol Tartrate (Lopressor) 25 mg BID PO Last administered on 06/05/17 20: 59; Admin Dose 25 MG; Start 05/30/17 at 21:00 Sodium Bicarbonate (Sodium Bicarbonate Tab) 325 mg BID PO Last administered on 05/30/17 09:11; Admin Dose 325 MG; Start 05/30/17 at 09:00; Status Future Hold Aspirin (Halfprin) 81 mg DAILY PO Last administered on 06/05/17 08:54; Admin Dose 81 MG; Start 05/31/17 at 09:00 Lorazepam (Ativan) 1 mg TID PRN PO ANXIETY Last administered on 06/06/17 03:41 ; Admin Dose 1 MG; Start 05/30/17 at 18:00 Miscellaneous Information 1 ea NOTE XX ; Start 05/30/17 at 19:30 Glucose (Glutose) 15 gm Q15M PRN PO DECREASED GLUCOSE; Start 05/30/17 at 19:30 Glucose (Glutose) 22.5 gm Q15M PRN PO DECREASED GLUCOSE; Start 05/30/17 at 19: 30 Dextrose (D50w Syringe) 25 ml Q15M PRN IV DECREASED GLUCOSE; Start 05/30/17 at 19:30 Dextrose (D50w Syringe) 50 ml Q15M PRN IV DECREASED GLUCOSE; Start 05/30/17 at 19:30 Glucagon (Glucagen) 1 mg Q15M PRN IM DECREASED GLUCOSE; Start 05/30/17 at 19:30 Glucose (Glutose) 15 gm Q15M PRN BUCCAL DECREASED GLUCOSE; Start 05/30/17 at 19 :30 Nitroglycerin (Nitroglycerin (Sl Tab) 0.4 Mg) 1 tab Q5M PRN SL ANGINA; Start at 20:00 Insulin Glargine (Lantus) 35 unit HS SC Last administered on 06/05/17 20:51; Admin Dose 35 UNIT; Start 05/31/17 at 21:00 Diagnostic Test (Pha) (Accu-Chek) 1 ea 02 XX Last administered on 06/04/17 03: 12; Admin Dose 1 EA; Start 06/01/17 at 02:00 Atorvastatin Calcium (Lipitor) 20 mg HS PO Last administered on 06/05/17 20:45 ; Admin Dose 20 MG; Start 06/04/17 at 21:00 Epoetin Srini (Epogen (Esrd)) 10,000 units MoWeFr@17 SC Last administered on 16:24; Admin Dose 10,000 UNITS; Start 06/04/17 at 17:00 Escitalopram Oxalate (Lexapro) 10 mg DAILY PO Last administered on 06/05/17 08 :53; Admin Dose 10 MG; Start 06/05/17 at 09:00 Hydromorphone HCl (Dilaudid) 1 mg Q3H PRN IV PAIN LEVEL 7-10 Last administered on 06/06/17 06:02; Admin Dose 1 MG; Start 06/04/17 at 20:08 Oxycodone/ Acetaminophen 1 tab 1 tab Q4H PRN PO PAIN Last administered on 22:15; Admin Dose 1 TAB; Start 06/05/17 at 09:00 Ferric Sodium Gluconate Complex/ Sodium Chloride (Ferrlecit/NS) 110 ml @ 110 mls/hr Q24H IVPB ; Start 06/05/17 at 11:00; Stop 06/09/17 at 11:59 Apixaban (Eliquis) 5 mg BID PO ; Start 06/06/17 at 10:00; Status KAREN ALBERTO MD Jun 06, 2017 10:11
[2017-06-06] MEDS: ASPIRIN (EC) 81 MG TAB PO SCH (11:49)
[2017-06-06] MEDS: LINAGLIPTIN 5 MG TABLET PO SCH (11:50)
[2017-06-06] MEDS: CALCITRIOL 0.25 MCG CAP PO SCH (11:50)
[2017-06-06] MEDS: ISOSORBIDE DINITRATE 20 MG TAB PO SCH ×3 (11:50→21:00)
[2017-06-06] MEDS: ESCITALOPRAM 10 MG TAB PO SCH (11:50)
[2017-06-06] MEDS: METOPROLOL 25 MG TAB PO SCH ×2 (11:51→21:20)
[2017-06-06] MEDS: SOD FERRIC GLUC COMPLX 125 MG in SOD CHLORIDE 0.9% 100 ML IVPB SCH (11:54)
[2017-06-06] MEDS: APIXABAN 5 MG TABLET PO SCH ×2 (11:55→21:20)
[2017-06-06] MEDS: OXYCODONE/ACETAMINOPHEN (10/325) TAB PO PRN ×3 (13:07→21:58)
[2017-06-06] MEDS ORDERED: POLYMYXIN/BACITRACIN 1L IRRIG ONE (13:24)
--- NOTE | 2017-06-06 15:30 | OPR ---
DATE OF OPERATION: 06/06/2017 PREOPERATIVE DIAGNOSIS: Left calf fasciotomy wound. POSTOPERATIVE DIAGNOSIS: Left calf fasciotomy wound. PROCEDURE PERFORMED: Partial closure of left calf fasciotomy wounds and split thickness skin graft to the remaining portion of the wound. SURGEON: Sonny Lujan MD ANESTHESIA: LMA anesthesia. ESTIMATED BLOOD LOSS: Minimal. COMPLICATIONS: No intraprocedural complications. INDICATIONS: This is a 57-year-old gentleman. A week ago, I brought him to the operating room for left leg thrombectomy and thromboembolectomy for acute ischemia. He has done well since then. At t he end of the procedure, I did make an anterior and lateral compartment fasciotomy. The muscle all looked healthy. I brought him back today to close it. It is still too edematous to close entirely but I closed the ends and skin grafted the center portion. DESCRIPTION OF PROCEDURE: Patient was brought to the operating room and placed on the table in supi ne position. After induction of LMA anesthesia, left leg was prepped and draped in the usual steril e fashion. The patient's foot now is warm and pink and well perfused. He has palpable DP pulse. I had a VAC on the lateral calf open wound which was removed and prepped and draped the leg in the [facility] sterile fashion. I debrided a little bit of necrotic muscle subcutaneously and I removed that. He is using a sharp curet. I removed some old blood that had collected in the wound and irrigated it out with antibiotic irrigation. I then used multiple 2-0 nylon interrupted vertical mattress sut ures coming from either end of the incision. The incision itself was probably about 8 to 10 inches long, so I brought in from either end so at the end, the incision in the middle was opened about 6 i nches and about 2 inches in width. I then harvested a piece of split thickness skin graft from the left thigh using a dermatome and harvested at 0.012 of an inch thick piece. I matched it with 3 to 1 mesher. I then used silvano to attach the skin graft to the open portion of the wound. I then pu t some thrombin on the donor site and placed a large Tegaderm. Where the skin graft was placed, we placed a nonadherent dressing and then some gauze, Kerlix and an Calvin wrap. There was good hemostasi s. Patient tolerated the procedure well, was extubated in the operating room and transferred to the recovery room in stable condition. Dictated By: SONNY OTERO/TREVOR Conf#: [id number] DID#: [id number] CC: ANGÉLICA HEWITT MD; SONNY ALVARENGA MD; KRAEN VARGAS MD;*EndCC*
--- NOTE | 2017-06-06 17:01 | CONS ---
Date/Time of Note Date/Time of Note DATE: 06/06/17 TIME: 16:55 Assessment/Plan Assessment/Plan Chief Complaint/Hosp Course IMPRESSION: 1. Chest pain prior to surgery with negative troponins x3 since that time and history of recent stress testing with no ischemia.-now mildly positive troponin after surgery likely type 2 infarct with no sig uptrend 2. Cardiomyopathy with decreased left ventricular ejection fraction, approximately 35-40 percent by echo and stress test April 2017. 3. Postop, status post thrombectomy and fasciotomy for acute arterial insufficiency, ischemic foot-now closed-? etiology. NO documented AF by Tele at this time 4. Peripheral arterial disease. 5. Chronic kidney disease, pain, prepare for likely initiation of hemodialysis. 6. Leukocytosis, status post surgery. 7. Dyslipidemia. 8. Hypertension-labile. Likely component of pain Recc: -Tele -serial ecg's -Continue asa/Eliquis and follow Hgb closely -Continue BB and follow labile BP closely -Follow volume status -Continue statin -local wound care and ongoing vascular surgery follow-up -HD for volume removal -Check echo to assess for etiology of likely thrombo-embolism causing ischemic foot/leg. No documented AF by Tele at this time Problems: Consultation Date/Type/Reason Admit Date/Time May 29, 2017 at 19:54 Initial Consult Date 05/31/17 Type of Consultation: Cardiology Reason for Consultation cardiomyopathy Referring Provider: ANGÉLICA HEWITT MD Exam/Review of Systems Vital Signs Vitals Vital Signs Date Time Temp Pulse Resp B/P Pulse Ox O2 Delivery O2 Flow Rate FiO2 06/06/17 15:17 98.2 85 16 118/67 97 06/06/17 09:51 Room Air 06/06/17 09:15 3.0 06/03/17 21:41 21 Intake and Output 06/05/17 06/05/17 06/06/17 15:00 23:00 07:00 Intake Total 700 ml 850 ml Output Total 700 ml 1600 ml Balance 0 ml -750 ml Exam Review of Systems: CONSTITUTIONAL: No fevers, chills. PULMONARY: No sob CARDIOVASCULAR: No chest pain/palpitations GASTROINTESTINAL: No nausea/vomiting. GENITOURINARY: No hematuria/dysuria. MUSCULOSKELETAL: No myagias/arthalgias. PSYCHIATRIC: The patient denies depression. NEUROLOGIC: No weakness Constitutional: alert Psych: no complaints Head: normocephalic ENMT: mucosa pink and moist Neck: jvd, supple Respiratory: diminished breath sounds Cardiovascular: regular rate and rhythm Gastrointestinal: non-tender, soft Musculoskeletal: muscle tone (normal) Extremities: other (LLE covered by dressing) Neurological: other (No focal deficits) Results Result Diagram: 06/06/17 0735 06/06/17 0735 Results 24 hrs Laboratory Tests Test 06/05/17 17:22 06/05/17 20:39 06/06/17 06:06 06/06/17 07:35 Bedside Glucose 225 H 154 104 White Blood Count 14.0 H Red Blood Count 3.55 #L Hemoglobin 10.6 #L Hematocrit 31.0 #L Mean Corpuscular Volume 87.3 Mean Corpuscular Hemoglobin 29.9 Mean Corpuscular Hemoglobin Concent 34.2 Red Cell Distribution Width 13.4 Platelet Count 256 Mean Platelet Volume 9.9 Neutrophils % 70.8 Lymphocytes % 10.9 L Monocytes % 9.5 Eosinophils % 2.6 Basophils % 0.4 Nucleated Red Blood Cells % 0.0 Neutrophils # 9.9 H Lymphocytes # 1.5 Monocytes # 1.3 H Eosinophils # 0.4 Basophils # 0.1 Nucleated Red Blood Cells # 0.0 Prothrombin Time 14.3 H Prothrombin Time Ratio 1.1 INR International Normalized Ratio 1.11 Activated Partial Thromboplast Time 31.6 Sodium Level 134 L Potassium Level 4.0 Chloride Level 103 Carbon Dioxide Level 24 Anion Gap 11 Blood Urea Nitrogen 44 H Creatinine 3.31 H Glucose Level 100 Calcium Level 8.2 L Phosphorus Level 4.5 Magnesium Level 1.6 L Test 06/06/17 12:41 Bedside Glucose 129 Medications Medications Current Medications Ondansetron HCl (Zofran Tab) 4 mg Q6H PRN PO NAUSEA AND/OR VOMITING; Start at 21:30 Ondansetron HCl (Zofran Inj) 4 mg Q6H PRN IV NAUSEA AND/OR VOMITING; Start at 21:30 Acetaminophen (Tylenol Tab) 650 mg Q6H PRN PO PAIN LEVEL 1-3 OR FEVER Last administered on 06/01/17 16:37; Admin Dose 650 MG; Start 05/29/17 at 21:30 Zolpidem Tartrate (Ambien) 5 mg QHS PRN PO INSOMNIA Last administered on 20:20; Admin Dose 5 MG; Start 05/29/17 at 21:30 Docusate Sodium (Colace) 100 mg Q12H PRN PO CONSTIPATION Last administered on 06/04/17 07:03; Admin Dose 100 MG; Start 05/29/17 at 21:30 Calcitriol (Rocaltrol) 0.25 mcg DAILY PO Last administered on 06/06/17 11:50; Admin Dose 0.25 MCG; Start 05/30/17 at 09:00 Hydralazine HCl (Apresoline) 100 mg TID PO Last administered on 06/06/17 14:50 ; Admin Dose 100 MG; Start 05/30/17 at 09:00; Status Future hold Isosorbide Dinitrate (Isordil) 20 mg TID PO Last administered on 06/06/17 14: 49; Admin Dose 20 MG; Start 05/30/17 at 09:00; Status Future hold Linagliptin (Tradjenta) 5 mg DAILY PO Last administered on 06/06/17 11:50; Admin Dose 5 MG; Start 05/30/17 at 09:00 Metoprolol Tartrate (Lopressor) 25 mg BID PO Last administered on 06/06/17 11: 51; Admin Dose 25 MG; Start 05/30/17 at 21:00 Sodium Bicarbonate (Sodium Bicarbonate Tab) 325 mg BID PO Last administered on 05/30/17 09:11; Admin Dose 325 MG; Start 05/30/17 at 09:00; Status Future Hold Aspirin (Halfprin) 81 mg DAILY PO Last administered on 06/06/17 11:49; Admin Dose 81 MG; Start 05/31/17 at 09:00 Lorazepam (Ativan) 1 mg TID PRN PO ANXIETY Last administered on 06/06/17 03:41 ; Admin Dose 1 MG; Start 05/30/17 at 18:00 Miscellaneous Information 1 ea NOTE XX ; Start 05/30/17 at 19:30 Glucose (Glutose) 15 gm Q15M PRN PO DECREASED GLUCOSE; Start 05/30/17 at 19:30 Glucose (Glutose) 22.5 gm Q15M PRN PO DECREASED GLUCOSE; Start 05/30/17 at 19: 30 Dextrose (D50w Syringe) 25 ml Q15M PRN IV DECREASED GLUCOSE; Start 05/30/17 at 19:30 Dextrose (D50w Syringe) 50 ml Q15M PRN IV DECREASED GLUCOSE; Start 05/30/17 at 19:30 Glucagon (Glucagen) 1 mg Q15M PRN IM DECREASED GLUCOSE; Start 05/30/17 at 19:30 Glucose (Glutose) 15 gm Q15M PRN BUCCAL DECREASED GLUCOSE; Start 05/30/17 at 19 :30 Nitroglycerin (Nitroglycerin (Sl Tab) 0.4 Mg) 1 tab Q5M PRN SL ANGINA; Start at 20:00 Insulin Glargine (Lantus) 35 unit HS SC Last administered on 06/05/17 20:51; Admin Dose 35 UNIT; Start 05/31/17 at 21:00 Diagnostic Test (Pha) (Accu-Chek) 1 ea 02 XX Last administered on 06/04/17 03: 12; Admin Dose 1 EA; Start 06/01/17 at 02:00 Atorvastatin Calcium (Lipitor) 20 mg HS PO Last administered on 06/05/17 20:45 ; Admin Dose 20 MG; Start 06/04/17 at 21:00 Epoetin Srini (Epogen (Esrd)) 10,000 units MoWeFr@17 SC Last administered on 16:24; Admin Dose 10,000 UNITS; Start 06/04/17 at 17:00 Escitalopram Oxalate (Lexapro) 10 mg DAILY PO Last administered on 06/06/17 11 :50; Admin Dose 10 MG; Start 06/05/17 at 09:00 Hydromorphone HCl (Dilaudid) 1 mg Q3H PRN IV PAIN LEVEL 7-10 Last administered on 06/06/17 14:49; Admin Dose 1 MG; Start 06/04/17 at 20:08 Oxycodone/ Acetaminophen 1 tab 1 tab Q4H PRN PO PAIN Last administered on 13:07; Admin Dose 1 TAB; Start 06/05/17 at 09:00 Ferric Sodium Gluconate Complex/ Sodium Chloride (Ferrlecit/NS) 110 ml @ 110 mls/hr Q24H IVPB Last administered on 06/06/17 11:54; Admin Dose 110 MLS/HR; Start 06/05/17 at 11:00; Stop 06/09/17 at 11:59 Apixaban (Eliquis) 2.5 mg BID PO Last administered on 06/06/17t 11:55; Admin Dose 2.5 MG; Start 06/06/17 at 10:00 SONNY ALVARENGA Jun 06, 2017 17:01
[2017-06-06] MEDS: EPOETIN 10000 UNITS/1 ML INJ (ESRD) SC SCH (17:19)
[2017-06-06] MEDS: ATORVASTATIN 20 MG TAB PO SCH (21:20)
[2017-06-06] MEDS: INSULIN GLARGINE [LANtus] 3 ML PEN SC SCH (21:23)
[2017-06-06] MEDS: ZOLPIDEM 5 MG TAB PO PRN (23:00)
[2017-06-07] VITALS (12 sets, daily range): BP systolic 125–153; BP diastolic 62–73; PULSE 80–87; RESP 18–19
[2017-06-07] MEDS: HYDROmorphONE 1 MG/ML SYG IV PRN ×7 (00:09→21:01)
[2017-06-07] MEDS: ACCU-CHEK XX SCH (02:00)
[2017-06-07] MEDS: OXYCODONE/ACETAMINOPHEN (10/325) TAB PO PRN ×3 (07:36→16:11)
[2017-06-07 07:54] LABS: ABNORMAL IP MESSAGE 1; BASOPHILS % 0.3 % (0.0-2.0); EOSINOPHILS # 0.4 10^3/ul (0.0-0.5); EOSINOPHILS % 2.2 % (0.0-7.0); HEMATOCRIT 31.7 % (42.0-52.0); HEMOGLOBIN 10.5 g/dl (14.0-18.0); LYMPHOCYTES # 1.2 10^3/ul (0.8-2.9); LYMPHOCYTES % 7.4 % (15.0-51.0); MEAN CORPUSCULAR HEMOGLOBIN 29.2 pg (29.0-33.0); MEAN CORPUSCULAR HGB CONC 33.1 g/dl (32.0-37.0); MEAN CORPUSCULAR VOLUME 88.1 fl (82.0-101.0); MEAN PLATELET VOLUME 10.1 fl (7.4-10.4); MONOCYTE # 1.2 10^3/ul (0.3-0.9); MONOCYTES % 7.7 % (0.0-11.0); PLATELET COUNT 295 10^3/UL (140-415); POSITIVE DIFF @See below; RED CELL DISTRIBUTION WIDTH 13.7 % (11.5-14.5); WHITE BLOOD COUNT 15.6 10^3/ul (4.8-10.8)
[2017-06-07 08:15] LABS: CALCIUM 8.4 mg/dl (8.4-10.2); CREATININE 3.34 mg/dl (0.61-1.24); MAGNESIUM 1.7 mg/dl (1.7-2.5); PHOSPHORUS 4.9 mg/dl (2.5-4.9); POTASSIUM 4.3 mmol/L (3.5-5.1)
[2017-06-07] MEDS: INSULIN ASPART [NOVOLOG] 3 ML PEN SC SCH ×4 (09:33→20:56)
[2017-06-07] MEDS: CALCITRIOL 0.25 MCG CAP PO SCH (09:35)
[2017-06-07] MEDS: ASPIRIN (EC) 81 MG TAB PO SCH (09:35)
[2017-06-07] MEDS: APIXABAN 5 MG TABLET PO SCH ×2 (09:35→20:54)
[2017-06-07] MEDS: LINAGLIPTIN 5 MG TABLET PO SCH (09:36)
[2017-06-07] MEDS: ESCITALOPRAM 10 MG TAB PO SCH (09:36)
[2017-06-07] MEDS: METOPROLOL 25 MG TAB PO SCH ×2 (09:38→20:54)
[2017-06-07] MEDS: ISOSORBIDE DINITRATE 20 MG TAB PO SCH ×3 (09:38→20:54)
--- NOTE | 2017-06-07 09:58 | PN ---
Date/Time of Note Date/Time of Note DATE: 06/07/17 TIME: 09:54 Assessment/Plan VTE Prophylaxis VTE Prophylaxis Intervention: other Lines/Catheters IV Catheter Type (from Nrsg): Saline Lock Urinary Cath still in place: Yes Reason Cath still needed: urinary retention Assessment/Plan Assessment/Plan 1. S/P surgery left leg with for vasc occulsion, fasciotomy, skin graft. 2. Anemia is stable. 3. Known CAD, asx 4. CKD and acute renal failure slowing improving. 5. DC regan tomm, urine culture obtained. Subjective 24 Hr Interval Summary Respiratory: No cough, No shortness of breath Cardiovascular: No chest pain Gastrointestinal: no complaints Genitourinary: other (regan in place) Musculoskeletal: other (left calf pain) Exam/Review of Systems Vital Signs Vitals Vital Signs Date Time Temp Pulse Resp B/P Pulse Ox O2 Delivery O2 Flow Rate FiO2 06/07/17 08:00 82 06/07/17 07:47 Nasal Cannula 2.0 06/07/17 07:23 98.6 18 132/62 91 06/03/17 21:41 21 Intake and Output 06/06/17 06/06/17 06/07/17 15:00 23:00 07:00 Intake Total 1400 ml 360 ml 600 ml Output Total 3 ml 350 ml 1350 ml Balance 1397 ml 10 ml -750 ml Exam Neck: No jvd Respiratory: clear to auscultation Cardiovascular: regular rate and rhythm Gastrointestinal: soft Extremities: No edema (and no calf tend) Results Result Diagram: 06/07/17 0710 06/07/17 0710 Results 24 hrs Laboratory Tests Test 06/06/17 12:41 06/06/17 18:12 06/06/17 21:15 06/07/17 07:10 Bedside Glucose 129 134 157 White Blood Count 15.6 H Red Blood Count 3.60 L Hemoglobin 10.5 L Hematocrit 31.7 L Mean Corpuscular Volume 88.1 Mean Corpuscular Hemoglobin 29.2 Mean Corpuscular Hemoglobin Concent 33.1 Red Cell Distribution Width 13.7 Platelet Count 295 Mean Platelet Volume 10.1 Neutrophils % 77.0 Lymphocytes % 7.4 L Monocytes % 7.7 Eosinophils % 2.2 Basophils % 0.3 Nucleated Red Blood Cells % 0.0 Neutrophils # 12.0 H Lymphocytes # 1.2 Monocytes # 1.2 H Eosinophils # 0.4 Basophils # 0.0 Nucleated Red Blood Cells # 0.0 Sodium Level 132 L Potassium Level 4.3 Chloride Level 100 Carbon Dioxide Level 26 Anion Gap 10 Blood Urea Nitrogen 45 H Creatinine 3.34 H Glucose Level 103 Calcium Level 8.4 Phosphorus Level 4.9 Magnesium Level 1.7 Test 06/07/17 08:53 Bedside Glucose 107 Medications Medications Current Medications Ondansetron HCl (Zofran Tab) 4 mg Q6H PRN PO NAUSEA AND/OR VOMITING; Start at 21:30 Ondansetron HCl (Zofran Inj) 4 mg Q6H PRN IV NAUSEA AND/OR VOMITING; Start at 21:30 Acetaminophen (Tylenol Tab) 650 mg Q6H PRN PO PAIN LEVEL 1-3 OR FEVER Last administered on 06/01/17 16:37; Admin Dose 650 MG; Start 05/29/17 at 21:30 Zolpidem Tartrate (Ambien) 5 mg QHS PRN PO INSOMNIA Last administered on 23:00; Admin Dose 5 MG; Start 05/29/17 at 21:30 Docusate Sodium (Colace) 100 mg Q12H PRN PO CONSTIPATION Last administered on 06/04/17 07:03; Admin Dose 100 MG; Start 05/29/17 at 21:30 Calcitriol (Rocaltrol) 0.25 mcg DAILY PO Last administered on 06/07/17 09:35; Admin Dose 0.25 MCG; Start 05/30/17 at 09:00 Hydralazine HCl (Apresoline) 100 mg TID PO Last administered on 06/07/17 09:40 ; Admin Dose 100 MG; Start 05/30/17 at 09:00; Status Future hold Isosorbide Dinitrate (Isordil) 20 mg TID PO Last administered on 06/07/17 09: 38; Admin Dose 20 MG; Start 05/30/17 at 09:00; Status Future hold Linagliptin (Tradjenta) 5 mg DAILY PO Last administered on 06/07/17 09:36; Admin Dose 5 MG; Start 05/30/17 at 09:00 Metoprolol Tartrate (Lopressor) 25 mg BID PO Last administered on 06/07/17 09: 38; Admin Dose 25 MG; Start 05/30/17 at 21:00 Sodium Bicarbonate (Sodium Bicarbonate Tab) 325 mg BID PO Last administered on 05/30/17 09:11; Admin Dose 325 MG; Start 05/30/17 at 09:00; Status Future Hold Aspirin (Halfprin) 81 mg DAILY PO Last administered on 06/07/17 09:35; Admin Dose 81 MG; Start 05/31/17 at 09:00 Lorazepam (Ativan) 1 mg TID PRN PO ANXIETY Last administered on 06/06/17 19:38 ; Admin Dose 1 MG; Start 05/30/17 at 18:00 Miscellaneous Information 1 ea NOTE XX ; Start 05/30/17 at 19:30 Glucose (Glutose) 15 gm Q15M PRN PO DECREASED GLUCOSE; Start 05/30/17 at 19:30 Glucose (Glutose) 22.5 gm Q15M PRN PO DECREASED GLUCOSE; Start 05/30/17 at 19: 30 Dextrose (D50w Syringe) 25 ml Q15M PRN IV DECREASED GLUCOSE; Start 05/30/17 at 19:30 Dextrose (D50w Syringe) 50 ml Q15M PRN IV DECREASED GLUCOSE; Start 05/30/17 at 19:30 Glucagon (Glucagen) 1 mg Q15M PRN IM DECREASED GLUCOSE; Start 05/30/17 at 19:30 Glucose (Glutose) 15 gm Q15M PRN BUCCAL DECREASED GLUCOSE; Start 05/30/17 at 19 :30 Nitroglycerin (Nitroglycerin (Sl Tab) 0.4 Mg) 1 tab Q5M PRN SL ANGINA; Start at 20:00 Insulin Glargine (Lantus) 35 unit HS SC Last administered on 06/06/17 21:23; Admin Dose 35 UNIT; Start 05/31/17 at 21:00 Diagnostic Test (Pha) (Accu-Chek) 1 ea 02 XX Last administered on 06/04/17 03: 12; Admin Dose 1 EA; Start 06/01/17 at 02:00 Atorvastatin Calcium (Lipitor) 20 mg HS PO Last administered on 06/06/17 21:20 ; Admin Dose 20 MG; Start 06/04/17 at 21:00 Epoetin Srini (Epogen (Esrd)) 10,000 units MoWeFr@17 SC Last administered on 17:19; Admin Dose 10,000 UNITS; Start 06/04/17 at 17:00 Escitalopram Oxalate (Lexapro) 10 mg DAILY PO Last administered on 06/07/17 09 :36; Admin Dose 10 MG; Start 06/05/17 at 09:00 Hydromorphone HCl (Dilaudid) 1 mg Q3H PRN IV PAIN LEVEL 7-10 Last administered on 06/07/17 06:12; Admin Dose 1 MG; Start 06/04/17 at 20:08 Oxycodone/ Acetaminophen 1 tab 1 tab Q4H PRN PO PAIN Last administered on 07:36; Admin Dose 1 TAB; Start 06/05/17 at 09:00 Ferric Sodium Gluconate Complex/ Sodium Chloride (Ferrlecit/NS) 110 ml @ 110 mls/hr Q24H IVPB Last administered on 06/06/17 11:54; Admin Dose 110 MLS/HR; Start 06/05/17 at 11:00; Stop 06/09/17 at 11:59 Apixaban (Eliquis) 2.5 mg BID PO Last administered on 06/07/17 09:35; Admin Dose 2.5 MG; Start 06/06/17 at 10:00 KAREN VARGAS MD Jun 07, 2017 09:58
[2017-06-07] MEDS ORDERED: APIXABAN 5 MG TABLET PO SCH (10:30)
[2017-06-07] MEDS: SOD FERRIC GLUC COMPLX 125 MG in SOD CHLORIDE 0.9% 100 ML IVPB SCH (11:10)
[2017-06-07 17:02] LABS: ADD UMIC YES; UR AMORPHOUS CRYSTAL FEW /HPF (NONE SEEN); UR ASCORBIC ACID NEGATIVE (NEGATIVE); UR BACTERIA FEW /HPF (NONE SEEN); UR BILIRUBIN (Dip) NEGATIVE (NEGATIVE); UR BLOOD (Dip) 1+ mg/dL (NEGATIVE); UR CLARITY SLIGHTLY CLOUDY (CLEAR); UR COLOR YELLOW (YELLOW); UR GLUCOSE (Dip) 2+ mg/dL (NEGATIVE); UR KETONES (Dip) NEGATIVE (NEGATIVE); UR LEUKOCYTE ESTERASE (Dip) NEGATIVE Leu/ul (NEGATIVE); UR MUCUS FEW /HPF (NONE SEEN); UR NITRITE (Dip) NEGATIVE (NEGATIVE); UR RBC 3 /HPF (0-5); UR SPECIFIC GRAVITY (Dip) 1.012 (1.003-1.030); UR TOTAL PROTEIN (Dip) 2+ mg/dl (NEGATIVE); UR UROBILINOGEN (Dip) NEGATIVE (NEGATIVE)
--- NOTE | 2017-06-07 17:37 | CONS ---
Date/Time of Note Date/Time of Note DATE: 06/07/17 TIME: 17:22 Assessment/Plan Assessment/Plan Additional Assessment/Plan Atypical chest pain Cardiomyopathy EF 35% Postop, status post thrombectomy and fasciotomy for acute arterial insufficiency Peripheral arterial disease. Hypertension ESRD on HD Dyslipidemia. Hemodynamically stable Continue ASA and Eliquis continue Isordil Continue Lipitor Continue Insulin Continue Hydralazine Continue HD as scheduled Consultation Date/Type/Reason Admit Date/Time May 29, 2017 at 19:54 Eyes: no complaints Respiratory: No cough, No shortness of breath Cardiovascular: No chest pain Gastrointestinal: no complaints Genitourinary: other (regan in place) Musculoskeletal: other (left calf pain) Psychological: no complaints Past Surgical History Past Surgical Hx: cholecystectomy, coronary bypass surgery Social History Smoking Status: Former smoker Exam/Review of Systems Vital Signs Vitals Vital Signs Date Time Temp Pulse Resp B/P Pulse Ox O2 Delivery O2 Flow Rate FiO2 06/07/17 16:54 2.0 06/07/17 16:00 80 06/07/17 14:55 97.7 18 125/67 95 06/07/17 07:47 Nasal Cannula 06/03/17 21:41 21 Intake and Output 06/06/17 06/06/17 06/07/17 15:00 23:00 07:00 Intake Total 1400 ml 360 ml 600 ml Output Total 3 ml 350 ml 1350 ml Balance 1397 ml 10 ml -750 ml Exam Constitutional: alert Head: atraumatic, normocephalic Neck: non-tender, supple Respiratory: clear to auscultation Cardiovascular: regular rate and rhythm Gastrointestinal: nl liver, spleen, non-tender, soft Results Result Diagram: 06/07/17 0710 06/07/17 0710 Results 24 hrs Laboratory Tests Test 06/06/17 18:12 06/06/17 21:15 06/07/17 07:10 06/07/17 08:53 Bedside Glucose 134 157 107 White Blood Count 15.6 H Red Blood Count 3.60 L Hemoglobin 10.5 L Hematocrit 31.7 L Mean Corpuscular Volume 88.1 Mean Corpuscular Hemoglobin 29.2 Mean Corpuscular Hemoglobin Concent 33.1 Red Cell Distribution Width 13.7 Platelet Count 295 Mean Platelet Volume 10.1 Neutrophils % 77.0 Lymphocytes % 7.4 L Monocytes % 7.7 Eosinophils % 2.2 Basophils % 0.3 Nucleated Red Blood Cells % 0.0 Neutrophils # 12.0 H Lymphocytes # 1.2 Monocytes # 1.2 H Eosinophils # 0.4 Basophils # 0.0 Nucleated Red Blood Cells # 0.0 Sodium Level 132 L Potassium Level 4.3 Chloride Level 100 Carbon Dioxide Level 26 Anion Gap 10 Blood Urea Nitrogen 45 H Creatinine 3.34 H Glucose Level 103 Calcium Level 8.4 Phosphorus Level 4.9 Magnesium Level 1.7 Test 06/07/17 12:44 06/07/17 15:10 Bedside Glucose 158 Urine Color YELLOW Urine Clarity SLIGHTLY CLOUDY A Urine pH 5.0 Urine Specific [place] 1.012 Urine Ketones NEGATIVE Urine Nitrite NEGATIVE Urine Bilirubin NEGATIVE Urine Urobilinogen NEGATIVE Urine Leukocyte Esterase NEGATIVE Urine Microscopic RBC 3 Urine Microscopic WBC 3 Urine Amorphous Crystals FEW A Urine Bacteria FEW A Urine Granular Casts FEW A Urine Mucus FEW A Urine Hemoglobin 1+ H Urine Glucose 2+ H Urine Total Protein 2+ H Medications Medications Current Medications Ondansetron HCl (Zofran Tab) 4 mg Q6H PRN PO NAUSEA AND/OR VOMITING; Start at 21:30 Ondansetron HCl (Zofran Inj) 4 mg Q6H PRN IV NAUSEA AND/OR VOMITING; Start at 21:30 Acetaminophen (Tylenol Tab) 650 mg Q6H PRN PO PAIN LEVEL 1-3 OR FEVER Last administered on 06/01/17 16:37; Admin Dose 650 MG; Start 05/29/17 at 21:30 Zolpidem Tartrate (Ambien) 5 mg QHS PRN PO INSOMNIA Last administered on 23:00; Admin Dose 5 MG; Start 05/29/17 at 21:30 Docusate Sodium (Colace) 100 mg Q12H PRN PO CONSTIPATION Last administered on 06/04/17 07:03; Admin Dose 100 MG; Start 05/29/17 at 21:30 Calcitriol (Rocaltrol) 0.25 mcg DAILY PO Last administered on 06/07/17 09:35; Admin Dose 0.25 MCG; Start 05/30/17 at 09:00 Hydralazine HCl (Apresoline) 100 mg TID PO Last administered on 06/07/17 09:40 ; Admin Dose 100 MG; Start 05/30/17 at 09:00; Status Future hold Isosorbide Dinitrate (Isordil) 20 mg TID PO Last administered on 06/07/17 09: 38; Admin Dose 20 MG; Start 05/30/17 at 09:00; Status Future hold Linagliptin (Tradjenta) 5 mg DAILY PO Last administered on 06/07/17 09:36; Admin Dose 5 MG; Start 05/30/17 at 09:00 Metoprolol Tartrate (Lopressor) 25 mg BID PO Last administered on 06/07/17 09: 38; Admin Dose 25 MG; Start 05/30/17 at 21:00 Sodium Bicarbonate (Sodium Bicarbonate Tab) 325 mg BID PO Last administered on 05/30/17 09:11; Admin Dose 325 MG; Start 05/30/17 at 09:00; Status Future Hold Aspirin (Halfprin) 81 mg DAILY PO Last administered on 06/07/17 09:35; Admin Dose 81 MG; Start 05/31/17 at 09:00 Lorazepam (Ativan) 1 mg TID PRN PO ANXIETY Last administered on 06/06/17 19:38 ; Admin Dose 1 MG; Start 05/30/17 at 18:00 Miscellaneous Information 1 ea NOTE XX ; Start 05/30/17 at 19:30 Glucose (Glutose) 15 gm Q15M PRN PO DECREASED GLUCOSE; Start 05/30/17 at 19:30 Glucose (Glutose) 22.5 gm Q15M PRN PO DECREASED GLUCOSE; Start 05/30/17 at 19: 30 Dextrose (D50w Syringe) 25 ml Q15M PRN IV DECREASED GLUCOSE; Start 05/30/17 at 19:30 Dextrose (D50w Syringe) 50 ml Q15M PRN IV DECREASED GLUCOSE; Start 05/30/17 at 19:30 Glucagon (Glucagen) 1 mg Q15M PRN IM DECREASED GLUCOSE; Start 05/30/17 at 19:30 Glucose (Glutose) 15 gm Q15M PRN BUCCAL DECREASED GLUCOSE; Start 05/30/17 at 19 :30 Nitroglycerin (Nitroglycerin (Sl Tab) 0.4 Mg) 1 tab Q5M PRN SL ANGINA; Start at 20:00 Insulin Glargine (Lantus) 35 unit HS SC Last administered on 06/06/17 21:23; Admin Dose 35 UNIT; Start 05/31/17 at 21:00 Diagnostic Test (Pha) (Accu-Chek) 1 ea 02 XX Last administered on 06/04/17 03: 12; Admin Dose 1 EA; Start 06/01/17 at 02:00 Atorvastatin Calcium (Lipitor) 20 mg HS PO Last administered on 06/06/17 21:20 ; Admin Dose 20 MG; Start 06/04/17 at 21:00 Epoetin Srini (Epogen (Esrd)) 10,000 units MoWeFr@17 SC Last administered on 17:19; Admin Dose 10,000 UNITS; Start 06/04/17 at 17:00 Escitalopram Oxalate (Lexapro) 10 mg DAILY PO Last administered on 06/07/17 09 :36; Admin Dose 10 MG; Start 06/05/17 at 09:00 Hydromorphone HCl (Dilaudid) 1 mg Q3H PRN IV PAIN LEVEL 7-10 Last administered on 06/07/17 13:51; Admin Dose 1 MG; Start 06/04/17 at 20:08 Oxycodone/ Acetaminophen 1 tab 1 tab Q4H PRN PO PAIN Last administered on 16:11; Admin Dose 1 TAB; Start 06/05/17 at 09:00 Ferric Sodium Gluconate Complex/ Sodium Chloride (Ferrlecit/NS) 110 ml @ 110 mls/hr Q24H IVPB Last administered on 06/07/17 11:10; Admin Dose 110 MLS/HR; Start 06/05/17 at 11:00; Stop 06/09/17 at 11:59 Apixaban (Eliquis) 5 mg BID PO ; Start 06/07/17 at 21:00 FILIPPO WALTER M.D. Jun 07, 2017 17:32
[2017-06-07] MEDS: ATORVASTATIN 20 MG TAB PO SCH (20:53)
[2017-06-07] MEDS: INSULIN GLARGINE [LANtus] 3 ML PEN SC SCH (20:56)
--- NOTE | 2017-06-07 23:08 | RADRPT ---
Echocardiogram Report Patient Name: SHANNON GALLEGOS Gender: Male Date: 1960 Study Date: 07-Jun-2017 Litigation Assistant: Sher [facility] Location: [address] Ref. Physician: SONNY ALVARENGA Quality: Adequate Procedures: Transthoracic echocardiogram with complete 2D, M-Mode, and doppler examination. Indications: Cardiomyopathy. 2D/M Mode Doppler Measurement Value Normal Ranges Measurement Value Normal Ranges LVIDd 2D 4.7 3.5 - 5.6 cm AV Peak Marty 1.3 m/sec LVIDs 2D 3.2 2.1 - 4.1 cm AV Peak PG 7.0 mmHg FS 2D 31.8 % LVOT Peak Marty 1.1 m/sec LVPWd 2D 1.3 0.6 - 1.1 cm LVOT Peak PG 5.0 mmHg IVSd 2D 1.3 0.6 - 1.1 cm MV E Peak Marty 1.1 m/sec IVS/LVPW 2D 1.0 MV A Peak Marty 1.0 m/sec AoR Diam 2D 2.9 2.0 - 3.7 cm MV E/A 1.1 LA/Ao 2D 1 0 - 1 MV Decel Time 137 msec EDV 2D 103.0 cm3 MV E/A 1.1 ESV 2D 32.8 cm3 LA Dimen 2D 3.8 2.3 - 4.0 cm Findings Left Ventricle: Normal left ventricular systolic function. Normal left ventricular cavity size. Mild concentric left ventricular hypertrophy. Ejection fraction is visually estimated at 55 %. Abnormal Diastolic Function. Right Ventricle: Normal right ventricular size. Normal right ventricular systolic function. Left Atrium: The left atrium is normal in size. Right Atrium: The right atrium is normal in size. Mitral Valve: Mild mitral leaflet calcification. Mild mitral annular calcification. Trace mitral regurgitation. Aortic Valve: No significant aortic stenosis or insufficiency. Aortic cusps appear mildly calcified. Tricuspid Valve: Normal appearance of the tricuspid valve. Unable to obtain RVSP due to minimal presence of tricuspid regurgitation. There is trace tricuspid regurgitation. Pulmonic Valve: Pulmonic valve not well visualized. There is trace pulmonic regurgitation. Pericardium: Normal pericardium with no significant pericardial effusion. Aorta: Normal aortic root. IVC: Normal size and normal respiratory collapse consistent with normal right atrial pressure. Conclusions Normal left ventricular systolic function. Normal left ventricular cavity size. Mild concentric left ventricular hypertrophy. Ejection fraction is visually estimated at 55 %. Abnormal Diastolic Function. Normal right ventricular size. Normal right ventricular systolic function. Mild mitral leaflet calcification. Mild mitral annular calcification. Trace mitral regurgitation. No significant aortic stenosis or insufficiency. Aortic cusps appear mildly calcified. Normal appearance of the tricuspid valve. Unable to obtain RVSP due to minimal presence of tricuspid regurgitation. There is trace tricuspid regurgitation. Normal pericardium with no significant pericardial effusion. Electronically Signed By: Clayton Lopez 07-Jun-2017 23:08:30 -0700 Patient Name: SHANNON GALLEGOS Study Date: 07-Jun-2017 [id number]
[2017-06-08] VITALS (12 sets, daily range): BP systolic 120–166; BP diastolic 63–77; PULSE 78–83; RESP 18–19
[2017-06-08] MEDS: HYDROmorphONE 1 MG/ML SYG IV PRN ×7 (01:05→23:11)
[2017-06-08] MEDS: ACCU-CHEK XX SCH (02:00)
[2017-06-08] MEDS: LORAZEPAM 1 MG TAB PO PRN ×3 (03:54→20:12)
[2017-06-08 05:58] LABS: ABNORMAL IP MESSAGE 1; BASOPHILS % 0.3 % (0.0-2.0); EOSINOPHILS # 0.3 10^3/ul (0.0-0.5); EOSINOPHILS % 2.3 % (0.0-7.0); HEMATOCRIT 30.3 % (42.0-52.0); HEMOGLOBIN 9.9 g/dl (14.0-18.0); LYMPHOCYTES # 1.3 10^3/ul (0.8-2.9); LYMPHOCYTES % 9.4 % (15.0-51.0); MEAN CORPUSCULAR HGB CONC 32.7 g/dl (32.0-37.0); MEAN CORPUSCULAR VOLUME 88.9 fl (82.0-101.0); MEAN PLATELET VOLUME 9.9 fl (7.4-10.4); MONOCYTE # 0.9 10^3/ul (0.3-0.9); MONOCYTES % 6.9 % (0.0-11.0); NEUTROPHIL # 10.3 10^3/ul (1.6-7.5); NEUTROPHILS % 75.2 % (39.0-77.0); PLATELET COUNT 313 10^3/UL (140-415); POSITIVE DIFF @See below; RED BLOOD COUNT 3.41 10^6/ul (4.70-6.10); RED CELL DISTRIBUTION WIDTH 13.9 % (11.5-14.5); WHITE BLOOD COUNT 13.7 10^3/ul (4.8-10.8)
[2017-06-08 06:23] LABS: CREATININE 3.15 mg/dl (0.61-1.24); MAGNESIUM 1.8 mg/dl (1.7-2.5); PHOSPHORUS 4.1 mg/dl (2.5-4.9); POTASSIUM 4.2 mmol/L (3.5-5.1)
[2017-06-08] MEDS: LINAGLIPTIN 5 MG TABLET PO SCH (07:49)
[2017-06-08] MEDS: ASPIRIN (EC) 81 MG TAB PO SCH (07:49)
[2017-06-08] MEDS: CALCITRIOL 0.25 MCG CAP PO SCH (07:49)
[2017-06-08] MEDS: APIXABAN 5 MG TABLET PO SCH ×2 (07:49→20:13)
[2017-06-08] MEDS: METOPROLOL 25 MG TAB PO SCH ×2 (07:50→20:12)
[2017-06-08] MEDS: ESCITALOPRAM 10 MG TAB PO SCH (07:50)
[2017-06-08] MEDS: ISOSORBIDE DINITRATE 20 MG TAB PO SCH ×3 (07:51→20:12)
[2017-06-08] MEDS: INSULIN ASPART [NOVOLOG] 3 ML PEN SC SCH ×4 (08:01→20:23)
--- NOTE | 2017-06-08 09:52 | PN ---
Date/Time of Note Date/Time of Note DATE: 06/08/17 TIME: 09:49 Assessment/Plan VTE Prophylaxis VTE Prophylaxis Intervention: other Lines/Catheters IV Catheter Type (from Nrs): Saline Lock Urinary Cath still in place: Yes Reason Cath still needed: urinary retention Assessment/Plan Assessment/Plan 1. S/P surgery left leg for vasc occulsion, fasciotomy, skin graft. 2. Anemia is stable. 3. Known CAD, asx 4. CKD and acute renal failure improving 5. Will dc regan and check post void bladder residual, urine cult is pending. 6. Mg noted will give Mag today Subjective 24 Hr Interval Summary Respiratory: No cough, No shortness of breath Cardiovascular: No chest pain, No lightheadedness Gastrointestinal: no complaints Genitourinary: other (regan in place) Neurologic: other (c/o left leg pain) Exam/Review of Systems Vital Signs Vitals Vital Signs Date Time Temp Pulse Resp B/P Pulse Ox O2 Delivery O2 Flow Rate FiO2 06/08/17 08:38 81 06/08/17 07:28 98.5 18 133/72 96 06/08/17 06:03 2.0 06/07/17 20:00 Nasal Cannula Intake and Output 06/07/17 06/07/17 06/08/17 15:00 23:00 07:00 Intake Total 710 ml 550 ml Output Total 1100 ml 1200 ml Balance -390 ml -650 ml Exam Neck: No jvd Respiratory: clear to auscultation Cardiovascular: regular rate and rhythm Gastrointestinal: soft Extremities: No edema (and no calf tend) Results Result Diagram: 06/08/17 0535 06/08/17 0535 Results 24 hrs Laboratory Tests Test 06/07/17 12:44 06/07/17 15:10 06/07/17 17:49 06/07/17 20:08 Bedside Glucose 158 144 150 Urine Color YELLOW Urine Clarity SLIGHTLY CLOUDY A Urine pH 5.0 Urine Specific [place] 1.012 Urine Ketones NEGATIVE Urine Nitrite NEGATIVE Urine Bilirubin NEGATIVE Urine Urobilinogen NEGATIVE Urine Leukocyte Esterase NEGATIVE Urine Microscopic RBC 3 Urine Microscopic WBC 3 Urine Amorphous Crystals FEW A Urine Bacteria FEW A Urine Granular Casts FEW A Urine Mucus FEW A Urine Hemoglobin 1+ H Urine Glucose 2+ H Urine Total Protein 2+ H Test 06/08/17 05:35 06/08/17 06:12 06/08/17 07:47 White Blood Count 13.7 H Red Blood Count 3.41 L Hemoglobin 9.9 L Hematocrit 30.3 L Mean Corpuscular Volume 88.9 Mean Corpuscular Hemoglobin 29.0 Mean Corpuscular Hemoglobin Concent 32.7 Red Cell Distribution Width 13.9 Platelet Count 313 Mean Platelet Volume 9.9 Neutrophils % 75.2 Lymphocytes % 9.4 L Monocytes % 6.9 Eosinophils % 2.3 Basophils % 0.3 Nucleated Red Blood Cells % 0.0 Neutrophils # 10.3 H Lymphocytes # 1.3 Monocytes # 0.9 Eosinophils # 0.3 Basophils # 0.0 Nucleated Red Blood Cells # 0.0 Sodium Level 132 L Potassium Level 4.2 Chloride Level 101 Carbon Dioxide Level 27 Anion Gap 8 Blood Urea Nitrogen 45 H Creatinine 3.15 H Glucose Level 135 Calcium Level 8.0 L Phosphorus Level 4.1 Magnesium Level 1.8 Lab Scanned Report BLOOD TRANSFUSION Bedside Glucose 168 Medications Medications Current Medications Ondansetron HCl (Zofran Tab) 4 mg Q6H PRN PO NAUSEA AND/OR VOMITING; Start at 21:30 Ondansetron HCl (Zofran Inj) 4 mg Q6H PRN IV NAUSEA AND/OR VOMITING; Start at 21:30 Acetaminophen (Tylenol Tab) 650 mg Q6H PRN PO PAIN LEVEL 1-3 OR FEVER Last administered on 06/01/17 16:37; Admin Dose 650 MG; Start 05/29/17 at 21:30 Zolpidem Tartrate (Ambien) 5 mg QHS PRN PO INSOMNIA Last administered on 23:00; Admin Dose 5 MG; Start 05/29/17 at 21:30 Docusate Sodium (Colace) 100 mg Q12H PRN PO CONSTIPATION Last administered on 06/04/17 07:03; Admin Dose 100 MG; Start 05/29/17 at 21:30 Calcitriol (Rocaltrol) 0.25 mcg DAILY PO Last administered on 06/08/17 07:49; Admin Dose 0.25 MCG; Start 05/30/17 at 09:00 Hydralazine HCl (Apresoline) 100 mg TID PO Last administered on 06/08/17 07:51 ; Admin Dose 100 MG; Start 05/30/17 at 09:00; Status Future hold Isosorbide Dinitrate (Isordil) 20 mg TID PO Last administered on 06/08/17 07: 51; Admin Dose 20 MG; Start 05/30/17 at 09:00; Status Future hold Linagliptin (Tradjenta) 5 mg DAILY PO Last administered on 06/08/17 07:49; Admin Dose 5 MG; Start 05/30/17 at 09:00 Metoprolol Tartrate (Lopressor) 25 mg BID PO Last administered on 06/08/17 07: 50; Admin Dose 25 MG; Start 05/30/17 at 21:00 Sodium Bicarbonate (Sodium Bicarbonate Tab) 325 mg BID PO Last administered on 05/30/17 09:11; Admin Dose 325 MG; Start 05/30/17 at 09:00; Status Future Hold Aspirin (Halfprin) 81 mg DAILY PO Last administered on 06/08/17 07:49; Admin Dose 81 MG; Start 05/31/17 at 09:00 Lorazepam (Ativan) 1 mg TID PRN PO ANXIETY Last administered on 06/08/17 03:54 ; Admin Dose 1 MG; Start 05/30/17 at 18:00 Miscellaneous Information 1 ea NOTE XX ; Start 05/30/17 at 19:30 Glucose (Glutose) 15 gm Q15M PRN PO DECREASED GLUCOSE; Start 05/30/17 at 19:30 Glucose (Glutose) 22.5 gm Q15M PRN PO DECREASED GLUCOSE; Start 05/30/17 at 19: 30 Dextrose (D50w Syringe) 25 ml Q15M PRN IV DECREASED GLUCOSE; Start 05/30/17 at 19:30 Dextrose (D50w Syringe) 50 ml Q15M PRN IV DECREASED GLUCOSE; Start 05/30/17 at 19:30 Glucagon (Glucagen) 1 mg Q15M PRN IM DECREASED GLUCOSE; Start 05/30/17 at 19:30 Glucose (Glutose) 15 gm Q15M PRN BUCCAL DECREASED GLUCOSE; Start 05/30/17 at 19 :30 Nitroglycerin (Nitroglycerin (Sl Tab) 0.4 Mg) 1 tab Q5M PRN SL ANGINA; Start at 20:00 Insulin Glargine (Lantus) 35 unit HS SC Last administered on 06/07/17 20:56; Admin Dose 35 UNIT; Start 05/31/17 at 21:00 Diagnostic Test (Pha) (Accu-Chek) 1 ea 02 XX Last administered on 06/04/17 03: 12; Admin Dose 1 EA; Start 06/01/17 at 02:00 Atorvastatin Calcium (Lipitor) 20 mg HS PO Last administered on 06/07/17 20:53 ; Admin Dose 20 MG; Start 06/04/17 at 21:00 Epoetin Srini (Epogen (Esrd)) 10,000 units MoWeFr@17 SC Last administered on 17:19; Admin Dose 10,000 UNITS; Start 06/04/17 at 17:00 Escitalopram Oxalate (Lexapro) 10 mg DAILY PO Last administered on 06/08/17 07 :50; Admin Dose 10 MG; Start 06/05/17 at 09:00 Hydromorphone HCl (Dilaudid) 1 mg Q3H PRN IV PAIN LEVEL 7-10 Last administered on 06/08/17 07:48; Admin Dose 1 MG; Start 06/04/17 at 20:08 Oxycodone/ Acetaminophen 1 tab 1 tab Q4H PRN PO PAIN Last administered on 16:11; Admin Dose 1 TAB; Start 06/05/17 at 09:00 Ferric Sodium Gluconate Complex/ Sodium Chloride (Ferrlecit/NS) 110 ml @ 110 mls/hr Q24H IVPB Last administered on 06/07/17 11:10; Admin Dose 110 MLS/HR; Start 06/05/17 at 11:00; Stop 06/09/17 at 11:59 Apixaban (Eliquis) 5 mg BID PO Last administered on 06/08/17 07:49; Admin Dose 5 MG; Start 06/07/17 at 21:00 KAREN VARGAS MD Jun 08, 2017 09:52
[2017-06-08] MEDS ORDERED: MAGNESIUM SULFATE 2 GM/50 ML 50 ML IVPB ONE (10:00)
[2017-06-08] MEDS: OXYCODONE/ACETAMINOPHEN (10/325) TAB PO PRN ×3 (10:31→22:22)
[2017-06-08] MEDS: SOD FERRIC GLUC COMPLX 125 MG in SOD CHLORIDE 0.9% 100 ML IVPB SCH (13:08)
--- NOTE | 2017-06-08 16:49 | CONS ---
Date/Time of Note Date/Time of Note DATE: 06/08/17 TIME: 16:47 Assessment/Plan Assessment/Plan Additional Assessment/Plan Atypical chest pain Cardiomyopathy EF 35% Postop, status post thrombectomy and fasciotomy for acute arterial insufficiency Peripheral arterial disease. Hypertension ESRD on HD Dyslipidemia. Hemodynamically stable Continue ASA and Eliquis continue Isordil Continue Lipitor Continue Insulin Continue Hydralazine Continue HD as scheduled Consultation Date/Type/Reason Admit Date/Time May 29, 2017 at 19:54 Initial Consult Date Type of Consultation: Cardiology Referring Provider: ANGÉLICA HEWITT MD Exam/Review of Systems Vital Signs Vitals Vital Signs Date Time Temp Pulse Resp B/P Pulse Ox O2 Delivery O2 Flow Rate FiO2 06/08/17 16:19 81 06/08/17 15:19 98.3 18 140/67 95 06/08/17 06:03 2.0 06/07/17 20:00 Nasal Cannula Intake and Output 06/07/17 06/07/17 06/08/17 15:00 23:00 07:00 Intake Total 710 ml 550 ml Output Total 1100 ml 1200 ml Balance -390 ml -650 ml Exam Constitutional: alert Head: atraumatic, normocephalic Neck: non-tender, supple Respiratory: clear to auscultation Cardiovascular: regular rate and rhythm Gastrointestinal: nl liver, spleen, non-tender, soft Ext Feeble pulses Results Result Diagram: 06/08/17 0535 06/08/17 0535 Results 24 hrs Laboratory Tests Test 06/07/17 17:49 06/07/17 20:08 06/08/17 05:35 06/08/17 06:12 Bedside Glucose 144 150 White Blood Count 13.7 H Red Blood Count 3.41 L Hemoglobin 9.9 L Hematocrit 30.3 L Mean Corpuscular Volume 88.9 Mean Corpuscular Hemoglobin 29.0 Mean Corpuscular Hemoglobin Concent 32.7 Red Cell Distribution Width 13.9 Platelet Count 313 Mean Platelet Volume 9.9 Neutrophils % 75.2 Lymphocytes % 9.4 L Monocytes % 6.9 Eosinophils % 2.3 Basophils % 0.3 Nucleated Red Blood Cells % 0.0 Neutrophils # 10.3 H Lymphocytes # 1.3 Monocytes # 0.9 Eosinophils # 0.3 Basophils # 0.0 Nucleated Red Blood Cells # 0.0 Sodium Level 132 L Potassium Level 4.2 Chloride Level 101 Carbon Dioxide Level 27 Anion Gap 8 Blood Urea Nitrogen 45 H Creatinine 3.15 H Glucose Level 135 Calcium Level 8.0 L Phosphorus Level 4.1 Magnesium Level 1.8 Lab Scanned Report BLOOD TRANSFUSION Test 06/08/17 07:47 06/08/17 12:03 Bedside Glucose 168 217 Medications Medications Current Medications Ondansetron HCl (Zofran Tab) 4 mg Q6H PRN PO NAUSEA AND/OR VOMITING; Start at 21:30 Ondansetron HCl (Zofran Inj) 4 mg Q6H PRN IV NAUSEA AND/OR VOMITING; Start at 21:30 Acetaminophen (Tylenol Tab) 650 mg Q6H PRN PO PAIN LEVEL 1-3 OR FEVER Last administered on 06/01/17 16:37; Admin Dose 650 MG; Start 05/29/17 at 21:30 Zolpidem Tartrate (Ambien) 5 mg QHS PRN PO INSOMNIA Last administered on 23:00; Admin Dose 5 MG; Start 05/29/17 at 21:30 Docusate Sodium (Colace) 100 mg Q12H PRN PO CONSTIPATION Last administered on 06/04/17 07:03; Admin Dose 100 MG; Start 05/29/17 at 21:30 Calcitriol (Rocaltrol) 0.25 mcg DAILY PO Last administered on 06/08/17 07:49; Admin Dose 0.25 MCG; Start 05/30/17 at 09:00 Hydralazine HCl (Apresoline) 100 mg TID PO Last administered on 06/08/17 07:51 ; Admin Dose 100 MG; Start 05/30/17 at 09:00; Status Future hold Isosorbide Dinitrate (Isordil) 20 mg TID PO Last administered on 06/08/17 07: 51; Admin Dose 20 MG; Start 05/30/17 at 09:00; Status Future hold Linagliptin (Tradjenta) 5 mg DAILY PO Last administered on 06/08/17 07:49; Admin Dose 5 MG; Start 05/30/17 at 09:00 Metoprolol Tartrate (Lopressor) 25 mg BID PO Last administered on 06/08/17 07: 50; Admin Dose 25 MG; Start 05/30/17 at 21:00 Sodium Bicarbonate (Sodium Bicarbonate Tab) 325 mg BID PO Last administered on 05/30/17 09:11; Admin Dose 325 MG; Start 05/30/17 at 09:00; Status Future Hold Aspirin (Halfprin) 81 mg DAILY PO Last administered on 06/08/17 07:49; Admin Dose 81 MG; Start 05/31/17 at 09:00 Lorazepam (Ativan) 1 mg TID PRN PO ANXIETY Last administered on 06/08/17 10:31 ; Admin Dose 1 MG; Start 05/30/17 at 18:00 Miscellaneous Information 1 ea NOTE XX ; Start 05/30/17 at 19:30 Glucose (Glutose) 15 gm Q15M PRN PO DECREASED GLUCOSE; Start 05/30/17 at 19:30 Glucose (Glutose) 22.5 gm Q15M PRN PO DECREASED GLUCOSE; Start 05/30/17 at 19: 30 Dextrose (D50w Syringe) 25 ml Q15M PRN IV DECREASED GLUCOSE; Start 05/30/17 at 19:30 Dextrose (D50w Syringe) 50 ml Q15M PRN IV DECREASED GLUCOSE; Start 05/30/17 at 19:30 Glucagon (Glucagen) 1 mg Q15M PRN IM DECREASED GLUCOSE; Start 05/30/17 at 19:30 Glucose (Glutose) 15 gm Q15M PRN BUCCAL DECREASED GLUCOSE; Start 05/30/17 at 19 :30 Nitroglycerin (Nitroglycerin (Sl Tab) 0.4 Mg) 1 tab Q5M PRN SL ANGINA; Start at 20:00 Insulin Glargine (Lantus) 35 unit HS SC Last administered on 06/07/17 20:56; Admin Dose 35 UNIT; Start 05/31/17 at 21:00 Diagnostic Test (Pha) (Accu-Chek) 1 ea 02 XX Last administered on 06/04/17 03: 12; Admin Dose 1 EA; Start 06/01/17 at 02:00 Atorvastatin Calcium (Lipitor) 20 mg HS PO Last administered on 06/07/17 20:53 ; Admin Dose 20 MG; Start 06/04/17 at 21:00 Epoetin Srini (Epogen (Esrd)) 10,000 units MoWeFr@17 SC Last administered on 17:19; Admin Dose 10,000 UNITS; Start 06/04/17 at 17:00 Escitalopram Oxalate (Lexapro) 10 mg DAILY PO Last administered on 06/08/17 07 :50; Admin Dose 10 MG; Start 06/05/17 at 09:00 Hydromorphone HCl (Dilaudid) 1 mg Q3H PRN IV PAIN LEVEL 7-10 Last administered on 06/08/17 13:18; Admin Dose 1 MG; Start 06/04/17 at 20:08 Oxycodone/ Acetaminophen 1 tab 1 tab Q4H PRN PO PAIN Last administered on 10:31; Admin Dose 1 TAB; Start 06/05/17 at 09:00 Ferric Sodium Gluconate Complex/ Sodium Chloride (Ferrlecit/NS) 110 ml @ 110 mls/hr Q24H IVPB Last administered on 06/08/17 13:08; Admin Dose 110 MLS/HR; Start 06/05/17 at 11:00; Stop 06/09/17 at 11:59 Apixaban (Eliquis) 5 mg BID PO Last administered on 06/08/17 07:49; Admin Dose 5 MG; Start 06/07/17 at 21:00 FILIPPO WALTER M.D. Jun 08, 2017 16:49
[2017-06-08] MEDS: ZOLPIDEM 5 MG TAB PO PRN (20:11)
[2017-06-08] MEDS: ATORVASTATIN 20 MG TAB PO SCH (20:11)
[2017-06-08] MEDS: INSULIN GLARGINE [LANtus] 3 ML PEN SC SCH (22:27)
[2017-06-08] MEDS ORDERED: VITAMIN A & D 5 GM OINT PACKET TOP ONE (23:09)
[2017-06-09] VITALS (12 sets, daily range): BP systolic 120–159; BP diastolic 59–85; PULSE 71–81; RESP 16–19
[2017-06-09] MEDS: ACCU-CHEK XX SCH (02:00)
[2017-06-09] MEDS: HYDROmorphONE 1 MG/ML SYG IV PRN ×7 (02:12→23:49)
[2017-06-09] MEDS: OXYCODONE/ACETAMINOPHEN (10/325) TAB PO PRN ×3 (03:04→17:41)
[2017-06-09] MEDS: LORAZEPAM 1 MG TAB PO PRN ×2 (05:40→20:53)
[2017-06-09] MEDS: INSULIN ASPART [NOVOLOG] 3 ML PEN SC SCH ×4 (07:55→20:51)
--- NOTE | 2017-06-09 08:38 | PN ---
Date/Time of Note Date/Time of Note DATE: 06/09/17 TIME: 08:35 Assessment/Plan VTE Prophylaxis VTE Prophylaxis Intervention: other Lines/Catheters IV Catheter Type (from Nrsg): Saline Lock Urinary Cath still in place: No Assessment/Plan Assessment/Plan 1. Post op left leg thrombectomy, skin grafting and fasciotomy, will be sure vasc sees today regarding continued groin pain. 2. Acute and chronic renal failure, if renal fx has improved today will ask vasc to remove permacath. 3. DM, control is reasonable. 4. Await dc planning re ecf or [facility] acute rehab 5. Known CAD, asx Subjective 24 Hr Interval Summary Respiratory: No shortness of breath Cardiovascular: No chest pain Gastrointestinal: no complaints Genitourinary: no complaints Musculoskeletal: other (left groin aches and less so left calf) Exam/Review of Systems Vital Signs Vitals Vital Signs Date Time Temp Pulse Resp B/P Pulse Ox O2 Delivery O2 Flow Rate FiO2 06/09/17 08:28 75 06/09/17 07:26 98.3 16 146/73 96 06/09/17 01:04 21 06/08/17 06:03 2.0 06/07/17 20:00 Nasal Cannula Intake and Output 06/08/17 06/08/17 06/09/17 15:00 23:00 07:00 Intake Total 110 ml 720 ml 450 ml Output Total 1400 ml 500 ml 850 ml Balance -1290 ml 220 ml -400 ml Exam Neck: No jvd Respiratory: clear to auscultation Cardiovascular: regular rate and rhythm Gastrointestinal: soft Extremities: No edema (mild discomfort left calf and left groin, left thigh dressing noted) Results Result Diagram: 06/08/17 0535 06/08/17 0535 Results 24 hrs Laboratory Tests Test 06/08/17 12:03 06/08/17 17:08 06/08/17 20:17 06/08/17 22:26 Bedside Glucose 217 126 202 228 H Test 06/09/17 03:07 Bedside Glucose 153 Medications Medications Current Medications Ondansetron HCl (Zofran Tab) 4 mg Q6H PRN PO NAUSEA AND/OR VOMITING; Start at 21:30 Ondansetron HCl (Zofran Inj) 4 mg Q6H PRN IV NAUSEA AND/OR VOMITING; Start at 21:30 Acetaminophen (Tylenol Tab) 650 mg Q6H PRN PO PAIN LEVEL 1-3 OR FEVER Last administered on 06/01/17 16:37; Admin Dose 650 MG; Start 05/29/17 at 21:30 Zolpidem Tartrate (Ambien) 5 mg QHS PRN PO INSOMNIA Last administered on 20:11; Admin Dose 5 MG; Start 05/29/17 at 21:30 Docusate Sodium (Colace) 100 mg Q12H PRN PO CONSTIPATION Last administered on 06/04/17 07:03; Admin Dose 100 MG; Start 05/29/17 at 21:30 Calcitriol (Rocaltrol) 0.25 mcg DAILY PO Last administered on 06/08/17 07:49; Admin Dose 0.25 MCG; Start 05/30/17 at 09:00 Hydralazine HCl (Apresoline) 100 mg TID PO Last administered on 06/08/17 20:12 ; Admin Dose 100 MG; Start 05/30/17 at 09:00; Status Future hold Isosorbide Dinitrate (Isordil) 20 mg TID PO Last administered on 06/08/17 20: 12; Admin Dose 20 MG; Start 05/30/17 at 09:00; Status Future hold Linagliptin (Tradjenta) 5 mg DAILY PO Last administered on 06/08/17 07:49; Admin Dose 5 MG; Start 05/30/17 at 09:00 Metoprolol Tartrate (Lopressor) 25 mg BID PO Last administered on 06/08/17 20: 12; Admin Dose 25 MG; Start 05/30/17 at 21:00 Sodium Bicarbonate (Sodium Bicarbonate Tab) 325 mg BID PO Last administered on 05/30/17 09:11; Admin Dose 325 MG; Start 05/30/17 at 09:00; Status Future Hold Aspirin (Halfprin) 81 mg DAILY PO Last administered on 06/08/17 07:49; Admin Dose 81 MG; Start 05/31/17 at 09:00 Lorazepam (Ativan) 1 mg TID PRN PO ANXIETY Last administered on 06/09/17 05:40 ; Admin Dose 1 MG; Start 05/30/17 at 18:00 Miscellaneous Information 1 ea NOTE XX ; Start 05/30/17 at 19:30 Glucose (Glutose) 15 gm Q15M PRN PO DECREASED GLUCOSE; Start 05/30/17 at 19:30 Glucose (Glutose) 22.5 gm Q15M PRN PO DECREASED GLUCOSE; Start 05/30/17 at 19: 30 Dextrose (D50w Syringe) 25 ml Q15M PRN IV DECREASED GLUCOSE; Start 05/30/17 at 19:30 Dextrose (D50w Syringe) 50 ml Q15M PRN IV DECREASED GLUCOSE; Start 05/30/17 at 19:30 Glucagon (Glucagen) 1 mg Q15M PRN IM DECREASED GLUCOSE; Start 05/30/17 at 19:30 Glucose (Glutose) 15 gm Q15M PRN BUCCAL DECREASED GLUCOSE; Start 05/30/17 at 19 :30 Nitroglycerin (Nitroglycerin (Sl Tab) 0.4 Mg) 1 tab Q5M PRN SL ANGINA; Start at 20:00 Insulin Glargine (Lantus) 35 unit HS SC Last administered on 06/08/17 22:27; Admin Dose 35 UNIT; Start 05/31/17 at 21:00 Diagnostic Test (Pha) (Accu-Chek) 1 ea 02 XX Last administered on 06/09/17 02: 00; Admin Dose 1 EA; Start 06/01/17 at 02:00 Atorvastatin Calcium (Lipitor) 20 mg HS PO Last administered on 06/08/17 20:11 ; Admin Dose 20 MG; Start 06/04/17 at 21:00 Epoetin Srini (Epogen (Esrd)) 10,000 units MoWeFr@17 SC Last administered on 17:19; Admin Dose 10,000 UNITS; Start 06/04/17 at 17:00 Escitalopram Oxalate (Lexapro) 10 mg DAILY PO Last administered on 06/08/17 07 :50; Admin Dose 10 MG; Start 06/05/17 at 09:00 Hydromorphone HCl (Dilaudid) 1 mg Q3H PRN IV PAIN LEVEL 7-10 Last administered on 06/09/17 05:36; Admin Dose 1 MG; Start 06/04/17 at 20:08 Oxycodone/ Acetaminophen 1 tab 1 tab Q4H PRN PO PAIN Last administered on 03:04; Admin Dose 1 TAB; Start 06/05/17 at 09:00 Ferric Sodium Gluconate Complex/ Sodium Chloride (Ferrlecit/NS) 110 ml @ 110 mls/hr Q24H IVPB Last administered on 06/08/17 13:08; Admin Dose 110 MLS/HR; Start 06/05/17 at 11:00; Stop 06/09/17 at 11:59 Apixaban (Eliquis) 5 mg BID PO Last administered on 06/08/17 20:13; Admin Dose 5 MG; Start 06/07/17 at 21:00 KAREN VARGAS MD Jun 09, 2017 08:38
[2017-06-09] MEDS: ASPIRIN (EC) 81 MG TAB PO SCH (08:45)
[2017-06-09] MEDS: ISOSORBIDE DINITRATE 20 MG TAB PO SCH ×3 (08:45→20:54)
[2017-06-09] MEDS: ESCITALOPRAM 10 MG TAB PO SCH (08:45)
[2017-06-09] MEDS: APIXABAN 5 MG TABLET PO SCH ×2 (08:45→20:53)
[2017-06-09] MEDS: CALCITRIOL 0.25 MCG CAP PO SCH (08:45)
[2017-06-09] MEDS: LINAGLIPTIN 5 MG TABLET PO SCH (08:46)
[2017-06-09] MEDS: METOPROLOL 25 MG TAB PO SCH ×2 (08:46→20:53)
[2017-06-09] MEDS: SOD FERRIC GLUC COMPLX 125 MG in SOD CHLORIDE 0.9% 100 ML IVPB SCH (10:35)
[2017-06-09] MEDS: DOCUSATE SODIUM 100 MG CAP PO PRN (10:35)
--- NOTE | 2017-06-09 11:04 | PN ---
Date/Time of Note Date/Time of Note DATE: 06/09/17 TIME: 11:00 Assessment/Plan Lines/Catheters IV Catheter Type (from Nrsg): Saline Lock Joshi in Place (from Nrsg): No Assessment/Plan Assessment/Plan Left foot well perfused s/p LLE thrombectomy L groin incision is healing well Pain at the site of the fasciotomy partial closure and STSG - normal postop exam Remove Yaya catheter AARON wrap to left calf at all times OK to transfer to SNF - I will check the STSG on Friday Subjective 24 Hr Interval Summary No new c/o. He has pain in the left calf and the left groin. Exam/Review of Systems Vital Signs Vitals Vital Signs Date Time Temp Pulse Resp B/P Pulse Ox O2 Delivery O2 Flow Rate FiO2 06/09/17 08:28 75 06/09/17 07:26 98.3 16 146/73 96 06/09/17 01:04 21 06/08/17 06:03 2.0 06/07/17 20:00 Nasal Cannula Intake and Output 06/08/17 06/08/17 06/09/17 15:00 23:00 07:00 Intake Total 110 ml 720 ml 450 ml Output Total 1400 ml 500 ml 850 ml Balance -1290 ml 220 ml -400 ml Exam Free Text/Dictation L groin incision looks good, no hematoma, no erythema or drainage. L calf wound sutures in place, STSG covered with Xeroform L foot warm with no pain in the foot or toes and good motor and sensory function Results Result Diagram: 06/08/17 0535 06/08/17 0535 SONNY SPARROW MD Jun 09, 2017 11:04
[2017-06-09 11:10] LABS: BASOPHIL # 0.1 10^3/ul (0.0-0.1); BASOPHILS % 0.4 % (0.0-2.0); EOSINOPHILS # 0.4 10^3/ul (0.0-0.5); EOSINOPHILS % 2.6 % (0.0-7.0); HEMATOCRIT 32.6 % (42.0-52.0); HEMOGLOBIN 10.3 g/dl (14.0-18.0); LYMPHOCYTES # 1.3 10^3/ul (0.8-2.9); LYMPHOCYTES % 9.5 % (15.0-51.0); MEAN CORPUSCULAR HEMOGLOBIN 28.5 pg (29.0-33.0); MEAN CORPUSCULAR HGB CONC 31.6 g/dl (32.0-37.0); MEAN CORPUSCULAR VOLUME 90.3 fl (82.0-101.0); MEAN PLATELET VOLUME 9.9 fl (7.4-10.4); MONOCYTE # 0.8 10^3/ul (0.3-0.9); MONOCYTES % 5.8 % (0.0-11.0); NEUTROPHIL # 10.6 10^3/ul (1.6-7.5); NEUTROPHILS % 77.1 % (39.0-77.0); PLATELET COUNT 374 10^3/UL (140-415); RED BLOOD COUNT 3.61 10^6/ul (4.70-6.10); RED CELL DISTRIBUTION WIDTH 13.8 % (11.5-14.5); WHITE BLOOD COUNT 13.7 10^3/ul (4.8-10.8)
[2017-06-09 11:33] LABS: CALCIUM 8.5 mg/dl (8.4-10.2); CREATININE 3.32 mg/dl (0.61-1.24); POTASSIUM 4.7 mmol/L (3.5-5.1)
[2017-06-09] MEDS ORDERED: LACTULOSE 30ML CUP PO ONE (13:00)
[2017-06-09] MEDS: EPOETIN 10000 UNITS/1 ML INJ (ESRD) SC SCH (17:42)
--- NOTE | 2017-06-09 18:00 | CONS ---
Date/Time of Note Date/Time of Note DATE: 06/09/17 TIME: 17:53 Assessment/Plan Assessment/Plan Chief Complaint/Hosp Course IMPRESSION: 1. Chest pain prior to surgery with negative troponins x3 since that time and history of recent stress testing with no ischemia.-now mildly positive troponin after surgery likely type 2 infarct with no sig uptrend 2. 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 Postop, status post thrombectomy and fasciotomy for acute arterial insufficiency, ischemic foot-now closed-? etiology. NO documented AF by Tele at this time 4. Peripheral arterial disease. 5. Chronic kidney disease, pain, prepare for likely initiation of hemodialysis. 6. Leukocytosis, status post surgery. 7. Dyslipidemia. 8. Hypertension-labile but currently well controklled. Likely component of pain Recc: -Tele to [facility] for any possible arrrythmic cause to thromboembolism(AF) -serial ecg's -Continue asa/Eliquis and follow Hgb closely -Continue BB and follow labile BP closely -Hydralazine and isordil held today and thus may need to decrease dose to allow to better tolerate. -Follow volume status -Continue statin -local wound care and ongoing vascular surgery follow-up -HD for volume removal -REmove lines as possible given ongoing increased wbc -Will also review echo myself given apparent increase in EF Problems: Consultation Date/Type/Reason Admit Date/Time May 29, 2017 at 19:54 Initial Consult Date 05/31/17 Type of Consultation: Cardiology Reason for Consultation chest pain Referring Provider: ANGÉLCIA HEWITT MD Exam/Review of Systems Vital Signs Vitals Vital Signs Date Time Temp Pulse Resp B/P Pulse Ox O2 Delivery O2 Flow Rate FiO2 06/09/17 16:23 71 06/09/17 15:22 98.2 18 131/85 96 06/09/17 01:04 21 06/08/17 06:03 2.0 06/07/17 20:00 Nasal Cannula Intake and Output 06/08/17 06/08/17 06/09/17 14:59 22:59 06:59 Intake Total 110 ml 720 ml 450 ml Output Total 1250 ml 650 ml 850 ml Balance -1140 ml 70 ml -400 ml Exam Review of Systems: CONSTITUTIONAL: No fevers, chills. PULMONARY: No sob CARDIOVASCULAR: No chest pain/palpitations GASTROINTESTINAL: No nausea/vomiting. GENITOURINARY: No hematuria/dysuria. MUSCULOSKELETAL: mild pain in foot PSYCHIATRIC: The patient denies depression. NEUROLOGIC: No weakness Constitutional: alert, oriented Psych: no complaints Head: normocephalic ENMT: mucosa pink and moist Neck: jvd (9 cm water), supple Respiratory: diminished breath sounds (at bases/B) Cardiovascular: regular rate and rhythm Gastrointestinal: non-tender, soft Musculoskeletal: muscle weakness (mild generalized) Extremities: edema (none), other (LLE covered by dressing) Neurological: other (No focal deficits) Results Result Diagram: 06/09/17 1041 06/09/17 1041 Results 24 hrs Laboratory Tests Test 06/08/17 20:17 06/08/17 22:26 06/09/17 03:07 06/09/17 08:43 Bedside Glucose 202 228 H 153 118 Test 06/09/17 10:41 06/09/17 12:12 06/09/17 17:40 White Blood Count 13.7 H Red Blood Count 3.61 L Hemoglobin 10.3 L Hematocrit 32.6 L Mean Corpuscular Volume 90.3 Mean Corpuscular Hemoglobin 28.5 L Mean Corpuscular Hemoglobin Concent 31.6 L Red Cell Distribution Width 13.8 Platelet Count 374 Mean Platelet Volume 9.9 Neutrophils % 77.1 H Lymphocytes % 9.5 L Monocytes % 5.8 Eosinophils % 2.6 Basophils % 0.4 Nucleated Red Blood Cells % 0.0 Neutrophils # 10.6 H Lymphocytes # 1.3 Monocytes # 0.8 Eosinophils # 0.4 Basophils # 0.1 Nucleated Red Blood Cells # 0.0 Sodium Level 131 L Potassium Level 4.7 Chloride Level 101 Carbon Dioxide Level 27 Anion Gap 8 Blood Urea Nitrogen 45 H Creatinine 3.32 H Glucose Level 224 H Calcium Level 8.5 Magnesium Level 2.0 Bedside Glucose 157 110 Medications Medications Current Medications Ondansetron HCl (Zofran Tab) 4 mg Q6H PRN PO NAUSEA AND/OR VOMITING; Start at 21:30 Ondansetron HCl (Zofran Inj) 4 mg Q6H PRN IV NAUSEA AND/OR VOMITING; Start at 21:30 Acetaminophen (Tylenol Tab) 650 mg Q6H PRN PO PAIN LEVEL 1-3 OR FEVER Last administered on 06/01/17 16:37; Admin Dose 650 MG; Start 05/29/17 at 21:30 Zolpidem Tartrate (Ambien) 5 mg QHS PRN PO INSOMNIA Last administered on 20:11; Admin Dose 5 MG; Start 05/29/17 at 21:30 Docusate Sodium (Colace) 100 mg Q12H PRN PO CONSTIPATION Last administered on 06/09/17 10:35; Admin Dose 100 MG; Start 05/29/17 at 21:30 Calcitriol (Rocaltrol) 0.25 mcg DAILY PO Last administered on 06/09/17 08:45; Admin Dose 0.25 MCG; Start 05/30/17 at 09:00 Hydralazine HCl (Apresoline) 100 mg TID PO Last administered on 06/09/17 08:45 ; Admin Dose 100 MG; Start 05/30/17 at 09:00; Status Future hold Isosorbide Dinitrate (Isordil) 20 mg TID PO Last administered on 06/09/17 08: 45; Admin Dose 20 MG; Start 05/30/17 at 09:00; Status Future hold Linagliptin (Tradjenta) 5 mg DAILY PO Last administered on 06/09/17 08:46; Admin Dose 5 MG; Start 05/30/17 at 09:00 Metoprolol Tartrate (Lopressor) 25 mg BID PO Last administered on 06/09/17 08: 46; Admin Dose 25 MG; Start 05/30/17 at 21:00 Aspirin (Halfprin) 81 mg DAILY PO Last administered on 06/09/17 08:45; Admin Dose 81 MG; Start 05/31/17 at 09:00 Lorazepam (Ativan) 1 mg TID PRN PO ANXIETY Last administered on 06/09/17 05:40 ; Admin Dose 1 MG; Start 05/30/17 at 18:00 Miscellaneous Information 1 ea NOTE XX ; Start 05/30/17 at 19:30 Glucose (Glutose) 15 gm Q15M PRN PO DECREASED GLUCOSE; Start 05/30/17 at 19:30 Glucose (Glutose) 22.5 gm Q15M PRN PO DECREASED GLUCOSE; Start 05/30/17 at 19: 30 Dextrose (D50w Syringe) 25 ml Q15M PRN IV DECREASED GLUCOSE; Start 05/30/17 at 19:30 Dextrose (D50w Syringe) 50 ml Q15M PRN IV DECREASED GLUCOSE; Start 05/30/17 at 19:30 Glucagon (Glucagen) 1 mg Q15M PRN IM DECREASED GLUCOSE; Start 05/30/17 at 19:30 Glucose (Glutose) 15 gm Q15M PRN BUCCAL DECREASED GLUCOSE; Start 05/30/17 at 19 :30 Nitroglycerin (Nitroglycerin (Sl Tab) 0.4 Mg) 1 tab Q5M PRN SL ANGINA; Start at 20:00 Insulin Glargine (Lantus) 35 unit HS SC Last administered on 06/08/17 22:27; Admin Dose 35 UNIT; Start 05/31/17 at 21:00 Diagnostic Test (Pha) (Accu-Chek) 1 ea 02 XX Last administered on 06/09/17 02: 00; Admin Dose 1 EA; Start 06/01/17 at 02:00 Atorvastatin Calcium (Lipitor) 20 mg HS PO Last administered on 06/08/17 20:11 ; Admin Dose 20 MG; Start 06/04/17 at 21:00 Epoetin Srini (Epogen (Esrd)) 10,000 units MoWeFr@17 SC Last administered on 17:42; Admin Dose 10,000 UNITS; Start 06/04/17 at 17:00 Escitalopram Oxalate (Lexapro) 10 mg DAILY PO Last administered on 06/09/17 08 :45; Admin Dose 10 MG; Start 06/05/17 at 09:00 Oxycodone/ Acetaminophen (Endocet (10/ 325)) 1 tab Q4H PRN PO PAIN Last administered on 06/09/17 17:41; Admin Dose 1 TAB; Start 06/05/17 at 09:00 Apixaban (Eliquis) 5 mg BID PO Last administered on 06/09/17 08:45; Admin Dose 5 MG; Start 06/07/17 at 21:00 Hydromorphone HCl (Dilaudid) 2 mg Q3H PRN IV PAIN LEVEL 7-10 Last administered on 06/09/17t 15:09; Admin Dose 2 MG; Start 06/09/17 at 14:08 SONNY ALVARENGA Jun 09, 2017 18:00
[2017-06-09] MEDS: ATORVASTATIN 20 MG TAB PO SCH (20:52)
[2017-06-09] MEDS: INSULIN GLARGINE [LANtus] 3 ML PEN SC SCH (21:03)
[2017-06-10] VITALS (12 sets, daily range): BP systolic 113–153; BP diastolic 59–77; PULSE 72–80; RESP 18–20
[2017-06-10] MEDS: ACCU-CHEK XX SCH (02:00)
[2017-06-10] MEDS: HYDROmorphONE 1 MG/ML SYG IV PRN ×6 (03:09→20:57)
[2017-06-10] MEDS: OXYCODONE/ACETAMINOPHEN (10/325) TAB PO PRN ×2 (08:13→19:44)
[2017-06-10 08:26] LABS: BASOPHIL # 0.1 10^3/ul (0.0-0.1); BASOPHILS % 0.4 % (0.0-2.0); EOSINOPHILS # 0.3 10^3/ul (0.0-0.5); EOSINOPHILS % 2.2 % (0.0-7.0); HEMATOCRIT 34.5 % (42.0-52.0); HEMOGLOBIN 10.7 g/dl (14.0-18.0); LYMPHOCYTES # 1.7 10^3/ul (0.8-2.9); LYMPHOCYTES % 12.1 % (15.0-51.0); MEAN CORPUSCULAR HEMOGLOBIN 28.5 pg (29.0-33.0); MEAN CORPUSCULAR VOLUME 91.8 fl (82.0-101.0); MEAN PLATELET VOLUME 9.8 fl (7.4-10.4); MONOCYTE # 0.7 10^3/ul (0.3-0.9); MONOCYTES % 5.3 % (0.0-11.0); NEUTROPHIL # 10.6 10^3/ul (1.6-7.5); NEUTROPHILS % 75.6 % (39.0-77.0); PLATELET COUNT 416 10^3/UL (140-415); RED BLOOD COUNT 3.76 10^6/ul (4.70-6.10); RED CELL DISTRIBUTION WIDTH 13.9 % (11.5-14.5)
[2017-06-10 08:51] LABS: CALCIUM 8.5 mg/dl (8.4-10.2); CREATININE 3.4 mg/dl (0.61-1.24); MAGNESIUM 1.9 mg/dl (1.7-2.5); PHOSPHORUS 4.5 mg/dl (2.5-4.9); POTASSIUM 4.5 mmol/L (3.5-5.1)
--- NOTE | 2017-06-10 09:03 | PN ---
Date/Time of Note Date/Time of Note DATE: 06/10/17 TIME: 08:45 Assessment/Plan VTE Prophylaxis VTE Prophylaxis Intervention: other Lines/Catheters [facility]from [facility] Saline Lock Urinary Cath still in place: No Assessment/Plan Chief Complaint/Hosp Course 1.he is 11 days post op a L leg thrombectomy and fasciotomy for an embolism to L leg .The fasciotomy was closed last week . 2.ARF on CKD . . Urine output is picking up and renal function is improving . No further hemodialysis needed . 3.IDDM 4.Anemia due to acute L leg bleeding . Will transfuse 1 unit of blood today . 5.CAD 6.Cardiomyopathy 7.depression , he agrees to try antidepressant . will start Lexapro 10 mg a day . 8.He agrees to consider Acute rehab unit . Problems: Subjective 24 Hr Interval Summary Free Text/Dictation He is awake and alert . still having some L leg pain , but less . He is trying to walk . Exam/Review of Systems Vital Signs Vitals Vital Signs Date Time Temp Pulse Resp B/P Pulse Ox O2 Delivery O2 Flow Rate FiO2 06/10/17 08:00 72 06/10/17 07:41 97.7 20 144/69 94 06/09/17 01:04 21 06/08/17 06:03 2.0 06/07/17 20:00 Nasal Cannula Intake and Output 06/09/17 06/09/17 06/10/17 15:00 23:00 07:00 Intake Total 110 ml 750 ml 240 ml Output Total 600 ml 450 ml Balance 110 ml 150 ml -210 ml Results Result Diagram: 06/10/17 0729 06/09/17 1041 Results 24 hrs Laboratory Tests Test 06/09/17 10:41 06/09/17 12:12 06/09/17 17:40 06/09/17 20:51 White Blood Count 13.7 H Red Blood Count 3.61 L Hemoglobin 10.3 L Hematocrit 32.6 L Mean Corpuscular Volume 90.3 Mean Corpuscular Hemoglobin 28.5 L Mean Corpuscular Hemoglobin Concent 31.6 L Red Cell Distribution Width 13.8 Platelet Count 374 Mean Platelet Volume 9.9 Neutrophils % 77.1 H Lymphocytes % 9.5 L Monocytes % 5.8 Eosinophils % 2.6 Basophils % 0.4 Nucleated Red Blood Cells % 0.0 Neutrophils # 10.6 H Lymphocytes # 1.3 Monocytes # 0.8 Eosinophils # 0.4 Basophils # 0.1 Nucleated Red Blood Cells # 0.0 Sodium Level 131 L Potassium Level 4.7 Chloride Level 101 Carbon Dioxide Level 27 Anion Gap 8 Blood Urea Nitrogen 45 H Creatinine 3.32 H Glucose Level 224 H Calcium Level 8.5 Magnesium Level 2.0 Bedside Glucose 157 110 165 Test 06/10/17 07:29 06/10/17 08:19 White Blood Count 14.0 H Red Blood Count 3.76 L Hemoglobin 10.7 L Hematocrit 34.5 L Mean Corpuscular Volume 91.8 Mean Corpuscular Hemoglobin 28.5 L Mean Corpuscular Hemoglobin Concent 31.0 L Red Cell Distribution Width 13.9 Platelet Count 416 H Mean Platelet Volume 9.8 Neutrophils % 75.6 Lymphocytes % 12.1 L Monocytes % 5.3 Eosinophils % 2.2 Basophils % 0.4 Nucleated Red Blood Cells % 0.0 Neutrophils # 10.6 H Lymphocytes # 1.7 Monocytes # 0.7 Eosinophils # 0.3 Basophils # 0.1 Nucleated Red Blood Cells # 0.0 Bedside Glucose 178 Medications Medications Current Medications Ondansetron HCl (Zofran Tab) 4 mg Q6H PRN PO NAUSEA AND/OR VOMITING; Start at 21:30 Ondansetron HCl (Zofran Inj) 4 mg Q6H PRN IV NAUSEA AND/OR VOMITING; Start at 21:30 Acetaminophen (Tylenol Tab) 650 mg Q6H PRN PO PAIN LEVEL 1-3 OR FEVER Last administered on 06/01/17 16:37; Admin Dose 650 MG; Start 05/29/17 at 21:30 Zolpidem Tartrate (Ambien) 5 mg QHS PRN PO INSOMNIA Last administered on 20:11; Admin Dose 5 MG; Start 05/29/17 at 21:30 Docusate Sodium (Colace) 100 mg Q12H PRN PO CONSTIPATION Last administered on 06/09/17 10:35; Admin Dose 100 MG; Start 05/29/17 at 21:30 Calcitriol (Rocaltrol) 0.25 mcg DAILY PO Last administered on 06/09/17 08:45; Admin Dose 0.25 MCG; Start 05/30/17 at 09:00 Isosorbide Dinitrate (Isordil) 20 mg TID PO Last administered on 06/09/17 20: 54; Admin Dose 20 MG; Start 05/30/17 at 09:00; Status Future hold Linagliptin (Tradjenta) 5 mg DAILY PO Last administered on 06/09/17 08:46; Admin Dose 5 MG; Start 05/30/17 at 09:00 Metoprolol Tartrate (Lopressor) 25 mg BID PO Last administered on 06/09/17 20: 53; Admin Dose 25 MG; Start 05/30/17 at 21:00 Aspirin (Halfprin) 81 mg DAILY PO Last administered on 06/09/17 08:45; Admin Dose 81 MG; Start 05/31/17 at 09:00 Lorazepam (Ativan) 1 mg TID PRN PO ANXIETY Last administered on 06/09/17 20:53 ; Admin Dose 1 MG; Start 05/30/17 at 18:00 Miscellaneous Information 1 ea NOTE XX ; Start 05/30/17 at 19:30 Glucose (Glutose) 15 gm Q15M PRN PO DECREASED GLUCOSE; Start 05/30/17 at 19:30 Glucose (Glutose) 22.5 gm Q15M PRN PO DECREASED GLUCOSE; Start 05/30/17 at 19: 30 Dextrose (D50w Syringe) 25 ml Q15M PRN IV DECREASED GLUCOSE; Start 05/30/17 at 19:30 Dextrose (D50w Syringe) 50 ml Q15M PRN IV DECREASED GLUCOSE; Start 05/30/17 at 19:30 Glucagon (Glucagen) 1 mg Q15M PRN IM DECREASED GLUCOSE; Start 05/30/17 at 19:30 Glucose (Glutose) 15 gm Q15M PRN BUCCAL DECREASED GLUCOSE; Start 05/30/17 at 19 :30 Nitroglycerin (Nitroglycerin (Sl Tab) 0.4 Mg) 1 tab Q5M PRN SL ANGINA; Start at 20:00 Insulin Glargine (Lantus) 35 unit HS SC Last administered on 06/09/17 21:03; Admin Dose 35 UNIT; Start 05/31/17 at 21:00 Diagnostic Test (Pha) (Accu-Chek) 1 ea 02 XX Last administered on 06/09/17 02: 00; Admin Dose 1 EA; Start 06/01/17 at 02:00 Atorvastatin Calcium (Lipitor) 20 mg HS PO Last administered on 06/09/17 20:52 ; Admin Dose 20 MG; Start 06/04/17 at 21:00 Epoetin Srini (Epogen (Esrd)) 10,000 units MoWeFr@17 SC Last administered on 17:42; Admin Dose 10,000 UNITS; Start 06/04/17 at 17:00 Escitalopram Oxalate (Lexapro) 10 mg DAILY PO Last administered on 06/09/17 08 :45; Admin Dose 10 MG; Start 06/05/17 at 09:00 Oxycodone/ Acetaminophen (Endocet (10/ 325)) 1 tab Q4H PRN PO PAIN Last administered on 06/10/17 08:13; Admin Dose 1 TAB; Start 06/05/17 at 09:00 Apixaban (Eliquis) 5 mg BID PO Last administered on 06/09/17 20:53; Admin Dose 5 MG; Start 06/07/17 at 21:00 Hydromorphone HCl (Dilaudid) 2 mg Q3H PRN IV PAIN LEVEL 7-10 Last administered on 06/10/17 06:37; Admin Dose 2 MG; Start 06/09/17 at 14:08 Hydralazine HCl (Apresoline) 75 mg TID PO Last administered on 06/09/17 20:54 ; Admin Dose 75 MG; Start 06/09/17 at 21:00 ANGÉLICA HEWITT MD Jun 10, 2017 08:58
--- NOTE | 2017-06-10 09:13 | CONS ---
Date/Time of Note Date/Time of Note DATE: 06/10/17 TIME: 09:11 Assessment/Plan Assessment/Plan Additional Assessment/Plan 1. Chest pain prior to surgery with negative troponins x3 since that time and history of recent stress testing with no ischemia.-now mildly positive troponin after surgery likely type 2 infarct with no sig uptrend - no CP now, tolerated procedure well. 2. Cardiomyopathy with decreased left ventricular ejection fraction, approximately 35-40 percent by echo and stress test April 2017.-per read from another kiss mixer over the weekend patient now with improved EF and no signs of intracaardiac thrombus - will follow clinically. 3. Postop, status post thrombectomy and fasciotomy for acute arterial insufficiency, ischemic foot-now closed-? etiology. NO documented AF by Tele at this time - now recovering 4. Peripheral arterial disease. 5. Chronic kidney disease - per renal team, increase output - no HD now. 6. Leukocytosis, status post surgery. 7. Dyslipidemia. 8. Hypertension-labile but currently well controklled. Likely component of pain Consultation Date/Type/Reason Admit Date/Time May 29, 2017 at 19:54 Type of Consultation: Cardiology Referring Provider: ANGÉLICA HEWITT MD 24 HR Interval Summary Free Text/Dictation NO acute events - pt better overall - increased urine output - no HD planned now ROS: No fever, no chills, no nausea, no vomiting, no diarrhea/constipation No recent weight changes No chest pain, no PND, no orthopnea No dizziness, blurred vision No thirst, no heat or cold intolerance Exam/Review of Systems Vital Signs Vitals Vital Signs Date Time Temp Pulse Resp B/P Pulse Ox O2 Delivery O2 Flow Rate FiO2 06/10/17 08:00 72 06/10/17 07:41 97.7 20 144/69 94 06/09/17 01:04 21 06/08/17 06:03 2.0 06/07/17 20:00 Nasal Cannula Intake and Output 06/09/17 06/09/17 06/10/17 15:00 23:00 07:00 Intake Total 110 ml 750 ml 240 ml Output Total 600 ml 450 ml Balance 110 ml 150 ml -210 ml Exam General: WN/WD/NAD, AOx 2-3 HEENT: Unicetric/atraumatic/EOMI (follow commands) NECK: JVD elevated, no thyromegaly Lymph: no lymphadenopathy HEART: regular with no S3, II/ systolic murmur at apex LUNGS: Coarse sounds ABD: soft, NT, ND, +BS : Intact Neuro: non focal SKIN: chronic changes EXT: trace edema, post op Results Result Diagram: 06/10/17 0729 06/10/1729 Results 24 hrs Laboratory Tests Test 06/09/17 10:41 06/09/17 12:12 06/09/17 17:40 06/09/17 20:51 White Blood Count 13.7 H Red Blood Count 3.61 L Hemoglobin 10.3 L Hematocrit 32.6 L Mean Corpuscular Volume 90.3 Mean Corpuscular Hemoglobin 28.5 L Mean Corpuscular Hemoglobin Concent 31.6 L Red Cell Distribution Width 13.8 Platelet Count 374 Mean Platelet Volume 9.9 Neutrophils % 77.1 H Lymphocytes % 9.5 L Monocytes % 5.8 Eosinophils % 2.6 Basophils % 0.4 Nucleated Red Blood Cells % 0.0 Neutrophils # 10.6 H Lymphocytes # 1.3 Monocytes # 0.8 Eosinophils # 0.4 Basophils # 0.1 Nucleated Red Blood Cells # 0.0 Sodium Level 131 L Potassium Level 4.7 Chloride Level 101 Carbon Dioxide Level 27 Anion Gap 8 Blood Urea Nitrogen 45 H Creatinine 3.32 H Glucose Level 224 H Calcium Level 8.5 Magnesium Level 2.0 Bedside Glucose 157 110 165 Test 06/10/17 07:29 06/10/17 08:19 White Blood Count 14.0 H Red Blood Count 3.76 L Hemoglobin 10.7 L Hematocrit 34.5 L Mean Corpuscular Volume 91.8 Mean Corpuscular Hemoglobin 28.5 L Mean Corpuscular Hemoglobin Concent 31.0 L Red Cell Distribution Width 13.9 Platelet Count 416 H Mean Platelet Volume 9.8 Neutrophils % 75.6 Lymphocytes % 12.1 L Monocytes % 5.3 Eosinophils % 2.2 Basophils % 0.4 Nucleated Red Blood Cells % 0.0 Neutrophils # 10.6 H Lymphocytes # 1.7 Monocytes # 0.7 Eosinophils # 0.3 Basophils # 0.1 Nucleated Red Blood Cells # 0.0 Sodium Level 135 Potassium Level 4.5 Chloride Level 102 Carbon Dioxide Level 27 Anion Gap 11 Blood Urea Nitrogen 46 H Creatinine 3.40 H Glucose Level 108 # Calcium Level 8.5 Phosphorus Level 4.5 Magnesium Level 1.9 Bedside Glucose 178 Medications Medications Current Medications Ondansetron HCl (Zofran Tab) 4 mg Q6H PRN PO NAUSEA AND/OR VOMITING; Start at 21:30 Ondansetron HCl (Zofran Inj) 4 mg Q6H PRN IV NAUSEA AND/OR VOMITING; Start at 21:30 Acetaminophen (Tylenol Tab) 650 mg Q6H PRN PO PAIN LEVEL 1-3 OR FEVER Last administered on 06/01/17 16:37; Admin Dose 650 MG; Start 05/29/17 at 21:30 Zolpidem Tartrate (Ambien) 5 mg QHS PRN PO INSOMNIA Last administered on 20:11; Admin Dose 5 MG; Start 05/29/17 at 21:30 Docusate Sodium (Colace) 100 mg Q12H PRN PO CONSTIPATION Last administered on 06/09/17 10:35; Admin Dose 100 MG; Start 05/29/17 at 21:30 Calcitriol (Rocaltrol) 0.25 mcg DAILY PO Last administered on 06/09/17 08:45; Admin Dose 0.25 MCG; Start 05/30/17 at 09:00 Isosorbide Dinitrate (Isordil) 20 mg TID PO Last administered on 06/09/17 20: 54; Admin Dose 20 MG; Start 05/30/17 at 09:00; Status Future hold Linagliptin (Tradjenta) 5 mg DAILY PO Last administered on 06/09/17 08:46; Admin Dose 5 MG; Start 05/30/17 at 09:00 Metoprolol Tartrate (Lopressor) 25 mg BID PO Last administered on 06/09/17 20: 53; Admin Dose 25 MG; Start 05/30/17 at 21:00 Aspirin (Halfprin) 81 mg DAILY PO Last administered on 06/09/17 08:45; Admin Dose 81 MG; Start 05/31/17 at 09:00 Lorazepam (Ativan) 1 mg TID PRN PO ANXIETY Last administered on 06/09/17 20:53 ; Admin Dose 1 MG; Start 05/30/17 at 18:00 Miscellaneous Information 1 ea NOTE XX ; Start 05/30/17 at 19:30 Glucose (Glutose) 15 gm Q15M PRN PO DECREASED GLUCOSE; Start 05/30/17 at 19:30 Glucose (Glutose) 22.5 gm Q15M PRN PO DECREASED GLUCOSE; Start 05/30/17 at 19: 30 Dextrose (D50w Syringe) 25 ml Q15M PRN IV DECREASED GLUCOSE; Start 05/30/17 at 19:30 Dextrose (D50w Syringe) 50 ml Q15M PRN IV DECREASED GLUCOSE; Start 05/30/17 at 19:30 Glucagon (Glucagen) 1 mg Q15M PRN IM DECREASED GLUCOSE; Start 05/30/17 at 19:30 Glucose (Glutose) 15 gm Q15M PRN BUCCAL DECREASED GLUCOSE; Start 05/30/17 at 19 :30 Nitroglycerin (Nitroglycerin (Sl Tab) 0.4 Mg) 1 tab Q5M PRN SL ANGINA; Start at 20:00 Insulin Glargine (Lantus) 35 unit HS SC Last administered on 06/09/17 21:03; Admin Dose 35 UNIT; Start 05/31/17 at 21:00 Diagnostic Test (Pha) (Accu-Chek) 1 ea 02 XX Last administered on 06/09/17 02: 00; Admin Dose 1 EA; Start 06/01/17 at 02:00 Atorvastatin Calcium (Lipitor) 20 mg HS PO Last administered on 06/09/17 20:52 ; Admin Dose 20 MG; Start 06/04/17 at 21:00 Epoetin Srini (Epogen (Esrd)) 10,000 units MoWeFr@17 SC Last administered on 17:42; Admin Dose 10,000 UNITS; Start 06/04/17 at 17:00 Escitalopram Oxalate (Lexapro) 10 mg DAILY PO Last administered on 06/09/17 08 :45; Admin Dose 10 MG; Start 06/05/17 at 09:00 Oxycodone/ Acetaminophen (Endocet (10/ 325)) 1 tab Q4H PRN PO PAIN Last administered on 06/10/17 08:13; Admin Dose 1 TAB; Start 06/05/17 at 09:00 Apixaban (Eliquis) 5 mg BID PO Last administered on 06/09/17 20:53; Admin Dose 5 MG; Start 06/07/17 at 21:00 Hydromorphone HCl (Dilaudid) 2 mg Q3H PRN IV PAIN LEVEL 7-10 Last administered on 06/10/17 06:37; Admin Dose 2 MG; Start 06/09/17 at 14:08 Hydralazine HCl (Apresoline) 75 mg TID PO Last administered on 06/09/17 20:54 ; Admin Dose 75 MG; Start 06/09/17 at 21:00 KAREN MESSINA MD Jun 10, 2017 09:13
[2017-06-10] MEDS: CALCITRIOL 0.25 MCG CAP PO SCH (09:34)
[2017-06-10] MEDS: METOPROLOL 25 MG TAB PO SCH ×2 (09:35→20:57)
[2017-06-10] MEDS: APIXABAN 5 MG TABLET PO SCH ×2 (09:36→20:55)
[2017-06-10] MEDS: ESCITALOPRAM 10 MG TAB PO SCH (09:37)
[2017-06-10] MEDS: ASPIRIN (EC) 81 MG TAB PO SCH (09:37)
[2017-06-10] MEDS: ISOSORBIDE DINITRATE 20 MG TAB PO SCH ×3 (09:38→20:57)
[2017-06-10] MEDS: LINAGLIPTIN 5 MG TABLET PO SCH (09:38)
[2017-06-10] MEDS: INSULIN ASPART [NOVOLOG] 3 ML PEN SC SCH ×4 (09:40→21:00)
[2017-06-10] MEDS: LORAZEPAM 1 MG TAB PO PRN (15:36)
--- NOTE | 2017-06-10 16:47 | PN ---
Date/Time of Note Date/Time of Note DATE: 06/10/17 TIME: 16:42 Assessment/Plan Lines/Catheters IV Catheter Type (from Nrsg): Saline Lock Joshi in Place (from Nrsg): No Assessment/Plan Assessment/Plan Doing well s/p L leg embolectomy / fasciotomy / partial wound closure and STSG Renal function is stable Cr in the 3's and has not needed any further HD, Yaya was removed yesterday OK to transfer to SNF / ARU If he is still in the hospital Friday, I will create his L arm AVF Subjective 24 Hr Interval Summary Feels better. No pain at present. He has not been able to walk because of weakness in the left leg and foot. Constipated but eating OK. Exam/Review of Systems Vital Signs Vitals Vital Signs Date Time Temp Pulse Resp B/P Pulse Ox O2 Delivery O2 Flow Rate FiO2 06/10/17 15:04 97.3 73 18 113/59 96 06/09/17 01:04 21 06/08/17 06:03 2.0 06/07/17 20:00 Nasal Cannula Intake and Output 06/09/17 06/09/17 06/10/17 15:00 23:00 07:00 Intake Total 110 ml 750 ml 240 ml Output Total 600 ml 450 ml Balance 110 ml 150 ml -210 ml Exam Free Text/Dictation L foot warm and pink, some numbness but sensation is relatively good. He has some weakness on dorsiflexion but he can move all the toes. L groin incision is clean and dry and healing well L thigh donor site looks good with serosanguinous fluid under the tegaderm, no leaking L calf fasciotomy site looks good - STSG partial take, the skin edges do not look ischemic - adaptic and new dressing placed, edema has improved Results Result Diagram: 06/10/17 0729 06/10/17 0729 SONNY SPARROW MD Jun 10, 2017 16:47
[2017-06-10] MEDS: ATORVASTATIN 20 MG TAB PO SCH (20:55)
[2017-06-10] MEDS: INSULIN GLARGINE [LANtus] 3 ML PEN SC SCH (21:12)
[2017-06-10] MEDS: DOCUSATE SODIUM 100 MG CAP PO PRN (21:51)
[2017-06-11] VITALS (11 sets, daily range): BP systolic 105–141; BP diastolic 58–69; PULSE 70–85; RESP 18–20
[2017-06-11] MEDS: HYDROmorphONE 1 MG/ML SYG IV PRN ×7 (00:09→20:20)
[2017-06-11] MEDS: ZOLPIDEM 5 MG TAB PO PRN (01:13)
[2017-06-11] MEDS: ACCU-CHEK XX SCH (02:00)
[2017-06-11] MEDS: INSULIN ASPART [NOVOLOG] 3 ML PEN SC SCH ×4 (07:55→20:26)
--- NOTE | 2017-06-11 08:36 | PN ---
Date/Time of Note Date/Time of Note DATE: 06/11/17 TIME: 08:33 Assessment/Plan VTE Prophylaxis VTE Prophylaxis Intervention: other Lines/Catheters [facility] Saline Lock Urinary Cath still in place: No Assessment/Plan Chief Complaint/Hosp Course 1.he is 12 days post op a L leg thrombectomy and fasciotomy for an embolism to L leg .The fasciotomy was closed last week . 2.ARF on CKD . . Urine output is picking up and renal function is improving . No further hemodialysis needed now. He is going to have an AV fistula created 2 days for future hemodialysis. He is going to start physical therapy today. 3.IDDM 4.Anemia due to acute L leg bleeding . Will transfuse 1 unit of blood today . 5.CAD 6.Cardiomyopathy 7.depression , he agrees to try antidepressant . will start Lexapro 10 mg a day . 8.He agrees to consider Acute rehab unit . Problems: Subjective 24 Hr Interval Summary Free Text/Dictation He is awake and alert. He is having left leg pain however much less than before. The leg is wrapped. Eyes: no complaints Respiratory: no complaints Cardiovascular: no complaints Gastrointestinal: no complaints Genitourinary: no complaints Musculoskeletal: other Exam/Review of Systems Vital Signs Vitals Vital Signs Date Time Temp Pulse Resp B/P Pulse Ox O2 Delivery O2 Flow Rate FiO2 06/11/17 07:30 98.5 72 18 127/68 92 06/09/17 01:04 21 06/08/17 06:03 2.0 06/07/17 20:00 Nasal Cannula Intake and Output 06/10/17 06/10/17 06/11/17 15:00 23:00 07:00 Intake Total 600 ml 400 ml Output Total 600 ml 750 ml Balance 0 ml -350 ml Exam Left lower leg is bandaged. He has a fresh thigh wound from skin graft. Constitutional: alert, frail, oriented ENMT: nl external ears & nose, nl lips & teeth, nl nasal mucosa & septum Neck: non-tender, supple Respiratory: clear to auscultation, normal air movement Cardiovascular: regular rate and rhythm Gastrointestinal: soft Results Result Diagram: 06/10/17 0729 06/10/17 0729 Results 24 hrs Laboratory Tests Test 06/10/17 09:29 06/10/17 12:59 06/10/17 17:21 06/10/17 21:07 Bedside Glucose 288 H 150 144 178 Test 06/11/17 08:17 Bedside Glucose 86 Medications Medications Current Medications Ondansetron HCl (Zofran Tab) 4 mg Q6H PRN PO NAUSEA AND/OR VOMITING; Start at 21:30 Ondansetron HCl (Zofran Inj) 4 mg Q6H PRN IV NAUSEA AND/OR VOMITING; Start at 21:30 Acetaminophen (Tylenol Tab) 650 mg Q6H PRN PO PAIN LEVEL 1-3 OR FEVER Last administered on 06/01/17 16:37; Admin Dose 650 MG; Start 05/29/17 at 21:30 Zolpidem Tartrate (Ambien) 5 mg QHS PRN PO INSOMNIA Last administered on 01:13; Admin Dose 5 MG; Start 05/29/17 at 21:30 Docusate Sodium (Colace) 100 mg Q12H PRN PO CONSTIPATION Last administered on 06/10/17 21:51; Admin Dose 100 MG; Start 05/29/17 at 21:30 Calcitriol (Rocaltrol) 0.25 mcg DAILY PO Last administered on 06/10/17 09:34 ; Admin Dose 0.25 MCG; Start 05/30/17 at 09:00 Isosorbide Dinitrate (Isordil) 20 mg TID PO Last administered on 06/10/17 20: 57; Admin Dose 20 MG; Start 05/30/17 at 09:00; Status Future hold Linagliptin (Tradjenta) 5 mg DAILY PO Last administered on 06/10/17 09:38; Admin Dose 5 MG; Start 05/30/17 at 09:00 Metoprolol Tartrate (Lopressor) 25 mg BID PO Last administered on 06/10/17 20 :57; Admin Dose 25 MG; Start 05/30/17 at 21:00 Aspirin (Halfprin) 81 mg DAILY PO Last administered on 06/10/17 09:37; Admin Dose 81 MG; Start 05/31/17 at 09:00 Lorazepam (Ativan) 1 mg TID PRN PO ANXIETY Last administered on 06/10/17 15: 36; Admin Dose 1 MG; Start 05/30/17 at 18:00 Miscellaneous Information 1 ea NOTE XX ; Start 05/30/17 at 19:30 Glucose (Glutose) 15 gm Q15M PRN PO DECREASED GLUCOSE; Start 05/30/17 at 19:30 Glucose (Glutose) 22.5 gm Q15M PRN PO DECREASED GLUCOSE; Start 05/30/17 at 19: 30 Dextrose (D50w Syringe) 25 ml Q15M PRN IV DECREASED GLUCOSE; Start 05/30/17 at 19:30 Dextrose (D50w Syringe) 50 ml Q15M PRN IV DECREASED GLUCOSE; Start 05/30/17 at 19:30 Glucagon (Glucagen) 1 mg Q15M PRN IM DECREASED GLUCOSE; Start 05/30/17 at 19:30 Glucose (Glutose) 15 gm Q15M PRN BUCCAL DECREASED GLUCOSE; Start 05/30/17 at 19 :30 Nitroglycerin (Nitroglycerin (Sl Tab) 0.4 Mg) 1 tab Q5M PRN SL ANGINA; Start at 20:00 Insulin Glargine (Lantus) 35 unit HS SC Last administered on 06/10/17 21:12; Admin Dose 35 UNIT; Start 05/31/17 at 21:00 Diagnostic Test (Pha) (Accu-Chek) 1 ea 02 XX Last administered on 06/09/17 02: 00; Admin Dose 1 EA; Start 06/01/17 at 02:00 Atorvastatin Calcium (Lipitor) 20 mg HS PO Last administered on 06/10/17 20: 55; Admin Dose 20 MG; Start 06/04/17 at 21:00 Epoetin Srini (Epogen (Esrd)) 10,000 units MoWeFr@17 SC Last administered on 17:42; Admin Dose 10,000 UNITS; Start 06/04/17 at 17:00 Escitalopram Oxalate (Lexapro) 10 mg DAILY PO Last administered on 06/10/17 09:37; Admin Dose 10 MG; Start 06/05/17 at 09:00 Oxycodone/ Acetaminophen (Endocet (10/ 325)) 1 tab Q4H PRN PO PAIN Last administered on 06/10/17 19:44; Admin Dose 1 TAB; Start 06/05/17 at 09:00 Apixaban (Eliquis) 5 mg BID PO Last administered on 10/10/17at 20:55; Admin Dose 5 MG; Start 06/07/17 at 21:00 Hydromorphone HCl (Dilaudid) 2 mg Q3H PRN IV PAIN LEVEL 7-10 Last administered on 06/11/17 07:13; Admin Dose 2 MG; Start 06/09/17 at 14:08 Hydralazine HCl (Apresoline) 75 mg TID PO Last administered on 06/10/17 20:56 ; Admin Dose 75 MG; Start 06/09/17 at 21:00 ANGÉLICA HEWITT MD Jun 11, 2017 08:36
[2017-06-11] MEDS: LINAGLIPTIN 5 MG TABLET PO SCH (09:35)
[2017-06-11] MEDS: APIXABAN 5 MG TABLET PO SCH ×2 (09:35→20:26)
[2017-06-11] MEDS: CALCITRIOL 0.25 MCG CAP PO SCH (09:35)
[2017-06-11] MEDS: ESCITALOPRAM 10 MG TAB PO SCH (09:35)
[2017-06-11] MEDS: METOPROLOL 25 MG TAB PO SCH ×2 (09:36→20:26)
[2017-06-11] MEDS: ISOSORBIDE DINITRATE 20 MG TAB PO SCH ×3 (09:37→20:25)
[2017-06-11] MEDS: ASPIRIN (EC) 81 MG TAB PO SCH (09:37)
--- NOTE | 2017-06-11 15:48 | CONS ---
Date/Time of Note Date/Time of Note DATE: 06/11/17 TIME: 15:44 Assessment/Plan Assessment/Plan Chief Complaint/Hosp Course IMPRESSION: 1. Chest pain prior to surgery with negative troponins x3 since that time and history of recent stress testing with no ischemia.-now mildly positive troponin after surgery likely type 2 infarct with no sig uptrend 2. 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 Postop, status post thrombectomy and fasciotomy for acute arterial insufficiency, ischemic foot-now closed-? etiology. NO documented AF by Tele at this time 4. Peripheral arterial disease. 5. Chronic kidney disease, pain, prepare for likely initiation of hemodialysis. 6. Leukocytosis, status post surgery. 7. Dyslipidemia. 8. Hypertension-labile but currently well controlled. Likely component of pain at times Recc: -Tele to [facility] for any possible arrrythmic cause to thromboembolism(AF) -serial ecg's -Continue asa/Eliquis and follow Hgb closely -Continue BB and follow labile BP closely -Continue Hydralazine and isordil -Follow volume status -Continue statin -local wound care and ongoing vascular surgery follow-up -HD for volume removal -PT/OT Problems: Consultation Date/Type/Reason Admit Date/Time May 29, 2017 at 19:54 Initial Consult Date 05/31/17 Type of Consultation: Cardiology Reason for Consultation chest pain Referring Provider: ANGÉLICA HEWITT MD Exam/Review of Systems Vital Signs Vitals Vital Signs Date Time Temp Pulse Resp B/P Pulse Ox O2 Delivery O2 Flow Rate FiO2 06/11/17 15:39 98.7 77 18 137/67 96 06/09/17 01:04 21 06/08/17 06:03 2.0 06/07/17 20:00 Nasal Cannula Intake and Output 06/10/17 06/10/17 06/11/17 15:00 23:00 07:00 Intake Total 600 ml 400 ml Output Total 600 ml 750 ml Balance 0 ml -350 ml Exam Review of Systems: CONSTITUTIONAL: No fevers, chills. PULMONARY: No sob CARDIOVASCULAR: No chest pain/palpitations GASTROINTESTINAL: No nausea/vomiting. GENITOURINARY: No hematuria/dysuria. MUSCULOSKELETAL: mild pain in leg. PSYCHIATRIC: The patient denies depression. NEUROLOGIC: No weakness Constitutional: alert Psych: no complaints Head: normocephalic ENMT: mucosa pink and moist Neck: jvd (9 cm water), supple Respiratory: diminished breath sounds (at bases/B) Cardiovascular: regular rate and rhythm Gastrointestinal: non-tender, soft Musculoskeletal: muscle tone Extremities: edema Neurological: other (No focal deficits) Results Result Diagram: 06/10/1772806/10/17728 Results 24 hrs Laboratory Tests Test 06/10/17 17:21 06/10/17 21:07 06/11/17 08:17 06/11/17 12:30 Bedside Glucose 144 178 86 112 Medications Medications Current Medications Ondansetron HCl (Zofran Tab) 4 mg Q6H PRN PO NAUSEA AND/OR VOMITING; Start at 21:30 Ondansetron HCl (Zofran Inj) 4 mg Q6H PRN IV NAUSEA AND/OR VOMITING; Start at 21:30 Acetaminophen (Tylenol Tab) 650 mg Q6H PRN PO PAIN LEVEL 1-3 OR FEVER Last administered on 06/01/17 16:37; Admin Dose 650 MG; Start 05/29/17 at 21:30 Zolpidem Tartrate (Ambien) 5 mg QHS PRN PO INSOMNIA Last administered on 01:13; Admin Dose 5 MG; Start 05/29/17 at 21:30 Docusate Sodium (Colace) 100 mg Q12H PRN PO CONSTIPATION Last administered on 06/10/17 21:51; Admin Dose 100 MG; Start 05/29/17 at 21:30 Calcitriol (Rocaltrol) 0.25 mcg DAILY PO Last administered on 06/11/17 09:35 ; Admin Dose 0.25 MCG; Start 05/30/17 at 09:00 Isosorbide Dinitrate (Isordil) 20 mg TID PO Last administered on 06/11/17 13: 20; Admin Dose 20 MG; Start 05/30/17 at 09:00; Status Future hold Linagliptin (Tradjenta) 5 mg DAILY PO Last administered on 06/11/17 09:35; Admin Dose 5 MG; Start 05/30/17 at 09:00 Metoprolol Tartrate (Lopressor) 25 mg BID PO Last administered on 06/11/17 09 :36; Admin Dose 25 MG; Start 05/30/17 at 21:00 Aspirin (Halfprin) 81 mg DAILY PO Last administered on 06/11/17 09:37; Admin Dose 81 MG; Start 05/31/17 at 09:00 Lorazepam (Ativan) 1 mg TID PRN PO ANXIETY Last administered on 06/10/17 15: 36; Admin Dose 1 MG; Start 05/30/17 at 18:00 Miscellaneous Information 1 ea NOTE XX ; Start 05/30/17 at 19:30 Glucose (Glutose) 15 gm Q15M PRN PO DECREASED GLUCOSE; Start 05/30/17 at 19:30 Glucose (Glutose) 22.5 gm Q15M PRN PO DECREASED GLUCOSE; Start 05/30/17 at 19: 30 Dextrose (D50w Syringe) 25 ml Q15M PRN IV DECREASED GLUCOSE; Start 05/30/17 at 19:30 Dextrose (D50w Syringe) 50 ml Q15M PRN IV DECREASED GLUCOSE; Start 05/30/17 at 19:30 Glucagon (Glucagen) 1 mg Q15M PRN IM DECREASED GLUCOSE; Start 05/30/17 at 19:30 Glucose (Glutose) 15 gm Q15M PRN BUCCAL DECREASED GLUCOSE; Start 05/30/17 at 19 :30 Nitroglycerin (Nitroglycerin (Sl Tab) 0.4 Mg) 1 tab Q5M PRN SL ANGINA; Start at 20:00 Insulin Glargine (Lantus) 35 unit HS SC Last administered on 06/10/17 21:12; Admin Dose 35 UNIT; Start 05/31/17 at 21:00 Diagnostic Test (Pha) (Accu-Chek) 1 ea 02 XX Last administered on 06/09/17 02: 00; Admin Dose 1 EA; Start 06/01/17 at 02:00 Atorvastatin Calcium (Lipitor) 20 mg HS PO Last administered on 06/10/17 20: 55; Admin Dose 20 MG; Start 06/04/17 at 21:00 Epoetin Srini (Epogen (Esrd)) 10,000 units MoWeFr@17 SC Last administered on 17:42; Admin Dose 10,000 UNITS; Start 06/04/17 at 17:00 Escitalopram Oxalate (Lexapro) 10 mg DAILY PO Last administered on 06/11/17 09:35; Admin Dose 10 MG; Start 06/05/17 at 09:00 Oxycodone/ Acetaminophen (Endocet (10/ 325)) 1 tab Q4H PRN PO PAIN Last administered on 06/10/17 19:44; Admin Dose 1 TAB; Start 06/05/17 at 09:00 Apixaban (Eliquis) 5 mg BID PO Last administered on 06/11/17 09:35; Admin Dose 5 MG; Start 06/07/17 at 21:00 Hydralazine HCl (Apresoline) 75 mg TID PO Last administered on 06/11/17 13:21 ; Admin Dose 75 MG; Start 06/09/17 at 21:00 Hydromorphone HCl (Dilaudid) 2 mg Q3H PRN IV PAIN LEVEL 7-10 Last administered on 06/11/17 13:22; Admin Dose 2 MG; Start 06/11/17 at 11:08 SONNY ALVARENGA Jun 11, 2017 15:48
[2017-06-11] MEDS: EPOETIN 10000 UNITS/1 ML INJ (ESRD) SC SCH (17:00)
[2017-06-11] MEDS: ATORVASTATIN 20 MG TAB PO SCH (20:25)
[2017-06-11] MEDS: INSULIN GLARGINE [LANtus] 3 ML PEN SC SCH (20:29)
[2017-06-11] MEDS: LORAZEPAM 1 MG TAB PO PRN (21:26)
[2017-06-12] VITALS (13 sets, daily range): BP systolic 117–138; BP diastolic 57–91; PULSE 66–77; RESP 16–20
[2017-06-12] MEDS: ACCU-CHEK XX SCH (00:47)
[2017-06-12] MEDS: HYDROmorphONE 1 MG/ML SYG IV PRN ×7 (00:58→21:58)
[2017-06-12] MEDS: LORAZEPAM 1 MG TAB PO PRN ×3 (05:34→21:58)
[2017-06-12] MEDS: INSULIN ASPART [NOVOLOG] 3 ML PEN SC SCH ×4 (07:55→22:02)
[2017-06-12 08:12] LABS: BASOPHIL # 0.1 10^3/ul (0.0-0.1); BASOPHILS % 0.4 % (0.0-2.0); EOSINOPHILS # 0.3 10^3/ul (0.0-0.5); EOSINOPHILS % 2.3 % (0.0-7.0); HEMATOCRIT 33.3 % (42.0-52.0); HEMOGLOBIN 10.4 g/dl (14.0-18.0); LYMPHOCYTES # 1.8 10^3/ul (0.8-2.9); LYMPHOCYTES % 14.9 % (15.0-51.0); MEAN CORPUSCULAR HEMOGLOBIN 28.9 pg (29.0-33.0); MEAN CORPUSCULAR HGB CONC 31.2 g/dl (32.0-37.0); MEAN CORPUSCULAR VOLUME 92.5 fl (82.0-101.0); MEAN PLATELET VOLUME 10.4 fl (7.4-10.4); MONOCYTE # 0.8 10^3/ul (0.3-0.9); MONOCYTES % 6.6 % (0.0-11.0); NEUTROPHIL # 8.8 10^3/ul (1.6-7.5); NEUTROPHILS % 72.3 % (39.0-77.0); PLATELET COUNT 399 10^3/UL (140-415); RED CELL DISTRIBUTION WIDTH 14.5 % (11.5-14.5); WHITE BLOOD COUNT 12.2 10^3/ul (4.8-10.8)
[2017-06-12 08:46] LABS: INR 1.3; PROTIME 16.3 Sec (12.2-14.2); PT RATIO 1.3
[2017-06-12 08:47] LABS: PARTIAL THROMBOPLASTIN TIME 36.8 Sec (25.0-35.0)
[2017-06-12] MEDS: LINAGLIPTIN 5 MG TABLET PO SCH (08:47)
[2017-06-12] MEDS: METOPROLOL 25 MG TAB PO SCH ×2 (08:47→21:57)
[2017-06-12] MEDS: CALCITRIOL 0.25 MCG CAP PO SCH (08:47)
[2017-06-12] MEDS: ASPIRIN (EC) 81 MG TAB PO SCH (08:47)
[2017-06-12] MEDS: ESCITALOPRAM 10 MG TAB PO SCH (08:47)
[2017-06-12] MEDS: ISOSORBIDE DINITRATE 20 MG TAB PO SCH ×3 (08:48→21:57)
[2017-06-12] MEDS: APIXABAN 5 MG TABLET PO SCH ×2 (08:48→21:55)
--- NOTE | 2017-06-12 10:20 | PN ---
Date/Time of Note Date/Time of Note DATE: 06/12/17 TIME: :17 Assessment/Plan VTE Prophylaxis VTE Prophylaxis Intervention: other Lines/Catheters IV C[facility]ter Type [facility]from [facility] Urinary Cath still in place: No Assessment/Plan Chief Complaint/Hosp Course 1.he is 13 days post op a L leg thrombectomy and fasciotomy for an embolism to L leg .The fasciotomy was closed last week . 2.ARF on CKD . . Urine output is picking up and renal function is improving . No further hemodialysis needed now. He is going to have an AV fistula created tomorrow for future hemodialysis. He is going to start physical therapy today. 3.IDDM 4.Anemia due to acute L leg bleeding . 5.CAD 6.Cardiomyopathy 7.depression , he agrees to try antidepressant . will start Lexapro 10 mg a day . 8.He agrees to consider Acute rehab unit . Problems: Subjective 24 Hr Interval Summary Free Text/Dictation He is awake and alert and has no new complaints today. He is getting ready to start walking with physical therapy. He continues to have left leg pain. Constitutional: no complaints Respiratory: no complaints Cardiovascular: no complaints Gastrointestinal: no complaints Genitourinary: no complaints Musculoskeletal: other Endocrine: no complaints Exam/Review of Systems Vital Signs Vitals Vital Signs Date Time Temp Pulse Resp B/P Pulse Ox O2 Delivery O2 Flow Rate FiO2 06/12/17 08:00 66 06/12/17 07:56 98.3 16 118/57 97 06/12/17 00:25 Room Air 06/09/17 01:04 21 Intake and Output 06/11/17 06/11/17 06/12/17 15:00 23:00 07:00 Intake Total 1120 ml 240 ml Output Total 1375 ml 725 ml Balance -255 ml -485 ml Exam The left lower leg has an Calvin bandage over it. Constitutional: alert, frail, oriented Psych: depression Respiratory: clear to auscultation, diminished breath sounds Cardiovascular: regular rate and rhythm Gastrointestinal: soft Results Result Diagram: 06/12/17 0710 06/10/17 0729 Results 24 hrs Laboratory Tests Test 06/11/17 12:30 06/11/17 18:13 06/11/17 20:24 06/12/17 07:10 Bedside Glucose 112 147 157 White Blood Count 12.2 H Red Blood Count 3.60 L Hemoglobin 10.4 L Hematocrit 33.3 L Mean Corpuscular Volume 92.5 Mean Corpuscular Hemoglobin 28.9 L Mean Corpuscular Hemoglobin Concent 31.2 L Red Cell Distribution Width 14.5 Platelet Count 399 Mean Platelet Volume 10.4 Neutrophils % 72.3 Lymphocytes % 14.9 L Monocytes % 6.6 Eosinophils % 2.3 Basophils % 0.4 Nucleated Red Blood Cells % 0.0 Neutrophils # 8.8 H Lymphocytes # 1.8 Monocytes # 0.8 Eosinophils # 0.3 Basophils # 0.1 Nucleated Red Blood Cells # 0.0 Prothrombin Time 16.3 H Prothrombin Time Ratio 1.3 INR International Normalized Ratio 1.30 Activated Partial Thromboplast Time 36.8 H Test 06/12/17 08:34 Bedside Glucose 103 Medications Medications Current Medications Ondansetron HCl (Zofran Tab) 4 mg Q6H PRN PO NAUSEA AND/OR VOMITING; Start at 21:30 Ondansetron HCl (Zofran Inj) 4 mg Q6H PRN IV NAUSEA AND/OR VOMITING; Start at 21:30 Acetaminophen (Tylenol Tab) 650 mg Q6H PRN PO PAIN LEVEL 1-3 OR FEVER Last administered on 06/01/17 16:37; Admin Dose 650 MG; Start 05/29/17 at 21:30 Zolpidem Tartrate (Ambien) 5 mg QHS PRN PO INSOMNIA Last administered on 01:13; Admin Dose 5 MG; Start 05/29/17 at 21:30 Docusate Sodium (Colace) 100 mg Q12H PRN PO CONSTIPATION Last administered on 06/10/17 21:51; Admin Dose 100 MG; Start 05/29/17 at 21:30 Calcitriol (Rocaltrol) 0.25 mcg DAILY PO Last administered on 06/12/17 08:47 ; Admin Dose 0.25 MCG; Start 05/30/17 at 09:00 Isosorbide Dinitrate (Isordil) 20 mg TID PO Last administered on 06/12/17 08: 48; Admin Dose 20 MG; Start 05/30/17 at 09:00; Status Future hold Linagliptin (Tradjenta) 5 mg DAILY PO Last administered on 06/12/17 08:47; Admin Dose 5 MG; Start 05/30/17 at 09:00 Metoprolol Tartrate (Lopressor) 25 mg BID PO Last administered on 06/12/17 08 :47; Admin Dose 25 MG; Start 05/30/17 at 21:00 Aspirin (Halfprin) 81 mg DAILY PO Last administered on 06/12/17 08:47; Admin Dose 81 MG; Start 05/31/17 at 09:00 Lorazepam (Ativan) 1 mg TID PRN PO ANXIETY Last administered on 06/12/17 05: 34; Admin Dose 1 MG; Start 05/30/17 at 18:00 Miscellaneous Information 1 ea NOTE XX ; Start 05/30/17 at 19:30 Glucose (Glutose) 15 gm Q15M PRN PO DECREASED GLUCOSE; Start 05/30/17 at 19:30 Glucose (Glutose) 22.5 gm Q15M PRN PO DECREASED GLUCOSE; Start 05/30/17 at 19: 30 Dextrose (D50w Syringe) 25 ml Q15M PRN IV DECREASED GLUCOSE; Start 05/30/17 at 19:30 Dextrose (D50w Syringe) 50 ml Q15M PRN IV DECREASED GLUCOSE; Start 05/30/17 at 19:30 Glucagon (Glucagen) 1 mg Q15M PRN IM DECREASED GLUCOSE; Start 05/30/17 at 19:30 Glucose (Glutose) 15 gm Q15M PRN BUCCAL DECREASED GLUCOSE; Start 05/30/17 at 19 :30 Nitroglycerin (Nitroglycerin (Sl Tab) 0.4 Mg) 1 tab Q5M PRN SL ANGINA; Start at 20:00 Insulin Glargine (Lantus) 35 unit HS SC Last administered on 06/11/17 20:29; Admin Dose 35 UNIT; Start 05/31/17 at 21:00 Diagnostic Test (Pha) (Accu-Chek) 1 ea 02 XX Last administered on 06/09/17 02: 00; Admin Dose 1 EA; Start 06/01/17 at 02:00 Atorvastatin Calcium (Lipitor) 20 mg HS PO Last administered on 06/11/17 20: 25; Admin Dose 20 MG; Start 06/04/17 at 21:00 Epoetin Srini (Epogen (Esrd)) 10,000 units MoWeFr@17 SC Last administered on 17:42; Admin Dose 10,000 UNITS; Start 06/04/17 at 17:00 Escitalopram Oxalate (Lexapro) 10 mg DAILY PO Last administered on 06/12/17 08:47; Admin Dose 10 MG; Start 06/05/17 at 09:00 Oxycodone/ Acetaminophen (Endocet (10/ 325)) 1 tab Q4H PRN PO PAIN Last administered on 06/10/17 19:44; Admin Dose 1 TAB; Start 06/05/17 at 09:00 Apixaban (Eliquis) 5 mg BID PO Last administered on 06/12/17 08:48; Admin Dose 5 MG; Start 06/07/17 at 21:00 Hydralazine HCl (Apresoline) 75 mg TID PO Last administered on 06/12/17 08:46 ; Admin Dose 75 MG; Start 06/09/17 at 21:00 Hydromorphone HCl (Dilaudid) 2 mg Q3H PRN IV PAIN LEVEL 7-10 Last administered on 06/12/17 08:49; Admin Dose 2 MG; Start 06/11/17 at 11:08 ANGÉLICA HEWITT MD Jun 12, 2017 10:20
--- NOTE | 2017-06-12 12:29 | RADRPT ---
PROCEDURE: XR Chest. CLINICAL INDICATION: Shortness of breath TECHNIQUE: Single frontal view of the chest was obtained COMPARISON: 07/26/2013 FINDINGS: No pneumothorax or pleural effusion. No consolidation. Low lung volumes with bibasilar atelectasis. Stable enlarged cardiac silhouette. Calcified aortic arch suggestive of chronic systemic hypertensio n. No acute osseous abnormality. Median sternotomy changes. IMPRESSION: Low lung volumes with bibasilar atelectasis. RPTAT: EE Physician Caitie Date Time Electronically viewed and signed by Dario Black Physician on 06/12/2017 12:29 /
--- NOTE | 2017-06-12 13:28 | CONS ---
Date/Time of Note Date/Time of Note DATE: 06/12/17 TIME: 13:25 Assessment/Plan Assessment/Plan Chief Complaint/Hosp Course IMPRESSION: 1. Chest pain prior to surgery with negative troponins x3 since that time and history of recent stress testing with no ischemia.-now mildly positive troponin after surgery likely type 2 infarct with no sig uptrend 2. Cardiomyopathy with decreased left ventricular ejection fraction, approximately 35-40 percent by echo and stress test most recently April 2017.-per read from another computer engineer over the weekend patient now with improved EF and no signs of intracaardiac thrombus 3. Postop, status post thrombectomy and fasciotomy for acute arterial insufficiency, ischemic foot-now closed-? etiology. NO documented AF by Tele at this time 4. Peripheral arterial disease. 5. Chronic kidney disease, pain, prepare for likely initiation of hemodialysis. 6. Leukocytosis, status post surgery. 7. Dyslipidemia. 8. Hypertension-labile but currently very well controlled. Likely component of pain at times Recc: -Tele to [facility] for any possible arrrythmic cause to thromboembolism(AF) -serial ecg's -Continue asa/Eliquis and follow Hgb closely -Continue Hydralazine/isordil/BB -Follow volume status -Continue statin -local wound care and ongoing vascular surgery follow-up -HD for volume removal -PT/OT Problems: Consultation Date/Type/Reason Admit Date/Time May 29, 2017 at 19:54 Initial Consult Date 05/31/17 Type of Consultation: Cardiology Reason for Consultation chest pain Referring Provider: ANGÉLICA HEWITT MD Exam/Review of Systems Vital Signs Vitals Vital Signs Date Time Temp Pulse Resp B/P Pulse Ox O2 Delivery O2 Flow Rate FiO2 06/12/17 12:00 70 06/12/17 11:25 98.3 18 118/57 97 06/12/17 00:25 Room Air 06/09/17 01:04 21 Intake and Output 06/11/17 06/11/17 06/12/17 15:00 23:00 07:00 Intake Total 1120 ml 240 ml Output Total 1375 ml 725 ml Balance -255 ml -485 ml Exam Review of Systems: CONSTITUTIONAL: No fevers, chills. PULMONARY: No sob CARDIOVASCULAR: No chest pain/palpitations GASTROINTESTINAL: No nausea/vomiting. GENITOURINARY: No hematuria/dysuria. MUSCULOSKELETAL: No myagias/arthalgias. PSYCHIATRIC: The patient denies depression. NEUROLOGIC: No weakness Constitutional: alert, oriented Psych: no complaints Head: normocephalic ENMT: mucosa pink and moist Neck: jvd (9 cm water), supple Respiratory: diminished breath sounds (at bases/B) Cardiovascular: regular rate and rhythm Gastrointestinal: non-tender, soft Musculoskeletal: muscle tone (normal) Extremities: other (LLE covered by dressing) Results Result Diagram: 06/12/17 0710 06/10/17 0729 Results 24 hrs Laboratory Tests Test 06/11/17 18:13 06/11/17 20:24 06/12/17 07:10 06/12/17 08:34 Bedside Glucose 147 157 103 White Blood Count 12.2 H Red Blood Count 3.60 L Hemoglobin 10.4 L Hematocrit 33.3 L Mean Corpuscular Volume 92.5 Mean Corpuscular Hemoglobin 28.9 L Mean Corpuscular Hemoglobin Concent 31.2 L Red Cell Distribution Width 14.5 Platelet Count 399 Mean Platelet Volume 10.4 Neutrophils % 72.3 Lymphocytes % 14.9 L Monocytes % 6.6 Eosinophils % 2.3 Basophils % 0.4 Nucleated Red Blood Cells % 0.0 Neutrophils # 8.8 H Lymphocytes # 1.8 Monocytes # 0.8 Eosinophils # 0.3 Basophils # 0.1 Nucleated Red Blood Cells # 0.0 Prothrombin Time 16.3 H Prothrombin Time Ratio 1.3 INR International Normalized Ratio 1.30 Activated Partial Thromboplast Time 36.8 H Test 06/12/17 11:34 Bedside Glucose 118 Medications Medications Current Medications Ondansetron HCl (Zofran Tab) 4 mg Q6H PRN PO NAUSEA AND/OR VOMITING; Start at 21:30 Ondansetron HCl (Zofran Inj) 4 mg Q6H PRN IV NAUSEA AND/OR VOMITING; Start at 21:30 Acetaminophen (Tylenol Tab) 650 mg Q6H PRN PO PAIN LEVEL 1-3 OR FEVER Last administered on 06/01/17 16:37; Admin Dose 650 MG; Start 05/29/17 at 21:30 Zolpidem Tartrate (Ambien) 5 mg QHS PRN PO INSOMNIA Last administered on 01:13; Admin Dose 5 MG; Start 05/29/17 at 21:30 Docusate Sodium (Colace) 100 mg Q12H PRN PO CONSTIPATION Last administered on 06/10/17 21:51; Admin Dose 100 MG; Start 05/29/17 at 21:30 Calcitriol (Rocaltrol) 0.25 mcg DAILY PO Last administered on 06/12/17 08:47 ; Admin Dose 0.25 MCG; Start 05/30/17 at 09:00 Isosorbide Dinitrate (Isordil) 20 mg TID PO Last administered on 06/12/17 08: 48; Admin Dose 20 MG; Start 05/30/17 at 09:00; Status Future hold Linagliptin (Tradjenta) 5 mg DAILY PO Last administered on 06/12/17 08:47; Admin Dose 5 MG; Start 05/30/17 at 09:00 Metoprolol Tartrate (Lopressor) 25 mg BID PO Last administered on 06/12/17 08 :47; Admin Dose 25 MG; Start 05/30/17 at 21:00 Aspirin (Halfprin) 81 mg DAILY PO Last administered on 06/12/17 08:47; Admin Dose 81 MG; Start 05/31/17 at 09:00 Lorazepam (Ativan) 1 mg TID PRN PO ANXIETY Last administered on 06/12/17 05: 34; Admin Dose 1 MG; Start 05/30/17 at 18:00 Miscellaneous Information 1 ea NOTE XX ; Start 05/30/17 at 19:30 Glucose (Glutose) 15 gm Q15M PRN PO DECREASED GLUCOSE; Start 05/30/17 at 19:30 Glucose (Glutose) 22.5 gm Q15M PRN PO DECREASED GLUCOSE; Start 05/30/17 at 19: 30 Dextrose (D50w Syringe) 25 ml Q15M PRN IV DECREASED GLUCOSE; Start 05/30/17 at 19:30 Dextrose (D50w Syringe) 50 ml Q15M PRN IV DECREASED GLUCOSE; Start 05/30/17 at 19:30 Glucagon (Glucagen) 1 mg Q15M PRN IM DECREASED GLUCOSE; Start 05/30/17 at 19:30 Glucose (Glutose) 15 gm Q15M PRN BUCCAL DECREASED GLUCOSE; Start 05/30/17 at 19 :30 Nitroglycerin (Nitroglycerin (Sl Tab) 0.4 Mg) 1 tab Q5M PRN SL ANGINA; Start at 20:00 Insulin Glargine (Lantus) 35 unit HS SC Last administered on 06/11/17 20:29; Admin Dose 35 UNIT; Start 05/31/17 at 21:00 Diagnostic Test (Pha) (Accu-Chek) 1 ea 02 XX Last administered on 06/09/17 02: 00; Admin Dose 1 EA; Start 06/01/17 at 02:00 Atorvastatin Calcium (Lipitor) 20 mg HS PO Last administered on 06/11/17 20: 25; Admin Dose 20 MG; Start 06/04/17 at 21:00 Epoetin Srini (Epogen (Esrd)) 10,000 units MoWeFr@17 SC Last administered on 17:42; Admin Dose 10,000 UNITS; Start 06/04/17 at 17:00 Escitalopram Oxalate (Lexapro) 10 mg DAILY PO Last administered on 06/12/17 08:47; Admin Dose 10 MG; Start 06/05/17 at 09:00 Oxycodone/ Acetaminophen (Endocet (10/ 325)) 1 tab Q4H PRN PO PAIN Last administered on 06/10/17 19:44; Admin Dose 1 TAB; Start 06/05/17 at 09:00 Apixaban (Eliquis) 5 mg BID PO Last administered on 06/12/17 08:48; Admin Dose 5 MG; Start 06/07/17 at 21:00 Hydralazine HCl (Apresoline) 75 mg TID PO Last administered on 06/12/17 08:46 ; Admin Dose 75 MG; Start 06/09/17 at 21:00 Hydromorphone HCl (Dilaudid) 2 mg Q3H PRN IV PAIN LEVEL 7-10 Last administered on 06/12/17 11:49; Admin Dose 2 MG; Start 06/11/17 at 11:08 SONNY ALVARENGA Jun 12, 2017 13:28
[2017-06-12] MEDS: ATORVASTATIN 20 MG TAB PO SCH (21:54)
[2017-06-12] MEDS: INSULIN GLARGINE [LANtus] 3 ML PEN SC SCH (22:03)
[2017-06-13] VITALS (7 sets, daily range): BP systolic 119–155; BP diastolic 58–85; PULSE 69–78; RESP 17–19
[2017-06-13] MEDS: HYDROmorphONE 1 MG/ML SYG IV PRN ×7 (01:38→22:41)
[2017-06-13] MEDS: ACCU-CHEK XX SCH (02:00)
[2017-06-13] MEDS: INSULIN ASPART [NOVOLOG] 3 ML PEN SC SCH ×4 (07:55→20:56)
[2017-06-13] MEDS: METOPROLOL 25 MG TAB PO SCH ×2 (08:59→20:56)
[2017-06-13] MEDS: ASPIRIN (EC) 81 MG TAB PO SCH (08:59)
[2017-06-13] MEDS: APIXABAN 5 MG TABLET PO SCH ×2 (08:59→20:56)
[2017-06-13] MEDS: ESCITALOPRAM 10 MG TAB PO SCH (08:59)
[2017-06-13] MEDS: CALCITRIOL 0.25 MCG CAP PO SCH (09:00)
[2017-06-13] MEDS: ISOSORBIDE DINITRATE 20 MG TAB PO SCH ×4 (09:00→20:55)
[2017-06-13] MEDS: LINAGLIPTIN 5 MG TABLET PO SCH (09:00)
[2017-06-13] MEDS: LORAZEPAM 1 MG TAB PO PRN ×3 (09:25→22:46)
--- NOTE | 2017-06-13 09:42 | PDOCDIS ---
Discharge Instructions DIAGNOSIS Discharge Diagnosis L leg arterial occlusion CONDITION Patient Condition: Good HOME CARE INSTRUCTIONS: Diet Instructions: Reduced CalorieSpecial Diet: carb controlled ACTIVITY: Activity Restrictions: Slowly Increase Activity Rest between Activity Weight Bearing Bathing Restrictions: Shower FOLLOW UP/APPOINTMENTS Follow-up Plan ANGÉLICA Scherer MD Jun 13, 2017 09:42
[2017-06-13] MEDS: OXYCODONE/ACETAMINOPHEN (10/325) TAB PO PRN ×2 (11:51→15:53)
--- NOTE | 2017-06-13 12:09 | DS ---
DATE OF ADMISSION: 05/29/2017 DATE OF DISCHARGE: HISTORY OF PRESENT ILLNESS AND HOSPITAL COURSE: This 57-year-old man [facility]. He presented to the emergency room complaining of chest pain and left leg numbness. The patient was admitted to the hospital. He continued to have left leg pain and numbnes s and was seen in consultation by Dr. Tobi Lujan who diagnosed an ischemic left foot and leg. Dr. Lujan took the patient to surgery and removed a large blood clot from the left internal iliac artery . Dr. Lujan felt that this was an embolus. The patient was seen in consultation by Dr. Tobi crowe, the patient's regulatory compliance manager. The patient did have serial troponins done which were negative for acute myocardial infarction. The patient does have a history of longstanding type 2 diabetes [facility] and chronic kidney disease stage IV. While in the hospital, his renal function deteriorated and he did require: 1. Hemodialysis treatment after a left internal jugular was placed by Dr. Lujan. The patient was i n the ICU and eventually transferred to a telemetry floor. The patient is starting to participate w [facility] physical therapy. The patient is awake and alert and his eating has improved. The patient will be transferred today to the acute rehab unit. MEDICATIONS: His medication will be as follows: 1. Acetaminophen 650 mg q.6h. 2. Apixaban 5 mg twice a day. 3. Aspirin 81 mg a day. 4. Atorvastatin 20 mg a day. 5. Calcitriol 0.25 mcg a day. 6. Epogen 10,000 units Friday, Friday and Friday. 7. Lexapro 10 mg a day. 8. Hydralazine 75 mg 3 times a day. 9. Isosorbide dinitrate 20 mg 3 times a day. 10. Tradjenta 5 mg a day. 11. Ativan 1 mg p.o. 3 times a day p.r.n. 12. Metoprolol 25 mg twice a day. 13. Nitroglycerin sublingual p.r.n. chest pain. 14. Endocet 10/325 q.4h. p.r.n. pain. 15. Zolpidem 5 mg p.o. bedtime p.r.n. sleep. 16. The patient is on sliding scale NovoLog insulin and Lantus insulin 35 units at bedtime daily. SUMMARY: The patient's renal function did not recover while in the hospital and he only required on e hemodialysis treatment. The patient was placed on apixaban because of the embolus in the left leg . The patient was in good condition at the time of discharge and transfer. The patient did undergo a fasciotomy at the time of his initial leg surgery. He eventually underwent a closure of the fasc iotomy with a skin graft by Dr. Lujan. DISCHARGE DIAGNOSES: 1. Left leg ischemia due to arterial embolism. 2. Insulin-dependent diabetes mellitus. 3. Hypertension. 4. Coronary artery disease. 5. Chronic kidney disease stage IV. 6. Anemia of chronic kidney disease. Dictated By: ANGÉLICA HEWITT MD, ND/TREVOR Conf#: [id number] DID#: [id number]
--- NOTE | 2017-06-13 14:59 | PN ---
Date/Time of Note Date/Time of Note DATE: 06/13/17 TIME: 14:57 Assessment/Plan Lines/Catheters IV Catheter Type (from Nrsg): Peripheral IV Joshi in Place (from Nrsg): No Assessment/Plan Assessment/Plan Doing well s/p LLE embolectomy / fasciotomy and fasciotomy partial closure / STSG OK for transfer to ARU and for full weight bearing I will reschedule AVF creation for next week Subjective 24 Hr Interval Summary I was unable to get OR time for AVF creation today - I was bumped due to a schedule change. Patient has no c/o. He is walking with PT and pain is much better. Exam/Review of Systems Vital Signs Vitals Vital Signs Date Time Temp Pulse Resp B/P Pulse Ox O2 Delivery O2 Flow Rate FiO2 06/13/17 12:15 69 06/13/17 11:39 98.3 17 136/69 94 06/12/17 00:25 Room Air Intake and Output 06/12/17 06/12/17 06/13/17 15:00 23:00 07:00 Intake Total 740 ml 830 ml Balance 740 ml 830 ml Exam Free Text/Dictation L groin and calf incisions are clean and dry L foot is warm with 2+ DP pulse Results Result Diagram: 06/12/17 0710 06/10/17 0729 SONNY SPARROW MD Jun 13, 2017 14:59
--- NOTE | 2017-06-13 15:59 | CONS ---
Date/Time of Note Date/Time of Note DATE: 06/13/17 TIME: 15:56 Assessment/Plan Assessment/Plan Chief Complaint/Hosp Course IMPRESSION: 1. Chest pain prior to surgery with negative troponins x3 since/ NO recurrent chest pain that time and history of recent stress testing with no ischemia.-now mildly positive troponin after surgery likely type 2 infarct with no sig uptrend 2. Cardiomyopathy with decreased left ventricular ejection fraction, approximately 35-40 percent by echo and stress test most recently April 2017.-per read from another painter drum over the weekend patient now with improved EF and no signs of intracaardiac thrombus 3. Postop, status post thrombectomy and fasciotomy for acute arterial insufficiency, ischemic foot-now closed-? etiology. NO documented AF by Tele at this time 4. Peripheral arterial disease. 5. Chronic kidney disease, pain, prepare for likely initiation of hemodialysis. 6. Leukocytosis, status post surgery. 7. Dyslipidemia. 8. Hypertension-labile but currently very well controlled. Likely component of pain at times Recc: -Tele to monitor for any possible arrrythmic cause to thromboembolism(AF) -serial ecg's -Continue asa/Eliquis and follow Hgb closely -Continue Hydralazine/isordil/BB as tolerated -Follow volume status -Continue statin -local wound care and ongoing vascular surgery follow-up -HD for volume removal -PT/OT Problems: Consultation Date/Type/Reason Admit Date/Time May 29, 2017 at 19:54 Initial Consult Date 05/31/17 Type of Consultation: Cardiology Reason for Consultation chest pain/cardionyopathy Referring Provider: ANGÉLICA HEWITT MD Exam/Review of Systems Vital Signs Vitals Vital Signs Date Time Temp Pulse Resp B/P Pulse Ox O2 Delivery O2 Flow Rate FiO2 06/13/17 15:35 98.1 74 17 139/85 99 06/12/17 00:25 Room Air Intake and Output 06/12/17 06/12/17 06/13/17 15:00 23:00 07:00 Intake Total 740 ml 830 ml Balance 740 ml 830 ml Exam Review of Systems: CONSTITUTIONAL: No fevers, chills. PULMONARY: No sob CARDIOVASCULAR: No chest pain/palpitations GASTROINTESTINAL: No nausea/vomiting. GENITOURINARY: No hematuria/dysuria. MUSCULOSKELETAL: No myagias/arthalgias. PSYCHIATRIC: The patient denies depression. NEUROLOGIC: lethargic Constitutional: alert Psych: no complaints Head: normocephalic ENMT: mucosa pink and moist Neck: jvd (9 cm water), supple Respiratory: diminished breath sounds (at bases/B) Cardiovascular: regular rate and rhythm Gastrointestinal: non-tender, soft Musculoskeletal: muscle tone (normal), other (covered by dressing) Extremities: edema (trace/B) Results Result Diagram: 06/12/17 0710 06/10/17 0729 Results 24 hrs Laboratory Tests Test 06/12/17 17:24 06/12/17 22:00 06/13/17 08:52 06/13/17 12:02 Bedside Glucose 138 164 98 118 Medications Medications Current Medications Ondansetron HCl (Zofran Tab) 4 mg Q6H PRN PO NAUSEA AND/OR VOMITING; Start at 21:30 Ondansetron HCl (Zofran Inj) 4 mg Q6H PRN IV NAUSEA AND/OR VOMITING; Start at 21:30 Acetaminophen (Tylenol Tab) 650 mg Q6H PRN PO PAIN LEVEL 1-3 OR FEVER Last administered on 06/01/17 16:37; Admin Dose 650 MG; Start 05/29/17 at 21:30 Zolpidem Tartrate (Ambien) 5 mg QHS PRN PO INSOMNIA Last administered on 01:13; Admin Dose 5 MG; Start 05/29/17 at 21:30 Docusate Sodium (Colace) 100 mg Q12H PRN PO CONSTIPATION Last administered on 06/10/17 21:51; Admin Dose 100 MG; Start 05/29/17 at 21:30 Calcitriol (Rocaltrol) 0.25 mcg DAILY PO Last administered on 06/13/17 09:00 ; Admin Dose 0.25 MCG; Start 05/30/17 at 09:00 Isosorbide Dinitrate (Isordil) 20 mg TID PO Last administered on 06/12/17 21: 57; Admin Dose 20 MG; Start 05/30/17 at 09:00; Status Future hold Linagliptin (Tradjenta) 5 mg DAILY PO Last administered on 06/13/17 09:00; Admin Dose 5 MG; Start 05/30/17 at 09:00 Metoprolol Tartrate (Lopressor) 25 mg BID PO Last administered on 06/13/17 08 :59; Admin Dose 25 MG; Start 05/30/17 at 21:00 Aspirin (Halfprin) 81 mg DAILY PO Last administered on 06/13/17 08:59; Admin Dose 81 MG; Start 05/31/17 at 09:00 Lorazepam (Ativan) 1 mg TID PRN PO ANXIETY Last administered on 06/13/17 09: 25; Admin Dose 1 MG; Start 05/30/17 at 18:00 Miscellaneous Information 1 ea NOTE XX ; Start 05/30/17 at 19:30 Glucose (Glutose) 15 gm Q15M PRN PO DECREASED GLUCOSE; Start 05/30/17 at 19:30 Glucose (Glutose) 22.5 gm Q15M PRN PO DECREASED GLUCOSE; Start 05/30/17 at 19: 30 Dextrose (D50w Syringe) 25 ml Q15M PRN IV DECREASED GLUCOSE; Start 05/30/17 at 19:30 Dextrose (D50w Syringe) 50 ml Q15M PRN IV DECREASED GLUCOSE; Start 05/30/17 at 19:30 Glucagon (Glucagen) 1 mg Q15M PRN IM DECREASED GLUCOSE; Start 05/30/17 at 19:30 Glucose (Glutose) 15 gm Q15M PRN BUCCAL DECREASED GLUCOSE; Start 05/30/17 at 19 :30 Nitroglycerin (Nitroglycerin (Sl Tab) 0.4 Mg) 1 tab Q5M PRN SL ANGINA; Start at 20:00 Insulin Glargine (Lantus) 35 unit HS SC Last administered on 06/12/17 22:03; Admin Dose 35 UNIT; Start 05/31/17 at 21:00 Diagnostic Test (Pha) (Accu-Chek) 1 ea 02 XX Last administered on 06/09/17 02: 00; Admin Dose 1 EA; Start 06/01/17 at 02:00 Atorvastatin Calcium (Lipitor) 20 mg HS PO Last administered on 06/12/17 21: 54; Admin Dose 20 MG; Start 06/04/17 at 21:00 Epoetin Srini (Epogen (Esrd)) 10,000 units MoWeFr@17 SC Last administered on 17:42; Admin Dose 10,000 UNITS; Start 06/04/17 at 17:00 Escitalopram Oxalate (Lexapro) 10 mg DAILY PO Last administered on 06/13/17 08:59; Admin Dose 10 MG; Start 06/05/17 at 09:00 Oxycodone/ Acetaminophen (Endocet (10/ 325)) 1 tab Q4H PRN PO PAIN Last administered on 06/13/17 15:53; Admin Dose 1 TAB; Start 06/05/17 at 09:00 Apixaban (Eliquis) 5 mg BID PO Last administered on 06/13/17 08:59; Admin Dose 5 MG; Start 06/07/17 at 21:00 Hydralazine HCl (Apresoline) 75 mg TID PO Last administered on 06/13/17 11:51 ; Admin Dose 75 MG; Start 06/09/17 at 21:00 Hydromorphone HCl (Dilaudid) 2 mg Q3H PRN IV PAIN LEVEL 7-10 Last administered on 06/13/17 13:51; Admin Dose 2 MG; Start 06/11/17 at 11:08 SONNY ALVARENGA Jun 13, 2017 15:59
[2017-06-13] MEDS: EPOETIN 10000 UNITS/1 ML INJ (ESRD) SC SCH (17:05)
[2017-06-13] MEDS: ATORVASTATIN 20 MG TAB PO SCH (20:55)
[2017-06-13] MEDS: INSULIN GLARGINE [LANtus] 3 ML PEN SC SCH (21:12)
[2017-06-14] MEDS: ACCU-CHEK XX SCH (02:00)
[2017-06-14] MEDS: HYDROmorphONE 1 MG/ML SYG IV PRN ×7 (02:05→21:02)
[2017-06-14] MEDS: ZOLPIDEM 5 MG TAB PO PRN (02:33)
[2017-06-14 08:00] VITALS: BP 165/72; RESP 19
[2017-06-14] MEDS: CALCITRIOL 0.25 MCG CAP PO SCH (09:17)
[2017-06-14] MEDS: APIXABAN 5 MG TABLET PO SCH ×2 (09:17→20:59)
[2017-06-14] MEDS: METOPROLOL 25 MG TAB PO SCH ×2 (09:18→21:00)
[2017-06-14] MEDS: LINAGLIPTIN 5 MG TABLET PO SCH (09:18)
[2017-06-14] MEDS: ESCITALOPRAM 10 MG TAB PO SCH (09:18)
[2017-06-14] MEDS: ISOSORBIDE DINITRATE 20 MG TAB PO SCH ×3 (09:18→21:00)
[2017-06-14] MEDS: ASPIRIN (EC) 81 MG TAB PO SCH (09:18)
[2017-06-14] MEDS: INSULIN ASPART [NOVOLOG] 3 ML PEN SC SCH ×4 (09:27→21:48)
[2017-06-14] MEDS: OXYCODONE/ACETAMINOPHEN (10/325) TAB PO PRN ×3 (09:48→19:45)
[2017-06-14 13:21] VITALS: BP 130/61; RESP 18
--- NOTE | 2017-06-14 16:55 | PN ---
Date/Time of Note Date/Time of Note DATE: 06/14/17 TIME: 16:49 Assessment/Plan VTE Prophylaxis VTE Prophylaxis Intervention: other Lines/Catheters IV Catheter Type (from [facility]): [facility] Urinary Cath still in place: No Assessment/Plan Chief Complaint/Hosp Course 1.he is 15 days post op a L leg thrombectomy and fasciotomy for an embolism to L leg .The fasciotomy was closed last week . 2.ARF on CKD . . Urine output is picking up and renal function is improving . No further hemodialysis needed now. He is going to have an AV fistula created for future hemodialysis. He is getting physical therapy . 3.IDDM 4.Anemia due to acute L leg bleeding . 5.CAD 6.Cardiomyopathy 7.depression , he agrees to try antidepressant . will start Lexapro 10 mg a day . 8.He agrees to consider Acute rehab unit . 9. we had a discussion about pain medication and trying to tape him down from pain meds . He says that he needs the current pain meds to relieve his pain . Problems: Subjective 24 Hr Interval Summary Free Text/Dictation He is awake and responsive . c/o L leg pain . He says that he still needs the dilaudid 2 mg for pain relief . Respiratory: no complaints Cardiovascular: no complaints Gastrointestinal: no complaints Musculoskeletal: other Exam/Review of Systems Vital Signs Vitals Vital Signs Date Time Temp Pulse Resp B/P Pulse Ox O2 Delivery O2 Flow Rate FiO2 06/14/17 13:21 98.5 75 18 130/61 96 06/13/17 23:17 Room Air Intake and Output 06/13/17 06/13/17 06/14/17 15:00 23:00 07:00 Intake Total 800 ml 300 ml Output Total 250 ml Balance 800 ml 50 ml Exam L leg is bandaged . Constitutional: alert, frail, oriented ENMT: nl external ears & nose, nl lips & teeth, nl nasal mucosa & septum Respiratory: clear to auscultation, normal air movement Cardiovascular: regular rate and rhythm Gastrointestinal: non-tender, soft Results Result Diagram: 06/12/17 0710 06/10/17 0729 Results 24 hrs Laboratory Tests Test 06/13/17 17:07 06/13/17 20:53 06/14/17 08:23 06/14/17 12:53 Bedside Glucose 181 161 155 149 Medications Medications Current Medications Ondansetron HCl (Zofran Tab) 4 mg Q6H PRN PO NAUSEA AND/OR VOMITING; Start at 21:30 Ondansetron HCl (Zofran Inj) 4 mg Q6H PRN IV NAUSEA AND/OR VOMITING; Start at 21:30 Acetaminophen (Tylenol Tab) 650 mg Q6H PRN PO PAIN LEVEL 1-3 OR FEVER Last administered on 06/01/17 16:37; Admin Dose 650 MG; Start 05/29/17 at 21:30 Zolpidem Tartrate (Ambien) 5 mg QHS PRN PO INSOMNIA Last administered on 02:33; Admin Dose 5 MG; Start 05/29/17 at 21:30 Docusate Sodium (Colace) 100 mg Q12H PRN PO CONSTIPATION Last administered on 06/10/17 21:51; Admin Dose 100 MG; Start 05/29/17 at 21:30 Calcitriol (Rocaltrol) 0.25 mcg DAILY PO Last administered on 06/14/17 09:17 ; Admin Dose 0.25 MCG; Start 05/30/17 at 09:00 Isosorbide Dinitrate (Isordil) 20 mg TID PO Last administered on 06/14/17 13: 00; Admin Dose 20 MG; Start 05/30/17 at 09:00; Status Future hold Linagliptin (Tradjenta) 5 mg DAILY PO Last administered on 06/14/17 09:18; Admin Dose 5 MG; Start 05/30/17 at 09:00 Metoprolol Tartrate (Lopressor) 25 mg BID PO Last administered on 06/14/17 09 :18; Admin Dose 25 MG; Start 05/30/17 at 21:00 Aspirin (Halfprin) 81 mg DAILY PO Last administered on 06/14/17 09:18; Admin Dose 81 MG; Start 05/31/17 at 09:00 Lorazepam (Ativan) 1 mg TID PRN PO ANXIETY Last administered on 06/13/17 22: 46; Admin Dose 1 MG; Start 05/30/17 at 18:00 Miscellaneous Information 1 ea NOTE XX ; Start 05/30/17 at 19:30 Glucose (Glutose) 15 gm Q15M PRN PO DECREASED GLUCOSE; Start 05/30/17 at 19:30 Glucose (Glutose) 22.5 gm Q15M PRN PO DECREASED GLUCOSE; Start 05/30/17 at 19: 30 Dextrose (D50w Syringe) 25 ml Q15M PRN IV DECREASED GLUCOSE; Start 05/30/17 at 19:30 Dextrose (D50w Syringe) 50 ml Q15M PRN IV DECREASED GLUCOSE; Start 05/30/17 at 19:30 Glucagon (Glucagen) 1 mg Q15M PRN IM DECREASED GLUCOSE; Start 05/30/17 at 19:30 Glucose (Glutose) 15 gm Q15M PRN BUCCAL DECREASED GLUCOSE; Start 05/30/17 at 19 :30 Nitroglycerin (Nitroglycerin (Sl Tab) 0.4 Mg) 1 tab Q5M PRN SL ANGINA; Start at 20:00 Insulin Glargine (Lantus) 35 unit HS SC Last administered on 06/13/17 21:12; Admin Dose 35 UNIT; Start 05/31/17 at 21:00 Diagnostic Test (Pha) (Accu-Chek) 1 ea 02 XX Last administered on 06/09/17 02: 00; Admin Dose 1 EA; Start 06/01/17 at 02:00 Atorvastatin Calcium (Lipitor) 20 mg HS PO Last administered on 06/13/17 20: 55; Admin Dose 20 MG; Start 06/04/17 at 21:00 Epoetin Srini (Epogen (Esrd)) 10,000 units MoWeFr@17 SC Last administered on 17:05; Admin Dose 10,000 UNITS; Start 06/04/17 at 17:00 Escitalopram Oxalate (Lexapro) 10 mg DAILY PO Last administered on 06/14/17 09:18; Admin Dose 10 MG; Start 06/05/17 at 09:00 Oxycodone/ Acetaminophen (Endocet (10/ 325)) 1 tab Q4H PRN PO PAIN Last administered on 06/14/17 13:39; Admin Dose 1 TAB; Start 06/05/17 at 09:00 Apixaban (Eliquis) 5 mg BID PO Last administered on 06/14/17 09:17; Admin Dose 5 MG; Start 06/07/17 at 21:00 Hydralazine HCl (Apresoline) 75 mg TID PO Last administered on 06/14/17 12:59 ; Admin Dose 75 MG; Start 06/09/17 at 21:00 Hydromorphone HCl (Dilaudid) 2 mg Q3H PRN IV PAIN LEVEL 7-10 Last administered on 06/14/17 14:46; Admin Dose 2 MG; Start 06/11/17 at 11:08 ANGÉLICA HEWITT MD Jun 14, 2017 16:55
[2017-06-14 17:19] VITALS: BP 153/69; RESP 18
[2017-06-14 19:21] VITALS: BP 155/70; RESP 22
[2017-06-14] MEDS: ATORVASTATIN 20 MG TAB PO SCH (20:59)
[2017-06-14] MEDS: LORAZEPAM 1 MG TAB PO PRN (21:43)
[2017-06-14] MEDS: INSULIN GLARGINE [LANtus] 3 ML PEN SC SCH (21:48)
[2017-06-15] MEDS: HYDROmorphONE 1 MG/ML SYG IV PRN ×5 (00:01→21:56)
[2017-06-15] MEDS: ZOLPIDEM 5 MG TAB PO PRN (01:16)
[2017-06-15] MEDS: ACCU-CHEK XX SCH (02:00)
[2017-06-15 02:17] VITALS: BP 130/60; RESP 22
[2017-06-15 06:05] LABS: BASOPHIL # 0.1 10^3/ul (0.0-0.1); BASOPHILS % 0.8 % (0.0-2.0); EOSINOPHILS # 0.3 10^3/ul (0.0-0.5); EOSINOPHILS % 2.7 % (0.0-7.0); HEMATOCRIT 35.1 % (42.0-52.0); HEMOGLOBIN 11.1 g/dl (14.0-18.0); LYMPHOCYTES # 1.9 10^3/ul (0.8-2.9); LYMPHOCYTES % 17.5 % (15.0-51.0); MEAN CORPUSCULAR HEMOGLOBIN 29.3 pg (29.0-33.0); MEAN CORPUSCULAR HGB CONC 31.6 g/dl (32.0-37.0); MEAN CORPUSCULAR VOLUME 92.6 fl (82.0-101.0); MEAN PLATELET VOLUME 10.1 fl (7.4-10.4); MONOCYTE # 0.7 10^3/ul (0.3-0.9); MONOCYTES % 6.1 % (0.0-11.0); NEUTROPHIL # 7.5 10^3/ul (1.6-7.5); NEUTROPHILS % 70.7 % (39.0-77.0); PLATELET COUNT 388 10^3/UL (140-415); RED BLOOD COUNT 3.79 10^6/ul (4.70-6.10); RED CELL DISTRIBUTION WIDTH 14.3 % (11.5-14.5); WHITE BLOOD COUNT 10.6 10^3/ul (4.8-10.8)
[2017-06-15 06:53] LABS: ALBUMIN 3.3 g/dl (3.3-4.9); ALBUMIN/GLOBULIN RATIO 1.03; BILIRUBIN,INDIRECT 0.3 mg/dl (0-1.1); BILIRUBIN,TOTAL 0.3 mg/dl (0.2-1.3); CALCIUM 8.4 mg/dl (8.4-10.2); CREATININE 3.26 mg/dl (0.61-1.24); POTASSIUM 4.6 mmol/L (3.5-5.1); TOTAL PROTEIN 6.5 g/dl (6.1-8.1)
[2017-06-15] MEDS: INSULIN ASPART [NOVOLOG] 3 ML PEN SC SCH ×4 (07:50→20:55)
[2017-06-15 07:53] VITALS: BP 138/65; RESP 17
[2017-06-15] MEDS: ESCITALOPRAM 10 MG TAB PO SCH (08:54)
[2017-06-15] MEDS: ISOSORBIDE DINITRATE 20 MG TAB PO SCH ×3 (08:54→20:48)
[2017-06-15] MEDS: ASPIRIN (EC) 81 MG TAB PO SCH (08:55)
[2017-06-15] MEDS: APIXABAN 5 MG TABLET PO SCH ×2 (08:55→20:49)
[2017-06-15] MEDS: CALCITRIOL 0.25 MCG CAP PO SCH (08:55)
[2017-06-15] MEDS: METOPROLOL 25 MG TAB PO SCH ×2 (08:56→20:49)
[2017-06-15] MEDS: LINAGLIPTIN 5 MG TABLET PO SCH (09:20)
[2017-06-15] MEDS: HYDROmorphONE 2 MG/ML SYG IV PRN ×3 (09:21→16:10)
[2017-06-15] MEDS: LORAZEPAM 1 MG TAB PO PRN ×2 (09:48→19:02)
--- NOTE | 2017-06-15 13:21 | CONS ---
Date/Time of Note Date/Time of Note DATE: 06/15/17 TIME: 13:19 Assessment/Plan Assessment/Plan Additional Assessment/Plan 1. Chest pain prior to surgery with negative troponins x3 since/ NO recurrent chest pain that time and history of recent stress testing with no ischemia.- now mildly positive troponin after surgery likely type 2 infarct with no sig uptrend - NO CP now, off tele currently 2. Cardiomyopathy with decreased left ventricular ejection fraction, approximately 35-40 percent by echo and stress test most recently - con't to keep euvolemic. April 2017.-per read from another verse writer over the weekend patient now with improved EF and no signs of intracaardiac thrombus 3. Postop, status post thrombectomy and fasciotomy for acute arterial insufficiency, ischemic foot-now closed-? etiology. NO documented AF by Tele at this time - surgical team follows 4. Peripheral arterial disease. 5. Chronic kidney disease, renal team follows 6. Leukocytosis, status post surgery. 7. Dyslipidemia. 8. Hypertension-labile but currently very well controlled. Likely component of pain at times Consultation Date/Type/Reason Admit Date/Time May 29, 2017 at 19:54 Type of Consultation: Cardiology Referring Provider: ANGÉLICA HEWITT MD 24 HR Interval Summary Free Text/Dictation NO acute events - BP stable - off tele now - no CP reported ROS: No fever, no chills, no nausea, no vomiting, no diarrhea/constipation No recent weight changes No chest pain, no PND, no orthopnea No dizziness, blurred vision No thirst, no heat or cold intolerance Exam/Review of Systems Vital Signs Vitals Vital Signs Date Time Temp Pulse Resp B/P Pulse Ox O2 Delivery O2 Flow Rate FiO2 06/15/17 07:53 98.2 70 17 138/65 100 06/13/17 23:17 Room Air Intake and Output 06/14/17 06/14/17 06/15/17 15:00 23:00 07:00 Intake Total 1000 ml 960 ml Output Total 900 ml Balance 1000 ml 60 ml Exam General: WN/WD/NAD, AOx 2-3 HEENT: Unicetric/atraumatic/EOMI (follows commands) NECK: JVD elevated, no thyromegaly Lymph: no lymphadenopathy HEART: regular with no S3, II/ systolic murmur at apex LUNGS: Coarse sounds ABD: soft, NT, ND, +BS : Intact Neuro: non focal SKIN: chronic changes EXT: trace edema Results Result Diagram: 06/15/17 0434 06/15/17 0434 Results 24 hrs Laboratory Tests Test 06/14/17 17:54 06/14/17 21:45 06/15/17 01:20 06/15/17 04:34 Bedside Glucose 145 222 H 172 White Blood Count 10.6 Red Blood Count 3.79 L Hemoglobin 11.1 L Hematocrit 35.1 L Mean Corpuscular Volume 92.6 Mean Corpuscular Hemoglobin 29.3 Mean Corpuscular Hemoglobin Concent 31.6 L Red Cell Distribution Width 14.3 Platelet Count 388 Mean Platelet Volume 10.1 Neutrophils % 70.7 Lymphocytes % 17.5 Monocytes % 6.1 Eosinophils % 2.7 Basophils % 0.8 Nucleated Red Blood Cells % 0.0 Neutrophils # 7.5 Lymphocytes # 1.9 Monocytes # 0.7 Eosinophils # 0.3 Basophils # 0.1 Nucleated Red Blood Cells # 0.0 Sodium Level 139 Potassium Level 4.6 Chloride Level 104 Carbon Dioxide Level 26 Anion Gap 14 Blood Urea Nitrogen 42 H Creatinine 3.26 H Glucose Level 115 Calcium Level 8.4 Total Bilirubin 0.3 Direct Bilirubin 0.00 Indirect Bilirubin 0.3 Aspartate Amino Transf (AST/SGOT) 30 Alanine Aminotransferase (ALT/SGPT) 49 Alkaline Phosphatase 113 Total Protein 6.5 Albumin 3.3 Globulin 3.20 Albumin/Globulin Ratio 1.03 Test 06/15/17 08:59 06/15/17 12:32 Bedside Glucose 139 221 H Medications Medications Current Medications Ondansetron HCl (Zofran Tab) 4 mg Q6H PRN PO NAUSEA AND/OR VOMITING; Start at 21:30 Ondansetron HCl (Zofran Inj) 4 mg Q6H PRN IV NAUSEA AND/OR VOMITING; Start at 21:30 Acetaminophen (Tylenol Tab) 650 mg Q6H PRN PO PAIN LEVEL 1-3 OR FEVER Last administered on 06/01/17 16:37; Admin Dose 650 MG; Start 05/29/17 at 21:30 Zolpidem Tartrate (Ambien) 5 mg QHS PRN PO INSOMNIA Last administered on 01:16; Admin Dose 5 MG; Start 05/29/17 at 21:30 Docusate Sodium (Colace) 100 mg Q12H PRN PO CONSTIPATION Last administered on 06/10/17 21:51; Admin Dose 100 MG; Start 05/29/17 at 21:30 Calcitriol (Rocaltrol) 0.25 mcg DAILY PO Last administered on 06/15/17 08:55 ; Admin Dose 0.25 MCG; Start 05/30/17 at 09:00 Isosorbide Dinitrate (Isordil) 20 mg TID PO Last administered on 06/15/17 08: 54; Admin Dose 20 MG; Start 05/30/17 at 09:00; Status Future hold Linagliptin (Tradjenta) 5 mg DAILY PO Last administered on 06/15/17 09:20; Admin Dose 5 MG; Start 05/30/17 at 09:00 Metoprolol Tartrate (Lopressor) 25 mg BID PO Last administered on 06/15/17 08 :56; Admin Dose 25 MG; Start 05/30/17 at 21:00 Aspirin (Halfprin) 81 mg DAILY PO Last administered on 06/15/17 08:55; Admin Dose 81 MG; Start 05/31/17 at 09:00 Lorazepam (Ativan) 1 mg TID PRN PO ANXIETY Last administered on 06/15/17 09: 48; Admin Dose 1 MG; Start 05/30/17 at 18:00 Miscellaneous Information 1 ea NOTE XX ; Start 05/30/17 at 19:30 Glucose (Glutose) 15 gm Q15M PRN PO DECREASED GLUCOSE; Start 05/30/17 at 19:30 Glucose (Glutose) 22.5 gm Q15M PRN PO DECREASED GLUCOSE; Start 05/30/17 at 19: 30 Dextrose (D50w Syringe) 25 ml Q15M PRN IV DECREASED GLUCOSE; Start 05/30/17 at 19:30 Dextrose (D50w Syringe) 50 ml Q15M PRN IV DECREASED GLUCOSE; Start 05/30/17 at 19:30 Glucagon (Glucagen) 1 mg Q15M PRN IM DECREASED GLUCOSE; Start 05/30/17 at 19:30 Glucose (Glutose) 15 gm Q15M PRN BUCCAL DECREASED GLUCOSE; Start 05/30/17 at 19 :30 Nitroglycerin (Nitroglycerin (Sl Tab) 0.4 Mg) 1 tab Q5M PRN SL ANGINA; Start at 20:00 Insulin Glargine (Lantus) 35 unit HS SC Last administered on 06/14/17 21:48; Admin Dose 35 UNIT; Start 05/31/17 at 21:00 Diagnostic Test (Pha) (Accu-Chek) 1 ea 02 XX Last administered on 06/09/17 02: 00; Admin Dose 1 EA; Start 06/01/17 at 02:00 Atorvastatin Calcium (Lipitor) 20 mg HS PO Last administered on 06/14/17 20: 59; Admin Dose 20 MG; Start 06/04/17 at 21:00 Epoetin Srini (Epogen (Esrd)) 10,000 units MoWeFr@17 SC Last administered on 17:05; Admin Dose 10,000 UNITS; Start 06/04/17 at 17:00 Escitalopram Oxalate (Lexapro) 10 mg DAILY PO Last administered on 06/15/17 08:54; Admin Dose 10 MG; Start 06/05/17 at 09:00 Oxycodone/ Acetaminophen (Endocet (10/ 325)) 1 tab Q4H PRN PO PAIN Last administered on 06/14/17 19:45; Admin Dose 1 TAB; Start 06/05/17 at 09:00 Apixaban (Eliquis) 5 mg BID PO Last administered on 06/15/17 08:55; Admin Dose 5 MG; Start 06/07/17 at 21:00 Hydralazine HCl (Apresoline) 75 mg TID PO Last administered on 06/15/17 08:55 ; Admin Dose 75 MG; Start 06/09/17 at 21:00 Hydromorphone HCl (Dilaudid) 2 mg Q3H PRN IV PAIN Last administered on 06/15/17 12:52; Admin Dose 2 MG; Start 06/15/17 at 09:16 KAREN MESSINA MD Jun 15, 2017 13:21
[2017-06-15 14:00] VITALS: BP 143/65; RESP 16
[2017-06-15] MEDS: OXYCODONE/ACETAMINOPHEN (10/325) TAB PO PRN ×2 (14:54→20:50)
--- NOTE | 2017-06-15 17:36 | PN ---
Date/Time of Note Date/Time of Note DATE: 06/15/17 TIME: 17:29 Assessment/Plan VTE Prophylaxis VTE Prophylaxis Intervention: other Lines/Catheters IV [facility] Type (from [facility]): Sal[facility] Lock Urinary Cath still in place: No Assessment/Plan Chief Complaint/Hosp Course 1.he is 16 days post op a L leg thrombectomy and fasciotomy for an embolism to L leg .The fasciotomy was closed last week . He continues to have pain in his L lower leg . 2.ARF on CKD . . Urine output is picking up and renal function is improving . No further hemodialysis needed now. He is going to have an AV fistula created for future hemodialysis. He is getting physical therapy . 3.IDDM 4.Anemia due to acute L leg bleeding . 5.CAD 6.Cardiomyopathy 7.depression , he agrees to try antidepressant . will start Lexapro 10 mg a day . 8.He agrees to go to Acute rehab unit . Will transfer to acute rehab tomorrow am . 9. Taper IV pain meds to 1 mg IV q 3 hours . Problems: Subjective 24 Hr Interval Summary Free Text/Dictation He c/o L lower leg pain . Respiratory: no complaints Cardiovascular: no complaints Gastrointestinal: no complaints Genitourinary: no complaints Psychological: depression Exam/Review of Systems Vital Signs Vitals Vital Signs Date Time Temp Pulse Resp B/P Pulse Ox O2 Delivery O2 Flow Rate FiO2 06/15/17 14:00 98.7 73 16 143/65 98 06/13/17 23:17 Room Air Intake and Output 06/14/17 06/14/17 06/15/17 15:00 23:00 07:00 Intake Total 1000 ml 960 ml Output Total 900 ml Balance 1000 ml 60 ml Exam L lower leg with a bandage Constitutional: alert, frail, oriented Psych: depression Respiratory: clear to auscultation, normal air movement Cardiovascular: regular rate and rhythm Gastrointestinal: soft Results Result Diagram: 06/15/17 0434 06/15/17 0434 Results 24 hrs Laboratory Tests Test 06/14/17 17:54 06/14/17 21:45 06/15/17 01:20 06/15/17 04:34 Bedside Glucose 145 222 H 172 White Blood Count 10.6 Red Blood Count 3.79 L Hemoglobin 11.1 L Hematocrit 35.1 L Mean Corpuscular Volume 92.6 Mean Corpuscular Hemoglobin 29.3 Mean Corpuscular Hemoglobin Concent 31.6 L Red Cell Distribution Width 14.3 Platelet Count 388 Mean Platelet Volume 10.1 Neutrophils % 70.7 Lymphocytes % 17.5 Monocytes % 6.1 Eosinophils % 2.7 Basophils % 0.8 Nucleated Red Blood Cells % 0.0 Neutrophils # 7.5 Lymphocytes # 1.9 Monocytes # 0.7 Eosinophils # 0.3 Basophils # 0.1 Nucleated Red Blood Cells # 0.0 Sodium Level 139 Potassium Level 4.6 Chloride Level 104 Carbon Dioxide Level 26 Anion Gap 14 Blood Urea Nitrogen 42 H Creatinine 3.26 H Glucose Level 115 Calcium Level 8.4 Total Bilirubin 0.3 Direct Bilirubin 0.00 Indirect Bilirubin 0.3 Aspartate Amino Transf (AST/SGOT) 30 Alanine Aminotransferase (ALT/SGPT) 49 Alkaline Phosphatase 113 Total Protein 6.5 Albumin 3.3 Globulin 3.20 Albumin/Globulin Ratio 1.03 Test 06/15/17 08:59 06/15/17 12:32 Bedside Glucose 139 221 H Medications Medications Current Medications Ondansetron HCl (Zofran Tab) 4 mg Q6H PRN PO NAUSEA AND/OR VOMITING; Start at 21:30 Ondansetron HCl (Zofran Inj) 4 mg Q6H PRN IV NAUSEA AND/OR VOMITING; Start at 21:30 Acetaminophen (Tylenol Tab) 650 mg Q6H PRN PO PAIN LEVEL 1-3 OR FEVER Last administered on 06/01/17 16:37; Admin Dose 650 MG; Start 05/29/17 at 21:30 Zolpidem Tartrate (Ambien) 5 mg QHS PRN PO INSOMNIA Last administered on 01:16; Admin Dose 5 MG; Start 05/29/17 at 21:30 Docusate Sodium (Colace) 100 mg Q12H PRN PO CONSTIPATION Last administered on 06/10/17 21:51; Admin Dose 100 MG; Start 05/29/17 at 21:30 Calcitriol (Rocaltrol) 0.25 mcg DAILY PO Last administered on 06/15/17 08:55 ; Admin Dose 0.25 MCG; Start 05/30/17 at 09:00 Isosorbide Dinitrate (Isordil) 20 mg TID PO Last administered on 06/15/17 13: 18; Admin Dose 20 MG; Start 05/30/17 at 09:00; Status Future hold Linagliptin (Tradjenta) 5 mg DAILY PO Last administered on 06/15/17 09:20; Admin Dose 5 MG; Start 05/30/17 at 09:00 Metoprolol Tartrate (Lopressor) 25 mg BID PO Last administered on 06/15/17 08 :56; Admin Dose 25 MG; Start 05/30/17 at 21:00 Aspirin (Halfprin) 81 mg DAILY PO Last administered on 06/15/17 08:55; Admin Dose 81 MG; Start 05/31/17 at 09:00 Lorazepam (Ativan) 1 mg TID PRN PO ANXIETY Last administered on 06/15/17 09: 48; Admin Dose 1 MG; Start 05/30/17 at 18:00 Miscellaneous Information 1 ea NOTE XX ; Start 05/30/17 at 19:30 Glucose (Glutose) 15 gm Q15M PRN PO DECREASED GLUCOSE; Start 05/30/17 at 19:30 Glucose (Glutose) 22.5 gm Q15M PRN PO DECREASED GLUCOSE; Start 05/30/17 at 19: 30 Dextrose (D50w Syringe) 25 ml Q15M PRN IV DECREASED GLUCOSE; Start 05/30/17 at 19:30 Dextrose (D50w Syringe) 50 ml Q15M PRN IV DECREASED GLUCOSE; Start 05/30/17 at 19:30 Glucagon (Glucagen) 1 mg Q15M PRN IM DECREASED GLUCOSE; Start 05/30/17 at 19:30 Glucose (Glutose) 15 gm Q15M PRN BUCCAL DECREASED GLUCOSE; Start 05/30/17 at 19 :30 Nitroglycerin (Nitroglycerin (Sl Tab) 0.4 Mg) 1 tab Q5M PRN SL ANGINA; Start at 20:00 Insulin Glargine (Lantus) 35 unit HS SC Last administered on 06/14/17 21:48; Admin Dose 35 UNIT; Start 05/31/17 at 21:00 Diagnostic Test (Pha) (Accu-Chek) 1 ea 02 XX Last administered on 06/09/17 02: 00; Admin Dose 1 EA; Start 06/01/17 at 02:00 Atorvastatin Calcium (Lipitor) 20 mg HS PO Last administered on 06/14/17 20: 59; Admin Dose 20 MG; Start 06/04/17 at 21:00 Epoetin Srini (Epogen (Esrd)) 10,000 units MoWeFr@17 SC Last administered on 17:05; Admin Dose 10,000 UNITS; Start 06/04/17 at 17:00 Escitalopram Oxalate (Lexapro) 10 mg DAILY PO Last administered on 06/15/17 08:54; Admin Dose 10 MG; Start 06/05/17 at 09:00 Oxycodone/ Acetaminophen (Endocet (10/ 325)) 1 tab Q4H PRN PO PAIN Last administered on 06/15/17 14:54; Admin Dose 1 TAB; Start 06/05/17 at 09:00 Apixaban (Eliquis) 5 mg BID PO Last administered on 06/15/17 08:55; Admin Dose 5 MG; Start 06/07/17 at 21:00 Hydralazine HCl (Apresoline) 75 mg TID PO Last administered on 06/15/17 13:19 ; Admin Dose 75 MG; Start 06/09/17 at 21:00 Hydromorphone HCl (Dilaudid) 1 mg Q3H PRN IV PAIN ; Start 06/15/17 at 18:16; Status ANGÉLICA WERNER MD Jun 15, 2017 17:36
[2017-06-15] MEDS ORDERED: HYDROmorphONE 2 MG/ML SYG IV PRN (18:16)
[2017-06-15 19:41] VITALS: BP 177/80; RESP 19
[2017-06-15] MEDS: ATORVASTATIN 20 MG TAB PO SCH (20:48)
[2017-06-15] MEDS: DOCUSATE SODIUM 100 MG CAP PO PRN (20:50)
[2017-06-15] MEDS: INSULIN GLARGINE [LANtus] 3 ML PEN SC SCH (21:16)
[2017-06-15 22:00] VITALS: BP 133/76; PULSE 76; RESP 19
[2017-06-16] MEDS: HYDROmorphONE 1 MG/ML SYG IV PRN ×4 (00:59→09:51)
[2017-06-16] MEDS: ZOLPIDEM 5 MG TAB PO PRN (01:58)
[2017-06-16] MEDS: ACCU-CHEK XX SCH (02:00)
[2017-06-16 07:43] VITALS: BP 124/70; RESP 19
[2017-06-16] MEDS: INSULIN ASPART [NOVOLOG] 3 ML PEN SC SCH ×2 (07:50→12:54)
[2017-06-16] MEDS: CALCITRIOL 0.25 MCG CAP PO SCH (08:58)
[2017-06-16] MEDS: APIXABAN 5 MG TABLET PO SCH (08:58)
[2017-06-16] MEDS: ESCITALOPRAM 10 MG TAB PO SCH (08:59)
[2017-06-16] MEDS: METOPROLOL 25 MG TAB PO SCH (08:59)
[2017-06-16] MEDS: LINAGLIPTIN 5 MG TABLET PO SCH (08:59)
[2017-06-16] MEDS: ISOSORBIDE DINITRATE 20 MG TAB PO SCH ×2 (09:00→13:00)
[2017-06-16] MEDS: ASPIRIN (EC) 81 MG TAB PO SCH (09:00)
[2017-06-16] MEDS: DOCUSATE SODIUM 100 MG CAP PO PRN (09:50)
[2017-06-16] MEDS: OXYCODONE/ACETAMINOPHEN (10/325) TAB PO PRN (10:31)
[2017-06-16] MEDS ORDERED: HYDROmorphONE 1 MG/ML SYG IV STA (11:35)
--- NOTE | 2017-06-16 11:43 | PN ---
Date/Time of Note Date/Time of Note DATE: 06/16/17 TIME: 11:38 Assessment/Plan VTE Prophylaxis VTE Prophylaxis Intervention: other Lines/Catheters IV [facility] Type (from [facility]): [facility] Urinary Cath still in place: No Assessment/Plan Chief Complaint/Hosp Course 1.he is 17 days post op a L leg thrombectomy and fasciotomy for an embolism to L leg .The fasciotomy was closed last week . He continues to have pain in his L lower leg . 2.ARF on CKD . . Urine output is picking up and renal function is improving . No further hemodialysis needed now. He is going to have an AV fistula created for future hemodialysis. He is getting physical therapy . 3.IDDM 4.Anemia due to acute L leg bleeding . 5.CAD 6.Cardiomyopathy 7.depression , he agrees to try antidepressant . will start Lexapro 10 mg a day . 8.He agrees to go to Acute rehab unit . Will transfer to acute rehab today . 9.D/C IV pain meds . Problems: Subjective 24 Hr Interval Summary Free Text/Dictation he is awake and responsive . he is still c/o pain in his L leg . Respiratory: no complaints Cardiovascular: no complaints Gastrointestinal: no complaints Genitourinary: no complaints Musculoskeletal: no complaints Neurologic: no complaints Exam/Review of Systems Vital Signs Vitals Vital Signs Date Time Temp Pulse Resp B/P Pulse Ox O2 Delivery O2 Flow Rate FiO2 06/16/17 07:43 98.2 69 19 124/70 98 06/15/17 22:00 Room Air Intake and Output 06/15/17 06/15/17 06/16/17 15:00 23:00 07:00 Intake Total 1000 ml Output Total 1050 ml Balance -50 ml Exam L leg is bandaged . Constitutional: alert, frail, oriented Neck: non-tender, supple Respiratory: clear to auscultation, normal air movement Cardiovascular: regular rate and rhythm Gastrointestinal: soft Results Result Diagram: 06/15/17 0434 06/15/17 0434 Results 24 hrs Laboratory Tests Test 06/15/17 12:32 06/15/17 17:42 06/15/17 20:51 06/16/17 02:03 Bedside Glucose 221 H 144 193 121 Test 06/16/17 09:03 Bedside Glucose 91 Medications Medications Current Medications Ondansetron HCl (Zofran Tab) 4 mg Q6H PRN PO NAUSEA AND/OR VOMITING; Start at 21:30 Ondansetron HCl (Zofran Inj) 4 mg Q6H PRN IV NAUSEA AND/OR VOMITING; Start at 21:30 Acetaminophen (Tylenol Tab) 650 mg Q6H PRN PO PAIN LEVEL 1-3 OR FEVER Last administered on 06/01/17 16:37; Admin Dose 650 MG; Start 05/29/17 at 21:30 Zolpidem Tartrate (Ambien) 5 mg QHS PRN PO INSOMNIA Last administered on 01:58; Admin Dose 5 MG; Start 05/29/17 at 21:30 Docusate Sodium (Colace) 100 mg Q12H PRN PO CONSTIPATION Last administered on 06/16/17 09:50; Admin Dose 100 MG; Start 05/29/17 at 21:30 Calcitriol (Rocaltrol) 0.25 mcg DAILY PO Last administered on 06/16/17 08:58 ; Admin Dose 0.25 MCG; Start 05/30/17 at 09:00 Isosorbide Dinitrate (Isordil) 20 mg TID PO Last administered on 06/16/17 09: 00; Admin Dose 20 MG; Start 05/30/17 at 09:00; Status Future hold Linagliptin (Tradjenta) 5 mg DAILY PO Last administered on 06/16/17 08:59; Admin Dose 5 MG; Start 05/30/17 at 09:00 Metoprolol Tartrate (Lopressor) 25 mg BID PO Last administered on 06/16/17 08 :59; Admin Dose 25 MG; Start 05/30/17 at 21:00 Aspirin (Halfprin) 81 mg DAILY PO Last administered on 06/16/17 09:00; Admin Dose 81 MG; Start 05/31/17 at 09:00 Lorazepam (Ativan) 1 mg TID PRN PO ANXIETY Last administered on 06/15/17 19: 02; Admin Dose 1 MG; Start 05/30/17 at 18:00 Miscellaneous Information 1 ea NOTE XX ; Start 05/30/17 at 19:30 Glucose (Glutose) 15 gm Q15M PRN PO DECREASED GLUCOSE; Start 05/30/17 at 19:30 Glucose (Glutose) 22.5 gm Q15M PRN PO DECREASED GLUCOSE; Start 05/30/17 at 19: 30 Dextrose (D50w Syringe) 25 ml Q15M PRN IV DECREASED GLUCOSE; Start 05/30/17 at 19:30 Dextrose (D50w Syringe) 50 ml Q15M PRN IV DECREASED GLUCOSE; Start 05/30/17 at 19:30 Glucagon (Glucagen) 1 mg Q15M PRN IM DECREASED GLUCOSE; Start 05/30/17 at 19:30 Glucose (Glutose) 15 gm Q15M PRN BUCCAL DECREASED GLUCOSE; Start 05/30/17 at 19 :30 Nitroglycerin (Nitroglycerin (Sl Tab) 0.4 Mg) 1 tab Q5M PRN SL ANGINA; Start at 20:00 Insulin Glargine (Lantus) 35 unit HS SC Last administered on 06/15/17 21:16; Admin Dose 35 UNIT; Start 05/31/17 at 21:00 Diagnostic Test (Pha) (Accu-Chek) 1 ea 02 XX Last administered on 06/09/17 02: 00; Admin Dose 1 EA; Start 06/01/17 at 02:00 Atorvastatin Calcium (Lipitor) 20 mg HS PO Last administered on 06/15/17 20: 48; Admin Dose 20 MG; Start 06/04/17 at 21:00 Epoetin Srini (Epogen (Esrd)) 10,000 units MoWeFr@17 SC Last administered on 17:05; Admin Dose 10,000 UNITS; Start 06/04/17 at 17:00 Escitalopram Oxalate (Lexapro) 10 mg DAILY PO Last administered on 06/16/17 08:59; Admin Dose 10 MG; Start 06/05/17 at 09:00 Oxycodone/ Acetaminophen (Endocet (10/ 325)) 1 tab Q4H PRN PO PAIN Last administered on 06/16/17 10:31; Admin Dose 1 TAB; Start 06/05/17 at 09:00 Apixaban (Eliquis) 5 mg BID PO Last administered on 06/16/17 08:58; Admin Dose 5 MG; Start 06/07/17 at 21:00 Hydralazine HCl (Apresoline) 75 mg TID PO Last administered on 10/16/17at 08:58 ; Admin Dose 75 MG; Start 06/09/17 at 21:00 Hydromorphone HCl (Dilaudid) 1 mg Q3H PRN IV PAIN -06/10 Last administered on 06/16/17t 09:51; Admin Dose 1 MG; Start 06/15/17 at 17:30 ANGÉLICA HEWITT MD Jun 16, 2017 11:43
--- NOTE | 2017-06-16 11:44 | PDOCDIS ---
Discharge Instructions DIAGNOSIS Discharge Diagnosis L leg arterial occlusion CONDITION Patient Condition: Fair HOME CARE INSTRUCTIONS: Diet Instructions: Reduced CalorieSpecial Diet: CARB-CONTROLLED DIET ACTIVITY: Activity Restrictions: Slowly Increase Activity Rest between Activity Weight Bearing Bathing Restrictions: Shower FOLLOW UP/APPOINTMENTS Follow-up Plan ANGÉLICA Scherer MD Jun 16, 2017 11:44
--- NOTE | 2017-06-16 11:56 | CONS ---
Date/Time of Note Date/Time of Note DATE: 06/16/17 TIME: 11:54 Assessment/Plan Assessment/Plan Chief Complaint/Hosp Course IMPRESSION: 1. Chest pain prior to surgery with negative troponins x3 since/ NO recurrent chest pain that time and history of recent stress testing with no ischemia.-now mildly positive troponin after surgery likely type 2 infarct with no sig uptrend 2. Cardiomyopathy with decreased left ventricular ejection fraction, approximately 35-40 percent by echo and stress test most recently April 2017.-per read from another spout positioner over the weekend patient now with improved EF and no signs of intracaardiac thrombus 3. Postop, status post thrombectomy and fasciotomy for acute arterial insufficiency, ischemic foot-now closed-? etiology. NO documented AF by Tele at this time 4. Peripheral arterial disease. 5. Chronic kidney disease, pain, prepare for likely initiation of hemodialysis. 6. Leukocytosis, status post surgery. 7. Dyslipidemia. 8. Hypertension-currently well controlled Recc: -Now on med-surg -serial ecg's -Continue asa/Eliquis and follow Hgb closely -Continue Hydralazine/isordil/BB as tolerated -Follow volume status -Continue statin -local wound care and ongoing vascular surgery follow-up -HD for volume removal -PT/OT Problems: Consultation Date/Type/Reason Admit Date/Time May 29, 2017 at 19:54 Initial Consult Date 05/31/17 Type of Consultation: Cardiology Reason for Consultation positive troponin Referring Provider: ANGÉLICA HEWITT MD Exam/Review of Systems Vital Signs Vitals Vital Signs Date Time Temp Pulse Resp B/P Pulse Ox O2 Delivery O2 Flow Rate FiO2 06/16/17 07:43 98.2 69 19 124/70 98 06/15/17 22:00 Room Air Intake and Output 06/15/17 06/15/17 06/16/17 15:00 23:00 07:00 Intake Total 1000 ml Output Total 1050 ml Balance -50 ml Exam Review of Systems: CONSTITUTIONAL: No fevers, chills. PULMONARY: No sob CARDIOVASCULAR: No chest pain/palpitations GASTROINTESTINAL: No nausea/vomiting. GENITOURINARY: No hematuria/dysuria. MUSCULOSKELETAL: mild pain in leg PSYCHIATRIC: The patient denies depression. NEUROLOGIC: No weakness Constitutional: alert, oriented Psych: no complaints Head: normocephalic ENMT: mucosa pink and moist Neck: jvd (9 cm water), supple Respiratory: clear to auscultation Cardiovascular: regular rate and rhythm Gastrointestinal: soft Musculoskeletal: muscle tone (normal) Extremities: edema (none), other (covered by dressing LLE) Neurological: other (No focal deficits) Results Result Diagram: 06/15/17 0434 06/15/17 0434 Results 24 hrs Laboratory Tests Test 06/15/17 12:32 06/15/17 17:42 06/15/17 20:51 06/16/17 02:03 Bedside Glucose 221 H 144 193 121 Test 06/16/17 09:03 06/16/17 11:51 Bedside Glucose 91 207 Medications Medications Current Medications Ondansetron HCl (Zofran Tab) 4 mg Q6H PRN PO NAUSEA AND/OR VOMITING; Start at 21:30 Ondansetron HCl (Zofran Inj) 4 mg Q6H PRN IV NAUSEA AND/OR VOMITING; Start at 21:30 Acetaminophen (Tylenol Tab) 650 mg Q6H PRN PO PAIN LEVEL 1-3 OR FEVER Last administered on 06/01/17 16:37; Admin Dose 650 MG; Start 05/29/17 at 21:30 Zolpidem Tartrate (Ambien) 5 mg QHS PRN PO INSOMNIA Last administered on 01:58; Admin Dose 5 MG; Start 05/29/17 at 21:30 Docusate Sodium (Colace) 100 mg Q12H PRN PO CONSTIPATION Last administered on 06/16/17 09:50; Admin Dose 100 MG; Start 05/29/17 at 21:30 Calcitriol (Rocaltrol) 0.25 mcg DAILY PO Last administered on 06/16/17 08:58 ; Admin Dose 0.25 MCG; Start 05/30/17 at 09:00 Isosorbide Dinitrate (Isordil) 20 mg TID PO Last administered on 06/16/17 09: 00; Admin Dose 20 MG; Start 05/30/17 at 09:00; Status Future hold Linagliptin (Tradjenta) 5 mg DAILY PO Last administered on 06/16/17 08:59; Admin Dose 5 MG; Start 05/30/17 at 09:00 Metoprolol Tartrate (Lopressor) 25 mg BID PO Last administered on 06/16/17 08 :59; Admin Dose 25 MG; Start 05/30/17 at 21:00 Aspirin (Halfprin) 81 mg DAILY PO Last administered on 06/16/17 09:00; Admin Dose 81 MG; Start 05/31/17 at 09:00 Lorazepam (Ativan) 1 mg TID PRN PO ANXIETY Last administered on 06/15/17 19: 02; Admin Dose 1 MG; Start 05/30/17 at 18:00 Miscellaneous Information 1 ea NOTE XX ; Start 05/30/17 at 19:30 Glucose (Glutose) 15 gm Q15M PRN PO DECREASED GLUCOSE; Start 05/30/17 at 19:30 Glucose (Glutose) 22.5 gm Q15M PRN PO DECREASED GLUCOSE; Start 05/30/17 at 19: 30 Dextrose (D50w Syringe) 25 ml Q15M PRN IV DECREASED GLUCOSE; Start 05/30/17 at 19:30 Dextrose (D50w Syringe) 50 ml Q15M PRN IV DECREASED GLUCOSE; Start 05/30/17 at 19:30 Glucagon (Glucagen) 1 mg Q15M PRN IM DECREASED GLUCOSE; Start 05/30/17 at 19:30 Glucose (Glutose) 15 gm Q15M PRN BUCCAL DECREASED GLUCOSE; Start 05/30/17 at 19 :30 Nitroglycerin (Nitroglycerin (Sl Tab) 0.4 Mg) 1 tab Q5M PRN SL ANGINA; Start at 20:00 Insulin Glargine (Lantus) 35 unit HS SC Last administered on 06/15/17 21:16; Admin Dose 35 UNIT; Start 05/31/17 at 21:00 Diagnostic Test (Pha) (Accu-Chek) 1 ea 02 XX Last administered on 06/09/17 02: 00; Admin Dose 1 EA; Start 06/01/17 at 02:00 Atorvastatin Calcium (Lipitor) 20 mg HS PO Last administered on 06/15/17 20: 48; Admin Dose 20 MG; Start 06/04/17 at 21:00 Epoetin Srini (Epogen (Esrd)) 10,000 units MoWeFr@17 SC Last administered on 17:05; Admin Dose 10,000 UNITS; Start 06/04/17 at 17:00 Escitalopram Oxalate (Lexapro) 10 mg DAILY PO Last administered on 06/16/17 08:59; Admin Dose 10 MG; Start 06/05/17 at 09:00 Oxycodone/ Acetaminophen (Endocet (10/ 325)) 1 tab Q4H PRN PO PAIN Last administered on 06/16/17 10:31; Admin Dose 1 TAB; Start 06/05/17 at 09:00 Apixaban (Eliquis) 5 mg BID PO Last administered on 06/16/17 08:58; Admin Dose 5 MG; Start 06/07/17 at 21:00 Hydralazine HCl (Apresoline) 75 mg TID PO Last administered on 06/16/17 08:58 ; Admin Dose 75 MG; Start 06/09/17 at 21:00 Hydromorphone HCl (Dilaudid) 1 mg Q3H PRN IV PAIN -06/10 Last administered on 06/16/17 09:51; Admin Dose 1 MG; Start 06/15/17 at 17:30 SONNY ALVARENGA Jun 16, 2017 11:56
[2017-06-16] MEDS: LORAZEPAM 1 MG TAB PO PRN (12:59)
[2017-06-16 13:00] VITALS: BP 141/71; PULSE 73; RESP 19
== END 2017-06-16 14:27 | DRG 271 ==
LOC: E/R 18:21 → MS4 19:54 → ICU 05-30 17:11 → TEL 06-02 12:30 → MS1 06-13 22:20
PROVIDERS: ADMIT Internal Medicine; ATTEND Internal Medicine
PROC: 04CL0Z6 (ICD-10-PCS; 2017-05-30)
PROC: 04CN0ZZ Extirpation of Matter from Left Popliteal Artery, Open Approach (ICD-10-PCS; 2017-05-30)
PROC: 04CQ0ZZ Extirpation of Matter from Left Anterior Tibial Artery, Open Approach (ICD-10-PCS; 2017-05-30)
PROC: 05HN33Z Insertion of Infusion Device into Left Internal Jugular Vein, Percutaneous Approach (ICD-10-PCS; 2017-05-30)
PROC: B544ZZA Ultrasonography of Left Jugular Veins, Guidance (ICD-10-PCS; 2017-05-30)
PROC: B41DYZZ Fluoroscopy of Aorta and Bilateral Lower Extremity Arteries using Other Contrast (ICD-10-PCS; 2017-05-30)
PROC: 3E05017 Introduction of Other Thrombolytic into Peripheral Artery, Open Approach (ICD-10-PCS; 2017-05-30)
PROC: 0JJW0ZZ Inspection of Lower Extremity Subcutaneous Tissue and Fascia, Open Approach (ICD-10-PCS; 2017-05-30)
PROC: 04CJ0ZZ Extirpation of Matter from Left External Iliac Artery, Open Approach (ICD-10-PCS; principal; 2017-05-30 13:00)
PROC: 30233N1 Transfusion of Nonautologous Red Blood Cells into Peripheral Vein, Percutaneous Approach (ICD-10-PCS; 2017-05-31)
PROC: 5A1D70Z Performance of Urinary Filtration, Intermittent, Less than 6 Hours Per Day (ICD-10-PCS; 2017-06-01)
PROC: 30233N1 Transfusion of Nonautologous Red Blood Cells into Peripheral Vein, Percutaneous Approach (ICD-10-PCS; 2017-06-01)
PROC: 30233N1 Transfusion of Nonautologous Red Blood Cells into Peripheral Vein, Percutaneous Approach (ICD-10-PCS; 2017-06-02)
PROC: 30233N1 Transfusion of Nonautologous Red Blood Cells into Peripheral Vein, Percutaneous Approach (ICD-10-PCS; 2017-06-05)
PROC: 0HBJXZZ Excision of Left Upper Leg Skin, External Approach (ICD-10-PCS; 2017-06-06)
PROC: 0HQLXZZ Repair Left Lower Leg Skin, External Approach (ICD-10-PCS; 2017-06-06)
PROC: 0HRLX74 Replacement of Left Lower Leg Skin with Autologous Tissue Substitute, Partial Thickness, External Approach (ICD-10-PCS; 2017-06-06)
DX: I74.5 Embolism and thrombosis of iliac artery (principal); I74.3 Embolism and thrombosis of arteries of the lower extremities; I42.9 Cardiomyopathy, unspecified; N17.9 Acute kidney failure, unspecified; N18.4 Chronic kidney disease, stage 4 (severe); I95.9 Hypotension, unspecified; E87.1 Hypo-osmolality and hyponatremia; D62 Acute posthemorrhagic anemia; E11.21 Type 2 diabetes mellitus with diabetic nephropathy; E11.51 Type 2 diabetes mellitus with diabetic peripheral angiopathy without gangrene; E11.22 Type 2 diabetes mellitus with diabetic chronic kidney disease; E11.40 Type 2 diabetes mellitus with diabetic neuropathy, unspecified; E11.319 Type 2 diabetes mellitus with unspecified diabetic retinopathy without macular edema; I12.9 Hypertensive chronic kidney disease with stage 1 through stage 4 chronic kidney disease, or unspecified chronic kidney disease; E11.65 Type 2 diabetes mellitus with hyperglycemia; I99.8 Other disorder of circulatory system; E66.01 Morbid (severe) obesity due to excess calories; Z68.30 Body mass index [BMI] 30.0-30.9, adult; H54.61 Unqualified visual loss, right eye, normal vision left eye; I25.10 Atherosclerotic heart disease of native coronary artery without angina pectoris; Z95.1 Presence of aortocoronary bypass graft; F12.90 Cannabis use, unspecified, uncomplicated; F32.9 Major depressive disorder, single episode, unspecified; Z96.641 Presence of right artificial hip joint; I25.2 Old myocardial infarction; Z95.5 Presence of coronary angioplasty implant and graft; Z87.891 Personal history of nicotine dependence; Z79.4 Long term (current) use of insulin; Z79.84 Long term (current) use of oral hypoglycemic drugs; Z79.82 Long term (current) use of aspirin
CPT/HCPCS: 36415; 36430; 71010; 75716; 80048; 80053; 80061; 81001; 82550; 82553; 82728; 82962; 83540; 83735; 83970; 84100; 84300; 84484; 85014; 85018; 85025; 85335; 85610; 85730; 86704; 86709; 86803; 86850; 86900; 86901; 86920; 87081; 87086; 87340; 88304; 90935; 93005; 93306; 93970; 96374; 96375; 97110; 97116; 97164; 97530; C1725; C1752; J0360; J0690; J1100; J1170; J1644; J1815; J2250; J2370; J2405; J2440; J2710; J2765; J2916; J2997; J3010; J3475; J7030; J7040; P9016; Q4081; Q9967

== ENCOUNTER 2017-06-16 14:42 | Inpatient (IN) | payer MEDICARE, OTHER ==
[~2017-06-16] VITALS: Ht 177.8 cm; Wt 84.0 kg
[2017-06-16 14:25] VITALS: BP 125/69; PULSE 79; RESP 22
[~2017-06-16 14:42] MED LIST changes: +FURO20TA3 PO; -HYDR-3671 PO; -HYDR-3672 PO; +HYDR100T25 PO; +LINA5TAB PO; +LORA1TAB PO; -MAG-19 PO
[2017-06-16] MEDS: HYDROmorphONE 1 MG/ML SYG IV PRN ×4 (15:05→21:28)
[2017-06-16] MEDS ORDERED: ONDANSETRON 4 MG TAB PO PRN (15:25)
[2017-06-16] MEDS ORDERED: NITROGLYCERIN (SL) 0.4 MG TAB SL PRN (15:25)
[2017-06-16] MEDS ORDERED: GLUCAGON 1 MG INJ IM PRN (15:25)
[2017-06-16] MEDS ORDERED: ACETAMINOPHEN 325 MG TAB PO PRN ×2 (15:25→16:00)
[2017-06-16] MEDS ORDERED: GLUCOSE GEL 15 GRAM TUBE BUCCAL PRN (15:25)
[2017-06-16] MEDS ORDERED: DEXTROSE 50% 50 ML SYRINGE IV PRN ×2 (15:25)
[2017-06-16] MEDS ORDERED: NACL 0.9% 3 ML SYG IV SCH (15:25)
[2017-06-16] MEDS ORDERED: GLUCOSE GEL 15 GRAM TUBE PO PRN ×2 (15:25)
[2017-06-16] MEDS ORDERED: DOCUSATE SODIUM 100 MG CAP PO PRN (15:25)
[2017-06-16] MEDS ORDERED: EPOETIN 10000 UNITS/1 ML INJ (ESRD) SC SCH (15:25)
[2017-06-16 16:00] VITALS: Ht 177.8 cm; Wt 84.0 kg
[2017-06-16] MEDS ORDERED: LACTULOSE 30ML CUP PO PRN (16:30)
[2017-06-16] MEDS ORDERED: BISACODYL 10 MG SUPP PR PRN (16:30)
[2017-06-16] MEDS: INSULIN ASPART [NOVOLOG] 3 ML PEN SC SCH ×2 (17:35→20:52)
[2017-06-16] MEDS: OXYCODONE/ACETAMINOPHEN (10/325) TAB PO PRN (17:40)
[2017-06-16 20:00] VITALS: BP 173/79; RESP 18
[2017-06-16] MEDS: SENNA TAB PO SCH (20:51)
[2017-06-16] MEDS: DOCUSATE SODIUM 100 MG CAP PO SCH (20:51)
[2017-06-16] MEDS: ISOSORBIDE DINITRATE 20 MG TAB PO SCH (20:51)
[2017-06-16] MEDS: APIXABAN 5 MG TABLET PO SCH (20:51)
[2017-06-16] MEDS: ATORVASTATIN 20 MG TAB PO SCH (20:52)
[2017-06-16] MEDS: METOPROLOL 25 MG TAB PO SCH (20:52)
[2017-06-16] MEDS: INSULIN GLARGINE [LANtus] 3 ML PEN SC SCH (20:53)
[2017-06-16 21:30] VITALS: BP 163/75; PULSE 79
[2017-06-16 22:00] VITALS: BP 160/74; PULSE 80
[2017-06-16] MEDS: LORAZEPAM 1 MG TAB PO PRN (22:02)
[2017-06-16 22:18] VITALS: BP 158/62; PULSE 85
[2017-06-17] MEDS: HYDROmorphONE 1 MG/ML SYG IV PRN ×8 (00:28→22:00)
[2017-06-17 02:00] VITALS: BP 165/80; RESP 18
[2017-06-17] MEDS: ACCU-CHEK XX SCH (02:00)
[2017-06-17 04:28] VITALS: BP 162/77; PULSE 74
[2017-06-17 07:00] VITALS: BP 172/79; RESP 18
[2017-06-17] MEDS: INSULIN ASPART [NOVOLOG] 3 ML PEN SC SCH ×4 (07:35→21:02)
[2017-06-17] MEDS: ESCITALOPRAM 10 MG TAB PO SCH (08:51)
[2017-06-17] MEDS: CALCITRIOL 0.25 MCG CAP PO SCH (08:51)
[2017-06-17] MEDS: ASPIRIN (EC) 81 MG TAB PO SCH (08:51)
[2017-06-17] MEDS: DOCUSATE SODIUM 100 MG CAP PO SCH ×2 (08:51→20:51)
[2017-06-17] MEDS: OXYCODONE/ACETAMINOPHEN (10/325) TAB PO PRN ×2 (08:52→15:23)
[2017-06-17] MEDS: METOPROLOL 25 MG TAB PO SCH ×2 (08:52→20:52)
[2017-06-17] MEDS: APIXABAN 5 MG TABLET PO SCH ×2 (08:53→20:52)
[2017-06-17] MEDS: LINAGLIPTIN 5 MG TABLET PO SCH (08:53)
[2017-06-17] MEDS: ISOSORBIDE DINITRATE 20 MG TAB PO SCH ×3 (08:54→20:52)
[2017-06-17] MEDS ORDERED: INFLUENZA VIRUS VACCINE 0.5 ML SYG IM* ONE (09:00)
[2017-06-17] MEDS ORDERED: HYDROmorphONE 1 MG/ML SYG IV STA (11:46)
[2017-06-17] MEDS: GABAPENTIN 100 MG CAP PO SCH ×2 (12:31→20:53)
--- NOTE | 2017-06-17 12:50 | CONS ---
DATE OF ADMISSION: 06/16/2017 DATE OF CONSULTATION: 06/17/2017 TYPE OF CONSULTATION: Rehabilitation post-admission physician evaluation. REHABILITATION IMPAIRMENT CATEGORY: Debility secondary to severe peripheral vascular disease status post ischemic left lower extremity requiring thrombectomy in addition to compartment fasciotomy and subsequent closure of the fasciotomy wounds with split thickness skin graft. ACTIVE COMORBIDITIES: 1. Acute on chronic kidney disease requiring hemodialysis. 2. Acute pain syndrome. 3. Diabetes mellitus. 4. Hypertension. 5. Coronary artery disease with history of coronary artery bypass graft. 6. Right eye blindness. 7. Impairments in self-care and mobility. HISTORY OF PRESENT ILLNESS: The patient is a 57-year-old gentleman with a history of multiple medical comorbidities including cardiomyopathy, coronary artery disease and CABG, chronic kidney disease, diabetes mellitus and hypertension, who was admitted to [facility] with chest pain, severe left lower extremity pain, and confusion. The patient was noted to have ischemic left lower extremity and underwent a left lower extremity thrombectomy of the left external iliac artery and popliteal and tibial arteries, in addition to left anterior lateral compartment fasciotomy. The patient later underwent a closure of the fasciotomy wounds and split thickness skin graft. The patient's hospital course has been notable for acute on chronic kidney disease requiring hemodialysis, in addition to significant pain and impairments in self-care, mobility as compared to baseline. The patient has been cleared to transfer to the rehabilitation unit for comprehensive interdisciplinary rehab care. FUNCTIONAL HISTORY: Prior to recent events, he was independent in self-care tasks and mobility. Currently, the patient requires minimal to moderate assist for self-care and mobility tasks. I have reviewed the preadmission screen and the patient's current functional status is consistent with the preadmission screen. SOCIAL HISTORY: The patient reports living at home and he hopes to return there upon discharge. PAST MEDICAL HISTORY: 1. Chronic kidney disease. 2. Coronary artery disease with history of coronary artery bypass graft. 3. Right eye blindness. 4. Diabetes mellitus. 5. Hypertension. CURRENT MEDICATIONS: 1. Eliquis 5 mg p.o. b.i.d. 2. Aspirin 81 mg p.o. daily. 3. Lipitor 20 mg p.o. at bedtime. 4. Rocaltrol 0.25 mcg p.o. daily. 5. Colace 100 mg b.i.d. p.r.n. 6. Epogen Friday, Friday, Friday. 7. Lexapro 10 mg p.o. daily. 8. Insulin sliding scale. 9. Apresoline 75 mg p.o. t.i.d. 10. Lantus 35 units subcutaneous at bedtime. 11. Isordil 20 mg p.o. t.i.d. 12. Tradjenta 5 mg p.o. daily. 13. Ativan p.r.n. 14. Lopressor 25 mg p.o. b.i.d. 15. Endocet p.o. q.4h. p.r.n. 16. Ambien p.r.n. ALLERGIES: THE PATIENT WITH NO KNOWN DRUG ALLERGIES. PHYSICAL EXAMINATION: VITAL SIGNS: The patient is currently afebrile with stable vital signs. HEENT: The left ocular motions are intact. Patient with right eye blindness. Oropharynx clear. NECK: Supple. LUNGS: Clear anteriorly. CARDIAC: S1, S2. ABDOMEN: Soft, nontender, positive bowel sounds. NEUROLOGIC: He is awake and alert. He is oriented x3. He will follow simple 1 -step commands. He demonstrates good strength in bilateral upper extremity and the right lower extremity. The patient is able to dorsiflex and plantar flex on the left. PLAN: The patient has been admitted for comprehensive interdisciplinary acute rehab and is anticipated to tolerate 3 hours of daily therapy in divided doses for at least 5/7 days a week. The treatment plan will include: 1. Physical therapy to focus on bed mobility, transfers, and household ambulation with the goal of having the patient reach a standby assist level. 2. Occupational therapy to focus on hygiene, grooming, dressing, bathing, and toileting activities with the goal of having the patient reach standby assist level. 3. Rehabilitation nursing for carryover of therapeutic interventions, with the goal of continent of bowel and bladder, and the goal of pain adequately managed on oral medications. REHABILITATION BARRIER: Wound. Intervention for barrier wound care. ESTIMATED LENGTH OF STAY: 14 days. DISPOSITION GOAL: Home. I acknowledge that I performed a full physical examination on this patient within 24 hours of admission to the rehabilitation unit. I believe the patient is a good candidate for comprehensive interdisciplinary rehab care and is anticipated to make reasonable goals in a reasonable period of time as outlined above. Dictated By: HENRY HUNTER/TREVOR Conf#: [id number] DID#: [id number] MTDKevin
--- NOTE | 2017-06-17 13:52 | CONS ---
Date/Time of Note Date/Time of Note DATE: 06/17/17 TIME: 13:46 Assessment/Plan Assessment/Plan Chief Complaint/Hosp Course 1. Chronic kidney disease stage IV. The patient has gotten one hemodialysis treatment. He is going to be scheduled for a left arm AV fistula by Dr. Lujan when it is convenient. 2. 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 3. Peripheral vascular disease, he is now on Eliquis as an anticoagulant. He had a blood clot to the right iliac artery which was thought to be an embolus by Dr. Lujan. 4. Hypertension, his blood pressure has been elevated. I have increased the hydralazine and have added clonidine as a as needed medication. 5. Anemia of chronic kidney disease, his blood count has increased. I have taken him off of Epogen. 6. depression , he is on Lexapro and will see the psychologist during the week. Problems: Consultation Date/Type/Reason Admit Date/Time Jun 16, 2017 at 14:42 Initial Consult Date 24 HR Interval Summary Free Text/Dictation This patient was transferred here yesterday for comprehensive rehabilitation program. The patient is more than 2 weeks postop a left leg embolus causing arterial insufficiency. He underwent a thrombectomy and lower leg fasciotomy by Dr. Tobi Lujan. Constitutional: improved Exam/Review of Systems Vital Signs Vitals Vital Signs Date Time Temp Pulse Resp B/P Pulse Ox O2 Delivery O2 Flow Rate FiO2 06/17/17 07:00 98.7 69 18 172/79 94 06/16/17 14:25 Room Air Intake and Output 06/16/17 06/16/17 06/17/17 15:00 23:00 07:00 Intake Total 450 ml Output Total 260 ml Balance 190 ml Exam Constitutional: alert, frail, oriented Psych: depression Neck: supple Respiratory: clear to auscultation, normal air movement Cardiovascular: regular rate and rhythm Gastrointestinal: soft Musculoskeletal: nl extremities to inspection Results Result Diagram: 06/17/1762606/17/17626 Results 24 hrs Laboratory Tests Test 06/16/17 17:33 06/16/17 18:45 06/16/17 20:50 06/17/17 06:27 Bedside Glucose 139 150 Urine Color STRAW Urine Clarity CLEAR Urine pH 6.0 Urine Specific [place] 1.008 Urine Ketones NEGATIVE Urine Nitrite NEGATIVE Urine Bilirubin NEGATIVE Urine Urobilinogen NEGATIVE Urine Leukocyte Esterase NEGATIVE Urine Microscopic RBC 4 Urine Microscopic WBC 0 Urine Bacteria FEW A Urine Hemoglobin NEGATIVE Urine Glucose 1+ H Urine Total Protein 2+ H White Blood Count 9.2 Red Blood Count 3.94 L Hemoglobin 11.4 L Hematocrit 36.6 L Mean Corpuscular Volume 92.9 Mean Corpuscular Hemoglobin 28.9 L Mean Corpuscular Hemoglobin Concent 31.1 L Red Cell Distribution Width 14.8 H Platelet Count 361 Mean Platelet Volume 10.3 Neutrophils % 70.9 Lymphocytes % 16.5 Monocytes % 7.8 Eosinophils % 2.9 Basophils % 0.5 Nucleated Red Blood Cells % 0.0 Neutrophils # 6.5 Lymphocytes # 1.5 Monocytes # 0.7 Eosinophils # 0.3 Basophils # 0.1 Nucleated Red Blood Cells # 0.0 Sodium Level 140 Potassium Level 3.9 Chloride Level 104 Carbon Dioxide Level 26 Anion Gap 14 Blood Urea Nitrogen 43 H Creatinine 3.48 H Glucose Level 123 Calcium Level 8.6 Total Bilirubin 0.2 Direct Bilirubin 0.00 Indirect Bilirubin 0.2 Aspartate Amino Transf (AST/SGOT) 25 Alanine Aminotransferase (ALT/SGPT) 49 Alkaline Phosphatase 112 Total Protein 6.7 Albumin 3.3 Globulin 3.40 H Albumin/Globulin Ratio 0.97 Test 06/17/17 07:55 06/17/17 12:06 Bedside Glucose 116 169 Medications Medications Current Medications Hydromorphone HCl (Dilaudid) 1 mg Q3H PRN IV PAIN Last administered on 09:33; Admin Dose 1 MG; Start 06/16/17 at 15:00 Ondansetron HCl (Zofran Tab) 4 mg Q6H PRN PO NAUSEA AND/OR VOMITING; Start at 15:25 Acetaminophen (Tylenol Tab) 650 mg Q6H PRN PO PAIN LEVEL 1-3 OR FEVER; Start 06/16/17 at 15:25 Zolpidem Tartrate (Ambien) 5 mg QHS PRN PO INSOMNIA; Start 06/16/17 at 15:25 Calcitriol (Rocaltrol) 0.25 mcg DAILY PO Last administered on 06/17/17 08:51 ; Admin Dose 0.25 MCG; Start 06/16/17 at 15:25 Isosorbide Dinitrate (Isordil) 20 mg TID PO Last administered on 06/17/17 12: 32; Admin Dose 20 MG; Start 06/16/17 at 15:25 Linagliptin (Tradjenta) 5 mg DAILY PO Last administered on 06/17/17 08:53; Admin Dose 5 MG; Start 06/16/17 at 15:25 Metoprolol Tartrate (Lopressor) 25 mg BID PO Last administered on 06/17/17 08 :52; Admin Dose 25 MG; Start 06/16/17 at 15:25 Aspirin (Halfprin) 81 mg DAILY PO Last administered on 06/17/17 08:51; Admin Dose 81 MG; Start 06/16/17 at 15:25 Lorazepam (Ativan) 1 mg TID PRN PO ANXIETY Last administered on 06/16/17 22: 02; Admin Dose 1 MG; Start 06/16/17 at 15:25 Miscellaneous Information 1 ea NOTE XX ; Start 06/16/17 at 15:25 Glucose (Glutose) 15 gm Q15M PRN PO DECREASED GLUCOSE; Start 06/16/17 at 15:25 Glucose (Glutose) 22.5 gm Q15M PRN PO DECREASED GLUCOSE; Start 06/16/17 at 15: 25 Dextrose (D50w Syringe) 25 ml Q15M PRN IV DECREASED GLUCOSE; Start 06/16/17 at 15:25 Dextrose (D50w Syringe) 50 ml Q15M PRN IV DECREASED GLUCOSE; Start 06/16/17 at 15:25 Glucagon (Glucagen) 1 mg Q15M PRN IM DECREASED GLUCOSE; Start 06/16/17 at 15: 25 Glucose (Glutose) 15 gm Q15M PRN BUCCAL DECREASED GLUCOSE; Start 06/16/17 at 15:25 Nitroglycerin (Nitroglycerin (Sl Tab) 0.4 Mg) 1 tab Q5M PRN SL ANGINA; Start 06/16/17 at 15:25 Insulin Glargine (Lantus) 35 unit HS SC Last administered on 06/16/17 20:53; Admin Dose 35 UNIT; Start 06/16/17 at 15:25 Diagnostic Test (Pha) (Accu-Chek) 1 ea 02 XX ; Start 06/16/17 at 15:25 Atorvastatin Calcium (Lipitor) 20 mg HS PO Last administered on 06/16/17 20: 52; Admin Dose 20 MG; Start 06/16/17 at 15:25 Escitalopram Oxalate (Lexapro) 10 mg DAILY PO Last administered on 06/17/17 08:51; Admin Dose 10 MG; Start 06/16/17 at 15:25 Oxycodone/ Acetaminophen (Endocet (10/ 325)) 1 tab Q4H PRN PO PAIN Last administered on 06/17/17 08:52; Admin Dose 1 TAB; Start 06/16/17 at 15:25 Apixaban (Eliquis) 5 mg BID PO Last administered on 06/17/17 08:53; Admin Dose 5 MG; Start 06/16/17 at 15:25 Docusate Sodium (Colace) 100 mg BID PO Last administered on 06/17/17 08:51; Admin Dose 100 MG; Start 06/16/17 at 21:00 Senna (Senokot) 1 tab HS PO Last administered on 06/16/17 20:51; Admin Dose 1 TAB; Start 06/16/17 at 21:00 Acetaminophen (Tylenol Tab) 650 mg Q4H PRN PO PAIN; Start 06/16/17 at 16:00 Bisacodyl (Dulcolax Supp) 10 mg DAILY PRN [place] CONSTIPATION; Start 06/16/17 at 16:30 Magnesium Hydroxide (Milk Of Mag) 30 ml BID PRN PO CONSTIPATION; Start at 16:30 Lactulose (Enulose) 20 gm DAILY PRN PO CONSTIPATION Last administered on 08:51; Admin Dose 20 GM; Start 06/16/17 at 16:30 Gabapentin (Neurontin) 100 mg TID PO Last administered on 06/17/17 12:31; Admin Dose 100 MG; Start 06/17/17 at 13:00 Hydralazine HCl (Apresoline) 100 mg TID PO ; Start 06/17/17 at 21:00 Clonidine (Catapres) 0.1 mg Q6H PRN PO ELEVATED BLOOD PRESSURE; Start at 14:00 ANGÉLICA HEWITT MD Jun 17, 2017 13:52
[2017-06-17 20:00] VITALS: BP 154/72; RESP 18
[2017-06-17] MEDS: ATORVASTATIN 20 MG TAB PO SCH (20:52)
[2017-06-17] MEDS: SENNA TAB PO SCH (20:53)
[2017-06-17] MEDS: INSULIN GLARGINE [LANtus] 3 ML PEN SC SCH (20:58)
[2017-06-18] MEDS: HYDROmorphONE 1 MG/ML SYG IV PRN ×9 (00:57→23:13)
[2017-06-18 02:00] VITALS: BP 148/74; RESP 18
[2017-06-18] MEDS: ACCU-CHEK XX SCH (03:00)
[2017-06-18 07:00] VITALS: BP 167/76; RESP 18
[2017-06-18] MEDS: INSULIN ASPART [NOVOLOG] 3 ML PEN SC SCH ×4 (07:35→20:46)
[2017-06-18 08:00] VITALS: BP 167/76
[2017-06-18] MEDS: CALCITRIOL 0.25 MCG CAP PO SCH (08:47)
[2017-06-18] MEDS: ESCITALOPRAM 10 MG TAB PO SCH (08:47)
[2017-06-18] MEDS: GABAPENTIN 100 MG CAP PO SCH ×3 (08:47→20:40)
[2017-06-18] MEDS: ISOSORBIDE DINITRATE 20 MG TAB PO SCH ×3 (08:47→20:41)
[2017-06-18] MEDS: APIXABAN 5 MG TABLET PO SCH ×2 (08:47→20:40)
[2017-06-18] MEDS: DOCUSATE SODIUM 100 MG CAP PO SCH ×2 (08:47→20:40)
[2017-06-18] MEDS: ASPIRIN (EC) 81 MG TAB PO SCH (08:48)
[2017-06-18] MEDS: LINAGLIPTIN 5 MG TABLET PO SCH (08:48)
[2017-06-18] MEDS: METOPROLOL 25 MG TAB PO SCH ×2 (08:48→20:41)
[2017-06-18] MEDS: OXYCODONE/ACETAMINOPHEN (10/325) TAB PO PRN (09:12)
--- NOTE | 2017-06-18 10:00 | CONS ---
Date/Time of Note Date/Time of Note DATE: 06/18/17 TIME: 09:58 Assessment/Plan Assessment/Plan Chief Complaint/Hosp Course 1. Chronic kidney disease stage IV. The patient has gotten one hemodialysis treatment. He is going to be scheduled for a left arm AV fistula by Dr. Lujan when it is convenient. 2. 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 3. Peripheral vascular disease, he is now on Eliquis as an anticoagulant. He had a blood clot to the left internal iliac artery which was thought to be an embolus by Dr. Lujan. 4. Hypertension, his blood pressure has been elevated. I have increased the hydralazine and have added clonidine as a as needed medication. 5. Anemia of chronic kidney disease, his blood count has increased. I have taken him off of Epogen. 6. depression , he is on Lexapro and will see the psychologist during the week. Problems: Consultation Date/Type/Reason Admit Date/Time Jun 16, 2017 at 14:42 24 HR Interval Summary Free Text/Dictation Patient is awake and alert. He has some pain in his left leg. He has been up walking with physical therapy. He has no new complaints. Constitutional: improved Exam/Review of Systems Vital Signs Vitals Vital Signs Date Time Temp Pulse Resp B/P Pulse Ox O2 Delivery O2 Flow Rate FiO2 06/18/17 08:00 98.1 167/76 06/18/17 07:00 66 18 97 06/16/17 14:25 Room Air Intake and Output 06/17/17 06/17/17 06/18/17 15:00 23:00 07:00 Intake Total 1200 ml 840 ml Output Total 1100 ml 800 ml 1750 ml Balance -1100 ml 400 ml -910 ml Exam Constitutional: alert, oriented, well developed Neck: non-tender, supple Respiratory: clear to auscultation, normal air movement Cardiovascular: regular rate and rhythm Gastrointestinal: soft Musculoskeletal: nl extremities to inspection Results Result Diagram: 06/17/1727 06/17/1727 Results 24 hrs Laboratory Tests Test 06/17/17 12:06 06/17/17 17:26 06/17/17 20:45 06/18/17 03:20 Bedside Glucose 169 143 201 108 Test 06/18/17 08:01 Bedside Glucose 89 Medications Medications Current Medications Hydromorphone HCl (Dilaudid) 1 mg Q3H PRN IV PAIN Last administered on 06:54; Admin Dose 1 MG; Start 06/16/17 at 15:00 Ondansetron HCl (Zofran Tab) 4 mg Q6H PRN PO NAUSEA AND/OR VOMITING; Start at 15:25 Acetaminophen (Tylenol Tab) 650 mg Q6H PRN PO PAIN LEVEL 1-3 OR FEVER; Start 06/16/17 at 15:25 Zolpidem Tartrate (Ambien) 5 mg QHS PRN PO INSOMNIA; Start 06/16/17 at 15:25 Calcitriol (Rocaltrol) 0.25 mcg DAILY PO Last administered on 06/18/17 08:47 ; Admin Dose 0.25 MCG; Start 06/16/17 at 15:25 Isosorbide Dinitrate (Isordil) 20 mg TID PO Last administered on 06/18/17 08: 47; Admin Dose 20 MG; Start 06/16/17 at 15:25 Linagliptin (Tradjenta) 5 mg DAILY PO Last administered on 06/18/17 08:48; Admin Dose 5 MG; Start 06/16/17 at 15:25 Metoprolol Tartrate (Lopressor) 25 mg BID PO Last administered on 06/18/17 08 :48; Admin Dose 25 MG; Start 06/16/17 at 15:25 Aspirin (Halfprin) 81 mg DAILY PO Last administered on 06/18/17 08:48; Admin Dose 81 MG; Start 06/16/17 at 15:25 Lorazepam (Ativan) 1 mg TID PRN PO ANXIETY Last administered on 06/16/17 22: 02; Admin Dose 1 MG; Start 06/16/17 at 15:25 Miscellaneous Information 1 ea NOTE XX ; Start 06/16/17 at 15:25 Glucose (Glutose) 15 gm Q15M PRN PO DECREASED GLUCOSE; Start 06/16/17 at 15:25 Glucose (Glutose) 22.5 gm Q15M PRN PO DECREASED GLUCOSE; Start 06/16/17 at 15: 25 Dextrose (D50w Syringe) 25 ml Q15M PRN IV DECREASED GLUCOSE; Start 06/16/17 at 15:25 Dextrose (D50w Syringe) 50 ml Q15M PRN IV DECREASED GLUCOSE; Start 06/16/17 at 15:25 Glucagon (Glucagen) 1 mg Q15M PRN IM DECREASED GLUCOSE; Start 06/16/17 at 15: 25 Glucose (Glutose) 15 gm Q15M PRN BUCCAL DECREASED GLUCOSE; Start 06/16/17 at 15:25 Nitroglycerin (Nitroglycerin (Sl Tab) 0.4 Mg) 1 tab Q5M PRN SL ANGINA; Start 06/16/17 at 15:25 Insulin Glargine (Lantus) 35 unit HS SC Last administered on 06/17/17 20:58; Admin Dose 35 UNIT; Start 06/16/17 at 15:25 Diagnostic Test (Pha) (Accu-Chek) 1 ea 02 XX Last administered on 06/18/17 03 :00; Admin Dose 1 EA; Start 06/16/17 at 15:25 Atorvastatin Calcium (Lipitor) 20 mg HS PO Last administered on 06/17/17 20: 52; Admin Dose 20 MG; Start 06/16/17 at 15:25 Escitalopram Oxalate (Lexapro) 10 mg DAILY PO Last administered on 06/18/17 08:47; Admin Dose 10 MG; Start 06/16/17 at 15:25 Oxycodone/ Acetaminophen (Endocet (10/ 325)) 1 tab Q4H PRN PO PAIN Last administered on 06/18/17 09:12; Admin Dose 1 TAB; Start 06/16/17 at 15:25 Apixaban (Eliquis) 5 mg BID PO Last administered on 06/18/17 08:47; Admin Dose 5 MG; Start 06/16/17 at 15:25 Docusate Sodium (Colace) 100 mg BID PO Last administered on 06/18/17 08:47; Admin Dose 100 MG; Start 06/16/17 at 21:00 Senna (Senokot) 1 tab HS PO Last administered on 06/17/17 20:53; Admin Dose 1 TAB; Start 06/16/17 at 21:00 Acetaminophen (Tylenol Tab) 650 mg Q4H PRN PO PAIN; Start 06/16/17 at 16:00 Bisacodyl (Dulcolax Supp) 10 mg DAILY PRN [place] CONSTIPATION; Start 06/16/17 at 16:30 Magnesium Hydroxide (Milk Of Mag) 30 ml BID PRN PO CONSTIPATION; Start at 16:30 Lactulose (Enulose) 20 gm DAILY PRN PO CONSTIPATION Last administered on 08:51; Admin Dose 20 GM; Start 06/16/17 at 16:30 Gabapentin (Neurontin) 100 mg TID PO Last administered on 06/18/17 08:47; Admin Dose 100 MG; Start 06/17/17 at 13:00 Hydralazine HCl (Apresoline) 100 mg TID PO Last administered on 06/18/17 08: 48; Admin Dose 100 MG; Start 06/17/17 at 21:00 Clonidine (Catapres) 0.1 mg Q6H PRN PO ELEVATED BLOOD PRESSURE; Start at 14:00 ANGÉLICA HEWITT MD Jun 18, 2017 10:00
[2017-06-18 12:00] VITALS: BP 120/70
--- NOTE | 2017-06-18 12:50 | CONS ---
Date/Time of Note Date/Time of Note DATE: 06/18/17 TIME: 12:50 Consult Date/Type/Reason Admit Date/Time Jun 16, 2017 at 14:42 Initial Consult Date Subjective c/o pain Objective pulm-cta min assist Vital Signs Date Time Temp Pulse Resp B/P Pulse Ox O2 Delivery O2 Flow Rate FiO2 06/18/17 08:00 98.1 167/76 06/18/17 07:00 66 18 97 06/16/17 14:25 Room Air Intake and Output 06/17/17 06/17/17 06/18/17 15:00 23:00 07:00 Intake Total 1200 ml 840 ml Output Total 1100 ml 800 ml 1750 ml Balance -1100 ml 400 ml -910 ml Results/Medications Result Diagram: 06/17/1762606/17/17626 Results 24 hrs Laboratory Tests Test 06/17/17 17:26 06/17/17 20:45 06/18/17 03:20 06/18/17 08:01 Bedside Glucose 143 201 108 89 Test 06/18/17 12:31 Bedside Glucose 119 Medications Current Medications Hydromorphone HCl (Dilaudid) 1 mg Q3H PRN IV PAIN Last administered on 10:18; Admin Dose 1 MG; Start 06/16/17 at 15:00 Ondansetron HCl (Zofran Tab) 4 mg Q6H PRN PO NAUSEA AND/OR VOMITING; Start at 15:25 Acetaminophen (Tylenol Tab) 650 mg Q6H PRN PO PAIN LEVEL 1-3 OR FEVER; Start 06/16/17 at 15:25 Zolpidem Tartrate (Ambien) 5 mg QHS PRN PO INSOMNIA; Start 06/16/17 at 15:25 Calcitriol (Rocaltrol) 0.25 mcg DAILY PO Last administered on 06/18/17 08:47 ; Admin Dose 0.25 MCG; Start 06/16/17 at 15:25 Isosorbide Dinitrate (Isordil) 20 mg TID PO Last administered on 06/18/17 08: 47; Admin Dose 20 MG; Start 06/16/17 at 15:25 Linagliptin (Tradjenta) 5 mg DAILY PO Last administered on 06/18/17 08:48; Admin Dose 5 MG; Start 06/16/17 at 15:25 Metoprolol Tartrate (Lopressor) 25 mg BID PO Last administered on 06/18/17 08 :48; Admin Dose 25 MG; Start 06/16/17 at 15:25 Aspirin (Halfprin) 81 mg DAILY PO Last administered on 06/18/17 08:48; Admin Dose 81 MG; Start 06/16/17 at 15:25 Lorazepam (Ativan) 1 mg TID PRN PO ANXIETY Last administered on 06/16/17 22: 02; Admin Dose 1 MG; Start 06/16/17 at 15:25 Miscellaneous Information 1 ea NOTE XX ; Start 06/16/17 at 15:25 Glucose (Glutose) 15 gm Q15M PRN PO DECREASED GLUCOSE; Start 06/16/17 at 15:25 Glucose (Glutose) 22.5 gm Q15M PRN PO DECREASED GLUCOSE; Start 06/16/17 at 15: 25 Dextrose (D50w Syringe) 25 ml Q15M PRN IV DECREASED GLUCOSE; Start 06/16/17 at 15:25 Dextrose (D50w Syringe) 50 ml Q15M PRN IV DECREASED GLUCOSE; Start 06/16/17 at 15:25 Glucagon (Glucagen) 1 mg Q15M PRN IM DECREASED GLUCOSE; Start 06/16/17 at 15: 25 Glucose (Glutose) 15 gm Q15M PRN BUCCAL DECREASED GLUCOSE; Start 06/16/17 at 15:25 Nitroglycerin (Nitroglycerin (Sl Tab) 0.4 Mg) 1 tab Q5M PRN SL ANGINA; Start 06/16/17 at 15:25 Insulin Glargine (Lantus) 35 unit HS SC Last administered on 06/17/17 20:58; Admin Dose 35 UNIT; Start 06/16/17 at 15:25 Diagnostic Test (Pha) (Accu-Chek) 1 ea 02 XX Last administered on 06/18/17 03 :00; Admin Dose 1 EA; Start 06/16/17 at 15:25 Atorvastatin Calcium (Lipitor) 20 mg HS PO Last administered on 06/17/17 20: 52; Admin Dose 20 MG; Start 06/16/17 at 15:25 Escitalopram Oxalate (Lexapro) 10 mg DAILY PO Last administered on 06/18/17 08:47; Admin Dose 10 MG; Start 06/16/17 at 15:25 Oxycodone/ Acetaminophen (Endocet (10/ 325)) 1 tab Q4H PRN PO PAIN Last administered on 06/18/17 09:12; Admin Dose 1 TAB; Start 06/16/17 at 15:25 Apixaban (Eliquis) 5 mg BID PO Last administered on 06/18/17 08:47; Admin Dose 5 MG; Start 06/16/17 at 15:25 Docusate Sodium (Colace) 100 mg BID PO Last administered on 06/18/17 08:47; Admin Dose 100 MG; Start 06/16/17 at 21:00 Senna (Senokot) 1 tab HS PO Last administered on 06/17/17 20:53; Admin Dose 1 TAB; Start 06/16/17 at 21:00 Acetaminophen (Tylenol Tab) 650 mg Q4H PRN PO PAIN; Start 06/16/17 at 16:00 Bisacodyl (Dulcolax Supp) 10 mg DAILY PRN [place] CONSTIPATION; Start 06/16/17 at 16:30 Magnesium Hydroxide (Milk Of Mag) 30 ml BID PRN PO CONSTIPATION; Start at 16:30 Lactulose (Enulose) 20 gm DAILY PRN PO CONSTIPATION Last administered on 08:51; Admin Dose 20 GM; Start 06/16/17 at 16:30 Gabapentin (Neurontin) 100 mg TID PO Last administered on 06/18/17 08:47; Admin Dose 100 MG; Start 06/17/17 at 13:00 Hydralazine HCl (Apresoline) 100 mg TID PO Last administered on 06/18/17 08: 48; Admin Dose 100 MG; Start 06/17/17 at 21:00 Clonidine (Catapres) 0.1 mg Q6H PRN PO ELEVATED BLOOD PRESSURE; Start at 14:00 Assessment/Plan Additional Assessment/Plan rehab- Debility secondary to PVD, s/p ischemic left lower extremity requiring thrombectomy and compartment fasciotomy, subsequent closure of fasciotomy wounds with STSG Continue rehab interdisciplinary plan Acute on chronic kidney disease requiring hemodialysis. Acute pain syndrome- continue current Diabetes mellitus. Hypertension. Coronary artery disease with history of coronary artery bypass graft. Right eye blindness. HENRY CHUN MD Jun 18, 2017 12:50
[2017-06-18] MEDS ORDERED: HYDROmorphONE 2 MG/ML SYG IV STA ×2 (15:11→17:17)
[2017-06-18] MEDS ORDERED: HYDROmorphONE 1 MG/ML SYG IV PRN (16:31)
[2017-06-18] MEDS ORDERED: HYDROmorphONE 2 MG/ML SYG IV PRN (17:00)
[2017-06-18 20:00] VITALS: BP 180/81; RESP 19
[2017-06-18] MEDS: ATORVASTATIN 20 MG TAB PO SCH (20:40)
[2017-06-18] MEDS: SENNA TAB PO SCH (20:40)
[2017-06-18] MEDS: INSULIN GLARGINE [LANtus] 3 ML PEN SC SCH (20:46)
[2017-06-18 21:30] VITALS: BP 141/69
[2017-06-19] MEDS: HYDROmorphONE 1 MG/ML SYG IV PRN ×2 (02:14→05:12)
[2017-06-19] MEDS: ACCU-CHEK XX SCH (02:21)
[2017-06-19 02:37] VITALS: BP 160/76; RESP 19
[2017-06-19] MEDS: LORAZEPAM 1 MG TAB PO PRN ×2 (04:14→20:14)
[2017-06-19 05:10] VITALS: BP 176/84
[2017-06-19 07:30] VITALS: BP 132/73; RESP 18
[2017-06-19] MEDS ORDERED: HYDROmorphONE 2 MG/ML SYG IV PRN (07:30)
[2017-06-19] MEDS: INSULIN ASPART [NOVOLOG] 3 ML PEN SC SCH ×4 (07:35→21:56)
[2017-06-19] MEDS: CALCITRIOL 0.25 MCG CAP PO SCH (08:33)
[2017-06-19] MEDS: LINAGLIPTIN 5 MG TABLET PO SCH (08:34)
[2017-06-19] MEDS: DOCUSATE SODIUM 100 MG CAP PO SCH ×2 (08:35→20:13)
[2017-06-19] MEDS: GABAPENTIN 100 MG CAP PO SCH ×3 (08:35→20:13)
[2017-06-19] MEDS: ASPIRIN (EC) 81 MG TAB PO SCH (08:35)
[2017-06-19] MEDS: ESCITALOPRAM 10 MG TAB PO SCH (08:35)
[2017-06-19] MEDS: METOPROLOL 25 MG TAB PO SCH ×2 (08:35→20:14)
[2017-06-19] MEDS: APIXABAN 5 MG TABLET PO SCH ×2 (08:35→20:13)
[2017-06-19] MEDS: ISOSORBIDE DINITRATE 20 MG TAB PO SCH ×3 (08:36→20:13)
[2017-06-19] MEDS: OXYCODONE/ACETAMINOPHEN (10/325) TAB PO PRN ×2 (09:30→15:21)
--- NOTE | 2017-06-19 10:30 | CONS ---
Date/Time of Note Date/Time of Note DATE: 06/19/17 TIME: 10:21 Assessment/Plan Assessment/Plan Chief Complaint/Hosp Course 1. Chronic kidney disease stage IV. The patient has gotten one hemodialysis treatment. He is going to be scheduled for a left arm AV fistula by Dr. Lujan when it is convenient. 2. 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 3. Peripheral vascular disease, he is now on Eliquis as an anticoagulant. He had a blood clot to the left internal iliac artery which was thought to be an embolus by Dr. Lujan.He continues to have pain . 4. Hypertension, his blood pressure has been elevated. I have increased the hydralazine and have added clonidine as a as needed medication. 5. Anemia of chronic kidney disease, his blood count has increased. I have taken him off of Epogen. 6. depression , he is on Lexapro and will see the psychologist during the week. Problems: Consultation Date/Type/Reason Admit Date/Time Jun 16, 2017 at 14:42 24 HR Interval Summary Free Text/Dictation He c/o pain in L leg . He had more pain yesterday because they had to remove more silvano . Exam/Review of Systems Vital Signs Vitals Vital Signs Date Time Temp Pulse Resp B/P Pulse Ox O2 Delivery O2 Flow Rate FiO2 06/19/17 07:30 98.4 76 18 132/73 95 06/16/17 14:25 Room Air Intake and Output 06/18/17 06/18/17 06/19/17 15:00 23:00 07:00 Intake Total 1700 ml 2000 ml Output Total 1500 ml 2000 ml Balance 200 ml 0 ml Exam Constitutional: alert, frail, oriented Respiratory: clear to auscultation, normal air movement Cardiovascular: regular rate and rhythm Gastrointestinal: soft Musculoskeletal: nl extremities to inspection Results Result Diagram: 06/17/1727 06/17/1727 Results 24 hrs Laboratory Tests Test 06/18/17 12:31 06/18/17 18:05 06/18/17 20:44 06/19/17 02:20 Bedside Glucose 119 161 204 132 Test 06/19/17 08:11 Bedside Glucose 111 Medications Medications Current Medications Ondansetron HCl (Zofran Tab) 4 mg Q6H PRN PO NAUSEA AND/OR VOMITING; Start at 15:25 Acetaminophen (Tylenol Tab) 650 mg Q6H PRN PO PAIN LEVEL 1-3 OR FEVER; Start 06/16/17 at 15:25 Zolpidem Tartrate (Ambien) 5 mg QHS PRN PO INSOMNIA; Start 06/16/17 at 15:25 Calcitriol (Rocaltrol) 0.25 mcg DAILY PO Last administered on 06/19/17 08:33 ; Admin Dose 0.25 MCG; Start 06/16/17 at 15:25 Isosorbide Dinitrate (Isordil) 20 mg TID PO Last administered on 06/19/17 08: 36; Admin Dose 20 MG; Start 06/16/17 at 15:25 Linagliptin (Tradjenta) 5 mg DAILY PO Last administered on 06/19/17 08:34; Admin Dose 5 MG; Start 06/16/17 at 15:25 Metoprolol Tartrate (Lopressor) 25 mg BID PO Last administered on 06/19/17 08 :35; Admin Dose 25 MG; Start 06/16/17 at 15:25 Aspirin (Halfprin) 81 mg DAILY PO Last administered on 06/19/17 08:35; Admin Dose 81 MG; Start 06/16/17 at 15:25 Lorazepam (Ativan) 1 mg TID PRN PO ANXIETY Last administered on 06/19/17 04: 14; Admin Dose 1 MG; Start 06/16/17 at 15:25 Miscellaneous Information 1 ea NOTE XX ; Start 06/16/17 at 15:25 Glucose (Glutose) 15 gm Q15M PRN PO DECREASED GLUCOSE; Start 06/16/17 at 15:25 Glucose (Glutose) 22.5 gm Q15M PRN PO DECREASED GLUCOSE; Start 06/16/17 at 15: 25 Dextrose (D50w Syringe) 25 ml Q15M PRN IV DECREASED GLUCOSE; Start 06/16/17 at 15:25 Dextrose (D50w Syringe) 50 ml Q15M PRN IV DECREASED GLUCOSE; Start 06/16/17 at 15:25 Glucagon (Glucagen) 1 mg Q15M PRN IM DECREASED GLUCOSE; Start 06/16/17 at 15: 25 Glucose (Glutose) 15 gm Q15M PRN BUCCAL DECREASED GLUCOSE; Start 06/16/17 at 15:25 Nitroglycerin (Nitroglycerin (Sl Tab) 0.4 Mg) 1 tab Q5M PRN SL ANGINA; Start 06/16/17 at 15:25 Insulin Glargine (Lantus) 35 unit HS SC Last administered on 06/18/17 20:46; Admin Dose 35 UNIT; Start 06/16/17 at 15:25 Diagnostic Test (Pha) (Accu-Chek) 1 ea 02 XX Last administered on 06/19/17 02 :21; Admin Dose 1 EA; Start 06/16/17 at 15:25 Atorvastatin Calcium (Lipitor) 20 mg HS PO Last administered on 06/18/17 20: 40; Admin Dose 20 MG; Start 06/16/17 at 15:25 Escitalopram Oxalate (Lexapro) 10 mg DAILY PO Last administered on 06/19/17 08:35; Admin Dose 10 MG; Start 06/16/17 at 15:25 Oxycodone/ Acetaminophen (Endocet (10/ 325)) 1 tab Q4H PRN PO PAIN Last administered on 06/19/17 09:30; Admin Dose 1 TAB; Start 06/16/17 at 15:25 Apixaban (Eliquis) 5 mg BID PO Last administered on 06/19/17 08:35; Admin Dose 5 MG; Start 06/16/17 at 15:25 Docusate Sodium (Colace) 100 mg BID PO Last administered on 06/19/17 08:35; Admin Dose 100 MG; Start 06/16/17 at 21:00 Senna (Senokot) 1 tab HS PO Last administered on 06/18/17 20:40; Admin Dose 1 TAB; Start 06/16/17 at 21:00 Acetaminophen (Tylenol Tab) 650 mg Q4H PRN PO PAIN; Start 06/16/17 at 16:00 Bisacodyl (Dulcolax Supp) 10 mg DAILY PRN [place] CONSTIPATION; Start 06/16/17 at 16:30 Magnesium Hydroxide (Milk Of Mag) 30 ml BID PRN PO CONSTIPATION; Start at 16:30 Lactulose (Enulose) 20 gm DAILY PRN PO CONSTIPATION Last administered on 08:51; Admin Dose 20 GM; Start 06/16/17 at 16:30 Gabapentin (Neurontin) 100 mg TID PO Last administered on 06/19/17 08:35; Admin Dose 100 MG; Start 06/17/17 at 13:00 Hydralazine HCl (Apresoline) 100 mg TID PO Last administered on 06/19/17 08: 34; Admin Dose 100 MG; Start 06/17/17 at 21:00 Clonidine (Catapres) 0.1 mg Q6H PRN PO ELEVATED BLOOD PRESSURE Last administered on 06/19/17 05:24; Admin Dose 0.1 MG; Start 06/17/17 at 14:00 Hydromorphone HCl (Dilaudid) 1.5 mg Q3H PRN IV PAIN Last administered on 08:28; Admin Dose 1.5 MG; Start 06/19/17 at 07:30 ANGÉLICA HEWITT MD Jun 19, 2017 10:30
[2017-06-19] MEDS ORDERED: HYDROmorphONE 1 MG/ML SYG IV PRN (13:00)
--- NOTE | 2017-06-19 13:04 | CONS ---
Date/Time of Note Date/Time of Note DATE: 06/19/17 TIME: 13:02 Consult Date/Type/Reason Admit Date/Time Jun 16, 2017 at 14:42 Subjective Encourage transition to oral meds Objective min assist ambulation 75 feet Vital Signs Date Time Temp Pulse Resp B/P Pulse Ox O2 Delivery O2 Flow Rate FiO2 06/19/17 07:30 98.4 76 18 132/73 95 06/16/17 14:25 Room Air Intake and Output 06/18/17 06/18/17 06/19/17 15:00 23:00 07:00 Intake Total 1700 ml 2000 ml Output Total 1500 ml 2000 ml Balance 200 ml 0 ml Results/Medications Result Diagram: 06/17/1762606/17/17 06 Results 24 hrs Laboratory Tests Test 06/18/17 18:05 06/18/17 20:44 06/19/17 02:20 06/19/17 08:11 Bedside Glucose 161 204 132 111 Test 06/19/17 12:11 Bedside Glucose 154 Medications Current Medications Ondansetron HCl (Zofran Tab) 4 mg Q6H PRN PO NAUSEA AND/OR VOMITING; Start at 15:25 Acetaminophen (Tylenol Tab) 650 mg Q6H PRN PO PAIN LEVEL 1-3 OR FEVER; Start 06/16/17 at 15:25 Zolpidem Tartrate (Ambien) 5 mg QHS PRN PO INSOMNIA; Start 06/16/17 at 15:25 Calcitriol (Rocaltrol) 0.25 mcg DAILY PO Last administered on 06/19/17 08:33 ; Admin Dose 0.25 MCG; Start 06/16/17 at 15:25 Isosorbide Dinitrate (Isordil) 20 mg TID PO Last administered on 06/19/17 08: 36; Admin Dose 20 MG; Start 06/16/17 at 15:25 Linagliptin (Tradjenta) 5 mg DAILY PO Last administered on 06/19/17 08:34; Admin Dose 5 MG; Start 06/16/17 at 15:25 Metoprolol Tartrate (Lopressor) 25 mg BID PO Last administered on 06/19/17 08 :35; Admin Dose 25 MG; Start 06/16/17 at 15:25 Aspirin (Halfprin) 81 mg DAILY PO Last administered on 06/19/17 08:35; Admin Dose 81 MG; Start 06/16/17 at 15:25 Lorazepam (Ativan) 1 mg TID PRN PO ANXIETY Last administered on 06/19/17 04: 14; Admin Dose 1 MG; Start 06/16/17 at 15:25 Miscellaneous Information 1 ea NOTE XX ; Start 06/16/17 at 15:25 Glucose (Glutose) 15 gm Q15M PRN PO DECREASED GLUCOSE; Start 06/16/17 at 15:25 Glucose (Glutose) 22.5 gm Q15M PRN PO DECREASED GLUCOSE; Start 06/16/17 at 15: 25 Dextrose (D50w Syringe) 25 ml Q15M PRN IV DECREASED GLUCOSE; Start 06/16/17 at 15:25 Dextrose (D50w Syringe) 50 ml Q15M PRN IV DECREASED GLUCOSE; Start 06/16/17 at 15:25 Glucagon (Glucagen) 1 mg Q15M PRN IM DECREASED GLUCOSE; Start 06/16/17 at 15: 25 Glucose (Glutose) 15 gm Q15M PRN BUCCAL DECREASED GLUCOSE; Start 06/16/17 at 15:25 Nitroglycerin (Nitroglycerin (Sl Tab) 0.4 Mg) 1 tab Q5M PRN SL ANGINA; Start 06/16/17 at 15:25 Insulin Glargine (Lantus) 35 unit HS SC Last administered on 06/18/17 20:46; Admin Dose 35 UNIT; Start 06/16/17 at 15:25 Diagnostic Test (Pha) (Accu-Chek) 1 ea 02 XX Last administered on 06/19/17 02 :21; Admin Dose 1 EA; Start 06/16/17 at 15:25 Atorvastatin Calcium (Lipitor) 20 mg HS PO Last administered on 06/18/17 20: 40; Admin Dose 20 MG; Start 06/16/17 at 15:25 Escitalopram Oxalate (Lexapro) 10 mg DAILY PO Last administered on 06/19/17 08:35; Admin Dose 10 MG; Start 06/16/17 at 15:25 Oxycodone/ Acetaminophen (Endocet (10/ 325)) 1 tab Q4H PRN PO PAIN Last administered on 06/19/17 09:30; Admin Dose 1 TAB; Start 06/16/17 at 15:25 Apixaban (Eliquis) 5 mg BID PO Last administered on 06/19/17 08:35; Admin Dose 5 MG; Start 06/16/17 at 15:25 Docusate Sodium (Colace) 100 mg BID PO Last administered on 06/19/17 08:35; Admin Dose 100 MG; Start 06/16/17 at 21:00 Senna (Senokot) 1 tab HS PO Last administered on 06/18/17 20:40; Admin Dose 1 TAB; Start 06/16/17 at 21:00 Acetaminophen (Tylenol Tab) 650 mg Q4H PRN PO PAIN; Start 06/16/17 at 16:00 Bisacodyl (Dulcolax Supp) 10 mg DAILY PRN [place] CONSTIPATION; Start 06/16/17 at 16:30 Magnesium Hydroxide (Milk Of Mag) 30 ml BID PRN PO CONSTIPATION; Start at 16:30 Lactulose (Enulose) 20 gm DAILY PRN PO CONSTIPATION Last administered on 08:51; Admin Dose 20 GM; Start 06/16/17 at 16:30 Gabapentin (Neurontin) 100 mg TID PO Last administered on 06/19/17 08:35; Admin Dose 100 MG; Start 06/17/17 at 13:00 Hydralazine HCl (Apresoline) 100 mg TID PO Last administered on 06/19/17 08: 34; Admin Dose 100 MG; Start 06/17/17 at 21:00 Clonidine (Catapres) 0.1 mg Q6H PRN PO ELEVATED BLOOD PRESSURE Last administered on 06/19/17 05:24; Admin Dose 0.1 MG; Start 06/17/17 at 14:00 Hydromorphone HCl (Dilaudid) 1 mg Q3H PRN IV PAIN; Start 06/19/17 at 13:00 Assessment/Plan Additional Assessment/Plan rehab- Debility secondary to PVD, s/p ischemic left lower extremity requiring thrombectomy and compartment fasciotomy, subsequent closure of fasciotomy wounds with STSG Continue rehab activities Acute on chronic kidney disease requiring hemodialysis. Acute pain syndrome- work on transitioning to oral meds Diabetes mellitus. Hypertension. Coronary artery disease with history of coronary artery bypass graft. Right eye blindness. HENRY CHUN MD Jun 19, 2017 13:04
[2017-06-19 13:27] VITALS: BP 120/78; PULSE 70
[2017-06-19 14:00] VITALS: BP 128/62; RESP 20
[2017-06-19] MEDS: HYDROmorphONE 2 MG/ML SYG IV PRN ×3 (16:52→23:04)
[2017-06-19 20:00] VITALS: BP 137/68; RESP 18
[2017-06-19] MEDS: ATORVASTATIN 20 MG TAB PO SCH (20:12)
[2017-06-19] MEDS: SENNA TAB PO SCH (20:13)
[2017-06-19] MEDS: INSULIN GLARGINE [LANtus] 3 ML PEN SC SCH (21:57)
--- NOTE | 2017-06-19 23:56 | RADRPT ---
PROCEDURE: XR Chest. CLINICAL INDICATION: Preoperative. TECHNIQUE: Single frontal view. COMPARISON: 06/12/2017. FINDINGS: There is mild left basilar atelectasis. The lungs are otherwise clear. The heart is mildly enlarged. There are sternal wires and mediastinal clips. There is no pleural effusion. There is no pneumothorax. IMPRESSION: 1. Cardiomegaly. 2. Previous median sternotomy. 3. Mild left basilar atelectasis. 4. Otherwise unremarkable chest radiograph. RPTAT: QQ .Garcia Chacko MD, MD Date Time Electronically viewed and signed by .Garcia Chacko MD, MD on 06/19/2017 23:55 .R/
[2017-06-20] VITALS (20 sets, daily range): BP systolic 127–177; BP diastolic 60–111; PULSE 65–92; RESP 14–21
[2017-06-20] MEDS: ZOLPIDEM 5 MG TAB PO PRN (00:01)
[2017-06-20] MEDS: OXYCODONE/ACETAMINOPHEN (10/325) TAB PO PRN (00:02)
[2017-06-20] MEDS: ACCU-CHEK XX SCH (02:00)
[2017-06-20] MEDS: HYDROmorphONE 2 MG/ML SYG IV PRN ×3 (05:38→14:28)
[2017-06-20] MEDS: INSULIN ASPART [NOVOLOG] 3 ML PEN SC SCH ×4 (07:35→21:39)
[2017-06-20] MEDS: ESCITALOPRAM 10 MG TAB PO SCH (09:00)
[2017-06-20] MEDS: CALCITRIOL 0.25 MCG CAP PO SCH (09:00)
[2017-06-20] MEDS: ISOSORBIDE DINITRATE 20 MG TAB PO SCH ×3 (09:00→20:42)
[2017-06-20] MEDS: ASPIRIN (EC) 81 MG TAB PO SCH (09:00)
[2017-06-20] MEDS: APIXABAN 5 MG TABLET PO SCH ×2 (09:00→20:40)
[2017-06-20] MEDS: METOPROLOL 25 MG TAB PO SCH ×2 (09:00→20:51)
[2017-06-20] MEDS: LINAGLIPTIN 5 MG TABLET PO SCH (09:00)
[2017-06-20] MEDS: GABAPENTIN 100 MG CAP PO SCH ×3 (09:00→14:59)
[2017-06-20] MEDS: DOCUSATE SODIUM 100 MG CAP PO SCH ×2 (09:00→20:40)
--- NOTE | 2017-06-20 09:25 | CONS ---
Date/Time of Note Date/Time of Note DATE: 06/20/17 TIME: 09:23 Assessment/Plan Assessment/Plan Chief Complaint/Hosp Course 1. Chronic kidney disease stage IV. The patient has gotten one hemodialysis treatment. He is going to be scheduled for a left arm AV fistula by Dr. Lujan today . 2. 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 3. Peripheral vascular disease, he is now on Eliquis as an anticoagulant. He had a blood clot to the left internal iliac artery which was thought to be an embolus by Dr. Lujan.He continues to have pain . 4. Hypertension, his blood pressure is now controlled . I have increased the hydralazine and have added clonidine as a as needed medication. 5. Anemia of chronic kidney disease, his blood count has increased. I have taken him off of Epogen. 6. depression , he is on Lexapro and will see the psychologist during the week. Problems: Consultation Date/Type/Reason Admit Date/Time Jun 16, 2017 at 14:42 24 HR Interval Summary Free Text/Dictation He has no complaints today. He is going to have a left upper arm AV fistula created for future hemodialysis. Constitutional: improved, no complaints Exam/Review of Systems Vital Signs Vitals Vital Signs Date Time Temp Pulse Resp B/P Pulse Ox O2 Delivery O2 Flow Rate FiO2 06/20/17 02:00 97.9 75 18 130/72 95 06/16/17 14:25 Room Air Intake and Output 06/19/17 06/19/17 06/20/17 15:00 23:00 07:00 Intake Total 1050 ml Output Total 100 ml 450 ml Balance -100 ml 600 ml Exam Constitutional: alert, frail, oriented Respiratory: clear to auscultation, normal air movement Cardiovascular: regular rate and rhythm Gastrointestinal: non-tender, soft Musculoskeletal: nl extremities to inspection Results Result Diagram: 06/20/17 0606 06/20/17 0606 Results 24 hrs Laboratory Tests Test 06/19/17 12:11 06/19/17 17:22 06/19/17 21:38 06/20/17 02:30 Bedside Glucose 154 152 240 H 192 Test 06/20/17 06:06 06/20/17 08:09 White Blood Count 8.2 Red Blood Count 4.23 L Hemoglobin 12.1 L Hematocrit 39.1 L Mean Corpuscular Volume 92.4 Mean Corpuscular Hemoglobin 28.6 L Mean Corpuscular Hemoglobin Concent 30.9 L Red Cell Distribution Width 15.0 H Platelet Count 291 Mean Platelet Volume 10.1 Neutrophils % 70.2 Lymphocytes % 15.8 Monocytes % 8.2 Eosinophils % 3.9 Basophils % 0.6 Nucleated Red Blood Cells % 0.0 Neutrophils # 5.7 Lymphocytes # 1.3 Monocytes # 0.7 Eosinophils # 0.3 Basophils # 0.1 Nucleated Red Blood Cells # 0.0 Prothrombin Time 15.3 H Prothrombin Time Ratio 1.2 INR International Normalized Ratio 1.20 Activated Partial Thromboplast Time 30.9 Sodium Level 141 Potassium Level 4.2 Chloride Level 106 Carbon Dioxide Level 26 Anion Gap 13 Blood Urea Nitrogen 46 H Creatinine 3.47 H Glucose Level 126 Calcium Level 8.8 Total Bilirubin 0.1 L Direct Bilirubin 0.00 Indirect Bilirubin 0.1 Aspartate Amino Transf (AST/SGOT) 28 Alanine Aminotransferase (ALT/SGPT) 61 Alkaline Phosphatase 115 Total Protein 7.1 Albumin 3.3 Globulin 3.80 H Albumin/Globulin Ratio 0.86 Bedside Glucose 96 Medications Medications Current Medications Ondansetron HCl (Zofran Tab) 4 mg Q6H PRN PO NAUSEA AND/OR VOMITING; Start at 15:25 Acetaminophen (Tylenol Tab) 650 mg Q6H PRN PO PAIN LEVEL 1-3 OR FEVER; Start 06/16/17 at 15:25 Zolpidem Tartrate (Ambien) 5 mg QHS PRN PO INSOMNIA Last administered on 00:01; Admin Dose 5 MG; Start 06/16/17 at 15:25 Calcitriol (Rocaltrol) 0.25 mcg DAILY PO Last administered on 06/19/17 08:33 ; Admin Dose 0.25 MCG; Start 06/16/17 at 15:25 Isosorbide Dinitrate (Isordil) 20 mg TID PO Last administered on 06/19/17 20: 13; Admin Dose 20 MG; Start 06/16/17 at 15:25 Linagliptin (Tradjenta) 5 mg DAILY PO Last administered on 06/19/17 08:34; Admin Dose 5 MG; Start 06/16/17 at 15:25 Metoprolol Tartrate (Lopressor) 25 mg BID PO Last administered on 06/19/17 20 :14; Admin Dose 25 MG; Start 06/16/17 at 15:25 Aspirin (Halfprin) 81 mg DAILY PO Last administered on 06/19/17 08:35; Admin Dose 81 MG; Start 06/16/17 at 15:25 Lorazepam (Ativan) 1 mg TID PRN PO ANXIETY Last administered on 06/19/17 20: 14; Admin Dose 1 MG; Start 06/16/17 at 15:25 Miscellaneous Information 1 ea NOTE XX ; Start 06/16/17 at 15:25 Glucose (Glutose) 15 gm Q15M PRN PO DECREASED GLUCOSE; Start 06/16/17 at 15:25 Glucose (Glutose) 22.5 gm Q15M PRN PO DECREASED GLUCOSE; Start 06/16/17 at 15: 25 Dextrose (D50w Syringe) 25 ml Q15M PRN IV DECREASED GLUCOSE; Start 06/16/17 at 15:25 Dextrose (D50w Syringe) 50 ml Q15M PRN IV DECREASED GLUCOSE; Start 06/16/17 at 15:25 Glucagon (Glucagen) 1 mg Q15M PRN IM DECREASED GLUCOSE; Start 06/16/17 at 15: 25 Glucose (Glutose) 15 gm Q15M PRN BUCCAL DECREASED GLUCOSE; Start 06/16/17 at 15:25 Nitroglycerin (Nitroglycerin (Sl Tab) 0.4 Mg) 1 tab Q5M PRN SL ANGINA; Start 06/16/17 at 15:25 Insulin Glargine (Lantus) 35 unit HS SC Last administered on 06/19/17 21:57; Admin Dose 35 UNIT; Start 06/16/17 at 15:25 Diagnostic Test (Pha) (Accu-Chek) 1 ea 02 XX Last administered on 06/19/17 02 :21; Admin Dose 1 EA; Start 06/16/17 at 15:25 Atorvastatin Calcium (Lipitor) 20 mg HS PO Last administered on 06/19/17 20: 12; Admin Dose 20 MG; Start 06/16/17 at 15:25 Escitalopram Oxalate (Lexapro) 10 mg DAILY PO Last administered on 06/19/17 08:35; Admin Dose 10 MG; Start 06/16/17 at 15:25 Oxycodone/ Acetaminophen (Endocet (10/ 325)) 1 tab Q4H PRN PO PAIN Last administered on 06/20/17 00:02; Admin Dose 1 TAB; Start 06/16/17 at 15:25 Apixaban (Eliquis) 5 mg BID PO Last administered on 06/19/17 20:13; Admin Dose 5 MG; Start 06/16/17 at 15:25 Docusate Sodium (Colace) 100 mg BID PO Last administered on 06/19/17 20:13; Admin Dose 100 MG; Start 06/16/17 at 21:00 Senna (Senokot) 1 tab HS PO Last administered on 06/19/17 20:13; Admin Dose 1 TAB; Start 06/16/17 at 21:00 Acetaminophen (Tylenol Tab) 650 mg Q4H PRN PO PAIN; Start 06/16/17 at 16:00 Bisacodyl (Dulcolax Supp) 10 mg DAILY PRN [place] CONSTIPATION; Start 06/16/17 at 16:30 Magnesium Hydroxide (Milk Of Mag) 30 ml BID PRN PO CONSTIPATION; Start at 16:30 Lactulose (Enulose) 20 gm DAILY PRN PO CONSTIPATION Last administered on 08:51; Admin Dose 20 GM; Start 06/16/17 at 16:30 Gabapentin (Neurontin) 100 mg TID PO Last administered on 06/19/17 20:13; Admin Dose 100 MG; Start 06/17/17 at 13:00 Hydralazine HCl (Apresoline) 100 mg TID PO Last administered on 06/19/17 20: 12; Admin Dose 100 MG; Start 06/17/17 at 21:00 Clonidine (Catapres) 0.1 mg Q6H PRN PO ELEVATED BLOOD PRESSURE Last administered on 06/19/17 05:24; Admin Dose 0.1 MG; Start 06/17/17 at 14:00 Hydromorphone HCl (Dilaudid) 1.5 mg Q3H PRN IV PAIN Last administered on 08:50; Admin Dose 1.5 MG; Start 06/19/17 at 16:00 ANGÉLICA HEWITT MD Jun 20, 2017 09:25
[2017-06-20] MEDS ORDERED: HYDROmorphONE (0.2 MG/ML) 10ML SYG IV PRN ×2 (11:00)
[2017-06-20] MEDS ORDERED: MEPERIDINE 25 MG INJ IV PRN (11:00)
[2017-06-20] MEDS ORDERED: ONDANSETRON 4 MG INJ IV PRN (11:00)
[2017-06-20] MEDS ORDERED: hydrALAzine 20 MG INJ IV PRN (11:00)
[2017-06-20] MEDS ORDERED: PROCHLORPERAZINE 10 MG INJ IV PRN (11:00)
[2017-06-20] MEDS ORDERED: DIPHENHYDRAMINE 50 MG INJ IV PRN (11:00)
[2017-06-20] MEDS ORDERED: LABETALOL HCL 20MG INJ IV PRN (11:00)
[2017-06-20] MEDS ORDERED: FENTAnyl 50 MCG/ML VIAL IV PRN ×3 (11:00)
[2017-06-20] MEDS ORDERED: THROMBIN 5000 UNIT VIAL ONE (11:10)
[2017-06-20] MEDS ORDERED: GELATIN SIZE 100 SPONGE ONE (11:10)
[2017-06-20] MEDS ORDERED: BUPIVACAINE 0.5% (SDV) 30 ML INJ ONE (11:10)
[2017-06-20] MEDS ORDERED: HEPARIN 1000 UNITS/ML 10 ML INJ ONE (11:11)
[2017-06-20] MEDS ORDERED: FENTAnyl 50 MCG/ML VIAL ONE (11:13)
[2017-06-20] MEDS ORDERED: LIDOCAINE 1% (STERILE-PAK) 30 ML INJ ONE (11:13)
[2017-06-20] MEDS ORDERED: LIDOCAINE 2% (SDV) 5 ML INJ ONE (11:13)
[2017-06-20] MEDS ORDERED: PROPOFOL 40 ML ONE (11:13)
[2017-06-20] MEDS ORDERED: MIDAZOLAM 1 MG/ML 2 ML INJ ONE (11:13)
--- NOTE | 2017-06-20 11:21 | HPN ---
Date/Time of Note Date/Time of Note DATE: 06/20/17 TIME: 11:21 Interval H&P Admission Note Pt. seen H&P reviewed: No system changes SONNY SPARROW MD Jun 20, 2017 11:21
--- NOTE | 2017-06-20 11:59 | CONS ---
Date/Time of Note Date/Time of Note DATE: 06/20/17 TIME: 11:57 Consult Date/Type/Reason Admit Date/Time Jun 16, 2017 at 14:42 Subjective Overall improving Objective Lungs clear abdomen soft min assist ambulation Vital Signs Date Time Temp Pulse Resp B/P Pulse Ox O2 Delivery O2 Flow Rate FiO2 06/20/17 07:50 97.4 65 18 127/63 97 06/16/17 14:25 Room Air Intake and Output 06/19/17 06/19/17 06/20/17 15:00 23:00 07:00 Intake Total 1050 ml Output Total 100 ml 450 ml Balance -100 ml 600 ml Results/Medications Result Diagram: 06/20/17 0606 06/20/17 0606 Results 24 hrs Laboratory Tests Test 06/19/17 12:11 06/19/17 17:22 06/19/17 21:38 06/20/17 02:30 Bedside Glucose 154 152 240 H 192 Test 06/20/17 06:06 06/20/17 08:09 White Blood Count 8.2 Red Blood Count 4.23 L Hemoglobin 12.1 L Hematocrit 39.1 L Mean Corpuscular Volume 92.4 Mean Corpuscular Hemoglobin 28.6 L Mean Corpuscular Hemoglobin Concent 30.9 L Red Cell Distribution Width 15.0 H Platelet Count 291 Mean Platelet Volume 10.1 Neutrophils % 70.2 Lymphocytes % 15.8 Monocytes % 8.2 Eosinophils % 3.9 Basophils % 0.6 Nucleated Red Blood Cells % 0.0 Neutrophils # 5.7 Lymphocytes # 1.3 Monocytes # 0.7 Eosinophils # 0.3 Basophils # 0.1 Nucleated Red Blood Cells # 0.0 Prothrombin Time 15.3 H Prothrombin Time Ratio 1.2 INR International Normalized Ratio 1.20 Activated Partial Thromboplast Time 30.9 Sodium Level 141 Potassium Level 4.2 Chloride Level 106 Carbon Dioxide Level 26 Anion Gap 13 Blood Urea Nitrogen 46 H Creatinine 3.47 H Glucose Level 126 Calcium Level 8.8 Total Bilirubin 0.1 L Direct Bilirubin 0.00 Indirect Bilirubin 0.1 Aspartate Amino Transf (AST/SGOT) 28 Alanine Aminotransferase (ALT/SGPT) 61 Alkaline Phosphatase 115 Total Protein 7.1 Albumin 3.3 Globulin 3.80 H Albumin/Globulin Ratio 0.86 Bedside Glucose 96 Medications Current Medications Ondansetron HCl (Zofran Tab) 4 mg Q6H PRN PO NAUSEA AND/OR VOMITING; Start at 15:25 Acetaminophen (Tylenol Tab) 650 mg Q6H PRN PO PAIN LEVEL 1-3 OR FEVER; Start 06/16/17 at 15:25 Zolpidem Tartrate (Ambien) 5 mg QHS PRN PO INSOMNIA Last administered on 00:01; Admin Dose 5 MG; Start 06/16/17 at 15:25 Calcitriol (Rocaltrol) 0.25 mcg DAILY PO Last administered on 06/19/17 08:33 ; Admin Dose 0.25 MCG; Start 06/16/17 at 15:25 Isosorbide Dinitrate (Isordil) 20 mg TID PO Last administered on 06/19/17 20: 13; Admin Dose 20 MG; Start 06/16/17 at 15:25 Linagliptin (Tradjenta) 5 mg DAILY PO Last administered on 06/19/17 08:34; Admin Dose 5 MG; Start 06/16/17 at 15:25 Metoprolol Tartrate (Lopressor) 25 mg BID PO Last administered on 06/19/17 20 :14; Admin Dose 25 MG; Start 06/16/17 at 15:25 Aspirin (Halfprin) 81 mg DAILY PO Last administered on 06/19/17 08:35; Admin Dose 81 MG; Start 06/16/17 at 15:25 Lorazepam (Ativan) 1 mg TID PRN PO ANXIETY Last administered on 06/19/17 20: 14; Admin Dose 1 MG; Start 06/16/17 at 15:25 Miscellaneous Information 1 ea NOTE XX ; Start 06/16/17 at 15:25 Glucose (Glutose) 15 gm Q15M PRN PO DECREASED GLUCOSE; Start 06/16/17 at 15:25 Glucose (Glutose) 22.5 gm Q15M PRN PO DECREASED GLUCOSE; Start 06/16/17 at 15: 25 Dextrose (D50w Syringe) 25 ml Q15M PRN IV DECREASED GLUCOSE; Start 06/16/17 at 15:25 Dextrose (D50w Syringe) 50 ml Q15M PRN IV DECREASED GLUCOSE; Start 06/16/17 at 15:25 Glucagon (Glucagen) 1 mg Q15M PRN IM DECREASED GLUCOSE; Start 06/16/17 at 15: 25 Glucose (Glutose) 15 gm Q15M PRN BUCCAL DECREASED GLUCOSE; Start 06/16/17 at 15:25 Nitroglycerin (Nitroglycerin (Sl Tab) 0.4 Mg) 1 tab Q5M PRN SL ANGINA; Start 06/16/17 at 15:25 Insulin Glargine (Lantus) 35 unit HS SC Last administered on 06/19/17 21:57; Admin Dose 35 UNIT; Start 06/16/17 at 15:25 Diagnostic Test (Pha) (Accu-Chek) 1 ea 02 XX Last administered on 06/19/17 02 :21; Admin Dose 1 EA; Start 06/16/17 at 15:25 Atorvastatin Calcium (Lipitor) 20 mg HS PO Last administered on 06/19/17 20: 12; Admin Dose 20 MG; Start 06/16/17 at 15:25 Escitalopram Oxalate (Lexapro) 10 mg DAILY PO Last administered on 06/19/17 08:35; Admin Dose 10 MG; Start 06/16/17 at 15:25 Oxycodone/ Acetaminophen (Endocet (10/ 325)) 1 tab Q4H PRN PO PAIN Last administered on 06/20/17 00:02; Admin Dose 1 TAB; Start 06/16/17 at 15:25 Apixaban (Eliquis) 5 mg BID PO Last administered on 06/19/17 20:13; Admin Dose 5 MG; Start 06/16/17 at 15:25 Docusate Sodium (Colace) 100 mg BID PO Last administered on 06/19/17 20:13; Admin Dose 100 MG; Start 06/16/17 at 21:00 Senna (Senokot) 1 tab HS PO Last administered on 06/19/17 20:13; Admin Dose 1 TAB; Start 06/16/17 at 21:00 Acetaminophen (Tylenol Tab) 650 mg Q4H PRN PO PAIN; Start 06/16/17 at 16:00 Bisacodyl (Dulcolax Supp) 10 mg DAILY PRN [place] CONSTIPATION; Start 06/16/17 at 16:30 Magnesium Hydroxide (Milk Of Mag) 30 ml BID PRN PO CONSTIPATION; Start at 16:30 Lactulose (Enulose) 20 gm DAILY PRN PO CONSTIPATION Last administered on 08:51; Admin Dose 20 GM; Start 06/16/17 at 16:30 Gabapentin (Neurontin) 100 mg TID PO Last administered on 06/19/17 20:13; Admin Dose 100 MG; Start 06/17/17 at 13:00 Hydralazine HCl (Apresoline) 100 mg TID PO Last administered on 06/19/17 20: 12; Admin Dose 100 MG; Start 06/17/17 at 21:00 Clonidine (Catapres) 0.1 mg Q6H PRN PO ELEVATED BLOOD PRESSURE Last administered on 06/19/17 05:24; Admin Dose 0.1 MG; Start 06/17/17 at 14:00 Hydromorphone HCl (Dilaudid) 1.5 mg Q3H PRN IV PAIN Last administered on 08:50; Admin Dose 1.5 MG; Start 06/19/17 at 16:00 Assessment/Plan Additional Assessment/Plan rehab- Debility secondary to PVD, s/p ischemic left lower extremity requiring thrombectomy and compartment fasciotomy, subsequent closure of fasciotomy wounds with STSG Continue rehab treatment plan. Acute on chronic kidney disease requiring hemodialysis. Acute pain syndrome-continue transitioning to oral meds, IV Diabetes mellitus. Hypertension. Coronary artery disease with history of coronary artery bypass graft. Right eye blindness. HENRY CHUN MD Jun 20, 2017 11:59
[2017-06-20] MEDS ORDERED: EPHEDrine SULFATE 50 MG/5 ML SYG ONE (12:02)
--- NOTE | 2017-06-20 12:48 | SIPON ---
Date/Time of Note Date/Time of Note DATE: 06/20/17 TIME: 12:47 Operative Report Preoperative Diagnosis ESRD Postoperative Diagnosis same Operation/Procedure Performed creation left arm brachiocephalic AVF Surgeon see signature line library assistant none Anesthesia: MAC Estimated blood loss: minimal Transfusion Required none Specimen none Grafts/Implants none Complications none SONNY SPARROW MD Jun 20, 2017 12:47
--- NOTE | 2017-06-20 12:48 | SIPON ---
Date/Time of Note Date/Time of Note DATE: 06/20/17 TIME: 12:47 Operative Report Preoperative Diagnosis ESRD Postoperative Diagnosis same Operation/Procedure Performed creation left arm brachiocephalic AVF Surgeon see signature line gynecological assistant none Anesthesia: MAC Estimated blood loss: minimal Transfusion Required none Specimen none Grafts/Implants none Complications none SONNY SPARROW MD Jun 20, 2017 12:47
--- NOTE | 2017-06-20 12:48 | SIPON ---
Date/Time of Note Date/Time of Note DATE: 06/20/17 TIME: 12:47 Operative Report Preoperative Diagnosis ESRD Postoperative Diagnosis same Operation/Procedure Performed creation left arm brachiocephalic AVF Surgeon see signature line promotions assistant sales marketing none Anesthesia: MAC Estimated blood loss: minimal Transfusion Required none Specimen none Grafts/Implants none Complications none SONNY SPARROW MD Jun 20, 2017 12:47
[2017-06-20] MEDS: HYDROmorphONE (0.2 MG/ML) 10ML SYG IV PRN ×4 (13:12→13:38)
--- NOTE | 2017-06-20 13:44 | OPR ---
DATE OF OPERATION: 06/20/2017 PREOPERATIVE DIAGNOSIS: End-stage renal disease. POSTOPERATIVE DIAGNOSIS: End-stage renal disease. PROCEDURE PERFORMED: Creation of left arm AV fistula. SURGEON: Sonny Lujan MD ANESTHESIA: Local with sedation. ESTIMATED BLOOD LOSS: Minimal. COMPLICATIONS: No intraprocedural complications. INDICATIONS: A 57-year-old gentleman with chronic kidney disease, diabetes, recent left leg thrombe ctomy, fasciotomy and skin grafting. I brought him in today for creation of left arm AV fistula. Ila samuel is not on dialysis yet but his creatinine is in the 3.5 to 4 range and he will need dialysis at [facility] within the next 6 months or so. DESCRIPTION OF PROCEDURE: The patient was brought to the operating room and placed on the table in supine position. Left arm was prepped and draped in the usual sterile fashion. He had had vein map ping that showed the left cephalic vein was good. I looked again. The first vein had an IV in the forearm and the vein was clotted from the wrist up to the mid forearm. I used the upper arm cephali c vein in the upper arm. The vein was patent. It was a little small towards the upper part of the upper arm but it was patent and decent caliber along its entire length. I marked the vein on the sk in. I then prepped and draped the left arm in the usual sterile fashion. I began by infiltrating a cross the antecubital crease using about 10 mL of 1% Xylocaine. I carefully dissected out the cepha lic vein and traced it down into the forearm where they were divided and ligated distally with 3-0 s ilk ties and divided. I cut the septum between the 2 distal branches of the vein creating a caballero at the end of the vein. I then marked the anterior surface. I then cut the connective tissue overlyi ng the brachial artery pulse and carefully dissected out the brachial artery, was of good caliber. It was healthy, soft. I clamped the brachial artery proximally and distally, made an 8 mm anterior arteriotomy. I then anastomosed the end of the vein to the side of the artery using 6-0 Prolene sut ure in a running standard vascular surgical fashion. I removed the clamps. It was a little pulsati le but had a soft thrill in the vein. I could feel it all the way up into the upper arm. There was good hemostasis. I then closed the skin incision in 2 layers using an inner layer of 3-0 Vicryl an d another layer of 4-0 Monocryl subcuticular sutures. Sterile dressing was applied. I then examine d the left leg fasciotomy site. There was still some sutures in place, I removed all remaining sutu res. This split thickness skin graft which I placed a week ago, was about 80% take. It was a meshe d graft so there are still some areas in between the meshing where there is still some granulation t issue but the graft itself was adherent and intact. There are no signs of ischemia. Again, I took out all the remaining sutures. There are no silvano left either, so then covered it with Xeroform an d dry gauze and reapplied the Calvin wrap. He was then transferred to the recovery room in [facility]. He tolerated the procedure well without any complications. Dictated By: SONNY OTERO/TREVOR Conf#: [id number] DID#: [id number] CC: SONNY ALVARENGA MD; HENRY CHUN MD;*End*
[2017-06-20] MEDS: HYDROmorphONE 0.5 MG/0.5 ML SYG IV PRN ×3 (17:37→23:46)
[2017-06-20] MEDS: HYDROmorphONE 2 MG TAB PO PRN ×3 (17:38→23:52)
[2017-06-20] MEDS: SENNA TAB PO SCH (20:40)
[2017-06-20] MEDS: ATORVASTATIN 20 MG TAB PO SCH (20:40)
[2017-06-20] MEDS: INSULIN GLARGINE [LANtus] 3 ML PEN SC SCH (21:44)
[2017-06-20] MEDS: LORAZEPAM 1 MG TAB PO PRN (23:23)
[2017-06-21 00:41] VITALS: BP 180/80; PULSE 86; RESP 18
[2017-06-21] MEDS: ZOLPIDEM 5 MG TAB PO PRN (00:45)
[2017-06-21 02:00] VITALS: BP 156/78; PULSE 81; RESP 16
[2017-06-21] MEDS: ACCU-CHEK XX SCH (02:00)
[2017-06-21] MEDS: HYDROmorphONE 2 MG TAB PO PRN ×6 (06:39→22:08)
[2017-06-21 06:43] VITALS: BP 159/77; PULSE 77
[2017-06-21] MEDS: LORAZEPAM 1 MG TAB PO PRN ×2 (07:16→16:54)
[2017-06-21 07:30] VITALS: BP 168/80; RESP 18
[2017-06-21] MEDS: ASPIRIN (EC) 81 MG TAB PO SCH (08:43)
[2017-06-21] MEDS: LINAGLIPTIN 5 MG TABLET PO SCH (08:43)
[2017-06-21] MEDS: CALCITRIOL 0.25 MCG CAP PO SCH (08:43)
[2017-06-21] MEDS: ESCITALOPRAM 10 MG TAB PO SCH (08:43)
[2017-06-21] MEDS: METOPROLOL 25 MG TAB PO SCH ×2 (08:50→21:36)
[2017-06-21] MEDS: DOCUSATE SODIUM 100 MG CAP PO SCH ×2 (08:50→21:33)
[2017-06-21] MEDS: GABAPENTIN 100 MG CAP PO SCH (08:50)
[2017-06-21] MEDS: APIXABAN 5 MG TABLET PO SCH ×2 (08:50→21:35)
[2017-06-21] MEDS: ISOSORBIDE DINITRATE 20 MG TAB PO SCH ×3 (08:51→21:35)
[2017-06-21] MEDS: INSULIN ASPART [NOVOLOG] 3 ML PEN SC SCH ×4 (08:52→21:00)
[2017-06-21] MEDS ORDERED: HYDROmorphONE 2 MG/ML SYG IV ONE (09:30)
--- NOTE | 2017-06-21 11:01 | CONS ---
Date/Time of Note Date/Time of Note DATE: 06/21/17 TIME: 11:00 Consult Date/Type/Reason Admit Date/Time Jun 16, 2017 at 14:42 Subjective needs encouragement for activities Objective min assist Vital Signs Date Time Temp Pulse Resp B/P Pulse Ox O2 Delivery O2 Flow Rate FiO2 06/21/17 06:43 77 159/77 06/21/17 02:00 16 06/21/17 00:41 98.1 96 Room Air Intake and Output 06/20/17 06/20/17 06/21/17 15:00 23:00 07:00 Intake Total 400 ml 1850 ml Output Total 10 ml 1800 ml Balance 390 ml 50 ml Results/Medications Result Diagram: 06/20/1760506/20/17 06 Results 24 hrs Laboratory Tests Test 06/20/17 12:58 06/20/17 14:56 06/20/17 17:24 06/20/17 20:39 Bedside Glucose 89 81 228 H 222 H Test 06/21/17 01:46 06/21/17 07:58 Bedside Glucose 212 149 Medications Current Medications Ondansetron HCl (Zofran Tab) 4 mg Q6H PRN PO NAUSEA AND/OR VOMITING; Start at 15:25 Acetaminophen (Tylenol Tab) 650 mg Q6H PRN PO PAIN LEVEL 1-3 OR FEVER; Start 06/16/17 at 15:25 Zolpidem Tartrate (Ambien) 5 mg QHS PRN PO INSOMNIA Last administered on 00:45; Admin Dose 5 MG; Start 06/16/17 at 15:25 Calcitriol (Rocaltrol) 0.25 mcg DAILY PO Last administered on 06/21/17 08:43 ; Admin Dose 0.25 MCG; Start 06/16/17 at 15:25 Isosorbide Dinitrate (Isordil) 20 mg TID PO Last administered on 06/21/17 08: 51; Admin Dose 20 MG; Start 06/16/17 at 15:25 Linagliptin (Tradjenta) 5 mg DAILY PO Last administered on 06/21/17 08:43; Admin Dose 5 MG; Start 06/16/17 at 15:25 Metoprolol Tartrate (Lopressor) 25 mg BID PO Last administered on 06/21/17 08 :50; Admin Dose 25 MG; Start 06/16/17 at 15:25 Aspirin (Halfprin) 81 mg DAILY PO Last administered on 06/21/17 08:43; Admin Dose 81 MG; Start 06/16/17 at 15:25 Lorazepam (Ativan) 1 mg TID PRN PO ANXIETY Last administered on 06/21/17 07: 16; Admin Dose 1 MG; Start 06/16/17 at 15:25 Miscellaneous Information 1 ea NOTE XX ; Start 06/16/17 at 15:25 Glucose (Glutose) 15 gm Q15M PRN PO DECREASED GLUCOSE; Start 06/16/17 at 15:25 Glucose (Glutose) 22.5 gm Q15M PRN PO DECREASED GLUCOSE; Start 06/16/17 at 15: 25 Dextrose (D50w Syringe) 25 ml Q15M PRN IV DECREASED GLUCOSE; Start 06/16/17 at 15:25 Dextrose (D50w Syringe) 50 ml Q15M PRN IV DECREASED GLUCOSE; Start 06/16/17 at 15:25 Glucagon (Glucagen) 1 mg Q15M PRN IM DECREASED GLUCOSE; Start 06/16/17 at 15: 25 Glucose (Glutose) 15 gm Q15M PRN BUCCAL DECREASED GLUCOSE; Start 06/16/17 at 15:25 Nitroglycerin (Nitroglycerin (Sl Tab) 0.4 Mg) 1 tab Q5M PRN SL ANGINA; Start 06/16/17 at 15:25 Insulin Glargine (Lantus) 35 unit HS SC Last administered on 06/20/17 21:44; Admin Dose 35 UNIT; Start 06/16/17 at 15:25 Diagnostic Test (Pha) (Accu-Chek) 1 ea 02 XX Last administered on 06/19/17 02 :21; Admin Dose 1 EA; Start 06/16/17 at 15:25 Atorvastatin Calcium (Lipitor) 20 mg HS PO Last administered on 06/20/17 20: 40; Admin Dose 20 MG; Start 06/16/17 at 15:25 Escitalopram Oxalate (Lexapro) 10 mg DAILY PO Last administered on 06/21/17 08:43; Admin Dose 10 MG; Start 06/16/17 at 15:25 Apixaban (Eliquis) 5 mg BID PO Last administered on 06/21/17 08:50; Admin Dose 5 MG; Start 06/16/17 at 15:25 Docusate Sodium (Colace) 100 mg BID PO Last administered on 06/21/17 08:50; Admin Dose 100 MG; Start 06/16/17 at 21:00 Senna (Senokot) 1 tab HS PO Last administered on 06/20/17 20:40; Admin Dose 1 TAB; Start 06/16/17 at 21:00 Acetaminophen (Tylenol Tab) 650 mg Q4H PRN PO PAIN; Start 06/16/17 at 16:00 Bisacodyl (Dulcolax Supp) 10 mg DAILY PRN [place] CONSTIPATION; Start 06/16/17 at 16:30 Magnesium Hydroxide (Milk Of Mag) 30 ml BID PRN PO CONSTIPATION; Start at 16:30 Lactulose (Enulose) 20 gm DAILY PRN PO CONSTIPATION Last administered on 08:51; Admin Dose 20 GM; Start 06/16/17 at 16:30 Hydralazine HCl (Apresoline) 100 mg TID PO Last administered on 06/21/17 08: 50; Admin Dose 100 MG; Start 06/17/17 at 21:00 Clonidine (Catapres) 0.1 mg Q6H PRN PO ELEVATED BLOOD PRESSURE Last administered on 06/21/17 00:45; Admin Dose 0.1 MG; Start 06/17/17 at 14:00 Hydromorphone HCl (Dilaudid) 1 mg Q3H PRN IV Pain Last administered on 23:46; Admin Dose 1 MG; Start 06/20/17 at 16:30 Hydromorphone HCl (Dilaudid) 2 mg Q3H PRN PO Pain Last administered on 10:04; Admin Dose 2 MG; Start 06/20/17 at 16:30 Gabapentin (Neurontin) 200 mg TID PO ; Start 06/22/17 at 13:00 Assessment/Plan Additional Assessment/Plan rehab- Debility secondary to PVD, s/p ischemic left lower extremity requiring thrombectomy and compartment fasciotomy, subsequent closure of fasciotomy wounds with STSG Continue rehab therapies as tolerated Acute on chronic kidney disease requiring hemodialysis. Acute pain syndrome-continue transitioning to oral meds Diabetes mellitus. Hypertension. Coronary artery disease with history of coronary artery bypass graft. Right eye blindness. Integ- wound care HENRY CHUN MD Jun 21, 2017 11:01
[2017-06-21] MEDS: HYDROmorphONE 0.5 MG/0.5 ML SYG IV PRN ×4 (12:34→21:28)
[2017-06-21 14:00] VITALS: BP 127/64; RESP 20
[2017-06-21 19:56] VITALS: BP 141/87; RESP 18
--- NOTE | 2017-06-21 20:21 | CONS ---
Date/Time of Note Date/Time of Note DATE: 06/21/17 TIME: 20:14 Assessment/Plan Assessment/Plan Chief Complaint/Hosp Course 1. Chronic kidney disease stage IV. The patient has gotten one hemodialysis treatment. s/p AVF creation yesterday. 2. 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 3. Peripheral vascular disease, he is now on Eliquis as an anticoagulant. He had a blood clot to the left internal iliac artery which was thought to be an embolus by Dr. Lujan. 4. Hypertension, his blood pressure is now controlled . 5. Anemia of chronic kidney disease, off EPO. 6. depression , he is on Lexapro and will see the psychologist during the week. Problems: Consultation Date/Type/Reason Admit Date/Time Jun 16, 2017 at 14:42 Initial Consult Date Type of Consultation: Nephrology 24 HR Interval Summary Free Text/Dictation Complains of pain LUE. Exam/Review of Systems Vital Signs Vitals Vital Signs Date Time Temp Pulse Resp B/P Pulse Ox O2 Delivery O2 Flow Rate FiO2 06/21/17 19:56 98.1 86 18 141/87 98 06/21/17 00:41 Room Air Intake and Output 06/20/17 06/20/17 06/21/17 15:00 23:00 07:00 Intake Total 400 ml 1850 ml Output Total 10 ml 1800 ml Balance 390 ml 50 ml Exam Constitutional: alert Head: atraumatic, normocephalic Neck: supple, No jvd Respiratory: clear to auscultation Cardiovascular: regular rate and rhythm Gastrointestinal: non-tender, soft Extremities: other (LUE mildly edematous, surgical wound without erythema, good bruit) Results Result Diagram: 06/20/1760506/20/17 06 Results 24 hrs Laboratory Tests Test 06/20/17 20:39 06/21/17 01:46 06/21/17 07:58 06/21/17 12:02 Bedside Glucose 222 H 212 149 235 H Test 06/21/17 17:08 Bedside Glucose 145 Medications Medications Current Medications Ondansetron HCl (Zofran Tab) 4 mg Q6H PRN PO NAUSEA AND/OR VOMITING; Start at 15:25 Acetaminophen (Tylenol Tab) 650 mg Q6H PRN PO PAIN LEVEL 1-3 OR FEVER; Start 06/16/17 at 15:25 Zolpidem Tartrate (Ambien) 5 mg QHS PRN PO INSOMNIA Last administered on 00:45; Admin Dose 5 MG; Start 06/16/17 at 15:25 Calcitriol (Rocaltrol) 0.25 mcg DAILY PO Last administered on 06/21/17 08:43 ; Admin Dose 0.25 MCG; Start 06/16/17 at 15:25 Isosorbide Dinitrate (Isordil) 20 mg TID PO Last administered on 06/21/17 12: 35; Admin Dose 20 MG; Start 06/16/17 at 15:25 Linagliptin (Tradjenta) 5 mg DAILY PO Last administered on 06/21/17 08:43; Admin Dose 5 MG; Start 06/16/17 at 15:25 Metoprolol Tartrate (Lopressor) 25 mg BID PO Last administered on 06/21/17 08 :50; Admin Dose 25 MG; Start 06/16/17 at 15:25 Aspirin (Halfprin) 81 mg DAILY PO Last administered on 06/21/17 08:43; Admin Dose 81 MG; Start 06/16/17 at 15:25 Lorazepam (Ativan) 1 mg TID PRN PO ANXIETY Last administered on 06/21/17 16: 54; Admin Dose 1 MG; Start 06/16/17 at 15:25 Miscellaneous Information 1 ea NOTE XX ; Start 06/16/17 at 15:25 Glucose (Glutose) 15 gm Q15M PRN PO DECREASED GLUCOSE; Start 06/16/17 at 15:25 Glucose (Glutose) 22.5 gm Q15M PRN PO DECREASED GLUCOSE; Start 06/16/17 at 15: 25 Dextrose (D50w Syringe) 25 ml Q15M PRN IV DECREASED GLUCOSE; Start 06/16/17 at 15:25 Dextrose (D50w Syringe) 50 ml Q15M PRN IV DECREASED GLUCOSE; Start 06/16/17 at 15:25 Glucagon (Glucagen) 1 mg Q15M PRN IM DECREASED GLUCOSE; Start 06/16/17 at 15: 25 Glucose (Glutose) 15 gm Q15M PRN BUCCAL DECREASED GLUCOSE; Start 06/16/17 at 15:25 Nitroglycerin (Nitroglycerin (Sl Tab) 0.4 Mg) 1 tab Q5M PRN SL ANGINA; Start 06/16/17 at 15:25 Insulin Glargine (Lantus) 35 unit HS SC Last administered on 06/20/17 21:44; Admin Dose 35 UNIT; Start 06/16/17 at 15:25 Diagnostic Test (Pha) (Accu-Chek) 1 ea 02 XX Last administered on 06/19/17 02 :21; Admin Dose 1 EA; Start 06/16/17 at 15:25 Atorvastatin Calcium (Lipitor) 20 mg HS PO Last administered on 06/20/17 20: 40; Admin Dose 20 MG; Start 06/16/17 at 15:25 Escitalopram Oxalate (Lexapro) 10 mg DAILY PO Last administered on 06/21/17 08:43; Admin Dose 10 MG; Start 06/16/17 at 15:25 Apixaban (Eliquis) 5 mg BID PO Last administered on 06/21/17 08:50; Admin Dose 5 MG; Start 06/16/17 at 15:25 Docusate Sodium (Colace) 100 mg BID PO Last administered on 06/21/17 08:50; Admin Dose 100 MG; Start 06/16/17 at 21:00 Senna (Senokot) 1 tab HS PO Last administered on 06/20/17 20:40; Admin Dose 1 TAB; Start 06/16/17 at 21:00 Acetaminophen (Tylenol Tab) 650 mg Q4H PRN PO PAIN; Start 06/16/17 at 16:00 Bisacodyl (Dulcolax Supp) 10 mg DAILY PRN [place] CONSTIPATION; Start 06/16/17 at 16:30 Magnesium Hydroxide (Milk Of Mag) 30 ml BID PRN PO CONSTIPATION; Start at 16:30 Lactulose (Enulose) 20 gm DAILY PRN PO CONSTIPATION Last administered on 08:51; Admin Dose 20 GM; Start 06/16/17 at 16:30 Hydralazine HCl (Apresoline) 100 mg TID PO Last administered on 06/21/17 12: 35; Admin Dose 100 MG; Start 06/17/17 at 21:00 Clonidine (Catapres) 0.1 mg Q6H PRN PO ELEVATED BLOOD PRESSURE Last administered on 06/21/17 00:45; Admin Dose 0.1 MG; Start 06/17/17 at 14:00 Hydromorphone HCl (Dilaudid) 1 mg Q3H PRN IV Pain Last administered on 18:26; Admin Dose 1 MG; Start 06/20/17 at 16:30 Hydromorphone HCl (Dilaudid) 2 mg Q3H PRN PO Pain Last administered on 19:06; Admin Dose 2 MG; Start 06/20/17 at 16:30 Gabapentin (Neurontin) 200 mg TID PO ; Start 06/22/17 at 13:00 GRETA TORRES MD Jun 21, 2017 20:21
[2017-06-21] MEDS: SENNA TAB PO SCH (21:35)
[2017-06-21] MEDS: ATORVASTATIN 20 MG TAB PO SCH (21:35)
[2017-06-21] MEDS: INSULIN GLARGINE [LANtus] 3 ML PEN SC SCH (22:06)
[2017-06-22] MEDS: HYDROmorphONE 0.5 MG/0.5 ML SYG IV PRN ×3 (00:33→08:28)
[2017-06-22] MEDS: LORAZEPAM 1 MG TAB PO PRN ×4 (00:39→23:39)
[2017-06-22] MEDS: HYDROmorphONE 2 MG TAB PO PRN ×8 (01:02→23:34)
[2017-06-22] MEDS: ZOLPIDEM 5 MG TAB PO PRN (01:47)
[2017-06-22] MEDS: ACCU-CHEK XX SCH (01:51)
[2017-06-22 01:53] VITALS: BP 152/68; RESP 18
[2017-06-22 07:00] VITALS: BP 166/74; RESP 18
[2017-06-22] MEDS: INSULIN ASPART [NOVOLOG] 3 ML PEN SC SCH ×4 (07:35→20:19)
[2017-06-22] MEDS: CALCITRIOL 0.25 MCG CAP PO SCH (08:30)
[2017-06-22] MEDS: ESCITALOPRAM 10 MG TAB PO SCH (08:31)
[2017-06-22] MEDS: DOCUSATE SODIUM 100 MG CAP PO SCH ×2 (08:31→20:15)
[2017-06-22] MEDS: ASPIRIN (EC) 81 MG TAB PO SCH (08:31)
[2017-06-22] MEDS: ISOSORBIDE DINITRATE 20 MG TAB PO SCH ×3 (08:31→20:16)
[2017-06-22] MEDS: METOPROLOL 25 MG TAB PO SCH ×2 (08:31→20:16)
[2017-06-22] MEDS: LINAGLIPTIN 5 MG TABLET PO SCH (08:31)
[2017-06-22] MEDS: APIXABAN 5 MG TABLET PO SCH ×2 (08:31→20:15)
[2017-06-22] MEDS: HYDROmorphONE 2 MG/ML SYG IV PRN ×4 (11:41→21:34)
[2017-06-22] MEDS: GABAPENTIN 100 MG CAP PO SCH ×2 (13:48→20:15)
[2017-06-22 20:00] VITALS: BP 129/78; RESP 19
[2017-06-22] MEDS: ATORVASTATIN 20 MG TAB PO SCH (20:15)
[2017-06-22] MEDS: SENNA TAB PO SCH (20:15)
[2017-06-22] MEDS: INSULIN GLARGINE [LANtus] 3 ML PEN SC SCH (20:18)
[2017-06-23] MEDS: HYDROmorphONE 2 MG/ML SYG IV PRN ×9 (00:46→21:34)
[2017-06-23] MEDS: ACCU-CHEK XX SCH (01:22)
[2017-06-23 02:00] VITALS: BP 127/72; RESP 19
[2017-06-23] MEDS: HYDROmorphONE 2 MG TAB PO PRN ×6 (05:50→23:15)
[2017-06-23 07:30] VITALS: BP 147/93; RESP 18
[2017-06-23] MEDS: INSULIN ASPART [NOVOLOG] 3 ML PEN SC SCH ×4 (07:35→20:59)
[2017-06-23] MEDS: GABAPENTIN 100 MG CAP PO SCH ×3 (09:01→20:45)
[2017-06-23] MEDS: DOCUSATE SODIUM 100 MG CAP PO SCH ×2 (09:02→20:45)
[2017-06-23] MEDS: ISOSORBIDE DINITRATE 20 MG TAB PO SCH ×3 (09:02→20:46)
[2017-06-23] MEDS: ESCITALOPRAM 10 MG TAB PO SCH (09:02)
[2017-06-23] MEDS: APIXABAN 5 MG TABLET PO SCH ×2 (09:02→20:45)
[2017-06-23] MEDS: METOPROLOL 25 MG TAB PO SCH ×2 (09:03→20:46)
[2017-06-23] MEDS: ASPIRIN (EC) 81 MG TAB PO SCH (09:03)
[2017-06-23] MEDS: LINAGLIPTIN 5 MG TABLET PO SCH (09:03)
[2017-06-23] MEDS: CALCITRIOL 0.25 MCG CAP PO SCH (09:03)
--- NOTE | 2017-06-23 12:24 | CONS ---
Date/Time of Note Date/Time of Note DATE: 06/23/17 TIME: 12:21 Assessment/Plan Assessment/Plan Chief Complaint/Hosp Course 1. Chronic kidney disease stage IV. The patient has gotten one hemodialysis treatment. He had a left upper arm AV fistula created last week for future hemodialysis.. 2. 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 3. Peripheral vascular disease, he is now on Eliquis as an anticoagulant. He had a blood clot to the left internal iliac artery which was thought to be an embolus by Dr. Lujan.He continues to have pain . 4. Hypertension, his blood pressure is now controlled . I have increased the hydralazine and have added clonidine as a as needed medication. 5. Anemia of chronic kidney disease, his blood count has increased. I have taken him off of Epogen. 6. depression , he is on Lexapro and will see the psychologist during the week. Problems: Consultation Date/Type/Reason Admit Date/Time Jun 16, 2017 at 14:42 Type of Consultation: Nephrology 24 HR Interval Summary Free Text/Dictation He is overall feeling better; however, he continues to complain of pain in his left arm where he recently had an AV fistula created. Constitutional: improved Exam/Review of Systems Vital Signs Vitals Vital Signs Date Time Temp Pulse Resp B/P Pulse Ox O2 Delivery O2 Flow Rate FiO2 06/23/17 07:30 98.6 74 18 147/93 98 06/21/17 00:41 Room Air Intake and Output 06/22/17 06/22/17 06/23/17 15:00 23:00 07:00 Intake Total 1200 ml 1200 ml Output Total 800 ml 1400 ml Balance 400 ml -200 ml Exam He has a good bruit over his left upper arm. Constitutional: alert, oriented, well developed Respiratory: clear to auscultation, normal air movement Cardiovascular: regular rate and rhythm Musculoskeletal: nl extremities to inspection Results Result Diagram: 06/23/1714 06/23/1714 Results 24 hrs Laboratory Tests Test 06/22/17 17:32 06/22/17 20:14 06/23/17 01:10 06/23/17 06:14 Bedside Glucose 155 228 H 109 White Blood Count 9.3 Red Blood Count 4.05 L Hemoglobin 11.9 L Hematocrit 37.5 L Mean Corpuscular Volume 92.6 Mean Corpuscular Hemoglobin 29.4 Mean Corpuscular Hemoglobin Concent 31.7 L Red Cell Distribution Width 14.4 Platelet Count 257 Mean Platelet Volume 11.0 H Neutrophils % 72.6 Lymphocytes % 13.2 L Monocytes % 8.9 Eosinophils % 3.7 Basophils % 0.6 Nucleated Red Blood Cells % 0.0 Neutrophils # 6.8 Lymphocytes # 1.2 Monocytes # 0.8 Eosinophils # 0.4 Basophils # 0.1 Nucleated Red Blood Cells # 0.0 Sodium Level 139 Potassium Level 4.0 Chloride Level 105 Carbon Dioxide Level 24 Anion Gap 14 Blood Urea Nitrogen 42 H Creatinine 2.87 H Glucose Level 86 Calcium Level 8.5 Phosphorus Level 4.5 Total Bilirubin 0.1 L Direct Bilirubin 0.00 Indirect Bilirubin 0.1 Aspartate Amino Transf (AST/SGOT) 17 Alanine Aminotransferase (ALT/SGPT) 33 Alkaline Phosphatase 105 Total Protein 6.6 Albumin 3.3 Globulin 3.30 H Albumin/Globulin Ratio 1.00 Test 06/23/17 08:04 06/23/17 12:04 Bedside Glucose 82 104 Medications Medications Current Medications Ondansetron HCl (Zofran Tab) 4 mg Q6H PRN PO NAUSEA AND/OR VOMITING; Start at 15:25 Acetaminophen (Tylenol Tab) 650 mg Q6H PRN PO PAIN LEVEL 1-3 OR FEVER; Start 06/16/17 at 15:25 Zolpidem Tartrate (Ambien) 5 mg QHS PRN PO INSOMNIA Last administered on 01:47; Admin Dose 5 MG; Start 06/16/17 at 15:25 Calcitriol (Rocaltrol) 0.25 mcg DAILY PO Last administered on 06/23/17 09:03 ; Admin Dose 0.25 MCG; Start 06/16/17 at 15:25 Isosorbide Dinitrate (Isordil) 20 mg TID PO Last administered on 06/23/17 09: 02; Admin Dose 20 MG; Start 06/16/17 at 15:25 Linagliptin (Tradjenta) 5 mg DAILY PO Last administered on 06/23/17 09:03; Admin Dose 5 MG; Start 06/16/17 at 15:25 Metoprolol Tartrate (Lopressor) 25 mg BID PO Last administered on 06/23/17 09 :03; Admin Dose 25 MG; Start 06/16/17 at 15:25 Aspirin (Halfprin) 81 mg DAILY PO Last administered on 06/23/17 09:03; Admin Dose 81 MG; Start 06/16/17 at 15:25 Lorazepam (Ativan) 1 mg TID PRN PO ANXIETY Last administered on 06/22/17 23: 39; Admin Dose 1 MG; Start 06/16/17 at 15:25 Miscellaneous Information 1 ea NOTE XX ; Start 06/16/17 at 15:25 Glucose (Glutose) 15 gm Q15M PRN PO DECREASED GLUCOSE; Start 06/16/17 at 15:25 Glucose (Glutose) 22.5 gm Q15M PRN PO DECREASED GLUCOSE; Start 06/16/17 at 15: 25 Dextrose (D50w Syringe) 25 ml Q15M PRN IV DECREASED GLUCOSE; Start 06/16/17 at 15:25 Dextrose (D50w Syringe) 50 ml Q15M PRN IV DECREASED GLUCOSE; Start 06/16/17 at 15:25 Glucagon (Glucagen) 1 mg Q15M PRN IM DECREASED GLUCOSE; Start 06/16/17 at 15: 25 Glucose (Glutose) 15 gm Q15M PRN BUCCAL DECREASED GLUCOSE; Start 06/16/17 at 15:25 Nitroglycerin (Nitroglycerin (Sl Tab) 0.4 Mg) 1 tab Q5M PRN SL ANGINA; Start 06/16/17 at 15:25 Insulin Glargine (Lantus) 35 unit HS SC Last administered on 06/22/17 20:18; Admin Dose 35 UNIT; Start 06/16/17 at 15:25 Diagnostic Test (Pha) (Accu-Chek) 1 ea 02 XX Last administered on 06/19/17 02 :21; Admin Dose 1 EA; Start 06/16/17 at 15:25 Atorvastatin Calcium (Lipitor) 20 mg HS PO Last administered on 06/22/17 20: 15; Admin Dose 20 MG; Start 06/16/17 at 15:25 Escitalopram Oxalate (Lexapro) 10 mg DAILY PO Last administered on 06/23/17 09:02; Admin Dose 10 MG; Start 06/16/17 at 15:25 Apixaban (Eliquis) 5 mg BID PO Last administered on 06/23/17 09:02; Admin Dose 5 MG; Start 06/16/17 at 15:25 Docusate Sodium (Colace) 100 mg BID PO Last administered on 06/23/17 09:02; Admin Dose 100 MG; Start 06/16/17 at 21:00 Senna (Senokot) 1 tab HS PO Last administered on 06/22/17 20:15; Admin Dose 1 TAB; Start 06/16/17 at 21:00 Acetaminophen (Tylenol Tab) 650 mg Q4H PRN PO PAIN; Start 06/16/17 at 16:00 Bisacodyl (Dulcolax Supp) 10 mg DAILY PRN [place] CONSTIPATION; Start 06/16/17 at 16:30 Magnesium Hydroxide (Milk Of Mag) 30 ml BID PRN PO CONSTIPATION; Start at 16:30 Lactulose (Enulose) 20 gm DAILY PRN PO CONSTIPATION Last administered on 08:51; Admin Dose 20 GM; Start 06/16/17 at 16:30 Hydralazine HCl (Apresoline) 100 mg TID PO Last administered on 06/23/17 09: 03; Admin Dose 100 MG; Start 06/17/17 at 21:00 Clonidine (Catapres) 0.1 mg Q6H PRN PO ELEVATED BLOOD PRESSURE Last administered on 06/21/17 00:45; Admin Dose 0.1 MG; Start 06/17/17 at 14:00 Hydromorphone HCl (Dilaudid) 2 mg Q3H PRN PO Pain Last administered on 09:03; Admin Dose 2 MG; Start 06/20/17 at 16:30 Gabapentin (Neurontin) 200 mg TID PO Last administered on 06/23/17 09:01; Admin Dose 200 MG; Start 06/22/17 at 13:00 Hydromorphone HCl (Dilaudid) 1.5 mg Q3H PRN IV SEVERE PAIN LEVEL 7-10 Last administered on 06/23/17 11:21; Admin Dose 1.5 MG; Start 06/22/17 at 10:30 ANGÉLICA HEWITT MD Jun 23, 2017 12:24
--- NOTE | 2017-06-23 12:29 | CONS ---
Date/Time of Note Date/Time of Note DATE: 06/23/17 TIME: 12:29 Consult Date/Type/Reason Admit Date/Time Jun 16, 2017 at 14:42 Type of Consultation: Nephrology Objective Vital Signs Date Time Temp Pulse Resp B/P Pulse Ox O2 Delivery O2 Flow Rate FiO2 06/23/17 07:30 98.6 74 18 147/93 98 06/21/17 00:41 Room Air Intake and Output 06/22/17 06/22/17 06/23/17 15:00 23:00 07:00 Intake Total 1200 ml 1200 ml Output Total 800 ml 1400 ml Balance 400 ml -200 ml INTERDISCIPLINARY TEAM CONFERENCE BOWEL- Cont BLADDER-Cont SKIN- AVF site clean OT- DRESSING-sba BATHING-sba TOILETING-sba PT- BED MOBILITY-sba TRANSFERS-sba AMBULATION-sba 150 feet A/P- Interdisciplinary team conference held today. Please see interdisciplinary sheet. Working toward d.c. on 06/26 with post discharge follow up of physical therapy, occupational therapy. Long d/w patient regarding the need to transition from IV pain meds to oral medications. Results/Medications Result Diagram: 06/23/1714 06/23/1714 Results 24 hrs Laboratory Tests Test 06/22/17 17:32 06/22/17 20:14 06/23/17 01:10 06/23/17 06:14 Bedside Glucose 155 228 H 109 White Blood Count 9.3 Red Blood Count 4.05 L Hemoglobin 11.9 L Hematocrit 37.5 L Mean Corpuscular Volume 92.6 Mean Corpuscular Hemoglobin 29.4 Mean Corpuscular Hemoglobin Concent 31.7 L Red Cell Distribution Width 14.4 Platelet Count 257 Mean Platelet Volume 11.0 H Neutrophils % 72.6 Lymphocytes % 13.2 L Monocytes % 8.9 Eosinophils % 3.7 Basophils % 0.6 Nucleated Red Blood Cells % 0.0 Neutrophils # 6.8 Lymphocytes # 1.2 Monocytes # 0.8 Eosinophils # 0.4 Basophils # 0.1 Nucleated Red Blood Cells # 0.0 Sodium Level 139 Potassium Level 4.0 Chloride Level 105 Carbon Dioxide Level 24 Anion Gap 14 Blood Urea Nitrogen 42 H Creatinine 2.87 H Glucose Level 86 Calcium Level 8.5 Phosphorus Level 4.5 Total Bilirubin 0.1 L Direct Bilirubin 0.00 Indirect Bilirubin 0.1 Aspartate Amino Transf (AST/SGOT) 17 Alanine Aminotransferase (ALT/SGPT) 33 Alkaline Phosphatase 105 Total Protein 6.6 Albumin 3.3 Globulin 3.30 H Albumin/Globulin Ratio 1.00 Test 06/23/17 08:04 06/23/17 12:04 Bedside Glucose 82 104 Medications Current Medications Ondansetron HCl (Zofran Tab) 4 mg Q6H PRN PO NAUSEA AND/OR VOMITING; Start at 15:25 Acetaminophen (Tylenol Tab) 650 mg Q6H PRN PO PAIN LEVEL 1-3 OR FEVER; Start 06/16/17 at 15:25 Zolpidem Tartrate (Ambien) 5 mg QHS PRN PO INSOMNIA Last administered on 01:47; Admin Dose 5 MG; Start 06/16/17 at 15:25 Calcitriol (Rocaltrol) 0.25 mcg DAILY PO Last administered on 06/23/17 09:03 ; Admin Dose 0.25 MCG; Start 06/16/17 at 15:25 Isosorbide Dinitrate (Isordil) 20 mg TID PO Last administered on 06/23/17 09: 02; Admin Dose 20 MG; Start 06/16/17 at 15:25 Linagliptin (Tradjenta) 5 mg DAILY PO Last administered on 06/23/17 09:03; Admin Dose 5 MG; Start 06/16/17 at 15:25 Metoprolol Tartrate (Lopressor) 25 mg BID PO Last administered on 06/23/17 09 :03; Admin Dose 25 MG; Start 06/16/17 at 15:25 Aspirin (Halfprin) 81 mg DAILY PO Last administered on 06/23/17 09:03; Admin Dose 81 MG; Start 06/16/17 at 15:25 Lorazepam (Ativan) 1 mg TID PRN PO ANXIETY Last administered on 06/22/17 23: 39; Admin Dose 1 MG; Start 06/16/17 at 15:25 Miscellaneous Information 1 ea NOTE XX ; Start 06/16/17 at 15:25 Glucose (Glutose) 15 gm Q15M PRN PO DECREASED GLUCOSE; Start 06/16/17 at 15:25 Glucose (Glutose) 22.5 gm Q15M PRN PO DECREASED GLUCOSE; Start 06/16/17 at 15: 25 Dextrose (D50w Syringe) 25 ml Q15M PRN IV DECREASED GLUCOSE; Start 06/16/17 at 15:25 Dextrose (D50w Syringe) 50 ml Q15M PRN IV DECREASED GLUCOSE; Start 06/16/17 at 15:25 Glucagon (Glucagen) 1 mg Q15M PRN IM DECREASED GLUCOSE; Start 06/16/17 at 15: 25 Glucose (Glutose) 15 gm Q15M PRN BUCCAL DECREASED GLUCOSE; Start 06/16/17 at 15:25 Nitroglycerin (Nitroglycerin (Sl Tab) 0.4 Mg) 1 tab Q5M PRN SL ANGINA; Start 06/16/17 at 15:25 Insulin Glargine (Lantus) 35 unit HS SC Last administered on 06/22/17 20:18; Admin Dose 35 UNIT; Start 06/16/17 at 15:25 Diagnostic Test (Pha) (Accu-Chek) 1 ea 02 XX Last administered on 06/19/17 02 :21; Admin Dose 1 EA; Start 06/16/17 at 15:25 Atorvastatin Calcium (Lipitor) 20 mg HS PO Last administered on 06/22/17 20: 15; Admin Dose 20 MG; Start 06/16/17 at 15:25 Escitalopram Oxalate (Lexapro) 10 mg DAILY PO Last administered on 06/23/17 09:02; Admin Dose 10 MG; Start 06/16/17 at 15:25 Apixaban (Eliquis) 5 mg BID PO Last administered on 06/23/17 09:02; Admin Dose 5 MG; Start 06/16/17 at 15:25 Docusate Sodium (Colace) 100 mg BID PO Last administered on 06/23/17 09:02; Admin Dose 100 MG; Start 06/16/17 at 21:00 Senna (Senokot) 1 tab HS PO Last administered on 06/22/17 20:15; Admin Dose 1 TAB; Start 06/16/17 at 21:00 Acetaminophen (Tylenol Tab) 650 mg Q4H PRN PO PAIN; Start 06/16/17 at 16:00 Bisacodyl (Dulcolax Supp) 10 mg DAILY PRN [place] CONSTIPATION; Start 06/16/17 at 16:30 Magnesium Hydroxide (Milk Of Mag) 30 ml BID PRN PO CONSTIPATION; Start at 16:30 Lactulose (Enulose) 20 gm DAILY PRN PO CONSTIPATION Last administered on 08:51; Admin Dose 20 GM; Start 06/16/17 at 16:30 Hydralazine HCl (Apresoline) 100 mg TID PO Last administered on 06/23/17 09: 03; Admin Dose 100 MG; Start 06/17/17 at 21:00 Clonidine (Catapres) 0.1 mg Q6H PRN PO ELEVATED BLOOD PRESSURE Last administered on 06/21/17 00:45; Admin Dose 0.1 MG; Start 06/17/17 at 14:00 Hydromorphone HCl (Dilaudid) 2 mg Q3H PRN PO Pain Last administered on 09:03; Admin Dose 2 MG; Start 06/20/17 at 16:30 Gabapentin (Neurontin) 200 mg TID PO Last administered on 06/23/17 09:01; Admin Dose 200 MG; Start 06/22/17 at 13:00 Hydromorphone HCl (Dilaudid) 1.5 mg Q3H PRN IV SEVERE PAIN LEVEL 7-10 Last administered on 06/23/17 11:21; Admin Dose 1.5 MG; Start 06/22/17 at 10:30 HENRY CHUN MD Jun 23, 2017 12:29
[2017-06-23 14:00] VITALS: BP 111/61; RESP 18
[2017-06-23 20:00] VITALS: BP 146/86; RESP 18
[2017-06-23] MEDS: SENNA TAB PO SCH (20:45)
[2017-06-23] MEDS: ATORVASTATIN 20 MG TAB PO SCH (20:45)
[2017-06-23] MEDS: LORAZEPAM 1 MG TAB PO PRN (20:47)
[2017-06-23] MEDS: INSULIN GLARGINE [LANtus] 3 ML PEN SC SCH (20:58)
[2017-06-24] MEDS: HYDROmorphONE 2 MG/ML SYG IV PRN ×3 (00:39→09:43)
[2017-06-24] MEDS: ZOLPIDEM 5 MG TAB PO PRN (00:39)
[2017-06-24 00:49] VITALS: BP 171/83; PULSE 83; RESP 16
[2017-06-24] MEDS: ACCU-CHEK XX SCH (02:00)
[2017-06-24 02:18] VITALS: BP 92/55; RESP 18
[2017-06-24 05:13] VITALS: BP 153/73; PULSE 74; RESP 16
[2017-06-24] MEDS: HYDROmorphONE 2 MG TAB PO PRN ×5 (06:19→20:39)
[2017-06-24] MEDS: LORAZEPAM 1 MG TAB PO PRN ×2 (06:24→20:39)
[2017-06-24 07:00] VITALS: BP 121/61; RESP 18
[2017-06-24] MEDS: INSULIN ASPART [NOVOLOG] 3 ML PEN SC SCH ×4 (07:35→20:46)
[2017-06-24] MEDS: LINAGLIPTIN 5 MG TABLET PO SCH (09:02)
[2017-06-24] MEDS: CALCITRIOL 0.25 MCG CAP PO SCH (09:02)
[2017-06-24] MEDS: ISOSORBIDE DINITRATE 20 MG TAB PO SCH ×3 (09:02→20:40)
[2017-06-24] MEDS: GABAPENTIN 100 MG CAP PO SCH ×3 (09:03→20:40)
[2017-06-24] MEDS: ESCITALOPRAM 10 MG TAB PO SCH (09:03)
[2017-06-24] MEDS: DOCUSATE SODIUM 100 MG CAP PO SCH ×2 (09:03→20:39)
[2017-06-24] MEDS: ASPIRIN (EC) 81 MG TAB PO SCH (09:03)
[2017-06-24] MEDS: APIXABAN 5 MG TABLET PO SCH ×2 (09:03→20:39)
[2017-06-24] MEDS: METOPROLOL 25 MG TAB PO SCH ×2 (09:04→20:40)
--- NOTE | 2017-06-24 12:07 | CONS ---
Date/Time of Note Date/Time of Note DATE: 06/24/17 TIME: 12:04 Consult Date/Type/Reason Admit Date/Time Jun 16, 2017 at 14:42 Type of Consultation: Nephrology Subjective Patient agreeable to taper IV meds Objective Vital Signs Date Time Temp Pulse Resp B/P Pulse Ox O2 Delivery O2 Flow Rate FiO2 06/24/17 07:00 97.8 71 18 121/61 95 06/24/17 05:13 Room Air Intake and Output 06/23/17 06/23/17 06/24/17 15:00 23:00 07:00 Intake Total 1400 ml 1800 ml Output Total 1800 ml 1500 ml Balance -400 ml 300 ml [id number] Results/Medications Result Diagram: 06/23/1714 06/23/1714 Results 24 hrs Laboratory Tests Test 06/23/17 17:49 06/23/17 20:52 06/24/17 00:52 06/24/17 07:45 Bedside Glucose 123 205 228 H 119 Medications Current Medications Ondansetron HCl (Zofran Tab) 4 mg Q6H PRN PO NAUSEA AND/OR VOMITING; Start at 15:25 Acetaminophen (Tylenol Tab) 650 mg Q6H PRN PO PAIN LEVEL 1-3 OR FEVER; Start 06/16/17 at 15:25 Zolpidem Tartrate (Ambien) 5 mg QHS PRN PO INSOMNIA Last administered on 00:39; Admin Dose 5 MG; Start 06/16/17 at 15:25 Calcitriol (Rocaltrol) 0.25 mcg DAILY PO Last administered on 06/24/17 09:02 ; Admin Dose 0.25 MCG; Start 06/16/17 at 15:25 Isosorbide Dinitrate (Isordil) 20 mg TID PO Last administered on 06/24/17 09: 02; Admin Dose 20 MG; Start 06/16/17 at 15:25 Linagliptin (Tradjenta) 5 mg DAILY PO Last administered on 06/24/17 09:02; Admin Dose 5 MG; Start 06/16/17 at 15:25 Metoprolol Tartrate (Lopressor) 25 mg BID PO Last administered on 06/24/17 09 :04; Admin Dose 25 MG; Start 06/16/17 at 15:25 Aspirin (Halfprin) 81 mg DAILY PO Last administered on 06/24/17 09:03; Admin Dose 81 MG; Start 06/16/17 at 15:25 Lorazepam (Ativan) 1 mg TID PRN PO ANXIETY Last administered on 06/24/17 06: 24; Admin Dose 1 MG; Start 06/16/17 at 15:25 Miscellaneous Information 1 ea NOTE XX ; Start 06/16/17 at 15:25 Glucose (Glutose) 15 gm Q15M PRN PO DECREASED GLUCOSE; Start 06/16/17 at 15:25 Glucose (Glutose) 22.5 gm Q15M PRN PO DECREASED GLUCOSE; Start 06/16/17 at 15: 25 Dextrose (D50w Syringe) 25 ml Q15M PRN IV DECREASED GLUCOSE; Start 06/16/17 at 15:25 Dextrose (D50w Syringe) 50 ml Q15M PRN IV DECREASED GLUCOSE; Start 06/16/17 at 15:25 Glucagon (Glucagen) 1 mg Q15M PRN IM DECREASED GLUCOSE; Start 06/16/17 at 15: 25 Glucose (Glutose) 15 gm Q15M PRN BUCCAL DECREASED GLUCOSE; Start 06/16/17 at 15:25 Nitroglycerin (Nitroglycerin (Sl Tab) 0.4 Mg) 1 tab Q5M PRN SL ANGINA; Start 06/16/17 at 15:25 Insulin Glargine (Lantus) 35 unit HS SC Last administered on 06/23/17 20:58; Admin Dose 35 UNIT; Start 06/16/17 at 15:25 Diagnostic Test (Pha) (Accu-Chek) 1 ea 02 XX Last administered on 06/19/17 02 :21; Admin Dose 1 EA; Start 06/16/17 at 15:25 Atorvastatin Calcium (Lipitor) 20 mg HS PO Last administered on 06/23/17 20: 45; Admin Dose 20 MG; Start 06/16/17 at 15:25 Escitalopram Oxalate (Lexapro) 10 mg DAILY PO Last administered on 06/24/17 09:03; Admin Dose 10 MG; Start 06/16/17 at 15:25 Apixaban (Eliquis) 5 mg BID PO Last administered on 06/24/17 09:03; Admin Dose 5 MG; Start 06/16/17 at 15:25 Docusate Sodium (Colace) 100 mg BID PO Last administered on 06/24/17 09:03; Admin Dose 100 MG; Start 06/16/17 at 21:00 Senna (Senokot) 1 tab HS PO Last administered on 06/23/17 20:45; Admin Dose 1 TAB; Start 06/16/17 at 21:00 Acetaminophen (Tylenol Tab) 650 mg Q4H PRN PO PAIN; Start 06/16/17 at 16:00 Bisacodyl (Dulcolax Supp) 10 mg DAILY PRN [place] CONSTIPATION; Start 06/16/17 at 16:30 Magnesium Hydroxide (Milk Of Mag) 30 ml BID PRN PO CONSTIPATION; Start at 16:30 Lactulose (Enulose) 20 gm DAILY PRN PO CONSTIPATION Last administered on 08:51; Admin Dose 20 GM; Start 06/16/17 at 16:30 Hydralazine HCl (Apresoline) 100 mg TID PO Last administered on 06/24/17 09: 03; Admin Dose 100 MG; Start 06/17/17 at 21:00 Clonidine (Catapres) 0.1 mg Q6H PRN PO ELEVATED BLOOD PRESSURE Last administered on 06/24/17 00:48; Admin Dose 0.1 MG; Start 06/17/17 at 14:00 Hydromorphone HCl (Dilaudid) 2 mg Q3H PRN PO Pain Last administered on 10:48; Admin Dose 2 MG; Start 06/20/17 at 16:30 Gabapentin (Neurontin) 200 mg TID PO Last administered on 06/24/17 09:03; Admin Dose 200 MG; Start 06/22/17 at 13:00 Hydromorphone HCl (Dilaudid) 1 mg Q3H PRN IV for severe pain 7-10; Start 06/24 at 11:00 Assessment/Plan Additional Assessment/Plan rehab- Debility secondary to PVD, s/p ischemic left lower extremity requiring thrombectomy and compartment fasciotomy, subsequent closure of fasciotomy wounds with STSG Continue rehab program Acute on chronic kidney disease requiring hemodialysis. Acute pain syndrome-continue transitioning to oral meds Diabetes mellitus. Hypertension. Coronary artery disease with history of coronary artery bypass graft. Right eye blindness. Integ- wound care HENRY CHUN MD Jun 24, 2017 12:07
[2017-06-24] MEDS: HYDROmorphONE 0.5 MG/0.5 ML SYG IV PRN ×4 (12:44→22:06)
[2017-06-24 20:00] VITALS: BP 134/65; RESP 18
[2017-06-24] MEDS: ATORVASTATIN 20 MG TAB PO SCH (20:39)
[2017-06-24] MEDS: SENNA TAB PO SCH (20:39)
[2017-06-24] MEDS: INSULIN GLARGINE [LANtus] 3 ML PEN SC SCH (20:47)
[2017-06-25] MEDS: HYDROmorphONE 0.5 MG/0.5 ML SYG IV PRN ×7 (01:54→21:52)
[2017-06-25] MEDS: ZOLPIDEM 5 MG TAB PO PRN (01:54)
[2017-06-25 02:00] VITALS: BP 168/81; RESP 18
[2017-06-25] MEDS: ACCU-CHEK XX SCH (02:00)
[2017-06-25] MEDS ORDERED: ACCU-CHEK XX SCH (02:00)
[2017-06-25] MEDS: HYDROmorphONE 2 MG TAB PO PRN ×7 (02:59→22:53)
[2017-06-25 03:00] VITALS: BP 156/75; PULSE 80
[2017-06-25] MEDS: LORAZEPAM 1 MG TAB PO PRN ×3 (06:13→19:46)
[2017-06-25 07:00] VITALS: BP 151/70; RESP 18
[2017-06-25] MEDS: INSULIN ASPART [NOVOLOG] 3 ML PEN SC SCH ×7 (08:20→22:07)
--- NOTE | 2017-06-25 08:48 | PN ---
DATE: 06/24/2017 HISTORY OF PRESENT ILLNESS: The patient is in bed. He seems comfortable. The patient is 3 days po stop a left upper arm AV fistula placement. PHYSICAL EXAMINATION: GENERAL: At this time reveals a well-developed man in no apparent distress. VITAL SIGNS: Temperature 97.8, pulse 89, respirations 18, blood pressure 146/86. HEENT: Head normocephalic, nose and mouth are normal. NECK: Supple. No neck vein distention. LUNGS: Clear to auscultation. HEART: Regular rhythm. No murmurs, gallops or rubs. EXTREMITIES: No peripheral edema. He has a good thrill over the left upper arm AV fistula. IMPRESSION: The patient is doing well today. His vital signs are stable. PLAN: Continue current medications. The patient is being tapered off of Dilaudid as he is probably going to be going home in 2 days. Dictated By: ANGÉLICA HEWITT MD, ND/TREVOR Conf#: [id number] DID#: [id number]
[2017-06-25] MEDS: DOCUSATE SODIUM 100 MG CAP PO SCH ×2 (09:52→21:50)
[2017-06-25] MEDS: LINAGLIPTIN 5 MG TABLET PO SCH (09:52)
[2017-06-25] MEDS: ASPIRIN (EC) 81 MG TAB PO SCH (09:52)
[2017-06-25] MEDS: ISOSORBIDE DINITRATE 20 MG TAB PO SCH ×3 (09:52→21:51)
[2017-06-25] MEDS: APIXABAN 5 MG TABLET PO SCH ×2 (09:52→21:50)
[2017-06-25] MEDS: CALCITRIOL 0.25 MCG CAP PO SCH (09:52)
[2017-06-25] MEDS: GABAPENTIN 100 MG CAP PO SCH ×3 (09:53→21:50)
[2017-06-25] MEDS: ESCITALOPRAM 10 MG TAB PO SCH (09:53)
[2017-06-25] MEDS: METOPROLOL 25 MG TAB PO SCH ×2 (09:53→21:51)
--- NOTE | 2017-06-25 13:19 | CONS ---
Date/Time of Note Date/Time of Note DATE: 06/25/17 TIME: 13:19 Consult Date/Type/Reason Admit Date/Time Jun 16, 2017 at 14:42 Type of Consultation: Nephrology Subjective No new complaints Objective pulm-cta sba ambulation Vital Signs Date Time Temp Pulse Resp B/P Pulse Ox O2 Delivery O2 Flow Rate FiO2 06/25/17 03:00 80 156/75 06/25/17 02:00 97.8 18 98 06/24/17 05:13 Room Air Intake and Output 06/24/17 06/24/17 06/25/17 15:00 23:00 07:00 Intake Total 500 ml 1200 ml Output Total 250 ml 800 ml 1100 ml Balance 250 ml 400 ml -1100 ml Results/Medications Result Diagram: 06/23/1761306/23/17613 Results 24 hrs Laboratory Tests Test 06/24/17 17:24 06/24/17 20:36 06/25/17 02:00 06/25/17 08:00 Bedside Glucose 141 196 194 182 Test 06/25/17 12:28 Bedside Glucose 210 Medications Current Medications Ondansetron HCl (Zofran Tab) 4 mg Q6H PRN PO NAUSEA AND/OR VOMITING; Start at 15:25 Acetaminophen (Tylenol Tab) 650 mg Q6H PRN PO PAIN LEVEL 1-3 OR FEVER; Start 06/16/17 at 15:25 Zolpidem Tartrate (Ambien) 5 mg QHS PRN PO INSOMNIA Last administered on 01:54; Admin Dose 5 MG; Start 06/16/17 at 15:25 Calcitriol (Rocaltrol) 0.25 mcg DAILY PO Last administered on 06/25/17 09:52 ; Admin Dose 0.25 MCG; Start 06/16/17 at 15:25 Isosorbide Dinitrate (Isordil) 20 mg TID PO Last administered on 06/25/17 12: 48; Admin Dose 20 MG; Start 06/16/17 at 15:25 Linagliptin (Tradjenta) 5 mg DAILY PO Last administered on 06/25/17 09:52; Admin Dose 5 MG; Start 06/16/17 at 15:25 Metoprolol Tartrate (Lopressor) 25 mg BID PO Last administered on 06/25/17 09 :53; Admin Dose 25 MG; Start 06/16/17 at 15:25 Aspirin (Halfprin) 81 mg DAILY PO Last administered on 06/25/17 09:52; Admin Dose 81 MG; Start 06/16/17 at 15:25 Lorazepam (Ativan) 1 mg TID PRN PO ANXIETY Last administered on 06/25/17 06: 13; Admin Dose 1 MG; Start 06/16/17 at 15:25 Miscellaneous Information 1 ea NOTE XX ; Start 06/16/17 at 15:25 Glucose (Glutose) 15 gm Q15M PRN PO DECREASED GLUCOSE; Start 06/16/17 at 15:25 Glucose (Glutose) 22.5 gm Q15M PRN PO DECREASED GLUCOSE; Start 06/16/17 at 15: 25 Dextrose (D50w Syringe) 25 ml Q15M PRN IV DECREASED GLUCOSE; Start 06/16/17 at 15:25 Dextrose (D50w Syringe) 50 ml Q15M PRN IV DECREASED GLUCOSE; Start 06/16/17 at 15:25 Glucagon (Glucagen) 1 mg Q15M PRN IM DECREASED GLUCOSE; Start 06/16/17 at 15: 25 Glucose (Glutose) 15 gm Q15M PRN BUCCAL DECREASED GLUCOSE; Start 06/16/17 at 15:25 Nitroglycerin (Nitroglycerin (Sl Tab) 0.4 Mg) 1 tab Q5M PRN SL ANGINA; Start 06/16/17 at 15:25 Insulin Glargine (Lantus) 35 unit HS SC Last administered on 06/24/17 20:47; Admin Dose 35 UNIT; Start 06/16/17 at 15:25 Atorvastatin Calcium (Lipitor) 20 mg HS PO Last administered on 06/24/17 20: 39; Admin Dose 20 MG; Start 06/16/17 at 15:25 Escitalopram Oxalate (Lexapro) 10 mg DAILY PO Last administered on 06/25/17 09:53; Admin Dose 10 MG; Start 06/16/17 at 15:25 Apixaban (Eliquis) 5 mg BID PO Last administered on 06/25/17 09:52; Admin Dose 5 MG; Start 06/16/17 at 15:25 Docusate Sodium (Colace) 100 mg BID PO Last administered on 06/25/17 09:52; Admin Dose 100 MG; Start 06/16/17 at 21:00 Senna (Senokot) 1 tab HS PO Last administered on 06/24/17 20:39; Admin Dose 1 TAB; Start 06/16/17 at 21:00 Acetaminophen (Tylenol Tab) 650 mg Q4H PRN PO PAIN; Start 06/16/17 at 16:00 Bisacodyl (Dulcolax Supp) 10 mg DAILY PRN [place] CONSTIPATION; Start 06/16/17 at 16:30 Magnesium Hydroxide (Milk Of Mag) 30 ml BID PRN PO CONSTIPATION; Start at 16:30 Lactulose (Enulose) 20 gm DAILY PRN PO CONSTIPATION Last administered on 08:51; Admin Dose 20 GM; Start 06/16/17 at 16:30 Hydralazine HCl (Apresoline) 100 mg TID PO Last administered on 06/25/17 09: 53; Admin Dose 100 MG; Start 06/17/17 at 21:00 Clonidine (Catapres) 0.1 mg Q6H PRN PO ELEVATED BLOOD PRESSURE Last administered on 06/24/17 00:48; Admin Dose 0.1 MG; Start 06/17/17 at 14:00 Hydromorphone HCl (Dilaudid) 2 mg Q3H PRN PO Pain Last administered on 10:08; Admin Dose 2 MG; Start 06/20/17 at 16:30 Gabapentin (Neurontin) 200 mg TID PO Last administered on 06/25/17 12:48; Admin Dose 200 MG; Start 06/22/17 at 13:00 Hydromorphone HCl (Dilaudid) 1 mg Q3H PRN IV for severe pain 7-10 Last administered on 06/25/17 12:48; Admin Dose 1 MG; Start 06/24/17 at 11:00 Diagnostic Test (Pha) (Accu-Chek) 1 ea 02 XX ; Start 06/25/17 at 02:00 Assessment/Plan Additional Assessment/Plan rehab- Debility secondary to PVD, s/p ischemic left lower extremity requiring thrombectomy and compartment fasciotomy, subsequent closure of fasciotomy wounds with STSG Continue rehab activities, taper pain meds as tolerated Acute on chronic kidney disease requiring hemodialysis. Acute pain syndrome-continue transitioning to oral meds Diabetes mellitus. Hypertension. Coronary artery disease with history of coronary artery bypass graft. Right eye blindness. Integ- wound care HENRY CHUN MD Jun 25, 2017 13:19
--- NOTE | 2017-06-25 13:40 | CONS ---
Date/Time of Note Date/Time of Note DATE: 06/25/17 TIME: 13:37 Assessment/Plan Assessment/Plan Chief Complaint/Hosp Course 1. Chronic kidney disease stage IV. The patient has gotten one hemodialysis treatment. He had a left upper arm AV fistula created last week for future hemodialysis.. 2. 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 3. Peripheral vascular disease, he is now on Eliquis as an anticoagulant. He had a blood clot to the left internal iliac artery which was thought to be an embolus by Dr. Lujan.He continues to have pain . 4. Hypertension, his blood pressure is now controlled . I have increased the hydralazine and have added clonidine as a as needed medication. 5. Anemia of chronic kidney disease, his blood count has increased. I have taken him off of Epogen. 6. depression , he is on Lexapro and will see the psychologist during the week. Problems: Consultation Date/Type/Reason Admit Date/Time Jun 16, 2017 at 14:42 Type of Consultation: Nephrology 24 HR Interval Summary Free Text/Dictation Patient is awake and alert. He continues to complain of pain both in his left arm and his left leg where he had surgeries. Exam/Review of Systems Vital Signs Vitals Vital Signs Date Time Temp Pulse Resp B/P Pulse Ox O2 Delivery O2 Flow Rate FiO2 06/25/17 03:00 80 156/75 06/25/17 02:00 97.8 18 98 06/24/17 05:13 Room Air Intake and Output 06/24/17 06/24/17 06/25/17 15:00 23:00 07:00 Intake Total 500 ml 1200 ml Output Total 250 ml 800 ml 1100 ml Balance 250 ml 400 ml -1100 ml Exam Constitutional: alert, frail, oriented ENMT: nl external ears & nose, nl lips & teeth, nl nasal mucosa & septum Neck: non-tender, supple Respiratory: clear to auscultation, normal air movement Cardiovascular: regular rate and rhythm Gastrointestinal: soft Musculoskeletal: nl extremities to inspection Results Result Diagram: 06/23/17 0614 06/23/17 0614 Results 24 hrs Laboratory Tests Test 06/24/17 17:24 06/24/17 20:36 06/25/17 02:00 06/25/17 08:00 Bedside Glucose 141 196 194 182 Test 06/25/17 12:28 Bedside Glucose 210 Medications Medications Current Medications Ondansetron HCl (Zofran Tab) 4 mg Q6H PRN PO NAUSEA AND/OR VOMITING; Start at 15:25 Acetaminophen (Tylenol Tab) 650 mg Q6H PRN PO PAIN LEVEL 1-3 OR FEVER; Start 06/16/17 at 15:25 Zolpidem Tartrate (Ambien) 5 mg QHS PRN PO INSOMNIA Last administered on 01:54; Admin Dose 5 MG; Start 06/16/17 at 15:25 Calcitriol (Rocaltrol) 0.25 mcg DAILY PO Last administered on 06/25/17 09:52 ; Admin Dose 0.25 MCG; Start 06/16/17 at 15:25 Isosorbide Dinitrate (Isordil) 20 mg TID PO Last administered on 06/25/17 12: 48; Admin Dose 20 MG; Start 06/16/17 at 15:25 Linagliptin (Tradjenta) 5 mg DAILY PO Last administered on 06/25/17 09:52; Admin Dose 5 MG; Start 06/16/17 at 15:25 Metoprolol Tartrate (Lopressor) 25 mg BID PO Last administered on 06/25/17 09 :53; Admin Dose 25 MG; Start 06/16/17 at 15:25 Aspirin (Halfprin) 81 mg DAILY PO Last administered on 06/25/17 09:52; Admin Dose 81 MG; Start 06/16/17 at 15:25 Lorazepam (Ativan) 1 mg TID PRN PO ANXIETY Last administered on 06/25/17 06: 13; Admin Dose 1 MG; Start 06/16/17 at 15:25 Miscellaneous Information 1 ea NOTE XX ; Start 06/16/17 at 15:25 Glucose (Glutose) 15 gm Q15M PRN PO DECREASED GLUCOSE; Start 06/16/17 at 15:25 Glucose (Glutose) 22.5 gm Q15M PRN PO DECREASED GLUCOSE; Start 06/16/17 at 15: 25 Dextrose (D50w Syringe) 25 ml Q15M PRN IV DECREASED GLUCOSE; Start 06/16/17 at 15:25 Dextrose (D50w Syringe) 50 ml Q15M PRN IV DECREASED GLUCOSE; Start 06/16/17 at 15:25 Glucagon (Glucagen) 1 mg Q15M PRN IM DECREASED GLUCOSE; Start 06/16/17 at 15: 25 Glucose (Glutose) 15 gm Q15M PRN BUCCAL DECREASED GLUCOSE; Start 06/16/17 at 15:25 Nitroglycerin (Nitroglycerin (Sl Tab) 0.4 Mg) 1 tab Q5M PRN SL ANGINA; Start 06/16/17 at 15:25 Insulin Glargine (Lantus) 35 unit HS SC Last administered on 06/24/17 20:47; Admin Dose 35 UNIT; Start 06/16/17 at 15:25 Atorvastatin Calcium (Lipitor) 20 mg HS PO Last administered on 06/24/17 20: 39; Admin Dose 20 MG; Start 06/16/17 at 15:25 Escitalopram Oxalate (Lexapro) 10 mg DAILY PO Last administered on 06/25/17 09:53; Admin Dose 10 MG; Start 06/16/17 at 15:25 Apixaban (Eliquis) 5 mg BID PO Last administered on 06/25/17 09:52; Admin Dose 5 MG; Start 06/16/17 at 15:25 Docusate Sodium (Colace) 100 mg BID PO Last administered on 06/25/17 09:52; Admin Dose 100 MG; Start 06/16/17 at 21:00 Senna (Senokot) 1 tab HS PO Last administered on 06/24/17 20:39; Admin Dose 1 TAB; Start 06/16/17 at 21:00 Acetaminophen (Tylenol Tab) 650 mg Q4H PRN PO PAIN; Start 06/16/17 at 16:00 Bisacodyl (Dulcolax Supp) 10 mg DAILY PRN [place] CONSTIPATION; Start 06/16/17 at 16:30 Magnesium Hydroxide (Milk Of Mag) 30 ml BID PRN PO CONSTIPATION; Start at 16:30 Lactulose (Enulose) 20 gm DAILY PRN PO CONSTIPATION Last administered on 08:51; Admin Dose 20 GM; Start 06/16/17 at 16:30 Hydralazine HCl (Apresoline) 100 mg TID PO Last administered on 06/25/17 09: 53; Admin Dose 100 MG; Start 06/17/17 at 21:00 Clonidine (Catapres) 0.1 mg Q6H PRN PO ELEVATED BLOOD PRESSURE Last administered on 06/24/17 00:48; Admin Dose 0.1 MG; Start 06/17/17 at 14:00 Hydromorphone HCl (Dilaudid) 2 mg Q3H PRN PO Pain Last administered on 13:30; Admin Dose 2 MG; Start 06/20/17 at 16:30 Gabapentin (Neurontin) 200 mg TID PO Last administered on 06/25/17 12:48; Admin Dose 200 MG; Start 06/22/17 at 13:00 Hydromorphone HCl (Dilaudid) 1 mg Q3H PRN IV for severe pain 7-10 Last administered on 06/25/17 12:48; Admin Dose 1 MG; Start 06/24/17 at 11:00 Diagnostic Test (Pha) (Accu-Chek) 1 ea 02 XX ; Start 06/25/17 at 02:00 ANGÉLICA HEWITT MD Jun 25, 2017 13:40
[2017-06-25 20:00] VITALS: BP 158/70; RESP 18
[2017-06-25] MEDS: ATORVASTATIN 20 MG TAB PO SCH (21:50)
[2017-06-25] MEDS: SENNA TAB PO SCH (21:52)
[2017-06-25] MEDS: INSULIN GLARGINE [LANtus] 3 ML PEN SC SCH (22:06)
[2017-06-26] VITALS (7 sets, daily range): BP systolic 102–158; BP diastolic 52–82; PULSE 72–82; RESP 18–20
[2017-06-26] MEDS: HYDROmorphONE 0.5 MG/0.5 ML SYG IV PRN ×6 (01:00→21:05)
[2017-06-26] MEDS: LORAZEPAM 1 MG TAB PO PRN ×4 (01:01→23:22)
[2017-06-26] MEDS: ACCU-CHEK XX SCH (02:00)
[2017-06-26] MEDS: HYDROmorphONE 2 MG TAB PO PRN ×5 (07:46→21:47)
[2017-06-26] MEDS: INSULIN ASPART [NOVOLOG] 3 ML PEN SC SCH ×7 (08:21→21:00)
[2017-06-26] MEDS: APIXABAN 5 MG TABLET PO SCH ×2 (08:42→21:00)
[2017-06-26] MEDS: ASPIRIN (EC) 81 MG TAB PO SCH (08:42)
[2017-06-26] MEDS: DOCUSATE SODIUM 100 MG CAP PO SCH ×2 (08:42→21:00)
[2017-06-26] MEDS: CALCITRIOL 0.25 MCG CAP PO SCH (08:42)
[2017-06-26] MEDS: LINAGLIPTIN 5 MG TABLET PO SCH (08:43)
[2017-06-26] MEDS: ISOSORBIDE DINITRATE 20 MG TAB PO SCH ×3 (08:43→21:00)
[2017-06-26] MEDS: GABAPENTIN 100 MG CAP PO SCH ×3 (08:43→21:01)
[2017-06-26] MEDS: ESCITALOPRAM 10 MG TAB PO SCH (08:43)
[2017-06-26] MEDS: METOPROLOL 25 MG TAB PO SCH ×2 (08:43→21:01)
--- NOTE | 2017-06-26 09:11 | CONS ---
Date/Time of Note Date/Time of Note DATE: 06/26/17 TIME: 09:08 Assessment/Plan Assessment/Plan Chief Complaint/Hosp Course 1. Chronic kidney disease stage IV. The patient has gotten one hemodialysis treatment. He had a left upper arm AV fistula created last week for future hemodialysis.. His renal function has improved when last checked. His serum creatinine was down to 2.87. 2. 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 3. Peripheral vascular disease, he is now on Eliquis as an anticoagulant. He had a blood clot to the left internal iliac artery which was thought to be an embolus by Dr. Lujan.He continues to have pain . 4. Hypertension, his blood pressure is now controlled . I have increased the hydralazine and have added clonidine as a as needed medication. 5. Anemia of chronic kidney disease, his blood count has increased. 6. depression , he is on Lexapro and will see the psychologist during the week. 7. GI bleeding. The patient had a bloody bowel movement this morning. He said that he strained when he moved his bowels. His stool is hard. Some of this was related to the fact that he is on narcotics for his pain. I am tapering him off of the IV Dilaudid to oral [place] and tramadol. I will order a stat CBC and CMP this morning. We will need to hold his discharge today. Problems: Consultation Date/Type/Reason Admit Date/Time Jun 16, 2017 at 14:42 Type of Consultation: Nephrology 24 HR Interval Summary Free Text/Dictation The patient is awake and alert this morning. He had a bowel movement this morning that was bloody. He said that he strained when he had the bowel movement. He says that his stool or hard. Exam/Review of Systems Vital Signs Vitals Vital Signs Date Time Temp Pulse Resp B/P Pulse Ox O2 Delivery O2 Flow Rate FiO2 06/26/17 07:32 97.4 76 18 158/82 97 06/24/17 05:13 Room Air Intake and Output 06/25/17 06/25/17 06/26/17 15:00 23:00 07:00 Intake Total 2400 ml 350 ml Output Total 1200 ml 600 ml Balance 1200 ml -250 ml Exam Constitutional: alert, frail, oriented ENMT: nl external ears & nose, nl lips & teeth, nl nasal mucosa & septum Neck: non-tender, supple Respiratory: clear to auscultation, normal air movement Cardiovascular: regular rate and rhythm Gastrointestinal: non-tender, soft Musculoskeletal: nl extremities to inspection Results Result Diagram: 06/23/1761306/23/1714 Results 24 hrs Laboratory Tests Test 06/25/17 12:28 06/25/17 17:37 06/25/17 21:59 06/26/17 02:03 Bedside Glucose 210 161 236 H 274 H Test 06/26/17 08:16 Bedside Glucose 195 Medications Medications Current Medications Ondansetron HCl (Zofran Tab) 4 mg Q6H PRN PO NAUSEA AND/OR VOMITING; Start at 15:25 Acetaminophen (Tylenol Tab) 650 mg Q6H PRN PO PAIN LEVEL 1-3 OR FEVER; Start 06/16/17 at 15:25 Zolpidem Tartrate (Ambien) 5 mg QHS PRN PO INSOMNIA Last administered on 01:54; Admin Dose 5 MG; Start 06/16/17 at 15:25 Calcitriol (Rocaltrol) 0.25 mcg DAILY PO Last administered on 06/26/17 08:42 ; Admin Dose 0.25 MCG; Start 06/16/17 at 15:25 Isosorbide Dinitrate (Isordil) 20 mg TID PO Last administered on 06/26/17 08: 43; Admin Dose 20 MG; Start 06/16/17 at 15:25 Linagliptin (Tradjenta) 5 mg DAILY PO Last administered on 06/26/17 08:43; Admin Dose 5 MG; Start 06/16/17 at 15:25 Metoprolol Tartrate (Lopressor) 25 mg BID PO Last administered on 06/26/17 08 :43; Admin Dose 25 MG; Start 06/16/17 at 15:25 Aspirin (Halfprin) 81 mg DAILY PO Last administered on 06/26/17 08:42; Admin Dose 81 MG; Start 06/16/17 at 15:25 Lorazepam (Ativan) 1 mg TID PRN PO ANXIETY Last administered on 06/26/17 06: 32; Admin Dose 1 MG; Start 06/16/17 at 15:25 Miscellaneous Information 1 ea NOTE XX ; Start 06/16/17 at 15:25 Glucose (Glutose) 15 gm Q15M PRN PO DECREASED GLUCOSE; Start 06/16/17 at 15:25 Glucose (Glutose) 22.5 gm Q15M PRN PO DECREASED GLUCOSE; Start 06/16/17 at 15: 25 Dextrose (D50w Syringe) 25 ml Q15M PRN IV DECREASED GLUCOSE; Start 06/16/17 at 15:25 Dextrose (D50w Syringe) 50 ml Q15M PRN IV DECREASED GLUCOSE; Start 06/16/17 at 15:25 Glucagon (Glucagen) 1 mg Q15M PRN IM DECREASED GLUCOSE; Start 06/16/17 at 15: 25 Glucose (Glutose) 15 gm Q15M PRN BUCCAL DECREASED GLUCOSE; Start 06/16/17 at 15:25 Nitroglycerin (Nitroglycerin (Sl Tab) 0.4 Mg) 1 tab Q5M PRN SL ANGINA; Start 06/16/17 at 15:25 Insulin Glargine (Lantus) 35 unit HS SC Last administered on 06/25/17 22:06; Admin Dose 35 UNIT; Start 06/16/17 at 15:25 Atorvastatin Calcium (Lipitor) 20 mg HS PO Last administered on 06/25/17 21: 50; Admin Dose 20 MG; Start 06/16/17 at 15:25 Escitalopram Oxalate (Lexapro) 10 mg DAILY PO Last administered on 06/26/17 08:43; Admin Dose 10 MG; Start 06/16/17 at 15:25 Apixaban (Eliquis) 5 mg BID PO Last administered on 06/26/17 08:42; Admin Dose 5 MG; Start 06/16/17 at 15:25 Docusate Sodium (Colace) 100 mg BID PO Last administered on 06/26/17 08:42; Admin Dose 100 MG; Start 06/16/17 at 21:00 Senna (Senokot) 1 tab HS PO Last administered on 06/25/17 21:52; Admin Dose 1 TAB; Start 06/16/17 at 21:00 Acetaminophen (Tylenol Tab) 650 mg Q4H PRN PO PAIN; Start 06/16/17 at 16:00 Bisacodyl (Dulcolax Supp) 10 mg DAILY PRN [place] CONSTIPATION; Start 06/16/17 at 16:30 Magnesium Hydroxide (Milk Of Mag) 30 ml BID PRN PO CONSTIPATION; Start at 16:30 Lactulose (Enulose) 20 gm DAILY PRN PO CONSTIPATION Last administered on 08:51; Admin Dose 20 GM; Start 06/16/17 at 16:30 Hydralazine HCl (Apresoline) 100 mg TID PO Last administered on 06/26/17 08: 44; Admin Dose 100 MG; Start 06/17/17 at 21:00 Clonidine (Catapres) 0.1 mg Q6H PRN PO ELEVATED BLOOD PRESSURE Last administered on 06/24/17 00:48; Admin Dose 0.1 MG; Start 06/17/17 at 14:00 Gabapentin (Neurontin) 200 mg TID PO Last administered on 06/26/17 08:43; Admin Dose 200 MG; Start 06/22/17 at 13:00 Diagnostic Test (Pha) (Accu-Chek) 1 ea 02 XX ; Start 06/25/17 at 02:00 Acetaminophen/ Hydrocodone Bitart ([place] (10/325)) 1 tab Q4H PRN NGT PAIN LEVEL 7-10; Start 06/26/17 at 09:30; Status UNV Tramadol HCl (Ultram) 50 mg Q6H PRN PO PAIN LEVEL 1-5; Start 06/26/17 at 09:30 ; Status UNV ANGÉLICA HEWITT MD Jun 26, 2017 09:11
[2017-06-26] MEDS ORDERED: traMADol 50 MG TAB PO PRN (09:30)
[2017-06-26] MEDS ORDERED: HYDROCODONE/APAP (10/325) TAB PO PRN (09:30)
--- NOTE | 2017-06-26 10:03 | CONS ---
Date/Time of Note Date/Time of Note DATE: 06/26/17 TIME: 10:01 Consult Date/Type/Reason Admit Date/Time Jun 16, 2017 at 14:42 Type of Consultation: Nephrology Subjective c/o bloody stool after straining for BM Objective pulm-cta sba ambulation Vital Signs Date Time Temp Pulse Resp B/P Pulse Ox O2 Delivery O2 Flow Rate FiO2 06/26/17 07:32 97.4 76 18 158/82 97 06/24/17 05:13 Room Air Intake and Output 06/25/17 06/25/17 06/26/17 15:00 23:00 07:00 Intake Total 2400 ml 350 ml Output Total 1200 ml 600 ml Balance 1200 ml -250 ml Results/Medications Result Diagram: 06/23/1761306/23/1714 Results 24 hrs Laboratory Tests Test 06/25/17 12:28 06/25/17 17:37 06/25/17 21:59 06/26/17 02:03 Bedside Glucose 210 161 236 H 274 H Test 06/26/17 08:16 Bedside Glucose 195 Medications Current Medications Ondansetron HCl (Zofran Tab) 4 mg Q6H PRN PO NAUSEA AND/OR VOMITING; Start at 15:25 Acetaminophen (Tylenol Tab) 650 mg Q6H PRN PO PAIN LEVEL 1-3 OR FEVER; Start 06/16/17 at 15:25 Zolpidem Tartrate (Ambien) 5 mg QHS PRN PO INSOMNIA Last administered on 01:54; Admin Dose 5 MG; Start 06/16/17 at 15:25 Calcitriol (Rocaltrol) 0.25 mcg DAILY PO Last administered on 06/26/17 08:42 ; Admin Dose 0.25 MCG; Start 06/16/17 at 15:25 Isosorbide Dinitrate (Isordil) 20 mg TID PO Last administered on 06/26/17 08: 43; Admin Dose 20 MG; Start 06/16/17 at 15:25 Linagliptin (Tradjenta) 5 mg DAILY PO Last administered on 06/26/17 08:43; Admin Dose 5 MG; Start 06/16/17 at 15:25 Metoprolol Tartrate (Lopressor) 25 mg BID PO Last administered on 06/26/17 08 :43; Admin Dose 25 MG; Start 06/16/17 at 15:25 Aspirin (Halfprin) 81 mg DAILY PO Last administered on 06/26/17 08:42; Admin Dose 81 MG; Start 06/16/17 at 15:25 Lorazepam (Ativan) 1 mg TID PRN PO ANXIETY Last administered on 06/26/17 06: 32; Admin Dose 1 MG; Start 06/16/17 at 15:25 Miscellaneous Information 1 ea NOTE XX ; Start 06/16/17 at 15:25 Glucose (Glutose) 15 gm Q15M PRN PO DECREASED GLUCOSE; Start 06/16/17 at 15:25 Glucose (Glutose) 22.5 gm Q15M PRN PO DECREASED GLUCOSE; Start 06/16/17 at 15: 25 Dextrose (D50w Syringe) 25 ml Q15M PRN IV DECREASED GLUCOSE; Start 06/16/17 at 15:25 Dextrose (D50w Syringe) 50 ml Q15M PRN IV DECREASED GLUCOSE; Start 06/16/17 at 15:25 Glucagon (Glucagen) 1 mg Q15M PRN IM DECREASED GLUCOSE; Start 06/16/17 at 15: 25 Glucose (Glutose) 15 gm Q15M PRN BUCCAL DECREASED GLUCOSE; Start 06/16/17 at 15:25 Nitroglycerin (Nitroglycerin (Sl Tab) 0.4 Mg) 1 tab Q5M PRN SL ANGINA; Start 06/16/17 at 15:25 Insulin Glargine (Lantus) 35 unit HS SC Last administered on 06/25/17 22:06; Admin Dose 35 UNIT; Start 06/16/17 at 15:25 Atorvastatin Calcium (Lipitor) 20 mg HS PO Last administered on 06/25/17 21: 50; Admin Dose 20 MG; Start 06/16/17 at 15:25 Escitalopram Oxalate (Lexapro) 10 mg DAILY PO Last administered on 06/26/17 08:43; Admin Dose 10 MG; Start 06/16/17 at 15:25 Apixaban (Eliquis) 5 mg BID PO Last administered on 06/26/17 08:42; Admin Dose 5 MG; Start 06/16/17 at 15:25 Docusate Sodium (Colace) 100 mg BID PO Last administered on 06/26/17 08:42; Admin Dose 100 MG; Start 06/16/17 at 21:00 Senna (Senokot) 1 tab HS PO Last administered on 06/25/17 21:52; Admin Dose 1 TAB; Start 06/16/17 at 21:00 Acetaminophen (Tylenol Tab) 650 mg Q4H PRN PO PAIN; Start 06/16/17 at 16:00 Bisacodyl (Dulcolax Supp) 10 mg DAILY PRN [place] CONSTIPATION; Start 06/16/17 at 16:30 Magnesium Hydroxide (Milk Of Mag) 30 ml BID PRN PO CONSTIPATION; Start at 16:30 Lactulose (Enulose) 20 gm DAILY PRN PO CONSTIPATION Last administered on 08:51; Admin Dose 20 GM; Start 06/16/17 at 16:30 Hydralazine HCl (Apresoline) 100 mg TID PO Last administered on 06/26/17 08: 44; Admin Dose 100 MG; Start 06/17/17 at 21:00 Clonidine (Catapres) 0.1 mg Q6H PRN PO ELEVATED BLOOD PRESSURE Last administered on 06/24/17 00:48; Admin Dose 0.1 MG; Start 06/17/17 at 14:00 Gabapentin (Neurontin) 200 mg TID PO Last administered on 06/26/17 08:43; Admin Dose 200 MG; Start 06/22/17 at 13:00 Diagnostic Test (Pha) (Accu-Chek) 1 ea 02 XX ; Start 06/25/17 at 02:00 Acetaminophen/ Hydrocodone Bitart ([place] (10/325)) 1 tab Q4H PRN PO PAIN LEVEL 7-10; Start 06/26/17 at 09:30 Tramadol HCl (Ultram) 50 mg Q6H PRN PO PAIN LEVEL 1-5; Start 06/26/17 at 09:30 Assessment/Plan Additional Assessment/Plan rehab- Debility secondary to PVD, s/p ischemic left lower extremity requiring thrombectomy and compartment fasciotomy, subsequent closure of fasciotomy wounds with STSG d/c held due to bloody stool after straining GI- stool softener, repeat cbc in am Acute on chronic kidney disease requiring hemodialysis. Acute pain syndrome-continue transitioning to oral meds Diabetes mellitus. Hypertension. Coronary artery disease with history of coronary artery bypass graft. Right eye blindness. Integ- wound care HENRY CHUN MD Jun 26, 2017 10:02
[2017-06-26] MEDS ORDERED: INFLUENZA VIRUS VACCINE 0.5 ML SYG IM* ONE (14:00)
[2017-06-26] MEDS: MAGNESIUM HYDROXIDE 30ML CUP PO PRN (17:20)
[2017-06-26] MEDS: SENNA TAB PO SCH (21:00)
[2017-06-26] MEDS: ATORVASTATIN 20 MG TAB PO SCH (21:00)
[2017-06-26] MEDS: INSULIN GLARGINE [LANtus] 3 ML PEN SC SCH (21:04)
[2017-06-27] MEDS: HYDROmorphONE 0.5 MG/0.5 ML SYG IV PRN ×4 (01:02→13:34)
[2017-06-27] MEDS: HYDROmorphONE 2 MG TAB PO PRN ×4 (01:33→12:25)
[2017-06-27 02:00] VITALS: BP 132/64; PULSE 71; RESP 19
[2017-06-27] MEDS: ACCU-CHEK XX SCH (02:00)
--- NOTE | 2017-06-27 07:55 | PN ---
Date/Time of Note Date/Time of Note DATE: 06/27/17 TIME: 07:52 Assessment/Plan Lines/Catheters IV Catheter Type (from Nrsg): Saline Lock Joshi in Place (from Nrsg): No Assessment/Plan Assessment/Plan Doing well s/p LLE thrombectomy / fasciotomy / STSG and L arm AVF He can f/u with me in the office in 2 weeks if discharged soon Subjective 24 Hr Interval Summary Leg pain almost gone. Ambulating with therapists. He still has some edema in the left arm and mild pain. Exam/Review of Systems Vital Signs Vitals Vital Signs Date Time Temp Pulse Resp B/P Pulse Ox O2 Delivery O2 Flow Rate FiO2 06/27/17 02:00 98.3 71 19 132/64 94 Room Air Intake and Output 06/26/17 06/26/17 06/27/17 14:59 22:59 06:59 Intake Total 2000 ml 800 ml Output Total 1400 ml 1400 ml Balance 600 ml -600 ml Exam Free Text/Dictation L arm AVF with good thrill in the upper arm Incision is healing well Moderate edema in the forearm and hand, 2+ radial pulse L groin incision is well healed L thigh donor site clean and dry L leg fasciotomy site dressed L foot is warm and pink with 2+ DP pulse Results Result Diagram: 06/27/17 0615 06/26/17 1034 SONNY SPARROW MD Jun 27, 2017 07:55
[2017-06-27] MEDS: INSULIN ASPART [NOVOLOG] 3 ML PEN SC SCH ×4 (07:57→12:19)
[2017-06-27 08:00] VITALS: BP 165/84; PULSE 72; RESP 18
--- NOTE | 2017-06-27 08:18 | CONS ---
Date/Time of Note Date/Time of Note DATE: 06/27/17 TIME: 08:13 Assessment/Plan Assessment/Plan Chief Complaint/Hosp Course 1. Chronic kidney disease stage IV. The patient has gotten one hemodialysis treatment. He had a left upper arm AV fistula created last week for future hemodialysis.. His renal function has has been stable with a serum creatinine about 3.4. 2. 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 3. Peripheral vascular disease, he is now on Eliquis as an anticoagulant. He had a blood clot to the left internal iliac artery which was thought to be an embolus by Dr. Lujan.He continues to have pain . 4. Hypertension, his blood pressure is now controlled . I have increased the hydralazine . 5. Anemia of chronic kidney disease, his blood count has increased. 6. depression , he is on Lexapro and will see the psychologist during the week. 7. GI bleeding. The patient had a bloody bowel movement yesterday when he strained when trying to have a bowel movement . His stool is hard. Some of this was related to the fact that he is on narcotics for his pain. He has had no further GI bleeding since yesterday. His hemoglobin and hematocrit are stable. The patient can be discharged to home today with home health. I will give him a prescription for Dilaudid 2 mg every 4-6 hours for pain. He will see me in my office next week for follow-up. Problems: Consultation Date/Type/Reason Admit Date/Time Jun 16, 2017 at 14:42 Type of Consultation: Nephrology 24 HR Interval Summary Free Text/Dictation Patient is awake and alert. He continues to complain of pain in his left leg and left arm. It is relieved with Dilaudid pills. The patient has not had any GI bleeding since yesterday. Exam/Review of Systems Vital Signs Vitals Vital Signs Date Time Temp Pulse Resp B/P Pulse Ox O2 Delivery O2 Flow Rate FiO2 06/27/17 02:00 98.3 71 19 132/64 94 Room Air Intake and Output 06/26/17 06/26/17 06/27/17 15:00 23:00 07:00 Intake Total 2000 ml 800 ml Output Total 1400 ml 1400 ml Balance 600 ml -600 ml Exam Constitutional: alert, oriented, well developed Respiratory: clear to auscultation, normal air movement Cardiovascular: regular rate and rhythm Gastrointestinal: soft Musculoskeletal: nl extremities to inspection Results Result Diagram: 06/27/17 0615 06/27/17 0615 Results 24 hrs Laboratory Tests Test 06/26/17 08:16 06/26/17 10:34 06/26/17 12:07 06/26/17 17:35 Bedside Glucose 195 229 H 201 White Blood Count 8.7 Red Blood Count 3.95 L Hemoglobin 11.3 L Hematocrit 35.4 L Mean Corpuscular Volume 89.6 Mean Corpuscular Hemoglobin 28.6 L Mean Corpuscular Hemoglobin Concent 31.9 L Red Cell Distribution Width 14.2 Platelet Count 230 Mean Platelet Volume 10.9 H Neutrophils % 74.3 Lymphocytes % 12.0 L Monocytes % 8.9 Eosinophils % 3.8 Basophils % 0.3 Nucleated Red Blood Cells % 0.0 Neutrophils # 6.4 Lymphocytes # 1.0 Monocytes # 0.8 Eosinophils # 0.3 Basophils # 0.0 Nucleated Red Blood Cells # 0.0 Sodium Level 137 Potassium Level 4.3 Chloride Level 101 Carbon Dioxide Level 24 Anion Gap 16 Blood Urea Nitrogen 60 H Creatinine 3.31 H Glucose Level 219 Calcium Level 8.4 Total Bilirubin 0.1 L Direct Bilirubin 0.00 Indirect Bilirubin 0.1 Aspartate Amino Transf (AST/SGOT) 19 Alanine Aminotransferase (ALT/SGPT) 36 Alkaline Phosphatase 98 Total Protein 6.7 Albumin 3.5 Globulin 3.20 Albumin/Globulin Ratio 1.09 Test 06/26/17 20:59 06/27/17 06:15 06/27/17 07:52 Bedside Glucose 143 176 White Blood Count 8.7 Red Blood Count 4.21 L Hemoglobin 12.2 L Hematocrit 38.5 L Mean Corpuscular Volume 91.4 Mean Corpuscular Hemoglobin 29.0 Mean Corpuscular Hemoglobin Concent 31.7 L Red Cell Distribution Width 14.0 Platelet Count 247 Mean Platelet Volume 10.8 H Neutrophils % 69.9 Lymphocytes % 15.5 Monocytes % 9.3 Eosinophils % 4.0 Basophils % 0.6 Nucleated Red Blood Cells % 0.0 Neutrophils # 6.1 Lymphocytes # 1.4 Monocytes # 0.8 Eosinophils # 0.4 Basophils # 0.1 Nucleated Red Blood Cells # 0.0 Sodium Level 139 Potassium Level 4.0 Chloride Level 102 Carbon Dioxide Level 28 Anion Gap 13 Blood Urea Nitrogen 61 H Creatinine 3.43 H Glucose Level 175 Calcium Level 8.9 Total Bilirubin 0.1 L Direct Bilirubin 0.00 Indirect Bilirubin 0.1 Aspartate Amino Transf (AST/SGOT) 25 Alanine Aminotransferase (ALT/SGPT) 47 Alkaline Phosphatase 100 Total Protein 6.7 Albumin 3.3 Globulin 3.40 H Albumin/Globulin Ratio 0.97 Medications Medications Current Medications Ondansetron HCl (Zofran Tab) 4 mg Q6H PRN PO NAUSEA AND/OR VOMITING; Start at 15:25 Acetaminophen (Tylenol Tab) 650 mg Q6H PRN PO PAIN LEVEL 1-3 OR FEVER; Start 06/16/17 at 15:25 Zolpidem Tartrate (Ambien) 5 mg QHS PRN PO INSOMNIA Last administered on 01:54; Admin Dose 5 MG; Start 06/16/17 at 15:25 Calcitriol (Rocaltrol) 0.25 mcg DAILY PO Last administered on 06/26/17 08:42 ; Admin Dose 0.25 MCG; Start 06/16/17 at 15:25 Isosorbide Dinitrate (Isordil) 20 mg TID PO Last administered on 06/26/17 21: 00; Admin Dose 20 MG; Start 06/16/17 at 15:25 Linagliptin (Tradjenta) 5 mg DAILY PO Last administered on 06/26/17 08:43; Admin Dose 5 MG; Start 06/16/17 at 15:25 Metoprolol Tartrate (Lopressor) 25 mg BID PO Last administered on 06/26/17 21 :01; Admin Dose 25 MG; Start 06/16/17 at 15:25 Aspirin (Halfprin) 81 mg DAILY PO Last administered on 06/26/17 08:42; Admin Dose 81 MG; Start 06/16/17 at 15:25 Lorazepam (Ativan) 1 mg TID PRN PO ANXIETY Last administered on 06/26/17 23: 22; Admin Dose 1 MG; Start 06/16/17 at 15:25 Miscellaneous Information 1 ea NOTE XX ; Start 06/16/17 at 15:25 Glucose (Glutose) 15 gm Q15M PRN PO DECREASED GLUCOSE; Start 06/16/17 at 15:25 Glucose (Glutose) 22.5 gm Q15M PRN PO DECREASED GLUCOSE; Start 06/16/17 at 15: 25 Dextrose (D50w Syringe) 25 ml Q15M PRN IV DECREASED GLUCOSE; Start 06/16/17 at 15:25 Dextrose (D50w Syringe) 50 ml Q15M PRN IV DECREASED GLUCOSE; Start 06/16/17 at 15:25 Glucagon (Glucagen) 1 mg Q15M PRN IM DECREASED GLUCOSE; Start 06/16/17 at 15: 25 Glucose (Glutose) 15 gm Q15M PRN BUCCAL DECREASED GLUCOSE; Start 06/16/17 at 15:25 Nitroglycerin (Nitroglycerin (Sl Tab) 0.4 Mg) 1 tab Q5M PRN SL ANGINA; Start 06/16/17 at 15:25 Insulin Glargine (Lantus) 35 unit HS SC Last administered on 06/26/17 21:04; Admin Dose 35 UNIT; Start 06/16/17 at 15:25 Atorvastatin Calcium (Lipitor) 20 mg HS PO Last administered on 06/26/17 21: 00; Admin Dose 20 MG; Start 06/16/17 at 15:25 Escitalopram Oxalate (Lexapro) 10 mg DAILY PO Last administered on 06/26/17 08:43; Admin Dose 10 MG; Start 06/16/17 at 15:25 Apixaban (Eliquis) 5 mg BID PO Last administered on 06/26/17 21:00; Admin Dose 5 MG; Start 06/16/17 at 15:25 Docusate Sodium (Colace) 100 mg BID PO Last administered on 06/26/17 21:00; Admin Dose 100 MG; Start 06/16/17 at 21:00 Senna (Senokot) 1 tab HS PO Last administered on 06/26/17 21:00; Admin Dose 1 TAB; Start 06/16/17 at 21:00 Acetaminophen (Tylenol Tab) 650 mg Q4H PRN PO PAIN; Start 06/16/17 at 16:00 Bisacodyl (Dulcolax Supp) 10 mg DAILY PRN [place] CONSTIPATION; Start 06/16/17 at 16:30 Magnesium Hydroxide (Milk Of Mag) 30 ml BID PRN PO CONSTIPATION Last administered on 06/26/17 17:20; Admin Dose 30 ML; Start 06/16/17 at 16:30 Lactulose (Enulose) 20 gm DAILY PRN PO CONSTIPATION Last administered on 08:51; Admin Dose 20 GM; Start 06/16/17 at 16:30 Hydralazine HCl (Apresoline) 100 mg TID PO Last administered on 06/26/17 21: 00; Admin Dose 100 MG; Start 06/17/17 at 21:00 Clonidine (Catapres) 0.1 mg Q6H PRN PO ELEVATED BLOOD PRESSURE Last administered on 06/24/17 00:48; Admin Dose 0.1 MG; Start 06/17/17 at 14:00 Gabapentin (Neurontin) 200 mg TID PO Last administered on 06/26/17 21:01; Admin Dose 200 MG; Start 06/22/17 at 13:00 Diagnostic Test (Pha) (Accu-Chek) 1 ea 02 XX ; Start 06/25/17 at 02:00 Tramadol HCl (Ultram) 50 mg Q6H PRN PO PAIN LEVEL 1-5; Start 06/26/17 at 09:30 Hydromorphone HCl (Dilaudid) 2 mg Q3H PRN PO PAIN LEVEL 7-10 Last administered on 06/27/17 05:38; Admin Dose 2 MG; Start 06/26/17 at 11:30 Hydromorphone HCl (Dilaudid) 1 mg Q4H PRN IV PAIN LEVEL 8-10 Last administered on 06/27/17 05:04; Admin Dose 1 MG; Start 06/26/17 at 12:00 ANGÉLICA HEWITT MD Jun 27, 2017 08:18
--- NOTE | 2017-06-27 08:22 | PDOCDIS ---
Discharge Instructions DIAGNOSIS Discharge Diagnosis 1.L leg ischemia 2.CKD 3.DM 4.CAD 5.PAD CONDITION Patient Condition: Good HOME CARE INSTRUCTIONS: Diet Instructions: Reduced CalorieSpecial Diet: Renal CCHO ACTIVITY: Activity Restrictions: Slowly Increase Activity Avoid heavy lifting Do not Drive Avoid Heavy Housework Weight Bearing Bathing Restrictions: Shower FOLLOW UP/APPOINTMENTS Follow-up Plan Dr Gaytan , Dr Lujan , ANGÉLICA Coffey MD Jun 27, 2017 08:22
[2017-06-27] MEDS: ISOSORBIDE DINITRATE 20 MG TAB PO SCH ×2 (08:26→12:24)
[2017-06-27] MEDS: CALCITRIOL 0.25 MCG CAP PO SCH (08:26)
[2017-06-27] MEDS: ESCITALOPRAM 10 MG TAB PO SCH (08:26)
[2017-06-27] MEDS: GABAPENTIN 100 MG CAP PO SCH ×2 (08:26→12:24)
[2017-06-27] MEDS: DOCUSATE SODIUM 100 MG CAP PO SCH (08:26)
[2017-06-27] MEDS: LINAGLIPTIN 5 MG TABLET PO SCH (08:27)
[2017-06-27] MEDS: APIXABAN 5 MG TABLET PO SCH (08:27)
[2017-06-27] MEDS: METOPROLOL 25 MG TAB PO SCH (08:27)
[2017-06-27] MEDS: ASPIRIN (EC) 81 MG TAB PO SCH (08:27)
[2017-06-27] MEDS: LORAZEPAM 1 MG TAB PO PRN (09:25)
--- NOTE | 2017-06-27 10:57 | DS ---
Date/Time of Note Date/Time of Note DATE: 06/27/17 TIME: 10:55 Discharge Summary Admission/Discharge Info Admit Date/Time Jun 16, 2017 at 14:42 Discharge Date/Time Discharge Diagnosis 1. Debility secondary to severe peripheral vascular disease status post ischemic left lower extremity requiring thrombectomy in addition to compartment fasciotomy and subsequent closure of the fasciotomy wounds with split thickness skin graft. 2. Acute on chronic kidney disease requiring hemodialysis. 3. Acute pain syndrome. 4. Diabetes mellitus. 5. Hypertension. 6. Coronary artery disease with history of coronary artery bypass graft. 7. Right eye blindness. 8. Improvements in self-care and mobility. Patient Condition: Good Hospital Course 1. Chronic kidney disease stage IV. The patient has gotten one hemodialysis treatment. He had a left upper arm AV fistula created last week for future hemodialysis.. His renal function has has been stable with a serum creatinine about 3.4. 2. 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 3. Peripheral vascular disease, he is now on Eliquis as an anticoagulant. He had a blood clot to the left internal iliac artery which was thought to be an embolus by Dr. Lujan.He continues to have pain . 4. Hypertension, his blood pressure is now controlled . I have increased the hydralazine . 5. Anemia of chronic kidney disease, his blood count has increased. 6. depression , he is on Lexapro and will see the psychologist during the week. 7. GI bleeding. The patient had a bloody bowel movement yesterday when he strained when trying to have a bowel movement . His stool is hard. Some of this was related to the fact that he is on narcotics for his pain. He has had no further GI bleeding since yesterday. His hemoglobin and hematocrit are stable. The patient can be discharged to home today with home health. I will give him a prescription for Dilaudid 2 mg every 4-6 hours for pain. He will see me in my office next week for follow-up. Home Meds Reported Medications Linagliptin (TRADJENTA) 5 Mg Tablet, 5 MG PO DAILY, TAB 05/29/17 Furosemide* (Furosemide*) 20 Mg Tablet, 20 MG PO DAILY, #60 TAB 05/29/17 Lorazepam* (Lorazepam*) 1 Mg Tablet, 1 MG PO TID Y for ANXIETY, #60 TAB 05/29/17 Isosorbide Dinitrate* (Isosorbide Dinitrate*) 20 Mg Tablet, 20 MG PO TID, TAB 05/29/17 Hydralazine Hcl* (Hydralazine Hcl*) 100 Mg Tablet, 100 MG PO TID, #90 TAB 05/29/17 Calcitriol* (Calcitriol*) 0.25 Mcg Capsule, 0.25 MCG PO DAILY, CAP 03/30/17 Aspirin* (Aspirin* EC) 81 Mg Tablet.dr, 81 MG PO DAILY, TAB 03/30/17 Insulin Glargine* (Lantus*) 100 Unit/Ml Soln, 35 UNIT SC QHS, #1 VIAL 01/30/17 Metoprolol Tartrate* (Lopressor*) 25 Mg Tab, 25 MG PO BID, #60 TAB 01/30/17 Atorvastatin* (Atorvastatin*) 80 Mg Tablet, 80 MG PO DAILY, #30 TAB 01/30/17 Insulin Aspart* (Novolog Insulin Pen*) 100 Unit/Ml Soln, 0 SC .SLIDING SCALE AC , EA TAKE 5-20 UNITS SLIDING SCALE TID WITH MEALS 01/30/17 Sodium Bicarbonate (Antacid) 650 Mg Tablet, 325 MG PO BID, TAB 01/30/17 Follow-up Plan Dr Gaytan , Dr Lujan , Dr Cano Primary Care Provider Lacho Manjarrez MD Pending Labs Laboratory Tests Test 06/26/17 12:07 06/26/17 17:35 06/26/17 20:59 06/27/17 06:15 Bedside Glucose 229mg/dL (70-220) 201mg/dL (70-220) 143mg/dL (70-220) White Blood Count 8.710^3/ul (4.8-10.8) Red Blood Count 4.2110^6/ul (4.70-6.10) Hemoglobin 12.2g/dl (14.0-18.0) Hematocrit 38.5% (42.0-52.0) Mean Corpuscular Volume 91.4fl (82.0-101.0) Mean Corpuscular Hemoglobin 29.0pg (29.0-33.0) Mean Corpuscular Hemoglobin Concent 31.7g/dl (32.0-37.0) Red Cell Distribution Width 14.0% (11.5-14.5) Platelet Count 82834^3/UL (140-415) Mean Platelet Volume 10.8fl (7.4-10.4) Neutrophils % 69.9% (39.0-77.0) Lymphocytes % 15.5% (15.0-51.0) Monocytes % 9.3% (0.0-11.0) Eosinophils % 4.0% (0.0-7.0) Basophils % 0.6% (0.0-2.0) Nucleated Red Blood Cells % 0.0/100WBC (0.0-0.0) Neutrophils # 6.110^3/ul (1.6-7.5) Lymphocytes # 1.410^3/ul (0.8-2.9) Monocytes # 0.810^3/ul (0.3-0.9) Eosinophils # 0.410^3/ul (0.0-0.5) Basophils # 0.110^3/ul (0.0-0.1) Nucleated Red Blood Cells # 0.010^3/ul (0.0-0.0) Sodium Level 139mmol/L (135-144) Potassium Level 4.0mmol/L (3.5-5.1) Chloride Level 102mmol/L (97-110) Carbon Dioxide Level 28mmol/L (21-31) Anion Gap 13 (8-16) Blood Urea Nitrogen 61mg/dl (7-20) Creatinine 3.43mg/dl (0.61-1.24) Glucose Level 175mg/dl (70-220) Calcium Level 8.9mg/dl (8.4-10.2) Total Bilirubin 0.1mg/dl (0.2-1.3) Direct Bilirubin 0.00mg/dl (0.00-0.20) Indirect Bilirubin 0.1mg/dl (0-1.1) Aspartate Amino Transf (AST/SGOT) 25IU/L (15-46) Alanine Aminotransferase (ALT/SGPT) 47IU/L (13-69) Alkaline Phosphatase 100IU/L (42-121) Total Protein 6.7g/dl (6.1-8.1) Albumin 3.3g/dl (3.3-4.9) Globulin 3.40g/dl (1.3-3.2) Albumin/Globulin Ratio 0.97 Test 06/27/17 07:52 Bedside Glucose 176mg/dL (70-220) HENRY CHUN MD Jun 27, 2017 10:57
[2017-06-27] MEDS: MAGNESIUM HYDROXIDE 30ML CUP PO PRN (14:33)
== END 2017-06-27 15:05 | disposition home health service (06) | DRG 939 ==
LOC: VRC 14:42
PROVIDERS: ADMIT Physical Medicine & Rehabilitation; ATTEND Internal Medicine
PROC: F07Z5ZZ Bed Mobility Treatment (ICD-10-PCS; principal; 2017-06-16)
PROC: F08Z2ZZ Grooming/Personal Hygiene Treatment (ICD-10-PCS; 2017-06-16)
PROC: 03180AD Bypass Left Brachial Artery to Upper Arm Vein with Autologous Arterial Tissue, Open Approach (ICD-10-PCS; 2017-06-20)
DX: R53.81 Other malaise (principal); N18.6 End stage renal disease; E11.22 Type 2 diabetes mellitus with diabetic chronic kidney disease; N17.9 Acute kidney failure, unspecified; I12.0 Hypertensive chronic kidney disease with stage 5 chronic kidney disease or end stage renal disease; K92.2 Gastrointestinal hemorrhage, unspecified; I73.9 Peripheral vascular disease, unspecified; R52 Pain, unspecified; I25.10 Atherosclerotic heart disease of native coronary artery without angina pectoris; Z95.1 Presence of aortocoronary bypass graft; H54.40 Blindness, one eye, unspecified eye; Z79.4 Long term (current) use of insulin; D63.1 Anemia in chronic kidney disease; F32.9 Major depressive disorder, single episode, unspecified; Z79.82 Long term (current) use of aspirin
CPT/HCPCS: 71010; 80053; 81001; 82962; 84100; 85025; 85610; 85730; 87081; 87086; 90686; 97110; 97112; 97116; 97150; 97163; 97167; 97530; 97535; J1170; J1644; J1815; J2175; J2250; J3010; Q4081

== ENCOUNTER 2017-07-03 14:18 | Emergency (ER) | payer MEDICARE, OTHER ==
[~2017-07-03] VITALS: Ht 177.8 cm; Wt 82.0 kg
[2017-07-03 14:23] VITALS: Ht 177.8 cm; Wt 82.0 kg
[2017-07-03] MEDS ORDERED: SOD CHLORIDE 0.9% 1,000 ML IV STA (14:44)
[2017-07-03] MEDS ORDERED: ONDANSETRON 4 MG INJ IV STA (14:44)
[2017-07-03] MEDS ORDERED: ASPIRIN 81 MG TAB PO ONE (15:00)
--- NOTE | 2017-07-03 15:09 | RADRPT ---
PROCEDURE: XR Chest. CLINICAL INDICATION: Shortness of breath TECHNIQUE: Single portable view of the chest was obtained COMPARISON: July 26, 2013 FINDINGS: The trachea is midline. The cardiac silhouette and pulmonary vascularity are within normal limits. T he lungs are clear. The costophrenic angles are sharp. Status post mediastinotomy and CABG. IMPRESSION: 1. No evidence of acute cardiopulmonary disease. 2. Stable mediastinal postsurgical changes. RPTAT: [facility]APP Physician Varun Date Time Electronically viewed and signed by Physician Varun on 07/03/2017 15:09 ANAY/
[2017-07-03] MEDS ORDERED: GABA100C14 PO (16:00)
[2017-07-03] MEDS ORDERED: APIX5TAB PO (16:01)
[2017-07-03 18:56] VITALS: BP 146/80; PULSE 81; RESP 18; TEMP 98.5
[2017-07-03] MEDS ORDERED: DIPH1TAB PO (18:58)
[2017-07-03] MEDS ORDERED: ONDA4TAB11 PO (18:58)
[2017-07-03] MEDS ORDERED: RANI150T9 PO (18:59)
[2017-07-03] MEDS ORDERED: LIDOCAINE/MYLANTA 40 ML BTL PO ONE (19:00)
--- NOTE | 2017-07-03 19:05 | ERD ---
ER Documentation Chief Complaint Chief Complaint chest pain since last night , diarrhea x 2 days HPI This 57-year-old male presents with diarrhea for the last 2 days as well as dull substernal chest pain that started last night and does not radiate is not made worse or better by anything in particular.. No nausea or vomiting. No fever chills. Does not have shortness of breath. ROS All systems reviewed and are negative except as per history of present illness. Medications Home Meds Active Scripts Ranitidine Hcl* (Zantac*) 150 Mg Tablet, 150 MG PO BID Y for EPIGASTRIC PAIN, # 30 TAB Prov:COLE EDWARDS DO 07/03/17 Diphenoxylate HCl/Atropine (Lomotil 2.5-0.025 mg Tablet) 1 Each Tablet, 1 TAB PO Q6H Y for DIARRHEA, #14 TAB Prov:COLE EDWARDS DO 07/03/17 Ondansetron (Zofran Odt) 4 Mg Tab.rapdis, 4 MG PO Q6, #10 Prov:GRACECOLE DO 07/03/17 Reported Medications Apixaban* (Eliquis*) 5 Mg Tablet, 5 MG PO BID, TAB 07/03/17 Gabapentin* (Gabapentin*) 100 Mg Capsule, 200 MG PO TID, #180 CAP 07/03/17 Linagliptin (TRADJENTA) 5 Mg Tablet, 5 MG PO DAILY, TAB 05/29/17 Lorazepam* (Lorazepam*) 1 Mg Tablet, 1 MG PO TID Y for ANXIETY, #60 TAB 05/29/17 Isosorbide Dinitrate* (Isosorbide Dinitrate*) 20 Mg Tablet, 20 MG PO TID, TAB 05/29/17 Hydralazine Hcl* (Hydralazine Hcl*) 100 Mg Tablet, 100 MG PO TID, #90 TAB 05/29/17 Aspirin* (Aspirin* EC) 81 Mg Tablet.dr, 81 MG PO DAILY, TAB 03/30/17 Insulin Glargine* (Lantus*) 100 Unit/Ml Soln, 35 UNIT SC QHS, #1 VIAL 01/30/17 Metoprolol Tartrate* (Lopressor*) 25 Mg Tab, 25 MG PO BID, #60 TAB 01/30/17 Atorvastatin* (Atorvastatin*) 80 Mg Tablet, 80 MG PO DAILY, #30 TAB 01/30/17 Insulin Aspart* (Novolog Insulin Pen*) 100 Unit/Ml Soln, 0 SC .SLIDING SCALE AC , EA TAKE 4 OR 15 UNITS SLIDING SCALE TID WITH MEALS 01/30/17 Discontinued Reported Medications Furosemide* (Furosemide*) 20 Mg Tablet, 20 MG PO DAILY, #60 TAB 05/29/17 Calcitriol* (Calcitriol*) 0.25 Mcg Capsule, 0.25 MCG PO DAILY, CAP 03/30/17 Sodium Bicarbonate (Antacid) 650 Mg Tablet, 325 MG PO BID, TAB 01/30/17 Allergies Allergies: Coded Allergies: No Known Allergy (Unverified , 07/03/17) PMhx/Soc History of Surgery: Yes (s/p LLE fasciotomy - pt report R hip replacement few years ago ) Anesthesia Reaction: No Hx Neurological Disorder: No Hx Respiratory Disorders: No Hx Cardiac Disorders: Yes (HTN) Hx Psychiatric Problems: Yes (depression, anxiety) Hx Miscellaneous Medical Probl: Yes (blind in R eye, DM2, PADm HTN, NH, CKD) Hx Alcohol Use: No Hx Substance Use: No Hx Tobacco Use: No Physical Exam Vitals Vital Signs Date Time Temp Pulse Resp B/P Pulse Ox O2 Delivery O2 Flow Rate FiO2 07/03/17 18:56 98.5 81 18 146/80 98 Room Air 07/03/17 18:09 98.5 90 18 150/82 98 Room Air 07/03/17 15:26 98.5 90 20 142/70 98 Room Air 07/03/17 14:23 98.6 88 18 140/75 97 Physical Exam Const: [] No distress, smiling and pleasant Head: Atraumatic Eyes: Normal Conjunctiva ENT: Normal External Ears, Nose and Mouth. Neck: Full range of motion..~ No meningismus. Resp: Clear to auscultation bilaterally Cardio: Regular rate and rhythm, no murmurs Abd: Soft, non tender, non distended. Normal bowel sounds Skin: No petechiae or rashes Ext: No cyanosis, or edema Neur: Awake and alert and oriented 3, no focal deficits Psych: Normal Mood and Affect Result Diagram: 07/03/17 1449 07/03/17 1449 Results 24 hrs Laboratory Tests Test 07/03/17 14:49 07/03/17 16:00 White Blood Count 14.310^3/ul Red Blood Count 4.5610^6/ul Hemoglobin 13.0g/dl Hematocrit 40.7% Mean Corpuscular Volume 89.3fl Mean Corpuscular Hemoglobin 28.5pg Mean Corpuscular Hemoglobin Concent 31.9g/dl Red Cell Distribution Width 13.9% Platelet Count 18876^3/UL Mean Platelet Volume 10.4fl Neutrophils % 82.2% Lymphocytes % 10.4% Monocytes % 5.3% Eosinophils % 1.1% Basophils % 0.3% Nucleated Red Blood Cells % 0.0/100WBC Neutrophils # 11.710^3/ul Lymphocytes # 1.510^3/ul Monocytes # 0.810^3/ul Eosinophils # 0.210^3/ul Basophils # 0.010^3/ul Nucleated Red Blood Cells # 0.010^3/ul Sodium Level 141mmol/L Potassium Level 4.4mmol/L Chloride Level 104mmol/L Carbon Dioxide Level 23mmol/L Anion Gap 18 Blood Urea Nitrogen 44mg/dl Creatinine 3.36mg/dl Glucose Level 109mg/dl Calcium Level 8.6mg/dl Total Bilirubin 0.2mg/dl Direct Bilirubin 0.00mg/dl Indirect Bilirubin 0.2mg/dl Aspartate Amino Transf (AST/SGOT) 23IU/L Alanine Aminotransferase (ALT/SGPT) 42IU/L Alkaline Phosphatase 118IU/L Troponin I 0.012ng/ml Total Protein 7.7g/dl Albumin 4.2g/dl Globulin 3.50g/dl Albumin/Globulin Ratio 1.20 Lipase 40U/L Urine Color YELLOW Urine Clarity CLEAR Urine pH 6.0 Urine Specific [place] 1.012 Urine Ketones NEGATIVEmg/dL Urine Nitrite NEGATIVEmg/dL Urine Bilirubin NEGATIVEmg/dL Urine Urobilinogen NEGATIVEmg/dL Urine Leukocyte Esterase NEGATIVELeu/ul Urine Microscopic RBC 2/HPF Urine Microscopic WBC 1/HPF Urine Hemoglobin NEGATIVEmg/dL Urine Glucose 1+mg/dL Urine Total Protein 2+mg/dl Current Medications Medications (Trade) Dose Ordered Sig/Radha Route PRN Reason Start Time Stop Time Status Last Admin Dose Admin Sodium Chloride (NS) 1,000 ml @ 1,000 mls/hr Q1H STAT IV 07/03/17 14:44 07/03/17 15:43 DC 07/03/17 15:07 Ondansetron HCl (Zofran Inj) 4 mg ONCE STAT IV 07/03/17 14:44 07/03/17 14:46 DC 07/03/17 15:07 Aspirin (Aspirin) 324 mg ONCE ONCE PO 07/03/17 15:00 07/03/17 15:01 DC 07/03/17 15:08 Procedures/MDM We will chest pain in patient with high risk for coronary artery disease though I do not believe he is having coronary syndrome in this case. he has a negative troponin and nonischemic EKG. Also 2 days of diarrhea. I did speak with Dr. Manjarrez, the patient's primary care physician we discussed his recent admission to the hospital which she had an extensive workup. Dr. Broussard feels that with the current lab values and symptoms the patient can be safely discharged home he would be happy to see him in his office at any time. Patient does have renal insufficiency with lab values consistent with previous creatinine and BUN levels. Was given a liter of normal saline. Was also given aspirin and a GI cocktail. His symptoms improved I am going to discharge him with Zofran to that he can hydrate properly, Zantac. Primary care follow-up tomorrow or as soon as possible. EK G interpretation: Normal sinus rhythm rate of 89, left axis deviation, no ST or T-wave changes concerning for acute ischemia, nonspecific intraventricular conduction delay. Chest x-ray interpretation: I see no acute process. Sternotomy wires noted, see no infiltrate, no pneumothorax, no fractures, no wide mediastinum. physical meteorologist interpretation: Normal sinus rhythm without arrhythmia Departure Diagnosis: Primary Impression: Chest pain Additional Impressions: Diarrhea Renal insufficiency Leukocytosis, unspecified Condition: Stable Patient Instructions: Treating Diarrhea, Chest Pain, Noncardiac Additional Instructions: Call your primary care doctor TOMORROW for an appointment during the next 1-2 days.See the doctor sooner or return here if your condition worsens before your appointment time. COLE EDWARDS DO Jul 03, 2017 19:05
[2017-07-03] MEDS ORDERED: LOPERAMIDE 2 MG CAP PO ONE (19:30)
== END 2017-07-03 19:19 | disposition home or self-care (01) ==
LOC: E/R 14:18
DX: R07.9 Chest pain, unspecified (principal); R19.7 Diarrhea, unspecified; D72.829 Elevated white blood cell count, unspecified; I12.9 Hypertensive chronic kidney disease with stage 1 through stage 4 chronic kidney disease, or unspecified chronic kidney disease; N18.9 Chronic kidney disease, unspecified; E11.22 Type 2 diabetes mellitus with diabetic chronic kidney disease; Z79.4 Long term (current) use of insulin; Z79.01 Long term (current) use of anticoagulants; Z79.82 Long term (current) use of aspirin
CPT/HCPCS: 36415; 71010; 80053; 81001; 83690; 84484; 85025; 96374; 99285; J2405; J7030

== ENCOUNTER 2017-12-19 12:02 | Inpatient (IN) | END 2017-12-24 15:35 | disposition home or self-care (01) | DRG 313 ==

== ENCOUNTER 2018-01-01 11:48 | Inpatient (IN) | END 2018-01-09 12:25 | disposition home health service (06) | DRG 674 ==

== ENCOUNTER 2019-05-27 16:17 | Day surgery (SDC) | payer MEDICAID, MEDICARE, OTHER ==
[~2019-05-27] VITALS: Ht 177.8 cm; Wt 84.3 kg
[2019-05-27] VITALS (8 sets, daily range): BP systolic 113–128; BP diastolic 52–71; PULSE 80–83; RESP 18–48; Ht 177.8 cm; Wt 84.3 kg
[~2019-05-27 16:17] MED LIST changes: +ACET325T45 PO; +ALBU18HF INHALATION; +APIX2.5T PO; +ASPI-535 PO; -ASPI-664 PO; +ASPI-817 PO; +ATOR-2 PO; -ATOR80TA75 PO; +BISA10SU81 RC; +BUME2TAB4 PO; -CALC0.2511 PO; +CALC0.255 PO; +CLON-379 PO; +DIPH25CA47 PO; +DOCU-144 PO; +DOCU-159 PO; +DOCU-210 ORAL; +DULO30CA48 PO; -FURO20TA3 PO; +FURO40TA4 PO; +GABA100C14 ORAL; +HEPA500021 SQ; +HYDR2TAB36 PO; +INSU100C SQ; +INSU100I33 SC; +LACT10PA3 PO; +LACTINEX PO; +LORA-441 PO; -LORA1TAB PO; +MAGN400O19 PO; +METH10SO PO; +METO-429 PO; +NIFE60TA18 PO; +NIFE60TA24 PO; +NITR0.4T32 ORAL; +NITR0.4T32 SL; -SODI650T PO; +TUBE5VIA3 ID; +VANC1VIA2 IV
[2019-05-27] MEDS ORDERED: LIDOCAINE 2% (SDV) 5 ML INJ ONE (18:35)
[2019-05-27] MEDS ORDERED: PROPOFOL 60 ML ONE (18:35)
== END 2019-05-27 20:26 ==
LOC: GIL 16:17
PROVIDERS: ATTEND Internal Medicine Gastroenterology
DX: D12.3 Benign neoplasm of transverse colon (principal); I10 Essential (primary) hypertension; I25.10 Atherosclerotic heart disease of native coronary artery without angina pectoris; E11.9 Type 2 diabetes mellitus without complications; J44.9 Chronic obstructive pulmonary disease, unspecified; E78.5 Hyperlipidemia, unspecified; Z79.82 Long term (current) use of aspirin; Z79.4 Long term (current) use of insulin
CPT/HCPCS: 87075; 88305